=== PATIENT | male | born 1945 | race Caucasian/White ===

== ENCOUNTER → 2016-11-24 | Outpatient (CLI) | payer BC, OTHER ==
[~2016-11-24] MED LIST: ALT10 PO; ASPEC81 PO; CLC100 PO; CRD200 PO; DOCU1TAB6 PO; HYDR-5688 PO; HYG/25 PO; METO1TAB66 PO; MGNO400 PO; MULT-506 PO; MYL80 PO; OMEP20TA PO; OMEP40CA PO; ONDA8TAB6 PO; POTA1POW PO; POTA20TA16 PO; PROC1TAB5 PO; RXC5 PO; SIME80CH40 PO; TPRSR50 PO; TRAM-10 PO; ULT50X PO; simethicone
[2016-11-24 13:27] LABS: BASO % 0.3 %; BASO ABS # 0.02 K/uL (0-0.2); COMPLETE YES; EOS % 0.9 %; HEMATOCRIT 40.8 % (42-52); IG% 0.9 %; LYMPH % 7.2 %; LYMPH ABS # 0.47 K/uL (1.2-3.4); MEAN CELL VOLUME 89.9 fL (80-100); MEAN CORPUSCULAR HEMOGLOBIN 30.6 pg (25-34); MEAN CORPUSCULAR HGB CONC 34.1 g/dl (32-36); MEAN PLATELET VOLUME 10.9 fL (7.4-10.4); MONO % 4.1 %; NEUT % 86.6 %; PLATELET COUNT 223 K/uL (130-400); RED BLOOD COUNT 4.54 M/uL (4.7-6.1); WHITE BLOOD COUNT 6.52 K/uL (4.8-10.8)
[2016-11-24 13:35] LABS: ALT/SGPT 22 U/L (12-78); BLOOD UREA NITROGEN 19 mg/dl (7-18); BUN/CREATININE RATIO 16.9 (10-20); CALCIUM 8.6 mg/dl (8.5-10.1); CARBON DIOXIDE 30 mmol/L (21-32); CHLORIDE 96 mmol/L (98-107); GLUCOSE 191 mg/dl (70-99); POTASSIUM 3.4 mmol/L (3.5-5.1); SODIUM 135 mmol/L (136-145)
[2016-11-24 13:38] LABS: ALB/GLOB RATIO 0.8 (0.9-2); ALKALINE PHOSPHATASE 67 U/L (45-117); AST/SGOT 15 U/L (15-37)
[2016-11-25 11:49] LABS: MAGNESIUM 1.9 mg/dl (1.8-2.4)
== END | disposition home or self-care (01) ==
LOC: C.LABMFLN 09:24
PROVIDERS: ATTEND Internal Medicine Hematology & Oncology
DX: C16.0 Malignant neoplasm of cardia (principal)

== ENCOUNTER → 2016-12-01 | Outpatient (CLI) | payer BC, OTHER ==
[2016-12-01 18:14] LABS: BASO % 0.3 %; BASO ABS # 0.02 K/uL (0-0.2); COMPLETE YES; EOS % 1.3 %; IG% 0.6 %; LYMPH % 8.1 %; MEAN CELL VOLUME 90.1 fL (80-100); MEAN CORPUSCULAR HGB CONC 35.5 g/dl (32-36); MEAN PLATELET VOLUME 10.6 fL (7.4-10.4); MONO % 7.1 %; NEUT % 82.6 %; PLATELET COUNT 210 K/uL (130-400); RED BLOOD COUNT 4.44 M/uL (4.7-6.1); WHITE BLOOD COUNT 6.21 K/uL (4.8-10.8)
[2016-12-01 18:16] LABS: ALT/SGPT 24 U/L (12-78); AST/SGOT 12 U/L (15-37); BLOOD UREA NITROGEN 21 mg/dl (7-18); BUN/CREATININE RATIO 19.3 (10-20); CALCIUM 8.7 mg/dl (8.5-10.1); CARBON DIOXIDE 30 mmol/L (21-32); CHLORIDE 98 mmol/L (98-107); GLUCOSE 140 mg/dl (70-99); POTASSIUM 3.7 mmol/L (3.5-5.1); SODIUM 136 mmol/L (136-145)
[2016-12-01 18:18] LABS: ALKALINE PHOSPHATASE 69 U/L (45-117)
== END | disposition home or self-care (01) ==
LOC: C.LAB 15:13
PROVIDERS: ATTEND Internal Medicine Hematology & Oncology
DX: C16.0 Malignant neoplasm of cardia (principal)

== ENCOUNTER → 2017-01-12 | Outpatient (CLI) | payer BC, OTHER ==
[2017-01-12 13:16] LABS: BASO % 0.5 %; BASO ABS # 0.03 K/uL (0-0.2); COMPLETE YES; EOS % 4.5 %; HEMATOCRIT 34.6 % (42-52); IG% 0.4 %; LYMPH % 13.4 %; LYMPH ABS # 0.74 K/uL (1.2-3.4); MEAN CELL VOLUME 89.2 fL (80-100); MEAN CORPUSCULAR HEMOGLOBIN 31.4 pg (25-34); MEAN CORPUSCULAR HGB CONC 35.3 g/dl (32-36); MEAN PLATELET VOLUME 9.9 fL (7.4-10.4); MONO % 10.1 %; NEUT % 71.1 %; PLATELET COUNT 172 K/uL (130-400); RED BLOOD COUNT 3.88 M/uL (4.7-6.1); WHITE BLOOD COUNT 5.54 K/uL (4.8-10.8)
[2017-01-12 16:12] LABS: ALT/SGPT 25 U/L (12-78); AST/SGOT 21 U/L (15-37); BLOOD UREA NITROGEN 37 mg/dl (7-18); BUN/CREATININE RATIO 14.2 (10-20); CALCIUM 8.7 mg/dl (8.5-10.1); CARBON DIOXIDE 26 mmol/L (21-32); CHLORIDE 101 mmol/L (98-107); GLUCOSE 104 mg/dl (70-99); POTASSIUM 3.5 mmol/L (3.5-5.1); SODIUM 139 mmol/L (136-145)
[2017-01-12 16:18] LABS: ALB/GLOB RATIO 0.7 (0.9-2); ALKALINE PHOSPHATASE 67 U/L (45-117)
== END | disposition home or self-care (01) ==
LOC: C.LABMFLN 08:42
PROVIDERS: ATTEND Nurse Practitioner Family
DX: C16.0 Malignant neoplasm of cardia (principal)

== ENCOUNTER → 2017-01-14 | Outpatient (CLI) | payer BC, OTHER ==
[2017-01-14 17:51] LABS: BASO % 0.5 %; BASO ABS # 0.03 K/uL (0-0.2); COMPLETE YES; EOS % 3.3 %; HEMATOCRIT 33.7 % (42-52); IG% 0.2 %; LYMPH % 5.3 %; LYMPH ABS # 0.32 K/uL (1.2-3.4); MEAN CELL VOLUME 90.1 fL (80-100); MEAN CORPUSCULAR HEMOGLOBIN 31.3 pg (25-34); MEAN CORPUSCULAR HGB CONC 34.7 g/dl (32-36); MEAN PLATELET VOLUME 9.7 fL (7.4-10.4); MONO % 14.7 %; PLATELET COUNT 181 K/uL (130-400); RED BLOOD COUNT 3.74 M/uL (4.7-6.1); WHITE BLOOD COUNT 5.99 K/uL (4.8-10.8)
[2017-01-14 19:25] LABS: ALT/SGPT 25 U/L (12-78); AST/SGOT 18 U/L (15-37); BLOOD UREA NITROGEN 31 mg/dl (7-18); BUN/CREATININE RATIO 15.6 (10-20); CALCIUM 8.5 mg/dl (8.5-10.1); CARBON DIOXIDE 29 mmol/L (21-32); CHLORIDE 100 mmol/L (98-107); GLUCOSE 62 mg/dl (70-99); POTASSIUM 3.2 mmol/L (3.5-5.1); SODIUM 139 mmol/L (136-145)
[2017-01-14 19:28] LABS: ALB/GLOB RATIO 0.8 (0.9-2); ALKALINE PHOSPHATASE 64 U/L (45-117)
== END | disposition home or self-care (01) ==
LOC: C.LABMFLN 08:55
PROVIDERS: ATTEND Internal Medicine Hematology & Oncology
DX: C16.0 Malignant neoplasm of cardia (principal)

== ENCOUNTER → 2017-02-06 | Outpatient (CLI) | payer BC, OTHER ==
[~2017-02-06] MED LIST changes: +METO-452 PO; -METO1TAB66 PO; +MRLP17 PO; +MRN5 PO
[2017-02-06 09:18] VITALS: BP 111/74; PULSE 88; TEMP 36.5; O2SAT 96
--- NOTE | 2017-02-06 10:35 | Radiation Oncology Follow-Up ---
Radiation Oncology Follow-Up Date of Visit Feb 06, 2017. (Neris Lopez PA-C) Reason For Visit One-month follow-up in cancer survivorship care plan (Neris Lopez PA-C) Radiation Completion Date 12/26/16 (Neris Lopez PA-C) Diagnosis (1) Esophageal adenocarcinoma Status: Acute Onset Date: 10/06/2016 Location: distal Histology Subtype: adenocarcinoma Stage: ll Permanent Comment: Dysphagia Status post upper GI endoscopy with biopsies revealing adenocarcinoma 10/06/[address] with clinical staging at [place] N1 M0 Status post biopsy of paraesophageal lymph node revealing metastatic adenocarcinoma 10/29/2016 Status post combined radiation and chemotherapy, radiation completed 12/26/2016 received 5040 cGy Last Edited By: Neris Lopez on Jan 08, 2017 11:10 (Neris Lopez PA-C) History of Present Illness Mr. Uribe is a 71-year-old male who presented with difficulty swallowing starting in late July or early August. The patient had decided that he wanted to lose weight starting in November of this year. He was successful in this endeavor and had lost up to 50 pounds. With the difficulty swallowing he ultimately contacted his PCP Dr. Vinny Santa who immediately sent him to see Dr. Overton. An upper GI endoscopy was performed on 10/06/2016. This unfortunately revealed a large, ulcerating mass with bleeding identified at the gastroesophageal junction. The mass was partially obstructing and circumferential in nature. Stomach and examined duodenum were normal. Biopsies were recommended and performed. This biopsy confirmed a poorly differentiated adenocarcinoma. HER-2/josé miguel overexpression was negative. The tissue was sent for FISH analysis and tumor cells were negative for HER-2/josé miguel amplification by FISH also confirming the negative results obtained by IHC. Case: [id number]. Staging procedures were ordered and performed on October 08. These included a CT scan of the chest with contrast and CT scan of the abdomen and pelvis. CT scan of chest showed thickening at the extreme distal aspect of the esophagus and GE junction as well as the medial aspect of the fundal greater curvature of the stomach. The maximum dimension was 5.5 x 3.2 cm. The distal esophagus had a maximum diameter 3.1 cm. Several nodes were identified immediately adjacent to the gastric fundal region medially as well as posteriorly measuring up to 2.0 cm. There were several celiac axis nodes as well as several smaller nodes medially and posteriorly to the gastric cardia. The remainder of the chest was negative. CT scan of the abdomen and pelvis showed a masslike thickening of the distal esophagus measuring up to 4.5 cm in diameter. The abnormal thickening extended into the GE junction and proximal stomach. Multiple enlarged and partially necrotic gastrohepatic and proximal perigastric lymph nodes were identified. The dominant lymph node measured 2.2 cm and was consistent with metastatic disease. A stable 1 cm hypodense lesion was noted within the left hepatic lobe which was felt to be likely benign. A few additional scattered subcentimeter hypodense lesions were noted within the liver that are technically indeterminate due to their size. Some of these however new compared to a prior study with the largest new lesion measuring 6 mm within the right hepatic lobe. Multiple bilateral renal hypodense lesions are noted favoring cysts. The dominant lesion was seen within the left kidney measuring 2.2 cm. An infrarenal abdominal aorta measuring up to 3.5 cm in diameter. The patient was scheduled to be seen by Dr. Joseph on 10/15/2016. He arranged for the patient to be seen by Dr. Ayala. He suggested additional procedures to evaluate extent of the disease. Dr. Joseph also recommended consideration of a PET/CT scan which has not yet been scheduled but is in process. These are scheduled for tomorrow October 29. The biopsy on October 29 revealed metastatic adenocarcinoma in a paraesophageal lymph node. He returned to our office and underwent a CT simulation and received combined radiation and chemotherapy. Chemotherapy was comprised of weekly Taxol carboplatin. Radiation was completed 12/26/2016. He received 5040 cGy. (Neris Lopez PA-C) Interim History Please been doing well over this past month. He did go on his schedule cruise. He did have fatigue. He required IV hydration following his cruise. He has had minimal dysphagia. He has found that the bony food that causes some discomfort with swallowing is peanut butter and banana sandwiches. If he drinks plenty of fluid he does not have difficulty. His energy levels have steadily improved. He did not develop any skin irritation of the anterior posterior chest. His appetite is good. He did have additional weight loss since the completion of treatment approximately 6 pounds.. He is currently scheduled for a CT on July 12. He'll then be following up with in regards to his future surgery. (Neris Lopez PA-C) Allergies Coded Allergies: Adhesives (Unverified Allergy, Unknown, TAPE-RED ITCHY WITH SOME TAPE, 10/29/16) NO KNOWN DRUG ALLERGIES (Unverified Allergy, Unknown, NONE, 10/29/16) Home Medications Scheduled Chlorthalidone (Hygroton), 25 MG PO QAM Multivitamin (Multivitamin), 1 TAB PO QAM Omeprazole (Prilosec), 40 MG PO QAM Ramipril (Altace *), 10 MG PO QAM Scheduled PRN Ondansetron Hcl (Zofran), 8 MG PO Q8 PRN for Nausea Review of Systems Gastrointestinal: Symptoms: WNL GI Comments: Has antiemetic to use PRN, but not using; Oral: Symptoms: No Problems Other Oral Symptoms: Denies any trouble swallow, no pain in esophagus, can eat anything he wants Respiratory: Symptoms: WNL Urinary: Symptoms: WNL Skin: Symptoms: No Problems (Neris Lopez PA-C) Physical Exam Vital Signs Date Time Temp Pulse Resp B/P Pulse Ox O2 Delivery O2 Flow Rate FiO2 02/06/17 09:18 36.5 88 12 111/74 96 Fatigue: None General Appearance: no apparent distress Eyes: normal inspection, EOMI ENT: normal ENT inspection, hearing grossly normal Neck: no adenopathy, thyroid normal Respiratory/Chest: lungs clear, no respiratory distress, no accessory muscle use Cardiovascular: regular rate, rhythm, no gallop, no murmur Abdomen: non tender, soft Extremities: no pedal edema Neurologic/Psychiatric: no motor/sensory deficits, alert, normal mood/affect Skin: warm/dry Lymphatic: no adenopathy (Neris Lopez PA-C) Laboratory Studies Test 11/24/16 10:14 01/12/17 08:52 01/13/17 12:50 01/14/17 16:29 Magnesium Level 1.9 mg/dl (1.8-2.4) Lactate Dehydrogenase 161 U/L (87-241) 148 U/L (87-241) Urine Color YELLOW Urine Appearance CLEAR (CLEAR) Urine pH 5.5 (4.5-7.5) Urine Specific [place] 1.016 (1.000-1.030) Urine Protein TRACE (NEG) Urine Glucose (UA) NEG (NEG) Urine Ketones NEG (NEG) Urine Occult Blood NEG (NEG) Urine Nitrite NEG (NEG) Urine Bilirubin NEG (NEG) Urine Urobilinogen NEG (NEG) Urine Leukocyte Esterase SMALL (NEG) Urine WBC (Auto) 10-30 /hpf (0-5) Urine RBC (Auto) 0-4 /hpf (0-4) Urine Hyaline Casts (Auto) 5-10 /lpf (0-5) Urine Epithelial Cells (Auto) >30 /lpf (0-5) Urine Bacteria (Auto) NEG (NEG) Urine Renal Epithelial Cells /lpf (0-5) White Blood Count 5.99 K/uL (4.8-10.8) Red Blood Count 3.74 M/uL (4.7-6.1) Hemoglobin 11.7 g/dL (14.0-18.0) Hematocrit 33.7 % (42-52) Mean Corpuscular Volume 90.1 fL (80-100) Mean Corpuscular Hemoglobin 31.3 pg (25-34) Mean Corpuscular Hemoglobin Concent 34.7 g/dl (32-36) Platelet Count 181 K/uL (130-400) Mean Platelet Volume 9.7 fL (7.4-10.4) Neutrophils (%) (Auto) 76.0 % Lymphocytes (%) (Auto) 5.3 % Monocytes (%) (Auto) 14.7 % Eosinophils (%) (Auto) 3.3 % Basophils (%) (Auto) 0.5 % Neutrophils # (Auto) 4.55 K/uL (1.4-6.5) Lymphocytes # (Auto) 0.32 K/uL (1.2-3.4) Monocytes # (Auto) 0.88 K/uL (0.11-0.59) Eosinophils # (Auto) 0.20 K/uL (0-0.5) Basophils # (Auto) 0.03 K/uL (0-0.2) RDW Standard Deviation 51.5 fL (36.4-46.3) RDW Coefficient of Variation 15.7 % (11.5-14.5) Immature Granulocyte % (Auto) 0.2 % Immature Granulocyte # (Auto) 0.01 K/uL (0.00-0.02) Sodium Level 139 mmol/L (136-145) Potassium Level 3.2 mmol/L (3.5-5.1) Chloride Level 100 mmol/L (98-107) Carbon Dioxide Level 29 mmol/L (21-32) Anion Gap 10.0 mmol/L (3-11) Blood Urea Nitrogen 31 mg/dl (7-18) Creatinine 2.00 mg/dl (0.60-1.40) Estimated GFR () 37.3 Estimated GFR (Non- 32.2 BUN/Creatinine Ratio 15.6 (10-20) Random Glucose 62 mg/dl (70-99) Calcium Level 8.5 mg/dl (8.5-10.1) Total Bilirubin 0.3 mg/dl (0.2-1) Aspartate Amino Transferase (AST) 18 U/L (15-37) Alanine Aminotransferase (ALT) 25 U/L (12-78) Alkaline Phosphatase 64 U/L (45-117) Total Protein 6.3 gm/dl (6.4-8.2) Albumin 2.8 gm/dl (3.4-5.0) Globulin 3.5 gm/dl (2.5-4.0) Albumin/Globulin Ratio 0.8 (0.9-2) Test 01/20/17 10:11 White Blood Count 5.59 K/uL (4.8-10.8) Red Blood Count 3.76 M/uL (4.7-6.1) Hemoglobin 12.1 g/dL (14.0-18.0) Hematocrit 34.6 % (42-52) Mean Corpuscular Volume 92.0 fL (80-100) Mean Corpuscular Hemoglobin 32.2 pg (25-34) Mean Corpuscular Hemoglobin Concent 35.0 g/dl (32-36) Platelet Count 156 K/uL (130-400) Mean Platelet Volume 9.4 fL (7.4-10.4) Neutrophils (%) (Auto) 76.3 % Lymphocytes (%) (Auto) 15.9 % Monocytes (%) (Auto) 3.6 % Eosinophils (%) (Auto) 3.6 % Basophils (%) (Auto) 0.4 % Neutrophils # (Auto) 4.27 K/uL (1.4-6.5) Lymphocytes # (Auto) 0.89 K/uL (1.2-3.4) Monocytes # (Auto) 0.20 K/uL (0.11-0.59) Eosinophils # (Auto) 0.20 K/uL (0-0.5) Basophils # (Auto) 0.02 K/uL (0-0.2) RDW Standard Deviation 53.1 fL (36.4-46.3) RDW Coefficient of Variation 15.9 % (11.5-14.5) Immature Granulocyte % (Auto) 0.2 % Immature Granulocyte # (Auto) 0.01 K/uL (0.00-0.02) Sodium Level 142 mmol/L (136-145) Potassium Level 3.2 mmol/L (3.5-5.1) Chloride Level 102 mmol/L (98-107) Carbon Dioxide Level 32 mmol/L (21-32) Anion Gap 8.0 mmol/L (3-11) Blood Urea Nitrogen 23 mg/dl (7-18) Creatinine 1.60 mg/dl (0.60-1.40) Estimated GFR () 48.8 Estimated GFR (Non- 42.1 BUN/Creatinine Ratio 14.5 (10-20) Random Glucose 109 mg/dl (70-99) Calcium Level 8.7 mg/dl (8.5-10.1) Total Bilirubin 0.5 mg/dl (0.2-1) Aspartate Amino Transferase (AST) 16 U/L (15-37) Alanine Aminotransferase (ALT) 22 U/L (12-78) Alkaline Phosphatase 76 U/L (45-117) Total Protein 6.5 gm/dl (6.4-8.2) Albumin 2.8 gm/dl (3.4-5.0) Globulin 3.7 gm/dl (2.5-4.0) Albumin/Globulin Ratio 0.8 (0.9-2) (Neris Lopez PA-C) Assessment & Plan Plan: Patient was seen and examined by Dr. Olea. He'll be having the CT scan on Thursday and following up with the thoracic surgeon. Today we completed a cancer survivorship care plan. A copy of the document was given to the patient. He was also given a survivorship booklet. We will review the results of the CT scan. We asked him to return to our office in 6 months. He may call if he has any questions or concerns in the interim. He'll continue regular follow-up with his PCP and Dr. Joseph. (Neris Lopez PA-C) I agree with note created by Neris Lopez PA-C. I reviewed the patient's chart and information with her. I have examined and evaluated the patient. I reviewed relevant clinical information and answered the patient's and/or family' s questions. (Veeral. Olea MD) Total Time In Follow-Up I spent 20 minutes speaking to the patient performing examination. I spent 20 minutes reviewing information, preparing the survivorship document, and completing this note. (Neris Lopez PA-C) I spent 10 minutes examining and counseling the patient. (Veeral. Olea MD) Copy To Vinny Santa M.D.; Jeffery Joseph MD; Colin Stallworth MD
== END | disposition home or self-care (01) ==
LOC: C.ONC 09:09
PROVIDERS: ATTEND Physician Assistant Medical
DX: Z08 Encounter for follow-up examination after completed treatment for malignant neoplasm (principal); Z92.3 Personal history of irradiation; Z85.01 Personal history of malignant neoplasm of esophagus

== ENCOUNTER → 2017-02-09 | Outpatient (CLI) | payer BC, OTHER ==
[~2017-02-09] MED LIST changes: -METO-452 PO; +METO1TAB66 PO; -MRLP17 PO; -MRN5 PO; -POTA1POW PO
[2017-02-09 18:42] LABS: BASO % 0.2 %; BASO ABS # 0.01 K/uL (0-0.2); COMPLETE YES; HEMATOCRIT 32.5 % (42-52); IG% 0.2 %; LYMPH % 7.6 %; LYMPH ABS # 0.41 K/uL (1.2-3.4); MEAN CELL VOLUME 96.2 fL (80-100); MEAN CORPUSCULAR HEMOGLOBIN 32.2 pg (25-34); MEAN CORPUSCULAR HGB CONC 33.5 g/dl (32-36); MEAN PLATELET VOLUME 10.1 fL (7.4-10.4); MONO % 14.4 %; NEUT % 75.6 %; PLATELET COUNT 185 K/uL (130-400); RED BLOOD COUNT 3.38 M/uL (4.7-6.1); WHITE BLOOD COUNT 5.41 K/uL (4.8-10.8)
[2017-02-09 18:45] LABS: BLOOD UREA NITROGEN 19 mg/dl (7-18); BUN/CREATININE RATIO 12.5 (10-20); CALCIUM 8.8 mg/dl (8.5-10.1); CARBON DIOXIDE 32 mmol/L (21-32); CHLORIDE 103 mmol/L (98-107); GLUCOSE 80 mg/dl (70-99); POTASSIUM 3.9 mmol/L (3.5-5.1); SODIUM 141 mmol/L (136-145)
[2017-02-09 18:48] LABS: ALB/GLOB RATIO 0.8 (0.9-2); ALKALINE PHOSPHATASE 80 U/L (45-117); ALT/SGPT 19 U/L (12-78); AST/SGOT 17 U/L (15-37)
== END | disposition home or self-care (01) ==
LOC: C.LABMFLN 14:15
PROVIDERS: ATTEND Internal Medicine Hematology & Oncology
DX: C16.0 Malignant neoplasm of cardia (principal)

== ENCOUNTER → 2017-02-09 | Outpatient (CLI) | payer BC, OTHER ==
[~2017-02-09] MED LIST changes: +OPTIRAY 320 IV PRN
--- NOTE | 2017-02-09 09:37 | DIAGNOSTIC IMAGING REPORT ---
CT SCAN OF THE CHEST WITH IV CONTRAST CLINICAL HISTORY: Pulmonary nodule. Esophageal cancer. COMPARISON STUDY: Chest CT scans dated 10/08/2016 and 01/12/2009. PET CT dated 11/12/2016. TECHNIQUE: Following the IV administration of 120 cc of Optiray 320, CT scan of the thorax was performed from the thoracic inlet to the upper abdomen. Images are reviewed in the axial, sagittal, and coronal planes. IV contrast was administered without complication. CT DOSE: 420.59 mGycm FINDINGS: Thyroid: Imaged portions of the thyroid gland are normal in size and attenuation. Thoracic aorta: There is atherosclerotic calcification of the thoracic aorta, which is normal in caliber and demonstrates standard 3-vessel arch anatomy. No dissection is seen. Pulmonary vasculature: The pulmonary trunk is normal in caliber. There are no filling defects identified in the central pulmonary vessels to indicate pulmonary embolus. Note that this examination was not protocoled for evaluation of the pulmonary arteries. Heart: The heart is normal in size and configuration, and without pericardial effusion. The coronary arteries are densely calcified. Lungs and pleural spaces: Evaluation of the lung parenchyma is degraded by motion artifact. There is moderate emphysema end biapical scarring. No airspace consolidation is seen typical for pneumonia and there is no pleural effusion. The trachea and central airways are clear. There is mild elevation of the right hemidiaphragm with right basilar atelectasis. There is a 6 mm right lower lobe pulmonary nodule on image #128 and a 5 mm left lower lobe pulmonary nodule on image #241. These are unchanged dating back to 2008 and of doubtful significance. No new or concerning pulmonary lesion is seen. Mediastinum: There is no mediastinal lymphadenopathy. Nuris: Clear. Axillae: There is no axillary lymphadenopathy. Upper abdomen: There is a moderate hiatal hernia. Wall thickening suggested at the gastroesophageal junction. There are enlarging low attenuation. Perigastric and gastrohepatic lymph nodes as compared to 10/08/2016. Subcentimeter hepatic hypodensities marrow present cysts but are too small for definitive characterization. Skeletal structures: The skeletal structures are osteopenic. There is mild degenerative change noted throughout the thoracic spine. No lytic or blastic bony lesions are seen. IMPRESSION: 1. Emphysema. 2. There is no evidence of intrathoracic metastatic disease. 3. No airspace consolidation or pleural effusion is evident. 4. There are 2 pulmonary nodules measuring up to 6 mm. These are unchanged dating back to 2008 and of doubtful significance. No new/concerning pulmonary lesion is seen. 5. Hiatal hernia. Marked wall thickening is suggested in the distal esophagus/proximal stomach. This is likely related to the patient's known cancer history. This appears to have increased as compared to the 11/12/2016 PET examination, which could represent disease progression or possibly treatment related change. 6. Enlarging low-density perigastric and gastrohepatic lymph nodes as compared to 11/12/2016. Again, this could represent disease progression or possibly treatment related change. Electronically signed by: Terell Diza M.D. 02/09/2017 9:35 AM Dictated Date/Time: 02/09/2017 9:24 AM
== END | disposition home or self-care (01) ==
LOC: C.CTS 08:17
PROVIDERS: ATTEND Surgery
DX: R91.1 Solitary pulmonary nodule (principal); J43.9 Emphysema, unspecified; K44.9 Diaphragmatic hernia without obstruction or gangrene; C16.0 Malignant neoplasm of cardia

== ENCOUNTER 2017-03-09 05:20 | Inpatient (IN) | payer BC, OTHER ==
[2017-02-24 15:13] VITALS: BMI 27.0
[2017-03-04 10:08] VITALS: BMI 26.0
--- NOTE | 2017-03-04 10:32 | PAT Medication Instructions ---
Service Date Mar 04, 2017. Current Home Medication List Chlorthalidone (Hygroton), 25 MG PO QAM Multivitamin (Multivitamin), 1 TAB PO QAM Omeprazole (Prilosec), 40 MG PO HS Ondansetron Hcl (Zofran), 8 MG PO Q8H PRN for Nausea Ramipril (Altace *), 10 MG PO QAM Medication Instructions For Your Scheduled Surgery - Hold the following medications the morning of surgery: Ramipril (Altace *), 10 MG PO QAM Chlorthalidone (Hygroton), 25 MG PO QAM Multivitamin (Multivitamin), 1 TAB PO QAM - Take the following medications the morning of surgery with a sip of water OTHERWISE NOTHING TO EAT OR DRINK AFTER MIDNIGHT: Omeprazole (Prilosec), 40 MG PO HS Ondansetron Hcl (Zofran), 8 MG PO Q8H PRN (IF NEEDED) If you have any questions please call us at [phone] or [phone] or [phone]
[2017-03-09] VITALS (9 sets, daily range): BP systolic 107–190; BP diastolic 66–109; PULSE 67–111; TEMP 36.3–39.3; O2SAT 90–93; Ht 175.3 cm; Wt 81.4 kg
[~2017-03-09] VITALS: Ht 175.3 cm; Wt 81.4 kg
[~2017-03-09 05:20] MED LIST changes: -ASPEC81 PO; -CLC100 PO; -CRD200 PO; -DOCU1TAB6 PO; -HYDR-5688 PO; -METO1TAB66 PO; -MGNO400 PO; -MYL80 PO; -OMEP20TA PO; -OPTIRAY 320 IV PRN; -POTA20TA16 PO; -PROC1TAB5 PO; -RXC5 PO; -SIME80CH40 PO; -TPRSR50 PO; -TRAM-10 PO; -ULT50X PO; -simethicone
[2017-03-09] MEDS: LACTATED RINGER'S 1000ML 1,000 ML IV SCH ×2 (06:00→06:30)
[2017-03-09] MEDS ORDERED: DEXAMETHASONE SOD INJ 4 MG/ML VIAL ONE (06:46)
[2017-03-09] MEDS ORDERED: ONDANSETRON INJ 2 MG/ML 2 ML VIAL ONE (06:46)
[2017-03-09] MEDS ORDERED: MIDAZOLAM HCL 1 MG/ML 2ML VIAL ONE (06:46)
[2017-03-09] MEDS ORDERED: LIDOCAINE HCL 2% 2 ML VIAL (20MG/ML) ONE (06:46)
[2017-03-09] MEDS ORDERED: ROCURONIUM BROMIDE 10 MG/ML 5 ML VIAL ONE (06:46)
[2017-03-09] MEDS ORDERED: PROPOFOL IV EMULSION 10 MG/ML 20 ML VIAL IV ONE (06:46)
[2017-03-09] MEDS ORDERED: GLYCOPYRROLATE INJ 0.2 MG/ML VIAL ONE (06:46)
[2017-03-09] MEDS ORDERED: NEOSTIGMINE METHYLSULFATE 5 MG/5 ML SYR ONE (06:46)
[2017-03-09] MEDS ORDERED: FENTANYL CITRATE INJ 50 MCG/1 ML 2 ML VIAL ONE (06:46)
[2017-03-09] MEDS ORDERED: BUPIVACAINE LIPOSOME 1/3% 266 MG/20 ML VIAL INFIL ONE (07:09)
[2017-03-09] MEDS ORDERED: SODIUM CHLORIDE 0.9% INJ 10 ML VIAL ONE (07:10)
[2017-03-09] MEDS ORDERED: SODIUM CHLORIDE 0.9% PF 50 ML VIAL ONE (07:10)
--- NOTE | 2017-03-09 07:35 | DIAGNOSTIC IMAGING REPORT ---
CHEST ONE VIEW PORTABLE HISTORY: PRE-OP HAS FEVER COMPARISON: Chest 10/14/2014. FINDINGS: Elevation of the right hemidiaphragm. Mild emphysema. The heart is normal in size. No focal lung consolidations to suggest pneumonia. No evidence for pulmonary edema. No pleural effusions. No pneumothorax. IMPRESSION: Elevation of the right hemidiaphragm. Mild emphysema. Electronically signed by: Sean Cesar M.D. 03/09/2017 7:33 AM Dictated Date/Time: 03/09/2017 7:32 AM
[2017-03-09 07:54] LABS: MEAN CELL VOLUME 95.7 fL (80-100); MEAN CORPUSCULAR HEMOGLOBIN 33.5 pg (25-34); MEAN PLATELET VOLUME 9.7 fL (7.4-10.4); PLATELET COUNT 173 K/uL (130-400); RED BLOOD COUNT 3.76 M/uL (4.7-6.1); WHITE BLOOD COUNT 12.09 K/uL (4.8-10.8)
[2017-03-09] MEDS ORDERED: ONDANSETRON INJ 2 MG/ML 2 ML VIAL IV PRN (08:15)
[2017-03-09 08:18] LABS: BASO % 0.1 %; BASO ABS # 0.01 K/uL (0-0.2); COMPLETE YES; EOS % 0.3 %; IG% 0.2 %; LYMPH % 2.8 %; LYMPH ABS # 0.34 K/uL (1.2-3.4); MONO % 3.6 %
[2017-03-09 09:11] LABS: URINE APPEARANCE CLEAR (CLEAR); URINE BILIRUBIN NEG (NEG); URINE COLOR YELLOW; URINE NITRITE NEG (NEG); UROBILINOGEN NEG (NEG)
[2017-03-09 09:20] LABS: MANUAL MICROSCOPIC REQUIRED? NO; REVIEW REQ? YES
[2017-03-09] MEDS: SODIUM CHLORIDE 0.9% 1000ML 1,000 ML IV SCH ×2 (10:36→21:04)
--- NOTE | 2017-03-09 10:44 | HISTORY & PHYSICAL EXAMINATION ---
DATE OF ADMISSION: 03/09/2017 REASON FOR ADMISSION: Fever of unknown origin in a patient with esophageal cancer. HISTORY OF PRESENT ILLNESS: Vinny Uribe is a 71-year-old male who was found to have adenocarcinoma at the gastroesophageal junction underwent neoadjuvant chemoradiation under the direction of Dr. Jeffery Joseph and Dr. Jessica Olea. He has actually done quite well with this and I have him readied for a minimally invasive esophagogastrectomy today 03/09/2017. Getting the patient ready for surgery. He states that he had been fine; however, the patient was noted to have a fever. His temperature was 39.3. He denied productive cough. He has had no problems with urine. When he got up to walk he was a bit ataxic and then had difficulties controlling his urine, which he states has never happened. I am concerned about him. I discussed this case with Dr. Spear. I am going to admit him for observation to workup his fever. We are going to get infectious disease and medical oncology to evaluate him. His x-ray showed no evidence of an infiltrate. His white count was 12,090 with a hemoglobin of 12.6, his platelet count is 173,000. He has decreased breath sounds but really no rales or wheezing upon auscultation of his lungs. He has no abdominal tenderness. He has no joint effusions. I detect no edema of the lower extremities. He has a negative Homans sign bilaterally. He denies pharyngeal symptoms and has no evidence of any pharyngitis on exam with a clear oropharynx. For specifics of his history and physical exam, please see my pre-op H & P. At this point, I am going to cancel his surgery. Dr. Spear and Dr. Aquino will see him from medical oncology and infectious disease respectively. I have sent blood cultures off and we will see how he looks tomorrow. Hopefully, we can get him rescheduled soon. BJ
[2017-03-09] MEDS: ACETAMINOPHEN 325 MG TAB PO PRN ×2 (10:45→16:27)
[2017-03-09] MEDS: MULTIVITAMIN TAB PO SCH (11:55)
[2017-03-09] MEDS: ENALAPRIL MALEATE 10 MG TAB PO SCH (11:57)
--- NOTE | 2017-03-09 14:14 | ONCOLOGY CONSULTATION ---
DATE OF CONSULTATION: 03/09/2017 REASON FOR CONSULTATION: Low grade fever in this pleasant 71-year-old gentleman with early stage esophageal adenocarcinoma. HISTORY OF PRESENT ILLNESS: Mr. Uribe is a 71-year-old gentleman well known to [facility], recently diagnosed with early stage (IIB) adenocarcinoma of the distal esophagus. He is currently under Dr. Joseph's care and was sent to Dr. Colin Stallworth for esophagectomy. I received a call from Dr. Stallworth this morning poised to perform procedure when Mr. Uribe developed a low grade fever. On repeat temperature, 39.3 was measured. He denies any other symptoms otherwise including dysuria or hematuria, cough, shortness of breath, abdominal pain, diarrhea, constipation or rectal bleeding at this time. His WBC count was minimally raised with a hemoglobin 12.6 and platelet count 173,000. His auscultated exam was otherwise unremarkable. Blood and urine cultures were obtained. The patient is currently in holding pattern. PAST MEDICAL HISTORY: Again, significant for esophageal cancer and gastroesophageal reflux disease and hypertension. PAST SURGICAL HISTORY: Negative. SOCIAL HISTORY: The patient is retired and further retired from [employer]. He is a nonsmoker, nondrinker. FAMILY HISTORY: Noncontributory. MEDICATIONS: Potassium chloride ER, dose unknown; chlorthalidone, dose unknown; omeprazole, dose unknown; ramipril, dose unknown. ALLERGIES: No known drug allergies. REVIEW OF SYSTEMS: GENERAL: Positive for low grade fever, no chills or sweats. He has not been losing weight or complaining of anorexia. SKIN: No rashes or lesions. No history of dermatoses. HEENT: He denies headaches, lightheadedness or dizziness. No visual or hearing deficits. No sinus symptoms, sore throat or dysphagia. LYMPH: No history of lymphoproliferative disorder. CARDIAC: Negative for coronary artery disease, no angina or palpitations. PULMONARY: Negative for COPD. No shortness of breath, dyspnea or orthopnea. No cough or hemoptysis. GASTROINTESTINAL: Negative for abdominal pain, nausea, vomiting, diarrhea or constipation, hematochezia or melena stools. GENITOURINARY: No history of prostate disease. No hematuria, dysuria or urinary incontinence. MUSCULOSKELETAL: No arthralgias or myalgias. No muscle weakness. ENDOCRINE: Negative for thyroid disease or diabetes mellitus. NEUROLOGIC: Negative for seizure, stroke, or migraine headache. HEMATOLOGIC: Negative for anemia, thrombophilia or bleeding diathesis. PHYSICAL EXAMINATION: GENERAL: Very pleasant 71-year-old gentleman in no acute distress at this time. VITAL SIGNS: Temperature 39.2, pulse 104, respiration rate 16, blood pressure 132/80, pulse ox 92% on room air. SKIN: Warm, dry, noncyanotic without petechia, rash or ecchymosis. HEENT: Head is atraumatic, normocephalic. EYES: PERRLA, EOMI. Sclerae nonicteric. No conjunctival injection. Nares are patent without rhinorrhea or discharge. Throat is clear. Tongue is midline. Mucous membranes are moist. NECK: Supple without JVD or thyromegaly. LYMPH: No cervical, supraclavicular, axillary or inguinal palpable nodes. HEART: Regular rate and rhythm. No clicks, rubs, murmurs or gallops. LUNGS: Clear to auscultation bilaterally. ABDOMEN: Soft, nontender, nondistended, without palpable hepatosplenomegaly. EXTREMITIES: No calf tenderness or swelling. No clubbing, cyanosis or edema. NEUROLOGICAL: He is awake, alert and oriented x3. Cranial nerves II-XII are intact. No gross motor or sensory deficits noted. LABORATORY DATA: WBC count 12,090, hemoglobin 12.6, platelet count 173,000. ANC 11,230. UA - large wbc's, moderate leukocyte esterase, 1+ protein, trace occult blood. IMAGING DATA: Chest x-ray shows elevation of right hemidiaphragm and mild emphysematous changes. IMPRESSION: 1. Low grade fever, origin unknown. 2. Stage IIB adenocarcinoma of the distal esophagus. PLAN: Mr. Uribe is a very pleasant 71-year-old gentleman recently diagnosed with a relatively early stage esophageal cancer. He was admitted to undergo minimally invasive esophagectomy. I was contacted by Dr. Stallworth this morning, reporting the patient experiencing low grade fever. Appropriately, he was placed in the hospital and orellana cultured. Based on his UA an underlying urinary tract infection versus prostatitis is most likely. Will await Gram stain for confirmation. I trust medical team will start the appropriate antimicrobials as warranted. As for as surgery, I believe Dr. Stallworth wants to wait until he is medically stable. Other considerations include a tumor fever. His pulse ox is somewhat low; however, with the emphysematous changes, this may be his baseline. May want to consider CTA of the chest to rule out an occult PE. Thank you for allowing us to participate in his care. Will continue to follow him periodically during his hospital stay.
--- NOTE | 2017-03-09 15:03 | Medical Consult ---
Consultation Date of Consultation: Mar 09, 2017. Attending Physician: Colin Stallworth MD Reason for Consultation: Esophageal CA- fever History of Present Illness Patient is a 71 yo male who presented to the hospital for esophagogastrectomy by Dr. Stallworth. The patient was ready to undergo surgery when he was noted to have fever of 39.3 C. The patient states that he has been feeling well prior to admission. He has had no recent sick contacts. He denies fever at home, sweats, chills, SOB, chest pain, abdominal pain, N/V/D, urinary frequency, urgency, dysuria, or retention, lower extremity edema, calf tenderness, weakness or rashes. He did go on a cruise in December, but otherwise has not traveled recently. He has urine, sputum, and blood cultures pending. CXR showed elevation of the right hemidiaphragm and mild emphysema but otherwise no acute process. He has had some mild dry cough. Rapid flu A & B were negative. Urinalysis showed moderate leukocyte esterase, >30 WBC's, and trace occult blood but negative for bacteria. His WBC count was 12 on admission as well. Past Medical/Surgical History Adenocarcinoma at [place] s/p chemoradiation Family History Noncontributory Social History Smoking Status: Former Smoker Allergies Coded Allergies: Adhesives (Verified Allergy, Unknown, TAPE-RED ITCHY WITH SOME TAPE, ) NO KNOWN DRUG ALLERGIES (Verified Allergy, Unknown, NONE, 03/09/17) Home Medications Reported Home Medications Medications Dose Route/Sig Max Daily Dose Days Date Category Hygroton (Chlorthalidone) 25 Mg Tab 25 Mg PO QAM 02/24/17 Reported Zofran (Ondansetron HCl) 8 Mg Tab 8 Mg PO Q8H PRN 02/06/17 Reported Multivitamin (Multivitamins) Tab 1 Tab PO QAM 09/29/16 Reported Prilosec (Omeprazole) 40 Mg Capcr 40 Mg PO HS 09/29/16 Reported Altace * (Ramipril) 10 Mg Cap 10 Mg PO QAM 08/07/08 Reported Current Inpatient Medications Current Inpatient Medications Medications (Trade) Dose Ordered Sig/Bulmaro Route Start Time Stop Time Status Last Admin Dose Admin Lactated Ringer's (Lr 1000ml) 1,000 ml @ 15 mls/hr Q24H IV 03/09/17 06:00 03/10/17 05:59 03/09/17 06:30 15 MLS/HR Enoxaparin Sodium (Lovenox Inj) 40 mg DAILY SQ 03/10/17 09:00 04/09/17 08:59 Acetaminophen (Tylenol Tab) 650 mg Q4H PRN PO 03/09/17 08:15 04/08/17 08:14 03/09/17 10:45 650 MG Ondansetron HCl (Zofran Inj) 4 mg Q6H PRN IV 03/09/17 08:15 04/08/17 08:14 Multivitamins (Multivitamin Tab) 1 tab QAM PO 03/09/17 10:30 04/08/17 10:29 03/09/17 11:55 1 TAB Pantoprazole Sodium (Protonix Tab) 40 mg HS PO 03/09/17 21:00 04/08/17 20:59 Enalapril Maleate 40 mg 40 mg QAM PO 03/09/17 10:30 04/08/17 10:29 03/09/17 11:57 40 MG Sodium Chloride (Nss 1000ml) 1,000 ml @ 75 mls/hr [id number] IV 03/09/17 10:15 04/08/17 10:14 03/09/17 10:36 75 MLS/HR Review of Systems Constitutional: + fever, No chills, No sweats, No weakness Eyes: No worsening of vision ENT: No hearing loss, No sore throat Respiratory: + cough (dry), No dyspnea on exertion, No shortness of breath Cardiovascular: No chest pain Abdomen: No diarrhea, No nausea, No pain, No vomiting Musculoskeletal: No joint pain, No muscle pain, No swelling Genitourinary - Male: No dysuria, No hematuria, No urinary frequency, No urinary hesitancy, No urinary retention, No urinary urgency Integumentary: No itch, No rash Physical Exam Date Time Temp Pulse Resp B/P Pulse Ox O2 Delivery O2 Flow Rate FiO2 03/09/17 11:59 37.7 03/09/17 10:55 39.2 104 16 132/80 92 Room Air 03/09/17 10:55 Room Air 03/09/17 09:41 39.3 111 19 190/97 90 Room Air 03/09/17 09:40 Room Air 03/09/17 09:00 37.7 112 20 158/98 93 Room Air 03/09/17 06:05 37.6 109 18 157/109 93 Room Air General Appearance: WD/WN, no apparent distress Head: normocephalic, atraumatic Eyes: normal inspection, sclerae normal ENT: normal ENT inspection Neck: supple, trachea midline Respiratory/Chest: lungs clear, no respiratory distress, no accessory muscle use, + decreased breath sounds (throughout) Cardiovascular: regular rate, rhythm, no murmur Abdomen/GI: normal bowel sounds, non tender, soft Extremities/Musculoskelatal: normal inspection, no calf tenderness, no pedal edema Neurologic/Psych: alert, normal mood/affect, oriented x 3 Skin: normal color, warm/dry, no rash Laboratory Results CHEST ONE VIEW PORTABLE HISTORY: PRE-OP HAS FEVER COMPARISON: Chest 10/14/2014. FINDINGS: Elevation of the right hemidiaphragm. Mild emphysema. The heart is normal in size. No focal lung consolidations to suggest pneumonia. No evidence for pulmonary edema. No pleural effusions. No pneumothorax. IMPRESSION: Elevation of the right hemidiaphragm. Mild emphysema. Item Value Date Time Urine Culture Received 03/09/17 0845 Urine , Clean Catch Pending Gram Stain Jose Miguel Batch 03/09/17 0804 Sputum Expectorated Sputum Pending Blood Culture Received 03/09/17 0737 Blood Pending Blood Culture Received 03/09/17 0726 Blood Pending Last 24 Hours Test 03/09/17 06:01 03/09/17 07:26 03/09/17 08:45 03/09/17 13:10 Bedside Glucose 139 mg/dl White Blood Count 12.09 K/uL Red Blood Count 3.76 M/uL Hemoglobin 12.6 g/dL Hematocrit 36.0 % Mean Corpuscular Volume 95.7 fL Mean Corpuscular Hemoglobin 33.5 pg Mean Corpuscular Hemoglobin Concent 35.0 g/dl Platelet Count 173 K/uL Mean Platelet Volume 9.7 fL Neutrophils (%) (Auto) 93.0 % Lymphocytes (%) (Auto) 2.8 % Monocytes (%) (Auto) 3.6 % Eosinophils (%) (Auto) 0.3 % Basophils (%) (Auto) 0.1 % Neutrophils # (Auto) 11.23 K/uL Lymphocytes # (Auto) 0.34 K/uL Monocytes # (Auto) 0.44 K/uL Eosinophils # (Auto) 0.04 K/uL Basophils # (Auto) 0.01 K/uL RDW Standard Deviation 48.1 fL RDW Coefficient of Variation 13.7 % Immature Granulocyte % (Auto) 0.2 % Immature Granulocyte # (Auto) 0.03 K/uL Urine Color YELLOW Urine Appearance CLEAR Urine pH 6.0 Urine Specific [place] 1.010 Urine Protein 1+ Urine Glucose (UA) NEG Urine Ketones NEG Urine Occult Blood TRACE Urine Nitrite NEG Urine Bilirubin NEG Urine Urobilinogen NEG Urine Leukocyte Esterase MODERATE Urine WBC (Auto) >30 /hpf Urine RBC (Auto) 0-4 /hpf Urine Hyaline Casts (Auto) 1-5 /lpf Urine Epithelial Cells (Auto) 5-10 /lpf Urine Bacteria (Auto) NEG Urine Renal Epithelial Cells /lpf Influenza Type A Antigen Neg for Influ A Influenza Type B Antigen Neg for Influ B Assessment & Plan Patient with adenocarcinoma and fever. It seems likely that this patient could have tumor related fever, but his urinalysis showed pyuria and moderate leukocyte esterase, so UTI is also possibility. Will start IV Ceftriaxone pending urine and blood culture results. We will follow. Case reviewed and agree with above assessment.
[2017-03-09] MEDS: CEFTRIAXONE SOD INJ 2,000 MG in DEXTROSE 5% 50ML 50 ML IV SCH (16:26)
[2017-03-09] MEDS: PANTOprazole SOD 40 MG TAB PO SCH (21:03)
[2017-03-10 06:47] LABS: BASO % 0.1 %; BASO ABS # 0.01 K/uL (0-0.2); COMPLETE YES; EOS % 4.5 %; IG% 0.1 %; LYMPH % 8.1 %; LYMPH ABS # 0.55 K/uL (1.2-3.4); MEAN CELL VOLUME 97.5 fL (80-100); MEAN CORPUSCULAR HEMOGLOBIN 32.7 pg (25-34); MEAN CORPUSCULAR HGB CONC 33.5 g/dl (32-36); MEAN PLATELET VOLUME 9.6 fL (7.4-10.4); MONO % 4.2 %; PLATELET COUNT 150 K/uL (130-400); RED BLOOD COUNT 3.18 M/uL (4.7-6.1); WHITE BLOOD COUNT 6.83 K/uL (4.8-10.8)
[2017-03-10 07:15] LABS: BUN/CREATININE RATIO 14.9 (10-20); CALCIUM 8.2 mg/dl (8.5-10.1); CREATININE 1.8 mg/dl (0.60-1.40); MAGNESIUM 2.1 mg/dl (1.8-2.4); POTASSIUM 3.4 mmol/L (3.5-5.1)
[2017-03-10 07:19] VITALS: BP 127/82; PULSE 63; TEMP 37; O2SAT 93
[2017-03-10] MEDS ORDERED: ENOXAPARIN 40 MG/0.4 ML SYR SQ SCH (09:00)
[2017-03-10] MEDS: MULTIVITAMIN TAB PO SCH (09:07)
[2017-03-10] MEDS: ENALAPRIL MALEATE 10 MG TAB PO SCH (09:07)
--- NOTE | 2017-03-10 10:10 | HEME/ONC PROGRESS NOTE ---
DATE: 03/10/2017 DIAGNOSES: 1. Early stage distal esophageal adenocarcinoma. 2. Fever of unknown origin. 3. Suspected urinary tract infection. HOSPITAL COURSE: Mr. 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 Jeffery Joseph. The patient was admitted yesterday because of persistent low-grade fever. At that time he was pending minimally invasive esophagectomy to be performed by Dr. Colin Stallworth. Temperature on the morning of admission was 39.3. He has since been started on empiric antibiotics. Urinalysis suggests significant leukorrhea. Cultures are pending at the time of this dictation. The patient otherwise feels well, tolerating diet, ambulating ad letha. PHYSICAL EXAMINATION: GENERAL: He is in no acute distress. VITAL SIGNS: Temperature 37.0, pulse 63, respirations 17, blood pressure 127/82. SKIN: Without rash or lesion. HEENT: Oral mucosa without erythema or ulceration. NECK: Supple. HEART: Regular rate and rhythm. No clicks, rubs or murmurs. LUNGS: Clear to auscultation bilaterally. ABDOMEN: Soft, nontender, nondistended. EXTREMITIES: No clubbing, cyanosis or edema. NEUROLOGIC: Grossly intact. LABORATORY DATA: WBC count this 6830, hemoglobin 10.4, platelet count 150,000. Sodium 142, potassium 3.4, chloride 109, carbon dioxide 25, BUN 27, creatinine 1.8. IMPRESSION: 1. Low grade fever of unknown origin. 2. Renal insufficiency. 3. Hypokalemia. 4. Distal esophageal adenocarcinoma. 5. Probable urinary tract infection. PLAN: Mr. Uribe is a pleasant 71-year-old gentleman of Dr. Joseph admitted with low-grade fever, origin unknown. He was started on empiric antimicrobials and has been afebrile since. Cultures are pending at the time of this dictation and would continue another 24-hour period of observation. I have nothing further to add at this time as I agree with the patient's current medical management. Again, thank you for assisting us in the care of this very pleasant gentleman and if you have further questions or concerns, feel free to call me.
--- NOTE | 2017-03-10 10:10 | SURGERY PROGRESS NOTE ---
DATE: 03/10/2017 Mr. Uribe was seen today on 03/10/2017. His white count is now normal. His temperature dropped. It turns out he has a urinary tract infection. I had a long talk with him this morning. We are going to proceed with the esophagogastrostomy tomorrow. I am going to keep him here overnight for parenteral antibiotics. We again discussed the specifics of the case.
[2017-03-10] MEDS: SODIUM CHLORIDE 0.9% 1000ML 1,000 ML IV SCH (10:55)
--- NOTE | 2017-03-10 12:06 | Clinical Documentation Query ---
CLINICAL DOCUMENTATION QUERY Dr. 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 Clinical Indicators:71 yo male presenting for scheduled surgery but found to have a fever of 39.3. Creatinine 1.80. Review of historical Cr range showed 0.98-1.30 over the past year. GFR range of 54.1-74.3 Treatment: IV fluids, monitor Cr levels Risk Factors: age, HTN, dehydration The stages of CKD according to the National Kid[employer] are as follows: Stage I: GFR >90 Stage II: GFR 60-89 Stage III: GFR 30-59 Stage IV: GFR 15-29 Stage V: GFR <15 Please clarify and document your clinical opinion in the progress notes and discharge summary. Terms such as "probable", "suspected", "likely", "questionable", "possible", or "still to be ruled out" are acceptable. IF IN AGREEMENT, YOU MUST DOCUMENT ABOVE DIAGNOSTIC STATEMENT IN DAILY PROGRESS NOTES AND DISCHARGE SUMMARY. This document is not part of the patient's record. Thank You, Quyen Henriquez RN [phone]
--- NOTE | 2017-03-10 12:09 | Clinical Documentation Query ---
Quyen, This patient's creatinine was 2.20 in December of this year. I would classify this as "Improved". Dr Stallworth CLINICAL DOCUMENTATION QUERY Dr. 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 Clinical Indicators:71 yo male presenting for scheduled surgery but found to have a fever of 39.3. Creatinine 1.80. Review of historical Cr range showed 0.98-1.30 over the past year. GFR range of 54.1-74.3 Treatment: IV fluids, monitor Cr levels Risk Factors: age, HTN, dehydration The stages of CKD according to the National Kid[employer] Foundation are as follows: Stage I: GFR >90 Stage II: GFR 60-89 Stage III: GFR 30-59 Stage IV: GFR 15-29 Stage V: GFR <15 Please clarify and document your clinical opinion in the progress notes and discharge summary. Terms such as "probable", "suspected", "likely", "questionable", "possible", or "still to be ruled out" are acceptable. IF IN AGREEMENT, YOU MUST DOCUMENT ABOVE DIAGNOSTIC STATEMENT IN DAILY PROGRESS NOTES AND DISCHARGE SUMMARY. This document is not part of the patient's record. Thank You, Quyen Henriquez RN [phone]
--- NOTE | 2017-03-10 14:50 | Anesthesiology Progress Note ---
Anesthesia Progress Note Date of Service Mar 10, 2017. Progress Notes Pt seen for surgery scheduled 03/11/[address] Stallworth. Patient originally scheduled for Right VATS, possible thoracotomy, esophagogeastrectomy on but canceled am of surgery due to fever. Pt was admitted and treated with Rocephin. Fever and leucocytosis now resolved. VSS. Patient completed chemo and radiation 12/2016. Anesthetic discussed with patient on 03/09 and again today with signed consent in chart.
[2017-03-10 15:04] VITALS: BP 144/82; PULSE 65; TEMP 37; O2SAT 97
[2017-03-10 15:30] VITALS: O2SAT 97
[2017-03-10] MEDS: CEFTRIAXONE SOD INJ 2,000 MG in DEXTROSE 5% 50ML 50 ML IV SCH (16:28)
[2017-03-10] MEDS: PANTOprazole SOD 40 MG TAB PO SCH (21:17)
[2017-03-10 23:40] VITALS: BP 134/86; PULSE 65; TEMP 36.7; O2SAT 97
[2017-03-11] VITALS (8 sets, daily range): BP systolic 104–137; BP diastolic 60–82; PULSE 65–85; TEMP 36.3–37.2; O2SAT 89–97
[2017-03-11] MEDS: SODIUM CHLORIDE 0.9% 1000ML 1,000 ML IV SCH ×3 (00:57→17:58)
[2017-03-11] MEDS ORDERED: EpHEDrine SULFATE INJ 50 MG/ML AMP ONE (06:35)
[2017-03-11] MEDS ORDERED: DEXAMETHASONE SOD INJ 4 MG/ML VIAL ONE ×2 (06:35→11:58)
[2017-03-11] MEDS ORDERED: FENTANYL CITRATE INJ 50 MCG/1 ML 2 ML VIAL ONE ×2 (06:35→07:35)
[2017-03-11] MEDS ORDERED: ROCURONIUM BROMIDE 10 MG/ML 5 ML VIAL ONE ×2 (06:35→11:58)
[2017-03-11] MEDS ORDERED: GLYCOPYRROLATE INJ 0.2 MG/ML VIAL ONE (06:35)
[2017-03-11] MEDS ORDERED: PHENYLEPHRINE HCL INJ 10 MG/ML VIAL ONE (06:35)
[2017-03-11] MEDS ORDERED: LIDOCAINE HCL 2% 2 ML VIAL (20MG/ML) ONE (06:35)
[2017-03-11] MEDS ORDERED: MIDAZOLAM HCL 1 MG/ML 2ML VIAL ONE (06:35)
[2017-03-11] MEDS ORDERED: ONDANSETRON INJ 2 MG/ML 2 ML VIAL ONE (06:35)
[2017-03-11] MEDS ORDERED: PROPOFOL IV EMULSION 10 MG/ML 20 ML VIAL IV ONE (06:35)
[2017-03-11] MEDS ORDERED: SUCCINYLCHOLINE CHLORIDE 20 MG/ML 10 ML VIAL IV ONE (06:35)
[2017-03-11] MEDS ORDERED: NEOSTIGMINE METHYLSULFATE 5 MG/5 ML SYR ONE (06:35)
[2017-03-11] MEDS ORDERED: MINERAL OIL LIGHT 10 ML BTL ONE (07:00)
[2017-03-11] MEDS: ENALAPRIL MALEATE 10 MG TAB PO SCH (07:29)
[2017-03-11] MEDS: MULTIVITAMIN TAB PO SCH (07:29)
[2017-03-11] MEDS ORDERED: NURSING VERBAL MED ORDER ONE (07:45)
[2017-03-11] MEDS ORDERED: HYDROmorphone INJ 2 MG/ML SYR/VIAL ONE (08:15)
[2017-03-11] MEDS: BUPIVACAINE LIPOSOME 1/3% 266 MG/20 ML VIAL INFIL ONE ×2 (08:29→12:33)
[2017-03-11] MEDS: SODIUM CHLORIDE 0.9% PF 50 ML VIAL ONE ×2 (08:29→12:33)
[2017-03-11] MEDS: BOTULINUM TOXIN TYPE A 100 UNIT VIAL IM SCH ×2 (08:29→12:33)
[2017-03-11] MEDS ORDERED: ATROPINE SULFATE 0.1 MG/ML 5ML SYR IV PRN (08:45)
[2017-03-11] MEDS ORDERED: FENTANYL CITRATE INJ 50 MCG/1 ML 2 ML VIAL IV PRN (08:45)
[2017-03-11] MEDS ORDERED: EpHEDrine SULFATE INJ 50 MG/ML AMP IV PRN (08:45)
[2017-03-11] MEDS ORDERED: LABETALOL HCL IV 5 MG/ML 20ML IV PRN (08:45)
[2017-03-11] MEDS ORDERED: MEPERIDINE HCL 25 MG/ML CARP IV PRN (08:45)
[2017-03-11] MEDS ORDERED: HYDROmorphone INJ 1 MG/ML SYR IV PRN (08:45)
[2017-03-11] MEDS ORDERED: ONDANSETRON INJ 2 MG/ML 2 ML VIAL IV PRN (08:45)
[2017-03-11] MEDS ORDERED: ARTIFICIAL TEARS OP OINT 3.5 GM TUBE ONE (11:58)
--- NOTE | 2017-03-11 13:24 | Anesthesiology Progress Note ---
Anesthesia Post Op Note Date & Time Mar 11, 2017 at 13:24 Vital Signs Pain Intensity: 0 Vital Signs Past 12 Hours Date Time Temp Pulse Resp B/P Pulse Ox O2 Delivery O2 Flow Rate FiO2 03/11/17 13:15 70 14 113/63 97 Nasal Cannula 4 03/11/17 13:05 36.6 72 14 117/58 93 Nasal Cannula 4 03/11/17 12:55 68 14 98/54 95 Mask 5 03/11/17 12:45 72 14 109/62 95 Mask 5 03/11/17 12:35 36.6 75 16 119/68 98 Mask 10 03/11/17 12:28 36.6 86 16 107/70 98 Mask 10 03/11/17 06:11 37.2 65 16 137/82 97 Room Air Notes Mental Status: alert / awake / arousable, participated in evaluation Pt Amnestic to Procedure: Yes Nausea / Vomiting: adequately controlled Pain: adequately controlled Airway Patency, RR, SpO2: stable & adequate BP & HR: stable & adequate Hydration State: stable & adequate Anesthetic Complications: no major complications apparent
[2017-03-11] MEDS: METOCLOPRAMIDE HCL INJ 5 MG/ML 2 ML VIAL IV. SCH ×2 (13:41→21:34)
--- NOTE | 2017-03-11 16:30 | OPERATIVE REPORT ---
DATE OF OPERATION: 03/11/2017 REASON FOR PROCEDURE: Adenocarcinoma of the gastroesophageal junction. PROCEDURES: 1. Laparoscopy with extensive takedown of adhesions. 2. Mobilization of GE junction and biopsy of multiple perigastric and celiac axis lymph nodes. SURGEON: Colin Stallworth MD INTERNAL GRINDER SET UP OPERATOR: SAMANTA Brunner ANESTHESIA: General anesthesia endotracheal intubation with a double lumen tube. SPECIFICS OF PROCEDURE: Mr. Uribe is a 71-year-old male who was found to have a gastroesophageal junction adenocarcinoma and underwent neoadjuvant chemoradiation. I performed a laparoscopy on him to do gutter washings a few months ago and biopsied these perigastric nodes. He did have evidence of disease but on CT, they were small and we elected to proceed with neoadjuvant chemoradiation. He tolerated this quite well and I was happy with the PET scans. I recently got a CT scan and I really was not impressed with the lymph nodes on this. I had a long talk and he was prepared and I brought him to the operating room today on 03/11/2017 for an esophagogastrectomy. Upon placing the ports, he really had marked adhesions and I took these down. I did end up repairing one serosal tear in the small bowel with a silk suture. Otherwise, we did not lose any blood. This was a large mass; however, I was a bit dismayed after taking down the lesser curvature and coming upon the celiac axis as he had huge lymph nodes and he had multiple lymph nodes. I removed several of these and they do have metastatic adenocarcinoma. I feel this is a progression of disease in the face of neoadjuvant chemoradiation and elected to abort this case as I do not think we are going to have a curative resection. It is important to note that the patient does not have symptoms of dysphagia. I did not leave the feeding tube. DESCRIPTION OF PROCEDURE: The patient was brought to the operating room and laid in supine position. General anesthesia induced and endotracheal intubation was performed. The patient had undergone colon resection in the past and I marked adhesions and I performed a thoracoscopy. I put a 5 mm port in the left upper quadrant and insufflated CO2. Upon placing the 5 mm scope, we were seeing that we had quite a bit of adhesions. I then placed another 5 mm port and a 10 mm port in the right upper quadrant and in the right mid abdomen. Between these 3, we were able to take these adhesions down. There were quite dense and quite adherent. I did cut 2-0 Prolene sutures and finally I was able to take this down with the use of the Harmonic scalpel. After taking all these down, I did encounter a serosal tear with small bowel, which was adherent to the abdominal wall. I used a 2-0 silk suture in a fashion to repair this serosal tear. Otherwise, we did not have any other evidence of any problems. I took a while to take these adhesions down as they were quite dense. After meticulously doing this, I then turned attention to the GE junction. A liver retractor was placed through another port, placed in the lower right abdominal wall. I then placed another 12 mm port as well as a 5 mm port on the right side. I then went through the lesser sac and identified the crura on the right side. The mass was noted to be quite large and there appeared to be lymph node actually part of this mass. These were taken from the anterior stomach at this point near the GE junction. This was delivered off the field and dispersed. The lymph nodes came back frozen section just being fibrous tissue; however, upon going into the lesser sac, dividing the coronary vein and the left gastric artery, we came upon the huge matted nodes. I then cleaned these off the celiac axis and along the lesser curvature there were multiple very large nodes. I sent several of these down and they were consistent with metastatic adenocarcinoma. After some deliberation discussion with Dr. Lakhwinder Joseph from the medical oncology standpoint, I elected to stop at this point. This 71-year-old patient has renal insufficiency and I do not think we are going to confer him of survival and mange by resecting the gastroesophageal junction. I had a long talk about this. We had deliberated that this had elected to close. Endo Closes were then used to close the three 12 mm ports. 4-0 Monocryl was used in running subcuticular fashion to approximate the skin of all incisions. He tolerated it well and was extubated in the room and had no blood loss. I attest to the content of the Intraoperative Record and any orders documented therein. Any exceptio ns are noted below.
[2017-03-11] MEDS: CEFTRIAXONE SOD INJ 2,000 MG in DEXTROSE 5% 50ML 50 ML IV SCH (18:01)
[2017-03-11] MEDS: MoRPHine SULFATE 2 MG/ML CARP IV PRN (21:39)
[2017-03-11] MEDS: PANTOprazole SOD 40 MG TAB PO SCH (21:45)
[2017-03-11] MEDS: DOCUSATE SODIUM 100 MG CAP PO SCH (21:46)
[2017-03-12] VITALS (9 sets, daily range): BP systolic 124–188; BP diastolic 70–92; PULSE 65–83; TEMP 36.7–37; O2SAT 90–94
[2017-03-12] MEDS: SODIUM CHLORIDE 0.9% 1000ML 1,000 ML IV SCH (03:15)
[2017-03-12] MEDS: METOCLOPRAMIDE HCL INJ 5 MG/ML 2 ML VIAL IV. SCH (05:45)
[2017-03-12] MEDS: ACETAMINOPHEN 325 MG TAB PO PRN (05:46)
[2017-03-12 06:47] LABS: HEMATOCRIT 34.5 % (42-52); MEAN CORPUSCULAR HEMOGLOBIN 32.2 pg (25-34); MEAN CORPUSCULAR HGB CONC 32.2 g/dl (32-36); PLATELET COUNT 206 K/uL (130-400); RED BLOOD COUNT 3.45 M/uL (4.7-6.1)
[2017-03-12] MEDS ORDERED: NURSING VERBAL MED ORDER ONE ×2 (08:00→14:45)
[2017-03-12] MEDS ORDERED: D5W AND 1/2NSS 1,000 ML IV SCH (08:15)
[2017-03-12] MEDS ORDERED: TRAMADOL HCL 50 MG TAB PO PRN (08:15)
--- NOTE | 2017-03-12 08:16 | SURGERY PROGRESS NOTE ---
DATE: 03/12/2017 DATE: 03/12/2017. Mr. Uribe was seen today. He is having considerable amount of pain in his abdomen. We did do extensive takedown of adhesions yesterday prior to doing the biopsies of the celiac axis nodes. He is afebrile. His vital signs are stable. He is on room air. He is not nauseated. He has been tolerating fluids. His lungs are clear. His abdomen is soft. He does have some bowel sounds though he has mild amount of abdominal distention. His incisions are all clean. He made about 250 mL of urine during the overnight shift and 1400 yesterday but I have to say I am a bit concerned about his kidney function as he has baseline renal insufficiency. His creatinine is 2.0, having been 1.8 two days ago. I am going to continue his IV fluids as his urine output is not quite as high as I would like. In addition, his urine appeared to be a bit hemoconcentrated. We will give him 100 mL an hour over the course of the day and see how he looks. I had a long talk with Mr. Uribe and his family. He had progression of disease while on neoadjuvant chemoradiation. Hopefully, we can get him moving and home in the am. BJ
[2017-03-12] MEDS: DOCUSATE SODIUM 100 MG CAP PO SCH ×2 (08:34→21:38)
[2017-03-12] MEDS: MULTIVITAMIN TAB PO SCH (08:34)
[2017-03-12] MEDS: ENALAPRIL MALEATE 10 MG TAB PO SCH (08:34)
[2017-03-12] MEDS: TRAMADOL HCL 50 MG TAB PO PRN ×3 (08:34→17:49)
--- NOTE | 2017-03-12 10:07 | Anesthesiology Progress Note ---
Anesthesia Post Op Note Date & Time Mar 12, 2017 at 10:06 Vital Signs Pain Intensity: 6.0 Vital Signs Past 12 Hours Date Time Temp Pulse Resp B/P Pulse Ox O2 Delivery O2 Flow Rate FiO2 03/12/17 08:05 Room Air 03/12/17 07:40 36.8 74 18 126/76 90 Room Air 03/12/17 03:30 36.9 65 16 124/77 91 Room Air 03/11/17 23:30 36.3 67 16 130/72 91 Room Air 03/11/17 23:15 Room Air Notes Mental Status: alert / awake / arousable, participated in evaluation Pt Amnestic to Procedure: Yes Nausea / Vomiting: adequately controlled Pain: adequately controlled Airway Patency, RR, SpO2: stable & adequate BP & HR: stable & adequate Hydration State: stable & adequate Anesthetic Complications: no major complications apparent
[2017-03-12] MEDS: CEFTRIAXONE SOD INJ 2,000 MG in DEXTROSE 5% 50ML 50 ML IV SCH (16:23)
[2017-03-12] MEDS ORDERED: HydrALAZINE HCL 20 MG/ML VIAL IV. PRN (16:45)
[2017-03-12] MEDS: MoRPHine SULFATE 2 MG/ML CARP IV PRN (19:11)
[2017-03-12] MEDS: PANTOprazole SOD 40 MG TAB PO SCH (21:39)
[2017-03-13] MEDS: TRAMADOL HCL 50 MG TAB PO PRN ×4 (01:41→16:39)
[2017-03-13 07:21] VITALS: BP_SYST 151; BP_SYST 161; BP_DIAS 92; BP_DIAS 94; PULSE 91; TEMP 36.9; O2SAT 90
--- NOTE | 2017-03-13 08:11 | Surgery Progress Note ---
Subjective Date of Service: Mar 13, 2017. No N/V. No flatus or BM. Pt. notes pain in abdomen that seems to be wore with activity. He is urinating without difficulty. No SOB. He is tolerating liquids. Objective Vitals Date Time Temp Pulse Resp B/P Pulse Ox O2 Delivery O2 Flow Rate FiO2 03/13/17 07:21 36.9 91 18 161/94 90 Room Air 151/92 03/12/17 23:31 37.0 71 18 136/70 90 Room Air 03/12/17 19:50 Room Air 03/12/17 18:44 83 150/92 03/12/17 17:48 76 171/89 03/12/17 15:50 178/92 03/12/17 15:45 Room Air 03/12/17 15:35 188/81 03/12/17 15:35 36.7 75 18 173/80 94 Room Air 03/12/17 11:17 36.8 77 18 150/81 92 Room Air Physical Exam General: + well developed, + well nourished CV: + RRR Pulmonary: + lungs clear Abdomen: + abnormal BS (hypoactive ) Neurologic: + alert & oriented x 3 Assessment & Plan 71 year old male s/p laparoscopy with gastric/celiac lymph node biopsies and JAXON -continue liquids until improved bowel function -continue analgesics -encourage mobilization CKD -awaiting am labs -avoid nephrotoxins HTN -continue prn hydralazine -if renal function stable will resume altace at home dose OTHER -lovenox for DVT prevention -home once pain control improved and bowel function improved
[2017-03-13] MEDS: MULTIVITAMIN TAB PO SCH (09:18)
[2017-03-13] MEDS: DOCUSATE SODIUM 100 MG CAP PO SCH ×2 (09:18→20:37)
[2017-03-13] MEDS: ENALAPRIL MALEATE 10 MG TAB PO SCH (09:18)
[2017-03-13 09:33] LABS: BUN/CREATININE RATIO 11.6 (10-20); CREATININE 1.4 mg/dl (0.60-1.40); POTASSIUM 3.2 mmol/L (3.5-5.1)
[2017-03-13 09:34] LABS: CALCIUM 8.6 mg/dl (8.5-10.1)
[2017-03-13 16:00] VITALS: BP 158/99; PULSE 93; TEMP 36.5; O2SAT 92
[2017-03-13] MEDS ORDERED: POTASSIUM CHLORIDE PWD 20 MEQ PACK PO ONE ×2 (17:00→20:30)
[2017-03-13] MEDS: PANTOprazole SOD 40 MG TAB PO SCH (20:38)
[2017-03-13 23:30] VITALS: BP 126/83; PULSE 70; TEMP 37; O2SAT 91
[2017-03-14 07:36] LABS: BASO % 0.1 %; BASO ABS # 0.01 K/uL (0-0.2); COMPLETE YES; HEMATOCRIT 31.7 % (42-52); IG% 0.1 %; LYMPH % 9.8 %; LYMPH ABS # 0.69 K/uL (1.2-3.4); MEAN CELL VOLUME 97.2 fL (80-100); MEAN CORPUSCULAR HEMOGLOBIN 33.4 pg (25-34); MEAN CORPUSCULAR HGB CONC 34.4 g/dl (32-36); MEAN PLATELET VOLUME 9.5 fL (7.4-10.4); MONO % 4.7 %; NEUT % 82.3 %; PLATELET COUNT 184 K/uL (130-400); RED BLOOD COUNT 3.26 M/uL (4.7-6.1); WHITE BLOOD COUNT 7.04 K/uL (4.8-10.8)
[2017-03-14 07:44] VITALS: BP 132/72; PULSE 108; TEMP 36.8; O2SAT 92
[2017-03-14 07:50] LABS: BUN/CREATININE RATIO 14.7 (10-20); CALCIUM 8.6 mg/dl (8.5-10.1); CREATININE 1.2 mg/dl (0.60-1.40); POTASSIUM 3.4 mmol/L (3.5-5.1)
[2017-03-14 07:54] VITALS: O2SAT 92
[2017-03-14] MEDS: MULTIVITAMIN TAB PO SCH (09:13)
[2017-03-14] MEDS: DOCUSATE SODIUM 100 MG CAP PO SCH ×2 (09:13→20:58)
[2017-03-14] MEDS: ENALAPRIL MALEATE 10 MG TAB PO SCH (09:14)
[2017-03-14] MEDS: TRAMADOL HCL 50 MG TAB PO PRN ×3 (09:40→22:41)
[2017-03-14 09:47] VITALS: O2SAT 93
[2017-03-14 11:54] VITALS: BP 116/72; PULSE 100; TEMP 36.8; O2SAT 92
--- NOTE | 2017-03-14 12:10 | Surgery Progress Note ---
Subjective Date of Service: Mar 14, 2017. Pt. notes no SOB or CP. He is tolerating liquids, but hesitant to advance diet as he has no BM or flatus since surgery. He notes he is belching and denies any N/V with intake of liquids. He continues to ambulate in hallway frequently. Objective Vitals Date Time Temp Pulse Resp B/P Pulse Ox O2 Delivery O2 Flow Rate FiO2 03/14/17 11:54 36.8 100 16 116/72 92 Room Air 03/14/17 09:47 93 Room Air 03/14/17 08:43 Room Air 03/14/17 07:54 92 Room Air 03/14/17 07:44 36.8 108 16 132/72 92 Room Air 03/14/17 00:00 Room Air 03/13/17 23:30 37.0 70 16 126/83 91 Room Air 03/13/17 16:15 Room Air 03/13/17 16:00 36.5 93 18 158/99 92 Room Air Physical Exam General: + well developed, + well nourished CV: + RRR Pulmonary: + lungs clear, No accessory muscle use, No respiratory distress Abdomen: + abnormal BS (hypoactive), + pertinent finding (see below) Neurologic: + alert & oriented x 3 Incisions: All incisions clean, dr, intact Abdomen examined this am--BS are noted to be hypoactive; significant distension is nt noted; no rebound tenderness or guarding noted; pain noted over port incisions Laboratory Item Value Date Time Sodium Level 142 mmol/L 03/14/17718 Potassium Level 3.4 mmol/L L 03/14/17718 Blood Urea Nitrogen 18 mg/dl 03/14/17718 Creatinine 1.20 mg/dl 03/14/17718 Item Value Date Time White Blood Count 7.04 K/uL 03/14/17718 Hemoglobin 10.9 g/dL L 03/14/17718 Hematocrit 31.7 % L 03/14/17718 Platelet Count 184 K/uL 03/14/17718 Assessment & Plan 71 year old male s/p laparoscopy with gastric/celiac lymph node biopsies and JAXON -will continue liquids today as not BM or flatus since surgery -pt. may have post-op ileus: -as no N/V, worsening distension, or signs of acute abdomen, NGT not required at the present time -supplement potassium as noted below -meds reviewed: -prn IV morphine ordered but pt. has not utilized this since 03/12/17 -no other obvious agents noted that would contribute to decreased bowel function -will order prn dulcolax suppository -mobilization has again been encouraged -continue ultram for pain CKD -improved; renal function back to baseline -avoid nephrotoxins HTN -continue prn hydralazine -continue altace at home dose HYPOKALEMIA -supplementation provided yesterday -continue supplementation as ordered as potassium remains low OTHER -lovenox for DVT prevention -home once pain control improved and bowel function improved
[2017-03-14] MEDS ORDERED: POTASSIUM CHLORIDE PWD 20 MEQ PACK PO ONE ×2 (12:15→16:15)
[2017-03-14] MEDS: BISACODYL 10 MG SUPP PR PRN (13:43)
[2017-03-14 15:13] VITALS: BP 143/82; PULSE 98; TEMP 37; O2SAT 92
[2017-03-14] MEDS: PANTOprazole SOD 40 MG TAB PO SCH (20:58)
[2017-03-14 23:23] VITALS: BP 146/89; PULSE 88; TEMP 37; O2SAT 90
[2017-03-15] VITALS (11 sets, daily range): BP systolic 77–115; BP diastolic 48–75; PULSE 75–120; TEMP 36.4–37.2; O2SAT 90–96
[2017-03-15] MEDS: TRAMADOL HCL 50 MG TAB PO PRN ×3 (02:41→19:17)
[2017-03-15 07:05] LABS: BUN/CREATININE RATIO 19.3 (10-20); CALCIUM 8.3 mg/dl (8.5-10.1); CREATININE 1.1 mg/dl (0.60-1.40); POTASSIUM 3.3 mmol/L (3.5-5.1)
[2017-03-15] MEDS ORDERED: POTASSIUM CHLORIDE PWD 20 MEQ PACK PO ONE ×3 (08:00→12:15)
--- NOTE | 2017-03-15 08:02 | Surgery Progress Note ---
Subjective Date of Service: Mar 15, 2017. Pt. notes no SOB or CP. He continues to tolerate liquids,but only had very small BM following dulcolax yesterday. He notes he continues to belching; he does deny any N/V with intake of liquids. He denies worsening abdominal pain. He continues to ambulate in hallway frequently. Objective Vitals Date Time Temp Pulse Resp B/P Pulse Ox O2 Delivery O2 Flow Rate FiO2 03/15/17 07:21 36.5 97 16 108/66 90 Room Air 03/15/17 00:15 Room Air 03/14/17 23:23 37.0 88 18 146/89 90 Room Air 03/14/17 15:20 Room Air 03/14/17 15:13 37.0 98 18 143/82 92 Room Air 03/14/17 11:54 36.8 100 16 116/72 92 Room Air 03/14/17 09:47 93 Room Air 03/14/17 08:43 Room Air Physical Exam General: + well developed, + well nourished, No distress CV: + RRR Pulmonary: + lungs clear, No accessory muscle use, No respiratory distress Abdomen: + pertinent finding (see below) Neurologic: + alert & oriented x 3 Additional Notes: All incisions clean, dr, intact Abdomen examined this am--BS are again noted to be hypoactive; significant distension is not noted; no rebound tenderness or guarding noted; pain noted over port incisions Assessment & Plan 71 year old male s/p laparoscopy with gastric/celiac lymph node biopsies and JAXON -will continue liquids today as significant BM or flatus since surgery has not been noted -pt. may have post-op ileus: -as no N/V, worsening distension, or signs of acute abdomen, NGT not required at the present time -supplement potassium as noted below -meds reviewed: -prn IV morphine ordered but pt. has not utilized this since 03/12/17 -no other obvious agents noted that would contribute to decreased bowel function -will order prn dulcolax suppository and add prn fleets -mobilization to continue -continue ultram for pain CKD -improved; renal function back to baseline -avoid nephrotoxins HTN -continue prn hydralazine -continue altace at home dose HYPOKALEMIA -supplementation provided -further supplementation ordered as potassium remains low OTHER -SCDs have been ordered post-op for DVT prevention (lovenox not in place post op as noted on 03/13/17 and 03/14/17) -called by RN at approximately 9:00 that pt. had code purple; pt. re-evaluated at bedside -at time of my arrival pt. was in pt and able to converse--he notes he felt as though he had a "red haze in his vision"; he denies chest pain or SOB; no palpitations -EKG performed at bedside which showed a-fib with RVR (new finding when compared to previous EKG): -cause of a-fib may be multifactorial (PE, low potassium, low magnesium, stress of surgery/hospitalization) -pulse ox dropped into 70s and returned to low 90s with supplemental oxygen -SBP noted to be in 70s--francia to 90s with administration of IVF -labs reviewed: -Mg and potassium both noted to be low; supplementation ordered -troponin not elevated -amylase and lipase not elevated -leukocytosis not noted -radiology reveiewed -due to rapid afib cardiology consulted (case discussed with Dr. Gleason): -IV metoprolol ordered for rat control -cardioversion to be considered if pharmacologic measures unsuccessful for rate control -radiology reviewed: -CXR--no widening mediastinum or pneumonia; basilar atelectasis noted -KUB--no signs of SBO noted -hospitalist at bedside assisting with management (Dr. David): -in addition to above he recommends IVF--ordered -echo recommended--ordered -Dr. Stallworth notified by phone: -he notes to start heparin drip due to a-fib -recommends against CT scan with IV contrast due to elevated Cr. pre-op and if PE present heparin will treat this condition regardless -pt.'s has been updated via phone; questions answered
[2017-03-15] MEDS: MULTIVITAMIN TAB PO SCH (09:00)
[2017-03-15] MEDS: ENALAPRIL MALEATE 10 MG TAB PO SCH (09:00)
[2017-03-15] MEDS: DOCUSATE SODIUM 100 MG CAP PO SCH ×2 (09:00→20:58)
[2017-03-15 09:15] LABS: BASO % 0.1 %; BASO ABS # 0.01 K/uL (0-0.2); EOS % 2.8 %; HEMATOCRIT 30.8 % (42-52); IG% 0.2 %; LYMPH ABS # 0.88 K/uL (1.2-3.4); MEAN CELL VOLUME 97.8 fL (80-100); MONO % 4.4 %; NEUT % 83.5 %; PLATELET COUNT 220 K/uL (130-400); RED BLOOD COUNT 3.15 M/uL (4.7-6.1); WHITE BLOOD COUNT 9.75 K/uL (4.8-10.8)
[2017-03-15 09:20] LABS: COMPLETE YES; MEAN CORPUSCULAR HGB CONC 33.8 g/dl (32-36)
--- NOTE | 2017-03-15 09:44 | Progress Note ---
Progress Note Date of Service Mar 15, 2017. Progress Note 929 Code Purple Note - I attended the code purple of this 71yo male with esophageal cancer. Apparently he was sitting in the chair next to the bedside when he developed acutely a "red sheen" visual sensation and he felt dizzy. Nurse was called to the bedside; vitals checked - systolic BP was in the 80s; HR > 100; O2 sats were in the 70s. He was moved to the bed and the code was called. Upon my arrival he was awake/alert/talking and able to answer all questions. His only complaint was that of his abdomen; no chest pain or dyspnea. Vitals upon my arrival - systolic BP in the 90s, HR>100 (and variable); o2 sats high 90s on 6 L NC. brief exam - gen - nad neck - no JVD heart - tachy, irregular, no obvious murmur lungs - CTA b/l abd - mild distension, decreased BS, multiple incisions on abd wall ext - no edema EKG obtained - my reading - a. fib with LBBB, RVR, lateral ST depressions prior EKG 09/2016 - NSR, QRS was normal, no ST depressions A/P: 1. presyncope due to hypotension in the setting of apparent rapid a. fib 2. LBBB 3. hypokalemia 4. esophageal cancer 5. ileus during the code gave 500cc NS bolus 40meq KCL x 1 given for low K checking mag, cbc, cardiac enzymes, TSH, lipase/amylase transferring to telemetry consider CTA chest r/o PE primary surgical team to order systemic heparin critical care time 40 minutes full consult note to follow Yinka David MD
[2017-03-15 09:47] LABS: AMYLASE 14 U/L (25-115); CKMB/CK RATIO 2.7 (0-3.0); MAGNESIUM 1.7 mg/dl (1.8-2.4)
--- NOTE | 2017-03-15 09:54 | DIAGNOSTIC IMAGING REPORT ---
CHEST ONE VIEW PORTABLE HISTORY: Difficulty breathing. COMPARISON: Chest 03/09/2017. FINDINGS: Persistent mild elevation the right hemidiaphragm. Bibasilar densities favor subsegmental atelectasis. The heart is normal in size. The upper lungs are clear. IMPRESSION: Bibasilar densities favor subsegmental atelectasis. Electronically signed by: Sean Cesar M.D. 03/15/2017 9:52 AM Dictated Date/Time: 03/15/2017 9:51 AM
--- NOTE | 2017-03-15 09:55 | DIAGNOSTIC IMAGING REPORT ---
KUB HISTORY: Difficulty breathing. COMPARISON: Abdomen and pelvis CT 10/08/2016. FINDINGS: Mildly distended gas-filled stomach. Moderate stool within the colon. No dilated loops of small bowel to suggest an obstruction. No renal calculi. No ureteral calculi. No pneumoperitoneum or pneumatosis. IMPRESSION: No evidence for bowel obstruction. Mildly distended gas-filled stomach. Electronically signed by: Sean Cesar M.D. 03/15/2017 9:53 AM Dictated Date/Time: 03/15/2017 9:52 AM
--- NOTE | 2017-03-15 09:59 | Medical Consult ---
Consultation Date of Consultation: Mar 15, 2017. Attending Physician: Colin Stallworth MD Reason for Consultation: s/p code purple, near-syncope, new-onset a. fib with RVR History of Present Illness 71yo male with recently diagnosed esophageal cancer, BPH, and HTN who was admitted on 03/09/[address] Stallworth's service for ultimate esophagogastrectomy due to the cancer. On 03/11/17 he underwent a laparoscopy with extensive lysis of adhesions and biopsy of several lymph nodes. Esophagogastrectomy was NOT performed due to advancement of his disease in the setting of recent neoadjuvant chemotherapy. Post-op he developed a mild ileus and otherwise had been stable from a cardiovascular standpoint. On the AM of 03/15/17 a "code purple" was called after the patient became presyncopal and his HR was found to be rapid and irregular. O2 saturation and BP were also low. I attended the code purple and fortunately he never lost consciousness nor a pulse. No CPR was administered. STAT EKG showed rapid a. fib with aberrancy. He was given a NS bolus for his hypotension, and oral potassium was also administered. He was transferred to the telemetry unit in stable condition following this event. During his previous hospital days and even this AM he denied ANY chest pain, palpitations, sob, olivares, or syncope/presyncope. He denied any motor weakness. He denied a past h/o IL, CAD, stroke, a. fib, DVT, PE, or other cardiovascular disease. Past Medical/Surgical History 1. esophageal cancer 2. BPH 3. HTN 4. pre-T2DM 5. h/o pulmonary nodule 6. h/o diverticulitis PSH: left knee arthroscopy h/o colon surgery (perforated diverticulitis s/p colostomy with ultimate take- down) h/o hernia repair Family History father - metastatic cancer, age 47 mother - age 80; had heart disease (had pacemaker, etc) Social History Smoking Status: Former Smoker (smoked 1ppd for 30 years) Smokeless Tobacco Use: No Alcohol Use: none Drug Use: none Marital Status: (5 children) Housing Status: lives with family ( in [place]) Occupation Status: retired Allergies Coded Allergies: Adhesives (Verified Allergy, Unknown, TAPE-RED ITCHY WITH SOME TAPE, ) NO KNOWN DRUG ALLERGIES (Verified Allergy, Unknown, NONE, 03/09/17) Home Medications Reported Home Medications Medications Dose Route/Sig Max Daily Dose Days Date Category Hygroton (Chlorthalidone) 25 Mg Tab 25 Mg PO QAM 02/24/17 Reported Zofran (Ondansetron HCl) 8 Mg Tab 8 Mg PO Q8H PRN 02/06/17 Reported Multivitamin (Multivitamins) Tab 1 Tab PO QAM 09/29/16 Reported Prilosec (Omeprazole) 40 Mg Capcr 40 Mg PO HS 09/29/16 Reported Altace * (Ramipril) 10 Mg Cap 10 Mg PO QAM 08/07/08 Reported Current Inpatient Medications Current Inpatient Medications Medications (Trade) Dose Ordered Sig/Bulmaro Route Start Time Stop Time Status Last Admin Dose Admin Acetaminophen (Tylenol Tab) 650 mg Q4H PRN PO 03/09/17 08:15 04/08/17 08:14 03/12/17 05:46 650 MG Multivitamins (Multivitamin Tab) 1 tab QAM PO 03/09/17 10:30 04/08/17 10:29 03/14/17 09:13 1 TAB Pantoprazole Sodium (Protonix Tab) 40 mg HS PO 03/09/17 21:00 04/08/17 20:59 03/14/17 20:58 40 MG Enalapril Maleate (Vasotec Tab) 40 mg QAM PO 03/09/17 10:30 04/08/17 10:29 Future Hold 03/14/17 09:14 40 MG Ondansetron HCl (Zofran Inj) 4 mg Q4H PRN IV 03/11/17 12:15 04/10/17 12:14 Docusate Sodium (coLACE CAP) 100 mg BID PO 03/11/17 21:00 04/10/17 20:59 03/14/17 20:58 100 MG Morphine Sulfate (MoRPHine SULFATE INJ) 2 mg Q1H PRN IV 03/11/17 12:15 03/25/17 12:14 03/12/17 19:11 2 MG Tramadol HCl (Ultram Tab) 50 mg Q4H PRN PO 03/12/17 08:15 04/11/17 08:14 03/15/17 02:41 50 MG Hydralazine HCl (HydrALAZINE INJ) 5 mg Q6H PRN IV. 03/12/17 16:45 04/11/17 16:44 Bisacodyl (Dulcolax Supp) 10 mg DAILY PRN HI 03/14/17 12:30 04/13/17 12:29 03/14/17 13:43 10 MG Sodium Biphosphate/ Sodium Phosphate (Fleet Enema) 132 ml DAILY PRN HI 03/15/17 08:00 04/14/17 07:59 Potassium Chloride (Klor-Con Pwd) 20 meq TODAY@1200 ONCE PO 03/15/17 12:00 03/15/17 12:01 Heparin Sodium/ Dextrose 1 ea Q30M N/A 03/15/17 09:22 04/14/17 09:21 Review of Systems Constitutional: + fatigue, + weakness, No chills, No fever, No sweats Eyes: + worsening of vision (see HPI) ENT: No nasal symptoms, No sore throat, No trouble swallowing Respiratory: No cough, No dyspnea on exertion, No shortness of breath, No wheezing Cardiovascular: No PND, No chest pain, No claudication, No orthopnea, No palpitations Abdomen: + constipation, + nausea, + pain, No vomiting Musculoskeletal: No joint pain, No muscle pain Genitourinary - Male: No dysuria Neurologic: No numbness/tingling, No paralysis Endocrine: + fatigue Hematologic / Lymphatic: No abnormal bleeding/bruising Integumentary: No rash Physical Exam Date Time Temp Pulse Resp B/P Pulse Ox O2 Delivery O2 Flow Rate FiO2 03/15/17 08:57 86 22 94/62 96 Mask 6.0 03/15/17 08:52 120 77/48 03/15/17 07:21 36.5 97 16 108/66 90 Room Air 03/15/17 00:15 Room Air 03/14/17 23:23 37.0 88 18 146/89 90 Room Air 03/14/17 15:20 Room Air 03/14/17 15:13 37.0 98 18 143/82 92 Room Air 03/14/17 11:54 36.8 100 16 116/72 92 Room Air 03/14/17 09:47 93 Room Air General Appearance: no apparent distress Head: normocephalic, atraumatic Eyes: PERRL ENT: pharynx normal Neck: supple, no adenopathy, thyroid normal, no JVD Respiratory/Chest: lungs clear, no respiratory distress, no accessory muscle use Cardiovascular: no murmur, normal peripheral pulses, + tachycardia, + irregularly irregular Abdomen/GI: no organomegaly, + abnormal bowel sounds (decreased), + distended ( mild) Genitourinary - Male: normal phallus Back: normal inspection Extremities/Musculoskelatal: no calf tenderness, no pedal edema Neurologic/Psych: no motor/sensory deficits, alert, normal reflexes, oriented x 3 Skin: + pertinent finding (abdominal wall incisions clean) Laboratory Results Last 24 Hours Test 03/15/17 06:10 03/15/17 08:59 03/15/17 09:02 03/15/17 09:08 Sodium Level 139 mmol/L Potassium Level 3.3 mmol/L Chloride Level 105 mmol/L Carbon Dioxide Level 28 mmol/L Anion Gap 6.0 mmol/L Blood Urea Nitrogen 21 mg/dl Creatinine 1.10 mg/dl Est Creatinine Clear Calc Drug Dose 59.8 ml/min Estimated GFR () 76.8 Estimated GFR (Non- 66.2 BUN/Creatinine Ratio 19.3 Random Glucose 132 mg/dl Calcium Level 8.3 mg/dl Bedside Glucose 136 mg/dl Creatine Kinase MB Ratio White Blood Count 9.75 K/uL Red Blood Count 3.15 M/uL Hemoglobin 10.4 g/dL Hematocrit 30.8 % Mean Corpuscular Volume 97.8 fL Mean Corpuscular Hemoglobin 33.0 pg Mean Corpuscular Hemoglobin Concent 33.8 g/dl Platelet Count 220 K/uL Mean Platelet Volume 10.0 fL Neutrophils (%) (Auto) 83.5 % Lymphocytes (%) (Auto) 9.0 % Monocytes (%) (Auto) 4.4 % Eosinophils (%) (Auto) 2.8 % Basophils (%) (Auto) 0.1 % Neutrophils # (Auto) 8.14 K/uL Lymphocytes # (Auto) 0.88 K/uL Monocytes # (Auto) 0.43 K/uL Eosinophils # (Auto) 0.27 K/uL Basophils # (Auto) 0.01 K/uL RDW Standard Deviation 46.8 fL RDW Coefficient of Variation 13.3 % Immature Granulocyte % (Auto) 0.2 % Immature Granulocyte # (Auto) 0.02 K/uL Assessment & Plan 71yo male with recently diagnosed esophageal cancer, s/p neoadjuvant chemotherapy and s/p laparoscopy procedure with attempts to perform an esophagogastrectomy but aborted due to advanced disease. This AM he developed rapid a. fib resulting in hypotension and near-syncope and subsequently a code purple. 1. a. fib with RVR - TSH is normal. Initial troponin is negative but will check another troponin later today. Suspect hypokalemia and hypomagnesemia in the setting of stress from his surgery /hospitalization were culprits in this rhythm. Cannot rule out PE event contributing. After transfer to telemetry he converted to NSR following beta magaly administration. I agree with ongoing use of beta magaly. After much discussion heparin drip was initiated for the a. fib. Will replace the K and mag. Continue telemetry. Await echo. 2. hypokalemia - replace, repeat level later today. 3. hypomagnesemia - replace 2 grams mag sulfate, then repeat level later today. 4. lateral ST changes on EKG - may have been strain from rapid heart rate. Again check another troponin later today and repeat his EKG in AM. 5. ileus - per surgery. Correcting K and Mag will help with this. 6. BPH - voiding fine per staff. 7. hypotension - 2nd to rapid a. fib. Improved s/p fluids and conversion to NSR. 8. hypoxia - ?atelectasis. ?PE. Consider CTA chest to r/o PE in light of cancer, recent surgery, etc. In meantime heparin infusion. Thank you for this consult. Will follow with you. Critical care time provided about 45 minutes. Additional Copies To Vinny Santa M.D.; Colin Stallworth MD
[2017-03-15] MEDS ORDERED: METOPROLOL TARTRATE 1 MG/ML VIAL ONE (10:06)
[2017-03-15 10:15] LABS: INR 1.2 (0.9-1.1); PARTIAL THROMBOPLASTIN RATIO 1.2
[2017-03-15] MEDS: NSS + 20MEQ KCL 1000ML 1,000 ML IV SCH ×2 (10:17→20:58)
[2017-03-15] MEDS: HEPARIN 25,000 UNIT/500ML D5W 500 ML IV PRN (10:26)
[2017-03-15] MEDS: MAGNESIUM SULFATE 1GM / D5W 1 GM in PREMIXED IN D5W 100 ML IV SCH ×2 (10:47→11:48)
[2017-03-15] MEDS ORDERED: METOPROLOL TARTRATE 1 MG/ML VIAL IV PRN (11:45)
[2017-03-15] MEDS ORDERED: METOPROLOL TARTRATE 25 MG TAB PO STA (12:03)
--- NOTE | 2017-03-15 12:56 | ECHOCARDIOGRAM REPORT ---
*NOTICE TO RECEIVING LIBERTARIAN AGENCY This information is strictly Confidential and protected under [place] law. [place] law prohibits you from making any further disclosure of this information unless further disclosure is expressly permitted by the written consent of the person to whom it pertains or is authorized by law. A general authorization for the release of medical or other information is not sufficient for this purpose. Hospital accepts no responsibility if the information is made available to any other person, INCLUDING THE PATIENT. Interpretation Summary * Name: SUSIE GROSSMAN JR Study Date: 03/15/2017 10:30 AM BP: 94/62 mmHg * Patient Location: C.2T\S\S229\S\2 HR: 91 * : 1945 (M/d/yyyy) Gender: Male Height: 69 in * Age: 71 yrs Ethnicity: CA Weight: 182 lb * Ordering Physician: Yinka David * Referring Physician: Colin Stallworth * Performed By: Colin Looney RDCS * * Reason For Study: A-FIB W/RVR * BSA: 2.0 m2 * -- Conclusions -- * The left ventricle is normal in size. * There is normal left ventricular wall thickness. * The basal septum is thickened and angulated consistent with sigmoid septum. * Left ventricular systolic function is normal. * The left ventricular wall motion is normal at rest. * Grade I diastolic dysfunction, (abnormal relaxation pattern). * The right ventricle is normal in size and function. * Aortic valve sclerosis moderate, without significant aortic valvular stenosis. * There is mild tricuspid regurgitation. * Right ventricular systolic pressure is normal. Procedure Details * A complete two-dimensional transthoracic echocardiogram was performed (2D, M-mode, Doppler and color flow Doppler). * The study was technically adequate. Left Ventricle * The left ventricle is normal in size. * The basal septum is thickened and angulated consistent with sigmoid septum. * There is normal left ventricular wall thickness. * Left ventricular systolic function is normal. * The left ventricular wall motion is normal at rest. Right Ventricle * The right ventricle is normal in size and function. Atria * The left atrial size is normal. * Right atrial size is normal. * The interatrial septum is intact with no evidence for an atrial septal defect. Mitral Valve * There is mild to moderate mitral annular calcification. * Significant mitral regurgitation is absent. Tricuspid Valve * The tricuspid valve is normal in structure and function. * There is mild tricuspid regurgitation. * Right ventricular systolic pressure is normal. Aortic Valve * Aortic valve sclerosis moderate, without significant aortic valvular stenosis. * There is no significant aortic regurgitation. Pulmonic Valve * The pulmonary valve is not well seen, but the Doppler examination is normal without significant regurgitation or stenosis. * Trace pulmonic valvular regurgitation. Great Vessels * Ascending aorta of normal dimension * Aortic arch of normal dimension. * No obvious dissection could be visualized. Pericardium/Pleural * There is no pericardial effusion. Left Ventricular Diastolic Function * Grade I diastolic dysfunction, (abnormal relaxation pattern). MMode 2D Measurements and Calculations IVSd 0.90 cm LVIDd 4.9 cm LVPWd 0.94 cm IVS/LVPW 0.96 EDV(Teich) 110.8 ml EDV(cubed) 115.0 ml LV mass(C)d 155.3 grams LV mass(C)dI 78.3 grams/m\S\2 EPSS 0.44 cm ACS 1.6 cm asc Aorta Diam 3.7 cm LVOT diam 2.1 cm LVOT area 3.3 cm\S\2 LVAd ap4 26.3 cm\S\2 LVLd ap4 8.0 cm EDV(MOD-sp4) 72.0 ml LVAs ap4 16.8 cm\S\2 LVLs ap4 7.0 cm ESV(MOD-sp4) 34.0 ml EF(MOD-sp4) 52.8 % LVAd ap2 25.0 cm\S\2 LVLd ap2 7.9 cm EDV(MOD-sp2) 67.0 ml LVAs ap2 16.1 cm\S\2 LVLs ap2 6.8 cm ESV(MOD-sp2) 33.0 ml EF(MOD-sp2) 50.7 % SV(MOD-sp4) 38.0 ml SI(MOD-sp4) 19.1 ml/m\S\2 SV(MOD-sp2) 34.0 ml SI(MOD-sp2) 17.1 ml/m\S\2 Doppler Measurements and Calculations MV E max mikey 52.8 cm/sec MV A max mikey 87.9 cm/sec MV E/A 0.60 MV dec time 0.40 sec Ao V2 max 153.2 cm/sec Ao max PG 9.4 mmHg Ao max PG (full) 6.2 mmHg MAXIMILIANO(V,A) 1.9 cm\S\2 MAXIMILIANO(V,D) 1.9 cm\S\2 LV V1 max PG 3.2 mmHg LV V1 max 88.8 cm/sec PA V2 max 84.3 cm/sec PA max PG 2.8 mmHg PI end-d mikey 125.1 cm/sec TR max mikey 226.7 cm/sec
--- NOTE | 2017-03-15 14:32 | Cardiology Consultation ---
Cardiology Consultation Date of Service Mar 15, 2017. Cardiology Consultation CARDIOLOGY CONSULTATION DATE OF CONSULTATION: March 15, 2017 REFERRING PHYSICIAN: Yinka David MD REASON FOR CONSULT: Atrial fibrillation with rapid ventricular response. HISTORY OF PRESENT ILLNESS: 71-year-old man with esophageal carcinoma status post laparoscopy with gastric/ celiac lymph node biopsies earlier this week who had a code purple this morning (see Dr. David's note) and was noted to have atrial fibrillation with rapid ventricular response. He was transferred to telemetry unit where he received 3 mg IV metoprolol with return of sinus rhythm. At the time my evaluation, he was lying comfortably and denied any chest pain, subjective palpitations, lightheadedness, or other cardiopulmonary complaints. He has no known cardiac history or prior dysrhythmias. Of note, he is mildly hypokalemic and hypomagnesemic (receiving replacement currently). MEDICATIONS: Chlorthalidone 25 mg daily Zofran Multi vitamin Prilosec Altace 10 mg daily ALLERGIES: No known drug allergies. Has a topical reaction to tape. PAST MEDICAL HISTORY: Esophageal cancer BPH Hypertension Prediabetic History of pulmonary nodule History of diverticulitis PAST SURGICAL HISTORY: Colostomy with subsequent takedown Herniorrhaphy Knee arthroscopy SOCIAL HISTORY: Former smoker. with 5 children. Retired. No current tobacco or alcohol use. FAMILY HISTORY: Father of metastatic cancer at age 47, mother of 80 of heart disease REVIEW OF SYSTEMS: PHYSICAL EXAMINATION: At the time of my evaluation, the patient was no longer distressed. Vitals: Afebrile. Systolic blood pressure initially in the 90s, after reversion to sinus rhythm 99/65. Heart rate initially 168, now 80 and regular, respirations 19 and unlabored. Skin: No unusual lesions or ecchymosis. HEENT: Unremarkable. Neck: Jugular venous pulse at the clavicle at 90, no carotid bruits. Lungs: Clear and equal breath sounds bilaterally. No wheezing or crackles. Cardiac: Regular rhythm with normal S1 and S 2. No murmur or gallop. Abdomen: Nondistended. Extremities: Nontender without edema. Intact peripheral pulses. Neurologic: Normal affect, nonfocal. DATA: Hemoglobin 10.4 and stable, normal platelet count, normal white count and platelet count. Potassium 3.3, magnesium 1.7, otherwise normal electrolytes. BUN 21, creatinine 1.1. Initial cardiac enzymes negative. Echocardiogram today showed normal left ventricular size and systolic function with no regional wall motion abnormalities, grade 1 diastolic dysfunction noted. Mild tricuspid regurgitation with normal right ventricular systolic pressure. IMPRESSION: 1. Atrial fibrillation with rapid ventricular response, reverted to sinus after dose of metoprolol. 2. Esophageal carcinoma, nonresectable. 3. Hypokalemia. 4. Hypomagnesemia. 5. Hypertension, controlled. DISCUSSION: Patient with nonresectable esophageal carcinoma had abrupt onset of atrial fibrillation with rapid ventricular response while seated at bedside this morning. There was some concern about the possibly of pulmonary embolism, and he was initiated on heparin. Although this cannot be excluded, his echocardiogram appeared fairly benign with normal right heart size and systolic function and normal pulmonary artery pressures. Likely, his electrolyte abnormalities contributed to the dysrhythmia and he should be much less prone to recurrence once his potassium and magnesium have been repleted. Did initiate low-dose beta-magaly to decrease hyperadrenergic state and further reduce the chances of recurrent atrial dysrhythmia. Will follow along, thank you for this interesting consultation.
[2017-03-15] MEDS: ONDANSETRON INJ 2 MG/ML 2 ML VIAL IV PRN (16:36)
[2017-03-15 16:49] LABS: PARTIAL THROMBOPLASTIN RATIO 2.2
[2017-03-15] MEDS: METOPROLOL TARTRATE 25 MG TAB PO SCH (20:58)
[2017-03-15] MEDS: PANTOprazole SOD 40 MG TAB PO SCH (20:58)
[2017-03-15 21:00] LABS: POTASSIUM 3.9 mmol/L (3.5-5.1)
[2017-03-15 21:06] LABS: MAGNESIUM 1.9 mg/dl (1.8-2.4)
[2017-03-15] MEDS: ACETAMINOPHEN 325 MG TAB PO PRN (23:18)
[2017-03-16] VITALS (8 sets, daily range): BP systolic 114–130; BP diastolic 68–83; PULSE 74–81; TEMP 36.4–37; O2SAT 90–94
[2017-03-16] MEDS: TRAMADOL HCL 50 MG TAB PO PRN ×3 (00:33→23:49)
[2017-03-16] MEDS: HEPARIN 25,000 UNIT/500ML D5W 500 ML IV PRN ×2 (05:30→23:50)
[2017-03-16 06:03] LABS: BASO % 0.1 %; BASO ABS # 0.01 K/uL (0-0.2); EOS % 6.5 %; HEMATOCRIT 24.4 % (42-52); IG% 0.1 %; LYMPH % 9.3 %; LYMPH ABS # 0.71 K/uL (1.2-3.4); MEAN CELL VOLUME 99.2 fL (80-100); MEAN CORPUSCULAR HEMOGLOBIN 32.5 pg (25-34); MEAN CORPUSCULAR HGB CONC 32.8 g/dl (32-36); MEAN PLATELET VOLUME 9.6 fL (7.4-10.4); MONO % 5.8 %; NEUT % 78.2 %; PLATELET COUNT 180 K/uL (130-400); RED BLOOD COUNT 2.46 M/uL (4.7-6.1); WHITE BLOOD COUNT 7.65 K/uL (4.8-10.8)
[2017-03-16] MEDS: ACETAMINOPHEN 325 MG TAB PO PRN (06:22)
[2017-03-16] MEDS: NSS + 20MEQ KCL 1000ML 1,000 ML IV SCH ×2 (06:23→19:38)
[2017-03-16 06:25] LABS: PARTIAL THROMBOPLASTIN RATIO 2.2
[2017-03-16 06:26] LABS: COMPLETE YES
[2017-03-16 06:39] LABS: BUN/CREATININE RATIO 23.3 (10-20); CALCIUM 7.7 mg/dl (8.5-10.1)
[2017-03-16] MEDS ORDERED: SOD PHOSPHATE/SOD BIPHOSPHATE ENEMA 132 ML BTL PR PRN (08:15)
[2017-03-16] MEDS: DOCUSATE SODIUM 100 MG CAP PO SCH ×2 (08:28→19:38)
[2017-03-16] MEDS: METOPROLOL TARTRATE 25 MG TAB PO SCH ×2 (08:29→19:39)
[2017-03-16] MEDS: MULTIVITAMIN TAB PO SCH (08:29)
[2017-03-16] MEDS ORDERED: BISACODYL 10 MG SUPP PR ONE (08:30)
[2017-03-16] MEDS ORDERED: POLYETHYLENE (MIRALAX) 17 GM PACK PO ONE (08:30)
--- NOTE | 2017-03-16 11:21 | Cardiology Follow-Up ---
Cardiology Follow-Up Date of Service Mar 16, 2017. Cardiology Follow-Up SUBJECTIVE: 71-year-old man with esophageal carcinoma status post laparoscopy with gastric/ celiac lymph node biopsies last week who had a code purple on 03/15 (see Dr. David's note) and was noted to have atrial fibrillation with rapid ventricular response. He was transferred to telemetry unit where he received 3 mg IV metoprolol with return of sinus rhythm. Of note, he was hypokalemic and hypomagnesemic at the time of his episode. There was some concern about a possible pulmonary embolism, he was placed on heparin. Today, the patient is resting comfortably and denies any dyspnea, chest pain, subjective palpitations, or other cardiopulmonary complaints. PHYSICAL EXAMINATION: No distress. Vitals: Afebrile. BP 117/71, pulse 78 and regular, respirations 28 but unlabored. Skin: No unusual lesions or ecchymosis. HEENT: Unremarkable. Neck: Jugular venous pulse at the clavicle at 90, no carotid bruits. Lungs: Mildly decreased breath sounds. Clear and equal breath sounds bilaterally. No wheezing or crackles. Cardiac: Regular rhythm with normal S1 and S 2. No murmur or gallop. Abdomen: Nondistended. Extremities: Nontender without edema. Intact peripheral pulses. Neurologic: Normal affect, nonfocal. DATA: Monitor overnight showed no atrial fibrillation. There was a short run of accelerated idioventricular rhythm. ECG today showed sinus rhythm with unremarkable ST segments and normal T-waves. Hemoglobin 8.0 with normal white count platelet count. PTT 57.6. Normal electrolytes, BUN 23, creatinine 1.0. Troponin peaked at 1.89 and declined to 1.02 today. Echocardiogram yesterday showed normal left ventricular size and systolic function with no regional wall motion abnormalities, grade 1 diastolic dysfunction noted. Mild tricuspid regurgitation with normal right ventricular systolic pressure. IMPRESSION: 1. Atrial fibrillation with rapid ventricular response, remained in sinus rhythm overnight. 2. Esophageal carcinoma, nonresectable. 3. Hypokalemia, resolved. 4. Hypomagnesemia, resolved. 5. Hypertension, controlled. 6. Concern for pulmonary embolism, evaluation continues. 7. Elevated troponin without ECG changes or chest pain, likely supply/demand mismatch from tachycardia. DISCUSSION: Patient with nonresectable esophageal carcinoma had abrupt onset of atrial fibrillation with rapid ventricular response yesterday which responded to metoprolol and repletion of electrolytes. Rhythm remains sinus, would continue low-dose beta-magaly (metoprolol tartrate 25 mg b.i.d.). Since this seems an isolated dysrhythmia related to electrolyte abnormalities, would not need long-term anticoagulation from a cardiac standpoint (defer to primary team regarding other indications for anticoagulation). Isolated enzyme elevation in the absence of ECG or echocardiographic abnormalities with no chest discomfort suggest this is a supply/demand mismatch related to his transient tachycardia rather than acute thrombotic event. For this reason, as well as given the presence of unresectable carcinoma, conservative management of any potential underlying coronary disease is recommended. Will continue to follow along.
[2017-03-16] MEDS: METOCLOPRAMIDE HCL INJ 5 MG/ML 2 ML VIAL IV. SCH ×3 (12:00→23:51)
--- NOTE | 2017-03-16 12:10 | Hospitalist Progress Note ---
Hospitalist Progress Note Date of Service Mar 16, 2017. Subjective Pt evaluation today including: conversation w/ patient, conversation w/ bridal sales consultant (Cardiology) Pt feeling well today, remains in NSR on tele since having MARCOS yesterday and hypoxia. Is on heparin gtt still, CTA chest not done due to concern for kidney function being low upon admission. Cardiology does not feel any further intervention or eval is warranted at this time. Constitutional: No fever Respiratory: No shortness of breath Cardiovascular: No chest pain Abdomen: + constipation, + pain (mild) All Other Systems: Reviewed and Negative Objective Vital Signs Date Time Temp Pulse Resp B/P Pulse Ox O2 Delivery O2 Flow Rate FiO2 03/16/17 08:00 Nasal Cannula 2.0 03/16/17 07:29 36.4 78 28 117/71 93 Nasal Cannula 3.0 03/16/17 04:00 90 Nasal Cannula 03/16/17 03:14 36.6 79 20 116/68 90 Room Air 03/16/17 00:00 94 Nasal Cannula 03/15/17 23:09 36.7 76 18 115/75 94 Nasal Cannula 2.0 03/15/17 20:55 86 106/65 03/15/17 20:00 93 Nasal Cannula 03/15/17 18:55 36.7 75 17 111/66 93 Nasal Cannula 2.0 03/15/17 16:00 Nasal Cannula 2.0 03/15/17 15:16 37.2 87 20 115/75 92 Nasal Cannula 2.0 03/15/17 11:33 36.9 81 19 99/65 92 2.0 Physical Exam General Appearance: WD/WN, no apparent distress Eyes: normal inspection, sclerae normal ENT: hearing grossly normal Neck: trachea midline Respiratory/Chest: lungs clear, normal breath sounds, no respiratory distress, no accessory muscle use Cardiovascular: regular rate, rhythm, + pertinent finding (RUE with 3+ nonpitting edema, 2 PIVs in hand and forearm) Abdomen: non tender (except around incision sites), soft, + abnormal bowel sounds (mildly hypoactive but present) Extremities: normal inspection, no calf tenderness Neurologic/Psychiatric: alert, normal mood/affect, oriented x 3 Skin: normal color, warm/dry, no rash, + pertinent finding (incisions with dermabond, no surrounding erythema or drainage on abdomen x 5) Laboratory Results Last 24 Hours Test 03/15/17 16:27 03/15/17 20:25 03/16/17 05:16 Activated Partial Thromboplast Time 58.4 SECONDS 57.6 SECONDS Partial Thromboplastin Ratio 2.2 2.2 Potassium Level 3.9 mmol/L 4.0 mmol/L Magnesium Level 1.9 mg/dl Troponin I 1.890 ng/ml 1.020 ng/ml White Blood Count 7.65 K/uL Red Blood Count 2.46 M/uL Hemoglobin 8.0 g/dL Hematocrit 24.4 % Mean Corpuscular Volume 99.2 fL Mean Corpuscular Hemoglobin 32.5 pg Mean Corpuscular Hemoglobin Concent 32.8 g/dl Platelet Count 180 K/uL Mean Platelet Volume 9.6 fL Neutrophils (%) (Auto) 78.2 % Lymphocytes (%) (Auto) 9.3 % Monocytes (%) (Auto) 5.8 % Eosinophils (%) (Auto) 6.5 % Basophils (%) (Auto) 0.1 % Neutrophils # (Auto) 5.98 K/uL Lymphocytes # (Auto) 0.71 K/uL Monocytes # (Auto) 0.44 K/uL Eosinophils # (Auto) 0.50 K/uL Basophils # (Auto) 0.01 K/uL RDW Standard Deviation 48.8 fL RDW Coefficient of Variation 13.5 % Immature Granulocyte % (Auto) 0.1 % Immature Granulocyte # (Auto) 0.01 K/uL Red Blood Cell Morphology Unremarkable Sodium Level 140 mmol/L Chloride Level 106 mmol/L Carbon Dioxide Level 29 mmol/L Anion Gap 5.0 mmol/L Blood Urea Nitrogen 23 mg/dl Creatinine 1.00 mg/dl Est Creatinine Clear Calc Drug Dose 65.8 ml/min Estimated GFR () 86.2 Estimated GFR (Non- 74.3 BUN/Creatinine Ratio 23.3 Random Glucose 113 mg/dl Calcium Level 7.7 mg/dl Assessment and Plan 71yo male with recently diagnosed esophageal cancer, s/p neoadjuvant chemotherapy and s/p laparoscopy procedure with attempts to perform an esophagogastrectomy but aborted due to advanced disease. He developed rapid a. fib resulting in hypotension, hypoxia to the 70s, and near-syncope and subsequently a code purple. Now in NSR and improved. 1. A. fib with RVR -now resolved with metoprolol. TSH is normal. Troponin elevated and peaked at 1.89, now trending downward--> probable demand ischemia, not NSTEMI, discussed with Cardiology. No need for AC as is lone A-fib and in setting of metastatic disease, may be little benefit. Suspect hypokalemia and hypomagnesemia in the setting of stress from his surgery /hospitalization were culprits in this rhythm. Cannot rule out PE event contributing--> CTA chest not done due to previous [place] which is now resolved--> on heparin gtt in the meantime for A-fib and possible PE, but can probably stop today if RUE DOppler neg and/or if CTA chest done and is negative--> will d/w Primary team ECHO: -- Conclusions -- * The left ventricle is normal in size. * There is normal left ventricular wall thickness. * The basal septum is thickened and angulated consistent with sigmoid septum. * Left ventricular systolic function is normal. * The left ventricular wall motion is normal at rest. * Grade I diastolic dysfunction, (abnormal relaxation pattern). * The right ventricle is normal in size and function. * Aortic valve sclerosis moderate, without significant aortic valvular stenosis. * There is mild tricuspid regurgitation. * Right ventricular systolic pressure is normal. -continue metoprolol 25mg po bid -continue heparin gtt for now -replace K and mag prn and encourage diet as tolerated -Continue telemetry 2. hypokalemia - replaced,folllow PRP 3. hypomagnesemia - replaced 2 grams mag sulfate, follow Mg++ 4. lateral ST changes on EKG - may have been strain from rapid heart rate--> now resolved and in NSR 5. ileus - per surgery. Correcting K and Mag will help with this. Improving today -continue full liquids -bowel regimen -mobilization 6. BPH - voiding fine per staff. 7. hypotension - 2nd to rapid a. fib. Improved s/p fluids and conversion to NSR. 8. hypoxia - ?atelectasis. ?PE. Consider CTA chest to r/o PE in light of cancer, recent surgery, etc. In meantime heparin infusion. 9. Metastatic Esophageal CA-esophagectomy not performed due to metastatic disease. -f/u with Heme/Onc after discharge for any further treatment plans DVT Proph-heparin gtt Dispo-FULL CODE
--- NOTE | 2017-03-16 14:06 | DIAGNOSTIC IMAGING REPORT ---
RIGHT UPPER EXTREMITY VENOUS DOPPLER ULTRASOUND CLINICAL HISTORY: Right upper extremity swelling. COMPARISON STUDY: No previous studies for comparison. FINDINGS: No deep venous thrombus is identified within the right upper extremity. The right internal jugular, subclavian, axillary, brachial, basilic, radial, ulnar and cephalic veins are patent. There is subcutaneous edema of the right forearm. IMPRESSION: No deep venous thrombus within the right upper extremity. Electronically signed by: Sylvester Devine M.D. 03/16/2017 2:04 PM Dictated Date/Time: 03/16/2017 2:03 PM
[2017-03-16] MEDS: MoRPHine SULFATE 2 MG/ML CARP IV PRN (15:20)
--- NOTE | 2017-03-16 17:27 | SURGERY PROGRESS NOTE ---
DATE: 03/16/2017 SUBJECTIVE: Mr. Uribe was seen today on 03/16/2017. Dr. Gleason's note was noted. As this was episodic, we may well not require full anticoagulation. In the meantime, he is on a heparin drip, which I agree with. His BUN and creatinine yesterday were only 23 and 1.0. His troponin bumped to 1.890, but is down to 0.658. His hemoglobin has dropped from 10.04 to 8.0. He has not moved his bowels as of yet. His lungs are clear. His abdomen is a bit distended and tympanitic, but he does have some bowel sounds. He certainly has no peritoneal signs. He is tender over his port sites. He is hungry this morning. ASSESSMENT AND PLAN: Postoperative day 7 status post lapracoscopic takedown of adhesions and biopsies. We will give the patient MiraLax. There was a small area of a serosal tear of the small bowel which was repaired. He had no leak at that time, I do not think we are leaking now, as he simply does not act like he has an abdominal abscess; however, I am still concerned about his atrial fibrillation and the fact that he may have had a pulmonary embolism. That will be important now as Dr. Gleason does not feel that long-term anticoagulation is necessary. Will check another BUN and creatinine in the morning and schedule him for a computed tomographic angiogram of his chest. BJ
[2017-03-16] MEDS: PANTOprazole SOD 40 MG TAB PO SCH (19:39)
[2017-03-17] VITALS (7 sets, daily range): BP systolic 100–120; BP diastolic 56–75; PULSE 73–85; TEMP 36.6–37.2; O2SAT 91–96
[2017-03-17] MEDS: NSS + 20MEQ KCL 1000ML 1,000 ML IV SCH ×2 (01:30→05:43)
[2017-03-17 05:28] LABS: BASO % 0.1 %; BASO ABS # 0.01 K/uL (0-0.2); EOS % 2.6 %; HEMATOCRIT 23.3 % (42-52); IG% 0.3 %; LYMPH % 8.9 %; LYMPH ABS # 0.61 K/uL (1.2-3.4); MEAN CELL VOLUME 99.1 fL (80-100); MEAN CORPUSCULAR HEMOGLOBIN 33.6 pg (25-34); MEAN CORPUSCULAR HGB CONC 33.9 g/dl (32-36); MEAN PLATELET VOLUME 9.7 fL (7.4-10.4); MONO % 6.7 %; NEUT % 81.4 %; PLATELET COUNT 186 K/uL (130-400); RED BLOOD COUNT 2.35 M/uL (4.7-6.1); WHITE BLOOD COUNT 6.85 K/uL (4.8-10.8)
[2017-03-17] MEDS: METOCLOPRAMIDE HCL INJ 5 MG/ML 2 ML VIAL IV. SCH ×3 (05:43→17:14)
[2017-03-17 05:47] LABS: PARTIAL THROMBOPLASTIN RATIO 2.6
[2017-03-17 05:54] LABS: BUN/CREATININE RATIO 23.3 (10-20); CALCIUM 7.9 mg/dl (8.5-10.1); CREATININE 0.96 mg/dl (0.60-1.40); MAGNESIUM 1.8 mg/dl (1.8-2.4)
[2017-03-17 06:21] LABS: COMPLETE YES
[2017-03-17] MEDS ORDERED: MAGNESIUM SULFATE 1GM / D5W 1 GM in PREMIXED IN D5W 100 ML IV SCH (08:30)
[2017-03-17] MEDS ORDERED: OPTIRAY 320 IV PRN (08:45)
--- NOTE | 2017-03-17 09:02 | DIAGNOSTIC IMAGING REPORT ---
CT ANGIOGRAM OF THE CHEST CLINICAL HISTORY: Shortness of breath. Esophageal carcinoma. COMPARISON STUDY: 02/09/2017 TECHNIQUE: Following the IV administration of 93 mL of Optiray-320, CT angiogram of the thorax was performed from the thoracic inlet to the lung bases utilizing the pulmonary embolus protocol. Images are reviewed in the axial, sagittal, and coronal planes. IV contrast was administered without complication. MIP imaging was performed. CT DOSE: 1021.02 mGy.cm FINDINGS: No pathologically enlarged axillary mediastinal or hilar lymph nodes were visualized. There was no evidence of thoracic aortic dilatation. There were no pulmonary artery filling defects to indicate acute pulmonary embolism. There are small bilateral pleural effusions which have developed since the preceding study. There is respiratory motion artifact. There is pulmonary emphysema. There is a 7 mm nodule within the superior segment of the right lower lobe. Since the prior study, the patient has developed a right lower lobe consolidation with air bronchograms. There is persistent esophageal wall thickening. There is fluid within the proximal to mid esophagus. IMPRESSION: 1. Distal esophageal wall thickening with a more proximal fluid-filled esophagus 2. No CT evidence of acute pulmonary embolism 3. Interval development of small bilateral pleural effusions 4. Interval development of right lower lobe pulmonary consolidation Electronically signed by: Morgan Juarez M.D. 03/17/2017 9:00 AM Dictated Date/Time: 03/17/2017 8:55 AM
[2017-03-17] MEDS: DOCUSATE SODIUM 100 MG CAP PO SCH ×2 (09:08→21:05)
[2017-03-17] MEDS: METOPROLOL TARTRATE 25 MG TAB PO SCH ×2 (09:08→21:05)
[2017-03-17] MEDS: MULTIVITAMIN TAB PO SCH (09:08)
--- NOTE | 2017-03-17 09:19 | DIAGNOSTIC IMAGING REPORT ---
ABDOMEN AND PELVIS CT WITH IV CONTRAST CT DOSE: HISTORY: Abdominal distention. Ileus. TECHNIQUE: Multiaxial CT images of the abdomen and pelvis were performed following the use of intravenous contrast. COMPARISON STUDY: Abdomen and pelvis CT 10/08/2016. Chest CT 02/09/2017. FINDINGS: Small bilateral pleural effusions. Patchy bibasilar densities favor atelectasis. Masslike thickening of the distal esophagus consistent with the patient's history of esophageal malignancy. This measures up to 4.3 cm. This is similar to the prior study. Gastrohepatic lymphadenopathy is slightly improved. Gas within the bladder may be due to recent catheterization. Mild thickening of the bladder. A few colonic diverticula. The majority of the bowel loops are distended and filled with gas and fluid. This includes the stomach. There are few decompressed loops of small bowel within the right mid abdomen. However, there is no transition point at this time to suggest an obstruction. There has been interval ileocolonic anastomosis. Small amount of fluid/edema seen within the right mid abdomen near the anastomosis. Moderate body wall edema. Small focus of extraluminal gas within the right mid mesentery on image 249. This measures 2 cm. Nondependent gas bubbles within the proximal colon are likely intraluminal rather than intramural. Subcentimeter hypodense lesions within the kidneys with the largest measuring 9 mm on the right. These are too small to characterize. There is also a 14 mm hypodense lesion within the left kidney consistent with a cyst. No hydronephrosis. Midabdominal aorta measures up to 3.6 cm in diameter. Prior midline incision. A few small foci of gas within the anterior abdominal wall could be due to medication injection or prior surgery. The spleen, adrenal glands, pancreas, and gallbladder are unremarkable. Small amount of perihepatic ascites. Small hypodense lesion within the left hepatic lobe remain stable. This favors a cyst. IMPRESSION: 1. Persistent thickening of the distal esophagus consistent with the patient's history of malignancy. 2. Gastrohepatic lymphadenopathy has slightly improved. 3. Distended gas and fluid-filled loops of large and small bowel seen throughout the abdomen including the stomach. This likely represents an ileus. 4. Interval ileocolonic anastomosis. Small focus of extraluminal gas within the right mid mesentery. This is nonspecific but could be due to residual postoperative change. Please correlate clinically to assess if the patient has had surgery in the past one month. No evidence for bowel perforation at this time. However, consider follow-up CT to ensure resolution of this extraluminal gas. 5. Gas within the bladder lumen likely due to recent catheterization. Lateral wall thickening may be due to underdistention. 6. Moderate body wall edema, small amount of ascites, and small bilateral pleural effusions. Electronically signed by: Sean Cesar M.D. 03/17/2017 9:17 AM Dictated Date/Time: 03/17/2017 9:00 AM
[2017-03-17] MEDS: TRAMADOL HCL 50 MG TAB PO PRN ×2 (10:21→14:25)
[2017-03-17] MEDS ORDERED: FUROSEMIDE INJ 20 MG in SYRINGE 0 ML IV ONE (10:45)
[2017-03-17] MEDS ORDERED: SODIUM CHLORIDE 0.9% 500 ML BAG IV ONE (14:03)
--- NOTE | 2017-03-17 14:05 | Cardiology Follow-Up ---
Cardiology Follow-Up Date of Service Mar 17, 2017. Cardiology Follow-Up UBJECTIVE: 71-year-old man with esophageal carcinoma status post laparoscopy with gastric/ celiac lymph node biopsies last week who had a code purple on 03/15 (see Dr. David's note) and was noted to have atrial fibrillation with rapid ventricular response. He was transferred to telemetry unit where he received 3 mg IV metoprolol with return of sinus rhythm. Of note, he was hypokalemic and hypomagnesemic at the time of his episode. There was some concern about a possible pulmonary embolism, he was placed on heparin until a scan could be obtained today (this showed no evidence of pulmonary embolism).. The patient is resting comfortably and denies any dyspnea, chest pain, subjective palpitations, or other cardiopulmonary complaints. He does note some mild abdominal discomfort which is not new. PHYSICAL EXAMINATION: No distress. Vitals: Afebrile. BP 115/69, pulse 73 and regular, respirations 18 and unlabored. Oxygen saturation 96 % on room air. Skin: No unusual lesions or ecchymosis. HEENT: Unremarkable. Neck: Jugular venous pulse at the clavicle at 90, no carotid bruits. Lungs: Mildly decreased breath sounds. Clear and equal breath sounds bilaterally. No wheezing or crackles. Cardiac: Regular rhythm with normal S1 and S2. No murmur or gallop. Abdomen: Nondistended. Extremities: Nontender without trace ankle edema. Intact peripheral pulses. Neurologic: Normal affect, nonfocal. DATA: Monitor overnight showed no atrial fibrillation or other dysrhythmias. Hemoglobin 7.9 with normal white count and Normal electrolytes, BUN 22, creatinine 0.96 (23/1.0 yesterday). Troponin peaked at 1.89 two days ago before declining. Echocardiogram showed normal left ventricular size and systolic function with no regional wall motion abnormalities, grade 1 diastolic dysfunction noted. Mild tricuspid regurgitation with normal right ventricular systolic pressure. IMPRESSION: 1. Atrial fibrillation with rapid ventricular response, sinus rhythm past 48 hours. 2. Esophageal carcinoma, nonresectable. 3. Hypokalemia, resolved. 4. Hypomagnesemia, resolved. 5. Hypertension, controlled. 6. Pulmonary embolism excluded on CT exam today. 7. Elevated troponin without ECG changes or chest pain, likely supply/demand mismatch from tachycardia. DISCUSSION: Patient with nonresectable esophageal carcinoma had abrupt onset of atrial fibrillation with rapid ventricular response 03/15 which responded to metoprolol and repletion of electrolytes. Rhythm remains sinus, would continue low-dose beta-magaly upon discharge ( metoprolol tartrate 25 mg b.i.d. currently, could change to metoprolol succinate 50 mg daily). Since this seems an isolated dysrhythmia related to electrolyte abnormalities, will not need long-term anticoagulation. Isolated enzyme elevation in the absence of ECG or echocardiographic abnormalities with no chest discomfort suggest this is a supply/demand mismatch related to his transient tachycardia rather than acute thrombotic event. For this reason, as well as given the presence of unresectable carcinoma, conservative management of any potential underlying coronary disease is recommended. Cardiac status quiescent, will sign off. Please re-contact if further issues arise.
[2017-03-17] MEDS: SOD PHOSPHATE/SOD BIPHOSPHATE ENEMA 132 ML BTL PR PRN (15:13)
[2017-03-17] MEDS: BISACODYL 10 MG SUPP PR PRN (15:58)
--- NOTE | 2017-03-17 16:26 | SURGERY PROGRESS NOTE ---
DATE: 03/17/2017 SUBJECTIVE: Mr. Uribe was seen today. The CT scan of his chest and abdomen showed a small pleural effusion with some atelectasis of the right lower lobe. His stomach and small bowel and colon are all distended. I believe he has an adynamic ileus. He does have bowel sounds. He also has some tympany. He is really not very tender except around his incisions. I see no areas that looked like they are obstructed on the CT scan. He has no fevers. He has no leukocytosis. We are going to stop his IV fluid. I also got a CTA of his chest. He has no evidence of a pulmonary embolism. I have discussed this with Dr. Wagner Gleason and we are not going to be giving him anticoagulation for his atrial fibrillation. We will stop the heparin. I have instructed him to walk. He is hungry this morning. I am hopeful that he will get over this episode and start moving his bowels, so that we can discharge him. MTDD
[2017-03-17] MEDS: PANTOprazole SOD 40 MG TAB PO SCH (21:05)
--- NOTE | 2017-03-17 21:59 | Hospitalist Progress Note ---
Hospitalist Progress Note Date of Service Mar 17, 2017. Subjective Pt evaluation today including: conversation w/ patient Patient feeling okay today. Still not passing any gas. CT angiogram of the chest abdomen and pelvis was done and was negative for PE, does have an ileus. Constitutional: No fever Respiratory: No shortness of breath Cardiovascular: No chest pain All Other Systems: Reviewed and Negative Objective Vital Signs Date Time Temp Pulse Resp B/P Pulse Ox O2 Delivery O2 Flow Rate FiO2 03/17/17 21:02 83 110/68 03/17/17 20:10 Room Air 3.0 03/17/17 20:00 Room Air 03/17/17 18:45 37.2 80 18 105/69 91 Nasal Cannula 3.0 03/17/17 16:00 Room Air 03/17/17 15:08 36.8 85 20 100/60 93 Room Air 03/17/17 12:00 Room Air 03/17/17 11:27 36.8 73 18 115/69 96 2.0 03/17/17 08:00 Room Air 03/17/17 07:41 36.8 77 18 112/71 91 2.0 03/17/17 04:00 Nasal Cannula 03/17/17 03:26 36.8 79 20 120/75 93 Nasal Cannula 4.0 03/17/17 00:00 Nasal Cannula 03/16/17 23:00 36.7 75 20 114/70 94 Nasal Cannula 2.0 Physical Exam General Appearance: WD/WN, no apparent distress Eyes: normal inspection, sclerae normal ENT: hearing grossly normal Neck: trachea midline Respiratory/Chest: lungs clear, normal breath sounds, no respiratory distress, no accessory muscle use Cardiovascular: regular rate, rhythm, + pertinent finding (right upper extremity edema still present but much improved from yesterday) Abdomen: soft (but mildly distended), + abnormal bowel sounds (hypoactive bowel sounds), + tenderness (minimal around incision sites) Extremities: no calf tenderness Skin: normal color Laboratory Results Last 24 Hours Test 03/17/17 05:14 White Blood Count 6.85 K/uL Red Blood Count 2.35 M/uL Hemoglobin 7.9 g/dL Hematocrit 23.3 % Mean Corpuscular Volume 99.1 fL Mean Corpuscular Hemoglobin 33.6 pg Mean Corpuscular Hemoglobin Concent 33.9 g/dl Platelet Count 186 K/uL Mean Platelet Volume 9.7 fL Neutrophils (%) (Auto) 81.4 % Lymphocytes (%) (Auto) 8.9 % Monocytes (%) (Auto) 6.7 % Eosinophils (%) (Auto) 2.6 % Basophils (%) (Auto) 0.1 % Neutrophils # (Auto) 5.57 K/uL Lymphocytes # (Auto) 0.61 K/uL Monocytes # (Auto) 0.46 K/uL Eosinophils # (Auto) 0.18 K/uL Basophils # (Auto) 0.01 K/uL RDW Standard Deviation 48.1 fL RDW Coefficient of Variation 13.5 % Immature Granulocyte % (Auto) 0.3 % Immature Granulocyte # (Auto) 0.02 K/uL Red Blood Cell Morphology Unremarkable Activated Partial Thromboplast Time 66.4 SECONDS Partial Thromboplastin Ratio 2.6 Sodium Level 138 mmol/L Potassium Level 4.0 mmol/L Chloride Level 106 mmol/L Carbon Dioxide Level 26 mmol/L Anion Gap 6.0 mmol/L Blood Urea Nitrogen 22 mg/dl Creatinine 0.96 mg/dl Est Creatinine Clear Calc Drug Dose 68.5 ml/min Estimated GFR () 90.5 Estimated GFR (Non- 78.1 BUN/Creatinine Ratio 23.3 Random Glucose 127 mg/dl Calcium Level 7.9 mg/dl Magnesium Level 1.8 mg/dl Assessment and Plan 71yo male with recently diagnosed esophageal cancer, s/p neoadjuvant chemotherapy and s/p laparoscopy procedure with attempts to perform an esophagogastrectomy but aborted due to advanced disease. He developed rapid a. fib resulting in hypotension, hypoxia to the 70s, and near-syncope and subsequently a code purple. Now in NSR and improved. 1. A. fib with RVR -now resolved with metoprolol. TSH is normal. Troponin elevated and peaked at 1.89, now trending downward--> probable demand ischemia, not NSTEMI, discussed with Cardiology. No need for AC as is lone A-fib and in setting of metastatic disease, may be little benefit. Suspect hypokalemia and hypomagnesemia in the setting of stress from his surgery /hospitalization were culprits in this rhythm. Initially could not rule out PE event contributing--> CTA chest not done immediately due to previous [place] which is now resolved--> was placed on heparin gtt in the meantime for A-fib and possible PE. Now CTA chest negative for PE, shows atelectasis. CT abdomen/pelvis shows ileus and postoperative changes. ECHO: -- Conclusions -- * The left ventricle is normal in size. * There is normal left ventricular wall thickness. * The basal septum is thickened and angulated consistent with sigmoid septum. * Left ventricular systolic function is normal. * The left ventricular wall motion is normal at rest. * Grade I diastolic dysfunction, (abnormal relaxation pattern). * The right ventricle is normal in size and function. * Aortic valve sclerosis moderate, without significant aortic valvular stenosis. * There is mild tricuspid regurgitation. * Right ventricular systolic pressure is normal. -We will convert to Toprol-XL 50 mg once daily -Discontinue heparin gtt and no need for anticoagulation chronically -replace K and mag prn and encourage diet as tolerated -Continue telemetry lateral ST changes on EKG - may have been strain from rapid heart rate--> now resolved and in NSR ileus - per surgery. Correcting K and Mag will help with this. Persists today. -continue to advance diet as tolerated -bowel regimen -mobilization BPH - voiding fine per staff. hypotension - 2nd to rapid a. fib. Improved s/p fluids and conversion to NSR. Metastatic Esophageal CA-esophagectomy not performed due to metastatic disease. -f/u with Heme/Onc after discharge for any further treatment plans DVT Proph-was on heparin drip, now on Lovenox Dispo-FULL CODE
[2017-03-18] VITALS (9 sets, daily range): BP systolic 95–126; BP diastolic 56–78; PULSE 79–86; TEMP 36.4–36.9; O2SAT 90–95
[2017-03-18] MEDS: METOCLOPRAMIDE HCL INJ 5 MG/ML 2 ML VIAL IV. SCH ×4 (00:36→18:46)
[2017-03-18] MEDS: TRAMADOL HCL 50 MG TAB PO PRN ×3 (00:46→19:53)
[2017-03-18 06:27] LABS: HEMATOCRIT 22.3 % (42-52); MEAN CELL VOLUME 99.1 fL (80-100); MEAN CORPUSCULAR HEMOGLOBIN 33.3 pg (25-34); MEAN CORPUSCULAR HGB CONC 33.6 g/dl (32-36); PLATELET COUNT 230 K/uL (130-400); RED BLOOD COUNT 2.25 M/uL (4.7-6.1); WHITE BLOOD COUNT 7.71 K/uL (4.8-10.8)
[2017-03-18 06:46] LABS: PARTIAL THROMBOPLASTIN RATIO 1.3
[2017-03-18 07:05] LABS: BUN/CREATININE RATIO 25.8 (10-20); CALCIUM 8.4 mg/dl (8.5-10.1); CREATININE 1.1 mg/dl (0.60-1.40); MAGNESIUM 1.9 mg/dl (1.8-2.4); POTASSIUM 4.1 mmol/L (3.5-5.1)
[2017-03-18] MEDS: DOCUSATE SODIUM 100 MG CAP PO SCH ×2 (09:00→19:52)
[2017-03-18] MEDS ORDERED: ENOXAPARIN 40 MG/0.4 ML SYR SQ SCH (09:00)
[2017-03-18] MEDS ORDERED: MAGNESIUM SULFATE 1GM / D5W 1 GM in PREMIXED IN D5W 100 ML IV SCH (09:00)
[2017-03-18] MEDS: MULTIVITAMIN TAB PO SCH (09:01)
[2017-03-18] MEDS: METOPROLOL SUCC 50MG EXT REL TAB PO SCH (09:01)
--- NOTE | 2017-03-18 09:04 | SURGERY PROGRESS NOTE ---
DATE: 03/18/2017 Mr. Uribe was seen today on postoperative day 9. After reviewing everything, I believe that we are dealing with an ileus. He did move his bowels with the amanda. He had some gas. He walked 3 times yesterday. Still on some oxygen but he does have a small right pleural effusion and has atelectasis. I discussed this in great detail with him. He does have some mildly decreased breath sounds in the right base. He has no wheezing, no rales. He has made good urine. He is hungry this morning, we will resume his diet. His labs were reviewed, and while his hemoglobin is down to 7.5, I do not think he is actively bleeding. In addition, we have now stopped the heparin and will resume Lovenox. His white count is not elevated. His creatinine remains within normal limits. Due to a in my family, I am going to be leaving town for a few days. I have discussed this case with Dr. Tim who will be following him for me. BJ
--- NOTE | 2017-03-18 09:43 | Hospitalist Progress Note ---
Hospitalist Progress Note Date of Service Mar 18, 2017. Subjective Pt evaluation today including: conversation w/ patient Not passing flatus yet but did have an enema and a suppository yesterday with 2 small pieces of stool passed. Normal sinus on telemetry. No CP,SOB, no N/V. Carey diet Constitutional: No fever Respiratory: No shortness of breath Cardiovascular: No chest pain All Other Systems: Reviewed and Negative Objective Vital Signs Date Time Temp Pulse Resp B/P Pulse Ox O2 Delivery O2 Flow Rate FiO2 03/18/17 07:54 36.6 81 18 110/70 90 Room Air 03/18/17 04:00 93 Nasal Cannula 3.0 03/18/17 03:18 36.7 80 18 126/78 93 Nasal Cannula 2.0 03/18/17 00:01 91 Nasal Cannula 3.0 03/17/17 23:36 36.6 82 18 101/56 91 Room Air 03/17/17 21:02 83 110/68 03/17/17 20:10 Room Air 3.0 03/17/17 20:00 Room Air 03/17/17 18:45 37.2 80 18 105/69 91 Nasal Cannula 3.0 03/17/17 16:00 Room Air 03/17/17 15:08 36.8 85 20 100/60 93 Room Air 03/17/17 12:00 Room Air 03/17/17 11:27 36.8 73 18 115/69 96 2.0 Physical Exam General Appearance: WD/WN, no apparent distress Eyes: normal inspection, sclerae normal Neck: trachea midline Respiratory/Chest: lungs clear, normal breath sounds, no respiratory distress, no accessory muscle use Cardiovascular: regular rate, rhythm, no edema, no gallop, no murmur Abdomen: soft (but mildly distended), + abnormal bowel sounds (hypoactive), + tenderness Extremities: non-tender, normal inspection, no pedal edema, no calf tenderness Neurologic/Psychiatric: alert Skin: warm/dry, no rash, + pallor Laboratory Results Last 24 Hours Test 03/18/17 05:43 White Blood Count 7.71 K/uL Red Blood Count 2.25 M/uL Hemoglobin 7.5 g/dL Hematocrit 22.3 % Mean Corpuscular Volume 99.1 fL Mean Corpuscular Hemoglobin 33.3 pg Mean Corpuscular Hemoglobin Concent 33.6 g/dl RDW Standard Deviation 49.2 fL RDW Coefficient of Variation 14.0 % Platelet Count 230 K/uL Mean Platelet Volume 10.0 fL Activated Partial Thromboplast Time 32.7 SECONDS Partial Thromboplastin Ratio 1.3 Sodium Level 137 mmol/L Potassium Level 4.1 mmol/L Chloride Level 104 mmol/L Carbon Dioxide Level 26 mmol/L Anion Gap 7.0 mmol/L Blood Urea Nitrogen 28 mg/dl Creatinine 1.10 mg/dl Est Creatinine Clear Calc Drug Dose 59.8 ml/min Estimated GFR () 76.8 Estimated GFR (Non- 66.2 BUN/Creatinine Ratio 25.8 Random Glucose 122 mg/dl Calcium Level 8.4 mg/dl Magnesium Level 1.9 mg/dl Assessment and Plan 71yo male with recently diagnosed esophageal cancer, s/p neoadjuvant chemotherapy and s/p laparoscopy procedure with attempts to perform an esophagogastrectomy but aborted due to advanced disease. He developed rapid a. fib resulting in hypotension, hypoxia to the 70s, and near-syncope and subsequently a code purple. Remains in NSR and improved. 1. A. fib with RVR, Chronic diastolic CHF -now resolved with metoprolol. TSH is normal. Troponin elevated and peaked at 1.89, now trending downward--> probable demand ischemia, not NSTEMI, discussed with Cardiology. No need for AC as is lone A-fib and in setting of metastatic disease, may be little benefit. Suspect hypokalemia and hypomagnesemia in the setting of stress from his surgery /hospitalization were culprits in this rhythm. These are improved but still mild hypomagnesemia secondary to low po intake. Initially could not rule out PE event contributing--> CTA chest not done immediately due to previous [place] which is now resolved--> was placed on heparin gtt in the meantime for A-fib and possible PE. Now CTA chest negative for PE, shows atelectasis. CT abdomen/pelvis shows ileus and postoperative changes. ECHO: -- Conclusions -- * The left ventricle is normal in size. * There is normal left ventricular wall thickness. * The basal septum is thickened and angulated consistent with sigmoid septum. * Left ventricular systolic function is normal. * The left ventricular wall motion is normal at rest. * Grade I diastolic dysfunction, (abnormal relaxation pattern). * The right ventricle is normal in size and function. * Aortic valve sclerosis moderate, without significant aortic valvular stenosis. * There is mild tricuspid regurgitation. * Right ventricular systolic pressure is normal. -converted to Toprol-XL 50 mg once daily -Discontinue heparin gtt and no need for anticoagulation chronically -continue to replace K and mag prn and encourage diet as tolerated -Continue telemetry lateral ST changes on EKG - may have been strain from rapid heart rate--> now resolved and in NSR ileus - per surgery. Correcting K and Mag will help with this. Persists today but slightly improved -continue to advance diet as tolerated -bowel regimen -mobilization encouraged again today -Surgery/primary service managing Anemia from acute blood loss/Surgery- baseline 12.5 on admission, then went to 10 post-op, then to 7-8 after on heparin gtt. No evidence of bleeding grossly and CT abd/pel without evidence of bleeding. No active bleeding. Hgb slight drop to 7.5 from 7.9 yesterday -continue to follow and transfuse PRBCs if drops<7.5 BPH - voiding fine per staff. hypotension - 2nd to rapid a. fib. Improved s/p fluids and conversion to NSR. Metastatic Esophageal CA-esophagectomy not performed due to metastatic disease. -f/u with Heme/Onc after discharge for any further treatment plans DVT Proph-was on heparin drip, now on Lovenox Dispo-FULL CODE
[2017-03-18] MEDS ORDERED: NURSING VERBAL MED ORDER ONE (18:00)
[2017-03-18] MEDS ORDERED: ZOLPIDEM TARTRATE 5 MG TAB PO PRN (18:15)
[2017-03-18] MEDS: PANTOprazole SOD 40 MG TAB PO SCH (19:52)
[2017-03-18] MEDS: ACETAMINOPHEN 325 MG TAB PO PRN (22:43)
[2017-03-19] VITALS (18 sets, daily range): BP systolic 101–145; BP diastolic 60–77; PULSE 69–93; TEMP 36.3–37; O2SAT 90–95
[2017-03-19] MEDS: METOCLOPRAMIDE HCL INJ 5 MG/ML 2 ML VIAL IV. SCH ×5 (00:28→23:18)
[2017-03-19 06:35] LABS: PARTIAL THROMBOPLASTIN RATIO 1.2
[2017-03-19 06:49] LABS: MAGNESIUM 1.9 mg/dl (1.8-2.4); PHOSPHORUS 3.8 mg/dl (2.5-4.9)
[2017-03-19 07:35] LABS: HEMATOCRIT 20.6 % (42-52); MEAN CELL VOLUME 98.6 fL (80-100); MEAN CORPUSCULAR HGB CONC 33.5 g/dl (32-36); MEAN PLATELET VOLUME 9.9 fL (7.4-10.4); PLATELET COUNT 234 K/uL (130-400); RED BLOOD COUNT 2.09 M/uL (4.7-6.1); WHITE BLOOD COUNT 6.78 K/uL (4.8-10.8)
[2017-03-19 07:38] LABS: BASO % 0.1 %; BASO ABS # 0.01 K/uL (0-0.2); COMPLETE YES; EOS % 3.1 %; IG% 0.3 %; LYMPH % 10.2 %; LYMPH ABS # 0.69 K/uL (1.2-3.4); MONO % 7.7 %; NEUT % 78.6 %
[2017-03-19] MEDS: DOCUSATE SODIUM 100 MG CAP PO SCH ×2 (07:56→19:27)
[2017-03-19] MEDS: METOPROLOL SUCC 50MG EXT REL TAB PO SCH (07:56)
[2017-03-19] MEDS: MULTIVITAMIN TAB PO SCH (07:56)
[2017-03-19] MEDS ORDERED: PANTOprazole INJ 80 MG in DEXTROSE 5% 100ML IV SCH (08:45)
[2017-03-19] MEDS ORDERED: ENOXAPARIN 30 MG/0.3 ML SYR SQ SCH (09:00)
[2017-03-19] MEDS: PANTOprazole INJ 40 MG in DEXTROSE 5% 100ML IV SCH ×4 (09:05→23:17)
[2017-03-19] MEDS ORDERED: POTASSIUM CHLORIDE 10 MEQ TABCR PO STA (09:13)
[2017-03-19] MEDS ORDERED: MAGNESIUM SULFATE 1GM / D5W 1 GM in PREMIXED IN D5W 100 ML IV STA (09:13)
--- NOTE | 2017-03-19 09:45 | Hematology/Oncology Prog Note ---
Hematology/Onc Progress Note Date of Service Mar 19, 2017. Diagnoses Esophageal cancer Paroxysmal AFib Declining hemoglobin Medications Medications Administered Medications (Trade) Dose Ordered Sig/Bulmaro Route Start Time Stop Time Status Last Admin Dose Admin Lactated Ringer's (Lr 1000ml) 1,000 ml @ 15 mls/hr Q24H IV 03/09/17 06:00 03/10/17 05:59 DC 03/09/17 06:30 15 MLS/HR Acetaminophen (Tylenol Tab) 650 mg Q4H PRN PO 03/09/17 08:15 04/08/17 08:14 03/18/17 22:43 650 MG Multivitamins (Multivitamin Tab) 1 tab QAM PO 03/09/17 10:30 04/08/17 10:29 03/19/17 07:56 1 TAB Pantoprazole Sodium (Protonix Tab) 40 mg HS PO 03/09/17 21:00 03/19/17 08:12 DC 03/18/17 19:52 40 MG Enalapril Maleate 40 mg 40 mg QAM PO 03/09/17 10:30 03/19/17 08:25 DC 03/14/17 09:14 40 MG Sodium Chloride 1,000 ml @ 75 mls/hr [id number] IV 03/09/17 10:15 03/12/17 08:06 DC 03/12/17 03:15 75 MLS/HR Ceftriaxone Sodium/Dextrose (Rocephin Inj/D5 50ml) 70 ml @ 100 mls/hr DAILY@1600 IV 03/09/17 16:00 03/13/17 15:59 DC 03/12/17 16:23 100 MLS/HR Ondansetron HCl (Zofran Inj) 4 mg Q4H PRN IV 03/11/17 12:15 04/10/17 12:14 03/15/17 16:36 4 MG Docusate Sodium (coLACE CAP) 100 mg BID PO 03/11/17 21:00 04/10/17 20:59 03/19/17 07:56 100 MG Metoclopramide HCl (Reglan Inj) 10 mg Q8 IV. 03/11/17 14:00 03/12/17 13:59 DC 03/12/17 05:45 10 MG Morphine Sulfate (MoRPHine SULFATE INJ) 2 mg Q1H PRN IV 03/11/17 12:15 03/25/17 12:14 03/16/17 15:20 2 MG Tramadol HCl 50 mg 50 mg Q4H PRN PO 03/12/17 08:15 04/11/17 08:14 03/18/17 19:53 50 MG Dextrose/Sodium Chloride (D5W And 1/2nss) 1,000 ml @ 100 mls/hr Q10H IV 03/12/17 08:15 03/12/17 15:18 DC 03/12/17 08:33 100 MLS/HR Potassium Chloride (Klor-Con Pwd) 40 meq TODAY@1700 ONCE PO 03/13/17 17:00 03/13/17 17:01 DC 03/13/17 17:18 40 MEQ Potassium Chloride (Klor-Con Pwd) 20 meq TODAY@2030 ONCE PO 03/13/17 20:30 03/13/17 20:56 DC 03/13/17 20:37 20 MEQ Potassium Chloride (Klor-Con Pwd) 20 meq TODAY@1615 ONCE PO 03/14/17 16:15 03/14/17 16:16 DC 03/14/17 16:16 20 MEQ Potassium Chloride (Klor-Con Pwd) 40 meq TODAY@1215 ONCE PO 03/14/17 12:15 03/14/17 12:26 DC 03/14/17 12:15 40 MEQ Bisacodyl (Dulcolax Supp) 10 mg DAILY PRN DC 03/14/17 12:30 04/13/17 12:29 03/17/17 15:58 10 MG Sodium Biphosphate/ Sodium Phosphate (Fleet Enema) 132 ml DAILY PRN DC 03/15/17 08:00 04/14/17 07:59 03/17/17 15:13 132 ML Potassium Chloride (Klor-Con Pwd) 40 meq TODAY@0800 ONCE PO 03/15/17 08:00 03/15/17 08:08 DC 03/15/17 09:09 40 MEQ Potassium Chloride 20 meq 20 meq TODAY@1200 ONCE PO 03/15/17 12:00 03/15/17 12:01 DC 03/15/17 11:48 20 MEQ Potassium Chloride/Sodium Chloride 1,000 ml @ 100 mls/hr Q10H IV 03/15/17 09:45 03/17/17 09:59 DC 03/17/17 05:43 100 MLS/HR Heparin Sodium/ Dextrose 500 ml @ 27 mls/hr [id number] PRN IV 03/15/17 10:00 03/17/17 09:59 DC 03/16/17 23:50 27 MLS/HR Magnesium Sulfate/ Prmx (Magnesium Sulfate/Premixed D5W) 100 ml @ 100 mls/hr Q1H IV 03/15/17 10:15 03/15/17 12:14 DC 03/15/17 11:48 100 MLS/HR Metoprolol Tartrate (Lopressor Iv) 5 mg STK-MED ONCE .ROUTE 03/15/17 10:06 03/15/17 10:07 DC 03/15/17 10:03 3 MG Metoprolol Tartrate (Lopressor Tab) 25 mg NOW STAT PO 03/15/17 12:03 03/15/17 12:04 DC 03/15/17 12:57 25 MG Metoprolol Tartrate (Lopressor Tab) 25 mg BID PO 03/15/17 21:00 03/17/17 22:01 DC 03/17/17 21:05 25 MG Bisacodyl (Dulcolax Supp) 10 mg TODAY@0830 ONCE DC 03/16/17 08:30 03/16/17 08:31 DC 03/16/17 09:40 10 MG Polyethylene (Miralax Powder Packet) 17 gm TODAY@0830 ONCE PO 03/16/17 08:30 03/16/17 08:31 DC 03/16/17 09:40 17 GM Metoclopramide HCl 10 mg 10 mg Q6H IV. 03/16/17 12:00 04/15/17 11:59 03/19/17 05:43 10 MG Magnesium Sulfate 1 gm/Prmx 100 ml @ 100 mls/hr 0830 IV 03/17/17 08:30 03/17/17 09:29 DC 03/17/17 09:10 100 MLS/HR Furosemide/Syringe (Lasix Inj/ Syringe) 2 ml @ 4 mls/min TODAY@1045 ONCE IV 03/17/17 10:45 03/17/17 10:46 DC 03/17/17 10:43 4 MLS/MIN Enoxaparin Sodium (Lovenox Inj) 40 mg QAM SQ 03/18/17 09:00 03/19/17 08:53 DC 03/18/17 09:02 40 MG Metoprolol Succinate 50 mg 50 mg QAM PO 03/18/17 09:00 04/17/17 08:59 03/19/17 07:56 50 MG Magnesium Sulfate/ Prmx (Magnesium Sulfate/Premixed D5W) 100 ml @ 100 mls/hr ONE@0900 IV 03/18/17 09:00 03/18/17 12:00 DC 03/18/17 09:00 100 MLS/HR Zolpidem Tartrate 5 mg 5 mg HSZ PRN PO 03/18/17 18:15 04/17/17 18:14 03/18/17 22:41 5 MG Pantoprazole Sodium 80 mg/ Dextrose 120 ml @ 480 mls/hr TODAY@0845 IV 03/19/17 08:45 03/19/17 08:59 DC 03/19/17 09:05 480 MLS/HR Pantoprazole Sodium/Dextrose (Protonix Inj/D5 100ml) 100 ml @ 20 mls/hr Q5H IV 03/19/17 09:00 04/18/17 08:59 03/19/17 09:05 20 MLS/HR Subjective Mr. Uribe is comfortable in bed. He denies any pain, nausea, melena, or hematochezia, though he also has not had a bowel movement in 2 days. He is tired , but in relatively good spirits, considering the events of his stay. Review of Systems: Constitutional: No chills, No fever ENT: No trouble swallowing, No unusual epistaxis Respiratory: No cough, No hemoptysis, No shortness of breath Cardiovascular: No chest pain Abdomen: + constipation, No GI bleeding, No nausea, No pain Musculoskeletal: No joint pain, No muscle pain Male : No dysuria, No hematuria Heme: No abnormal bleeding/bruising Skin: No bleeding Vital Signs Vital Signs Past 12 Hours Date Time Temp Pulse Resp B/P Pulse Ox O2 Delivery O2 Flow Rate FiO2 03/19/17 08:00 92 Nasal Cannula 2.0 03/19/17 07:43 36.9 77 20 112/67 92 2.0 03/19/17 05:08 120/71 03/19/17 04:00 36.8 85 20 114/68 94 Nasal Cannula 2.0 03/19/17 04:00 94 Nasal Cannula 03/19/17 00:01 94 Nasal Cannula 03/18/17 23:42 36.6 79 18 113/64 91 Nasal Cannula 2.0 Physical Exam Constitutional: General Apperance: heathly-appearing Level of Distress: NAD Psychiatric: Mental Status: active & alert Orientation: oriented except where noted Lungs: Respiratory Effort: no dyspnea Auscuitation: breath sounds normal Cardiovascular: Heart Auscultation: RRR Abdomen: Inspection & Palpation: soft, no tenderness, guarding & rebound Extremities: no edema Laboratory Last 24 Hours Test 03/19/17 05:12 White Blood Count 6.78 K/uL Red Blood Count 2.09 M/uL Hemoglobin 6.9 g/dL Hematocrit 20.6 % Mean Corpuscular Volume 98.6 fL Mean Corpuscular Hemoglobin 33.0 pg Mean Corpuscular Hemoglobin Concent 33.5 g/dl Platelet Count 234 K/uL Mean Platelet Volume 9.9 fL Neutrophils (%) (Auto) 78.6 % Lymphocytes (%) (Auto) 10.2 % Monocytes (%) (Auto) 7.7 % Eosinophils (%) (Auto) 3.1 % Basophils (%) (Auto) 0.1 % Neutrophils # (Auto) 5.33 K/uL Lymphocytes # (Auto) 0.69 K/uL Monocytes # (Auto) 0.52 K/uL Eosinophils # (Auto) 0.21 K/uL Basophils # (Auto) 0.01 K/uL RDW Standard Deviation 49.1 fL RDW Coefficient of Variation 14.1 % Immature Granulocyte % (Auto) 0.3 % Immature Granulocyte # (Auto) 0.02 K/uL Red Blood Cell Morphology Unremarkable Activated Partial Thromboplast Time 30.6 SECONDS Partial Thromboplastin Ratio 1.2 Potassium Level 3.8 mmol/L Phosphorus Level 3.8 mg/dl Magnesium Level 1.9 mg/dl Assessment & Plan Mr. Uribe underwent what was supposed to be an esophagectomy for his esophageal cancer. However, intraoperative, Dr. Stallworth found evidence of progressive disease, with increased lymphadenopathy compared to his diagnostic laparoscopy. As a result, the procedure was aborted. Since that time, his course has been complicated by AFib with RVR and now by a falling hemoglobin. This is concerning for GI losses, though the relatively slow decline argues against a massive bleeding event. There may also be components of surgical blood loss and hospital phlebotomy. Still, I would consider GI evaluation, particularly since he has reason to have GI bleeding, given his cancer and recent RT. The treatment of his cancer will be on hold until after discharge.
--- NOTE | 2017-03-19 10:30 | Surgery Progress Note ---
Subjective Date of Service: Mar 19, 2017. Pt. denies N/V or worsening abdominal pain with intake of liquids. No CP. He notes some SOB with ambulation. No lightheadedness or dizziness. He notes he passes some flatus this am. He had a small BM yesterday with enema- -no melena. Objective Vitals Date Time Temp Pulse Resp B/P Pulse Ox O2 Delivery O2 Flow Rate FiO2 03/19/17 08:00 92 Nasal Cannula 2.0 03/19/17 07:43 36.9 77 20 112/67 92 2.0 03/19/17 05:08 120/71 03/19/17 04:00 36.8 85 20 114/68 94 Nasal Cannula 2.0 03/19/17 04:00 94 Nasal Cannula 03/19/17 00:01 94 Nasal Cannula 03/18/17 23:42 36.6 79 18 113/64 91 Nasal Cannula 2.0 03/18/17 20:00 94 Room Air 03/18/17 18:49 36.9 79 19 102/62 94 Nasal Cannula 2.0 03/18/17 16:55 Room Air 03/18/17 15:15 36.4 81 19 95/56 91 Nasal Cannula 2.0 03/18/17 12:00 Room Air 03/18/17 11:41 36.6 86 18 107/68 95 Physical Exam General: No distress Skin: + pale CV: + RRR Pulmonary: + lungs clear, No accessory muscle use, No respiratory distress Abdomen: + pertinent finding (see eblow) Extremities: No calf tenderness Neurologic: + alert & oriented x 3 Additional Notes: Abdomen--BS are hypoactive; worsening distention not noted this am, no rebound tenderness or guarding Assessment & Plan 71 year old male s/p laparoscopy with gastric/celiac lymph node biopsies and JAXON -post-op ileus: -pt. has not had N/V, worsening distension, or signs of acute abdomen, therefore NGT has not bee required -hypokalemia has been corrected -meds reviewed: -prn IV morphine ordered but pt. has not utilized this since 03/16/17 -no other obvious agents noted that would contribute to decreased bowel function -continue dulcolax suppositories, reglan, and fleets -mobilization to continue -CT scan of abdomen (03/17/17)--showed distended small bowel, stomach, and colon; no noted signs of intra-abdominal hematoma -continue ultram for pain -discussed with Dr. Tim---(general/thoracic surgery): -he agrees with management as outlined in this noted -he does recommend adding PPN for nutrition due to prolong ileus--pharmacy will order -he notes he would advise against doing EGD at this time GASTROESOPHAGEAL CA -discussed with oncology, Jeffery Joseph: -he will see pt. today and follow with further recommendations PAF -questionable run of V-tach vs. PAF noted last night lasting about 15-16 seconds -resolved -heparin drip was used from (02/2317-03/17/17)--stopped as a-fib resolved -electrolytes noted to be in normal range -echo performed and showed normal BiV function -discussed with cardiology: -maintain on beta-blockers and increase if hemodynamics allow (little room to increase at the present time) -of note: -CT scan of chest (03/17/17) was (-) for PE ANEMIA -cause uncertain but likely due to malignancy -discussed with pt.--will transfuse 2 units PRBCs today -place on PPI drip -heme test stool -discussed with hospitalist--lovenox to stop and GI to be consulted: -discussed with GI service and made them aware of Dr. Tim's recommendations CKD -improved; renal function back to baseline -avoid nephrotoxins HTN -current med is toprol 50 mg daily with holds in place OTHER -SCDs only now for DVT prevention (no chemical means due to noted worsening anemia) -discussed with hospitalist, Dr. Subramanian--due to numerous medical comorbidities, will transfer primary service to medicine -will continue to follow daily -
--- NOTE | 2017-03-19 10:43 | Gastrointestinal Consultation ---
Gastrointestinal Consultation Date of Consultation: Mar 19, 2017 Attending Physician: Dr. Subramanian Consulting Physician: Dr. Overton/UVALDO Brown Reason for Consultation: anemia, esophageal cancer History of Present Illness Patient is a 71 year old male with a history of odynophagia who underwent an upper endoscopy by Dr. Overton on 10/06/16 with findings of an ulcerated GE junction mass which returned a poorly differentiated adenocarcinoma. Afterwards , he began neoadjuvant chemoradiation with plans for esophagogastrectomy by Dr. Stallworth. He was admitted to the hospital on 03/09/17 in this regard. Surgery was temporarily deferred due to fever on arrival. He did proceed with surgery on 03/11/17 and was transitioned to a celiac/gastric biopsy with lysis of adhesions. Postoperatively, his recovery has been complicated by bowel ileus and atrial fibrillation with RVR which has resolved. He was placed on a heparin drip and has been noted to have a continued decline in H&H. Yesterday, his hemoglobin was 7.5 and was down to 6.9 today. The heparin drip has been discontinued and a Protonix drip has been started. He did have a full liquid breakfast at 0730 but has been NPO since that time. He denies any overt GIB such as melena, hematochezia or hematemesis. He further denies any abdominal pain. He does have some abdominal distention but no nausea or vomiting. He denies any significant dysphagia but has been adhering to a full liquid diet per his report for some time. Past Medical/Surgical History Past Medical History: 1. Esophageal cancer 2. Diastasis recti 3. Hypertension 4. Ventral hernia 5. TA of the colon 6. Diverticulitis 7. Lower GIB Past Surgical History: 1. EGD 2. Left knee arthroscopy 3. Colon resection 4. Hernia repair 5. Complete colonoscopy 6. Prostate biopsy Family History Negative for GI malignancy or IBD Social History Smoking Status: Former Smoker (smoked 1ppd for 30 years) Drug Use: none Marital Status: (5 children) Housing Status: lives with family ( in [place]) Occupation Status: retired Allergies Coded Allergies: Adhesives (Verified Allergy, Unknown, TAPE-RED ITCHY WITH SOME TAPE, ) NO KNOWN DRUG ALLERGIES (Verified Allergy, Unknown, NONE, 03/09/17) Current Medications Home Meds and Scripts Medications Dose Route/Sig Max Daily Dose Days Date Category Hygroton (Chlorthalidone) 25 Mg Tab 25 Mg PO QAM 02/24/17 Reported Zofran (Ondansetron HCl) 8 Mg Tab 8 Mg PO Q8H PRN 02/06/17 Reported Multivitamin (Multivitamins) Tab 1 Tab PO QAM 09/29/16 Reported Prilosec (Omeprazole) 40 Mg Capcr 40 Mg PO HS 09/29/16 Reported Altace * (Ramipril) 10 Mg Cap 10 Mg PO QAM 08/07/08 Reported Review of Systems Constitutional: + see HPI Eyes: No problem reported ENT: + see HPI Respiratory: No cough, No shortness of breath Cardiac: No chest pain, No palpitations Abdomen: + see HPI Musculoskeletal: No problem reported Male : No problem reported Neuro: No problem reported Psych: No problem reported Skin: No problem reported Physical Exam Date Time Temp Pulse Resp B/P Pulse Ox O2 Delivery O2 Flow Rate FiO2 03/19/17 08:00 92 Nasal Cannula 2.0 03/19/17 07:43 36.9 77 20 112/67 92 2.0 03/19/17 05:08 120/71 03/19/17 04:00 36.8 85 20 114/68 94 Nasal Cannula 2.0 03/19/17 04:00 94 Nasal Cannula 03/19/17 00:01 94 Nasal Cannula 03/18/17 23:42 36.6 79 18 113/64 91 Nasal Cannula 2.0 03/18/17 20:00 94 Room Air 03/18/17 18:49 36.9 79 19 102/62 94 Nasal Cannula 2.0 03/18/17 16:55 Room Air 03/18/17 15:15 36.4 81 19 95/56 91 Nasal Cannula 2.0 03/18/17 12:00 Room Air 03/18/17 11:41 36.6 86 18 107/68 95 General Appearance: no apparent distress Eyes: EOMI ENT: hearing grossly normal Neck: supple Respiratory/Chest: lungs clear, normal breath sounds, + decreased breath sounds (right lower lobe) Cardiovascular: regular rate, rhythm, no gallop, no murmur Abdomen: non tender, + abnormal bowel sounds (decreased, tinkling), + distended Extremities: no pedal edema Neurologic/Psych: alert, normal mood/affect, oriented x 3 Skin: warm/dry Laboratory Results Last 24 Hours Test 03/19/17 05:12 White Blood Count 6.78 K/uL Red Blood Count 2.09 M/uL Hemoglobin 6.9 g/dL Hematocrit 20.6 % Mean Corpuscular Volume 98.6 fL Mean Corpuscular Hemoglobin 33.0 pg Mean Corpuscular Hemoglobin Concent 33.5 g/dl Platelet Count 234 K/uL Mean Platelet Volume 9.9 fL Neutrophils (%) (Auto) 78.6 % Lymphocytes (%) (Auto) 10.2 % Monocytes (%) (Auto) 7.7 % Eosinophils (%) (Auto) 3.1 % Basophils (%) (Auto) 0.1 % Neutrophils # (Auto) 5.33 K/uL Lymphocytes # (Auto) 0.69 K/uL Monocytes # (Auto) 0.52 K/uL Eosinophils # (Auto) 0.21 K/uL Basophils # (Auto) 0.01 K/uL RDW Standard Deviation 49.1 fL RDW Coefficient of Variation 14.1 % Immature Granulocyte % (Auto) 0.3 % Immature Granulocyte # (Auto) 0.02 K/uL Red Blood Cell Morphology Unremarkable Activated Partial Thromboplast Time 30.6 SECONDS Partial Thromboplastin Ratio 1.2 Potassium Level 3.8 mmol/L Phosphorus Level 3.8 mg/dl Magnesium Level 1.9 mg/dl Impression Patient is a 71 year old male with a history of esophageal cancer status post chemoradiation as well as celiac/gastric lymph node biopsy and lysis of adhesions by Dr. Stallworth with progressive anemia without overt GIB in the setting of recent Heparin use for history of AFib with RVR postoperatively and persistent ileus. Plan 1. Continue NPO status for now. 2. Agree with enema and bowel regimen as ordered by surgery. 3. Continue Protonix ggt at 8 mg/hr. 4. Agree with blood transfusion as ordered to maintain hgb >8. 5. Discussed with Jayme Castle PA-C of thoracic surgery. No plans for EGD at this time after discussion with Dr. Tim. 6. Supportive care per primary team. Thank you for allowing us to participate in the care of this pleasant patient. If you have any questions or concerns, please do not hesitate to contact us. Agree with UVALDO Brown as above Abd: Soft, NT, ND, +BS Lungs: Decreased BS at B/L bases Continue supportive care Continue current therapy including PPI and Bowel regimen.
[2017-03-19] MEDS: ONDANSETRON INJ 2 MG/ML 2 ML VIAL IV PRN ×2 (10:46→15:13)
[2017-03-19] MEDS: MoRPHine SULFATE 2 MG/ML CARP IV PRN ×3 (10:50→19:26)
--- NOTE | 2017-03-19 10:55 | SURGERY PROGRESS NOTE ---
DATE: 03/19/2017 Vinny is resting comfortable, he is in no acute distress, is at his bedside. I am covering for Dr. Stallworth who will be out of town for a few days. Both he and his say that they feel about the same, although the patient states he is starting to have some flatus during the night and also earlier this morning. As far as his oral intake, it has been very marginal. Of note, though his last vitals showed him to have a temperature of 36.9, pulse 77, respirations 20, blood pressure 112/67, O2 sats 92 on 2 liters. I\T\O has been fairly balanced, his weight is 87 kg. Laboratory fernández, this morning his hemoglobin is down to 6.9, WBC is 6.78. The abdomen is distended, it is nontender. Few areas of ecchymoses along the incision, it appeared that the patient had been on some Lovenox injection. He is not nauseated. He tells me he is scheduled for an EGD today to see ongoing bleeding. A CAT scan from 2 days ago I reviewed. At this point, I there is nothing surgical going on, but I would recommend that the patient be considered at least some adjuvant nutrition either for peripheral IV or a PICC line. It may be few more days until he resolves his abdominal process which at this time is compatible with an ileus.
[2017-03-19] MEDS ORDERED: PANTOprazole INJ 40 MG in SYRINGE 0 ML IV SCH (11:00)
[2017-03-19] MEDS ORDERED: FUROSEMIDE INJ 20 MG in SYRINGE 0 ML IV ONE ×2 (11:00→14:00)
[2017-03-19] MEDS ORDERED: TPN/PPN CONSULT PHARMACY PRN (11:15)
--- NOTE | 2017-03-19 12:38 | Pharmacy Progress Note ---
Parenteral Nutrition Consult Date of Service Mar 19, 2017. Scope Pharmacy has been consulted to manage parenteral nutrition orders and order appropriate labs. As part of the Nutrition Support Team guidelines, pharmacy will work in conjunction with dietary when determining the patients caloric needs. Subjective The patient is a 71 year old male admitted on Mar 09, 2017 at 08:10 for Esophageal Cancer. Patient is to receive parenteral nutrition for prolonged ileus. Pertinent PMH: Mr Uribe was admitted on 03/09/17 and underwent a celiac/gastric biopsy with lysis of adhesions. His postoperative course has been complicated by an ileus, Afib w/ RVR which has resolved, and now an apparent gastrointestinal bleed. He was eating previously and is now NPO. Objective Height (Feet): 5 Height (Inches): 9.00 Weight (Kilograms): 87.500 Diet: NPO Vascular Access: Peripheral - 2 sites which IV team told me one was dedicated to a Protonix gtt and the other could tolerate 80 cc/hr PPN. Intake & Output (Last 72 Hr): 03/17/17 03/18/17 03/19/17 08:00 08:00 08:00 Intake Total 2184 ml 1225 ml 1400 ml Output Total 725 ml 1140 ml 475 ml Balance 1459 ml 85 ml 925 ml Laboratory Data (Last 24 Hr): Test 03/19/17 05:12 03/19/17 11:30 Magnesium Level 1.9 mg/dl (1.8-2.4) Phosphorus Level 3.8 mg/dl (2.5-4.9) Potassium Level 3.8 mmol/L (3.5-5.1) Nutrition Assessment Please refer to the Notes section of the EMR for the most recent project scientist note. Assessment Mr Uribe is a 71 y/o M POD 8 after a celiac/gastric biopsy and lysis of adhesions with currently with an ileus. He was previously tolerating a full liquid diet so I am not concerned with refeeding syndrome especially with the low calories provided in a PPN. Standard replacement of lytes is chosen with addition magnesium as patient appears to require this daily. Plan For day 1 of PN administration, the following will be ordered: Macronutrients Amino acids 50 grams/day Dextrose 95 grams/day Lipids 25 grams/day Micronutrients Combined electrolytes 20 mL - contains 35 mEq Na, 20 meq K, 4.5 mEq Ca, 5 mEq Mg , 35 mEq Cl, 29.5 mEq acetate per 20 mL Potassium phosphate 21 mMol Magnesium sulfate 4.06 mEq Multivitamins 10 mL Trace Elements 10 mL Additional additives: Total volume 2000 mL to be infused over 24 hrs will provide 770 kcal/day Final osmolarity 596 mOsm/L (maximum for PPN is 600 mOsm/L) Labs to be ordered per PN order protocol Pharmacy will follow and adjust parenteral nutrition orders on a daily basis. Thank you.
[2017-03-19] MEDS ORDERED: DEXTROSE 10% 1,000 ML IV PRN (12:55)
[2017-03-19] MEDS: TRAMADOL HCL 50 MG TAB PO PRN ×2 (13:20→23:17)
[2017-03-19 15:00] LABS: CALCIUM 7.9 mg/dl (8.5-10.1); CREATININE 1.2 mg/dl (0.60-1.40); MAGNESIUM 2.1 mg/dl (1.8-2.4); PHOSPHORUS 3.9 mg/dl (2.5-4.9); POTASSIUM 3.8 mmol/L (3.5-5.1)
[2017-03-19] MEDS ORDERED: CUSTOM PERIPHERAL PN 1 BAG IV SCH (16:00)
[2017-03-19] MEDS: SOD PHOSPHATE/SOD BIPHOSPHATE ENEMA 132 ML BTL PR PRN (17:26)
--- NOTE | 2017-03-19 18:31 | Hospitalist Progress Note ---
Hospitalist Progress Note Date of Service Mar 19, 2017. Subjective Pt evaluation today including: conversation w/ patient, conversation w/ family , physical exam Patient feels tired today. His hemoglobin is down and he will be receiving 2 units of PRBCs. Had some flatus yesterday and today, no bowel movements in the last 24 hours. No significant abdominal pain, no nausea or vomiting. All Other Systems: Reviewed and Negative Objective Vital Signs Date Time Temp Pulse Resp B/P Pulse Ox O2 Delivery O2 Flow Rate FiO2 03/19/17 17:04 36.7 86 20 127/60 94 2.0 03/19/17 16:40 36.9 83 20 119/66 93 2.0 03/19/17 16:00 36.6 85 22 145/70 94 2.0 03/19/17 16:00 Nasal Cannula 2.0 03/19/17 15:30 87 115/70 92 2.0 03/19/17 15:13 36.9 85 17 115/67 93 03/19/17 13:26 36.9 80 18 113/66 93 3.0 03/19/17 12:34 37.0 76 18 114/65 92 3.0 03/19/17 12:00 92 Nasal Cannula 3.0 03/19/17 11:51 36.8 76 18 108/66 92 3.0 03/19/17 11:21 36.8 80 18 115/68 92 3.0 03/19/17 11:20 36.5 78 20 112/68 91 Room Air 03/19/17 08:00 92 Nasal Cannula 2.0 03/19/17 07:43 36.9 77 20 112/67 92 2.0 03/19/17 05:08 120/71 03/19/17 04:00 36.8 85 20 114/68 94 Nasal Cannula 2.0 03/19/17 04:00 94 Nasal Cannula 03/19/17 00:01 94 Nasal Cannula 03/18/17 23:42 36.6 79 18 113/64 91 Nasal Cannula 2.0 03/18/17 20:00 94 Room Air 03/18/17 18:49 36.9 79 19 102/62 94 Nasal Cannula 2.0 Physical Exam General Appearance: no apparent distress Eyes: normal inspection, sclerae normal Neck: trachea midline Respiratory/Chest: lungs clear, normal breath sounds, no respiratory distress, no accessory muscle use Cardiovascular: regular rate, rhythm, no edema, no murmur Abdomen: soft, + abnormal bowel sounds (hypoactive), + tenderness (minimal at incision sites without guarding or rebound tenderness) Extremities: no calf tenderness Neurologic/Psychiatric: alert, normal mood/affect, oriented x 3 Skin: no rash, + pallor Laboratory Results Last 24 Hours Test 03/19/17 00:00 03/19/17 05:12 03/19/17 14:32 White Blood Count 6.78 K/uL Red Blood Count 2.09 M/uL Hemoglobin 6.9 g/dL Hematocrit 20.6 % Mean Corpuscular Volume 98.6 fL Mean Corpuscular Hemoglobin 33.0 pg Mean Corpuscular Hemoglobin Concent 33.5 g/dl Platelet Count 234 K/uL Mean Platelet Volume 9.9 fL Neutrophils (%) (Auto) 78.6 % Lymphocytes (%) (Auto) 10.2 % Monocytes (%) (Auto) 7.7 % Eosinophils (%) (Auto) 3.1 % Basophils (%) (Auto) 0.1 % Neutrophils # (Auto) 5.33 K/uL Lymphocytes # (Auto) 0.69 K/uL Monocytes # (Auto) 0.52 K/uL Eosinophils # (Auto) 0.21 K/uL Basophils # (Auto) 0.01 K/uL RDW Standard Deviation 49.1 fL RDW Coefficient of Variation 14.1 % Immature Granulocyte % (Auto) 0.3 % Immature Granulocyte # (Auto) 0.02 K/uL Red Blood Cell Morphology Unremarkable Activated Partial Thromboplast Time 30.6 SECONDS Partial Thromboplastin Ratio 1.2 Potassium Level 3.8 mmol/L 3.8 mmol/L Phosphorus Level 3.8 mg/dl 3.9 mg/dl Magnesium Level 1.9 mg/dl 2.1 mg/dl Sodium Level 135 mmol/L Chloride Level 104 mmol/L Carbon Dioxide Level 25 mmol/L Anion Gap 6.0 mmol/L Blood Urea Nitrogen 26 mg/dl Creatinine 1.20 mg/dl Est Creatinine Clear Calc Drug Dose 60.0 ml/min Estimated GFR () 69.1 Estimated GFR (Non- 59.6 BUN/Creatinine Ratio 22.0 Random Glucose 123 mg/dl Calcium Level 7.9 mg/dl Assessment and Plan 71yo male with recently diagnosed esophageal cancer, s/p neoadjuvant chemotherapy and s/p laparoscopy procedure with attempts to perform an esophagogastrectomy but aborted due to advanced disease. He developed rapid a. fib resulting in hypotension, hypoxia to the 70s, and near-syncope and subsequently a code purple. Remains in NSR and improved. Prolonged hospital course due to postoperative ileus. Also with postoperative anemia worsened by being on heparin drip. 1. A. fib with RVR, Chronic diastolic CHF, nonsustained ventricular tachycardia -now resolved with metoprolol. TSH is normal. Troponin elevated and peaked at 1.89, now trending downward--> probable demand ischemia, not NSTEMI, discussed with Cardiology. No need for AC as is lone A-fib and in setting of metastatic disease, may be little benefit. Suspect hypokalemia and hypomagnesemia in the setting of stress from his surgery /hospitalization were culprits in this rhythm. Initially could not rule out PE event contributing--> CTA chest not done immediately due to previous [place] which is now resolved--> was placed on heparin gtt in the meantime for A-fib and possible PE. Now CTA chest negative for PE, shows atelectasis. CT abdomen/pelvis shows ileus and postoperative changes. Heparin drip was stopped. No further atrial fib, but did have 20 seconds of nonsustained ventricular tachycardia today and he was asymptomatic. ECHO: -- Conclusions -- * The left ventricle is normal in size. * There is normal left ventricular wall thickness. * The basal septum is thickened and angulated consistent with sigmoid septum. * Left ventricular systolic function is normal. * The left ventricular wall motion is normal at rest. * Grade I diastolic dysfunction, (abnormal relaxation pattern). * The right ventricle is normal in size and function. * Aortic valve sclerosis moderate, without significant aortic valvular stenosis. * There is mild tricuspid regurgitation. * Right ventricular systolic pressure is normal. -converted to Toprol-XL 50 mg once daily but consider increasing due to V. tach if BP can tolerate -continue to replace K and mag prn and encourage diet as tolerated -Continue telemetry lateral ST changes on EKG - may have been strain from rapid heart rate--> now resolved and in NSR ileus - per surgery. Correcting K and Mag will help with this. Persists today but slightly improved -continue to advance diet as tolerated, still on full liquids -Starting partial parenteral nutrition through PICC line today -bowel regimen -mobilization encouraged again today Anemia from acute blood loss/Surgery- baseline 12.5 on admission, then went to 10 post-op, then to 7-8 after on heparin gtt. No evidence of bleeding grossly and CT abd/pel without evidence of bleeding. No active bleeding. Hgb continues to drop to 6.9 from 7.5. Likely slow bleeding from esophageal mass while on blood thinners. -Transfused 2 units PRBCs on 03/19/2017 -Follow CBC -Appreciate GI consultation-no EGD will be performed at this time BPH - voiding fine per staff. hypotension - 2nd to rapid a. fib. Improved s/p fluids and conversion to NSR. Metastatic Esophageal CA-esophagectomy not performed due to metastatic disease. -f/u with Heme/Onc after discharge for any further treatment plans DVT Proph-was on heparin drip, then on Lovenox-now held completely for severe anemia and suspected GI bleeding Dispo-FULL CODE
[2017-03-19] MEDS ORDERED: POTASSIUM CHLORIDE 10 MEQ TABCR PO ONE (18:45)
[2017-03-20] VITALS (7 sets, daily range): BP systolic 104–129; BP diastolic 61–75; PULSE 75–83; TEMP 36.5–37.1; O2SAT 92–95
[2017-03-20] MEDS: PANTOprazole INJ 40 MG in DEXTROSE 5% 100ML IV SCH ×4 (04:41→19:32)
[2017-03-20] MEDS: METOCLOPRAMIDE HCL INJ 5 MG/ML 2 ML VIAL IV. SCH ×3 (04:41→18:19)
[2017-03-20 06:45] LABS: MEAN CELL VOLUME 96.4 fL (80-100); MEAN CORPUSCULAR HEMOGLOBIN 32.5 pg (25-34); MEAN CORPUSCULAR HGB CONC 33.8 g/dl (32-36); MEAN PLATELET VOLUME 9.8 fL (7.4-10.4); PLATELET COUNT 190 K/uL (130-400); RED BLOOD COUNT 2.49 M/uL (4.7-6.1); WHITE BLOOD COUNT 6.14 K/uL (4.8-10.8)
[2017-03-20 06:52] LABS: PARTIAL THROMBOPLASTIN RATIO 1.2
[2017-03-20 07:14] LABS: BUN/CREATININE RATIO 24.5 (10-20); CALCIUM 7.5 mg/dl (8.5-10.1); CREATININE 1.2 mg/dl (0.60-1.40); POTASSIUM 4.1 mmol/L (3.5-5.1)
[2017-03-20 07:16] LABS: C-REACTIVE PROTEIN 8.19 mg/dl (0-0.29); PHOSPHORUS 3.7 mg/dl (2.5-4.9)
[2017-03-20 07:25] LABS: COMPLETE YES; ECHINOCYTES 3+; EOSINOPHIL % 0.9 %; LYMPH ABS # 0.17 K/uL (1.2-3.4); LYMPHOCYTE % 2.7 %; NEUTROPHILS % 89.3 %
[2017-03-20] MEDS: MULTIVITAMIN TAB PO SCH (08:02)
[2017-03-20] MEDS: METOPROLOL SUCC 50MG EXT REL TAB PO SCH (08:02)
[2017-03-20] MEDS: DOCUSATE SODIUM 100 MG CAP PO SCH ×2 (08:02→19:32)
--- NOTE | 2017-03-20 09:45 | Surgery Progress Note ---
Subjective Date of Service: Mar 20, 2017. Pt. denies CP. he notes some fatigue/SOB with ambulation. No lightheadedness He has not had any N/V with liquid intake. He had small BM yesterday. Objective Vitals Date Time Temp Pulse Resp B/P Pulse Ox O2 Delivery O2 Flow Rate FiO2 03/20/17 08:00 Nasal Cannula 2.0 03/20/17 07:38 36.6 81 20 114/65 93 2.0 03/20/17 04:00 Nasal Cannula 2.0 03/20/17 03:47 36.5 83 21 112/72 92 Nasal Cannula 2.0 03/20/17 00:00 Nasal Cannula 2.0 03/19/17 23:39 36.8 69 18 101/62 95 Nasal Cannula 2.0 03/19/17 20:00 Nasal Cannula 2.0 03/19/17 19:08 36.3 93 24 119/77 90 Room Air 03/19/17 17:04 36.7 86 20 127/60 94 2.0 03/19/17 16:40 36.9 83 20 119/66 93 2.0 03/19/17 16:00 36.6 85 22 145/70 94 2.0 03/19/17 16:00 Nasal Cannula 2.0 03/19/17 15:30 87 115/70 92 2.0 03/19/17 15:13 36.9 85 17 115/67 93 03/19/17 13:26 36.9 80 18 113/66 93 3.0 03/19/17 12:34 37.0 76 18 114/65 92 3.0 03/19/17 12:00 92 Nasal Cannula 3.0 03/19/17 11:51 36.8 76 18 108/66 92 3.0 03/19/17 11:21 36.8 80 18 115/68 92 3.0 03/19/17 11:20 36.5 78 20 112/68 91 Room Air Physical Exam General: No distress CV: + RRR Pulmonary: + pertinent finding (decreasedat bases), No accessory muscle use, No respiratory distress Abdomen: + pertinent finding (see below) Extremities: No calf tenderness Neurologic: + alert & oriented x 3 Additional Notes: Abdomen--BS are hypoactive, abdomen distended; no rebound tenderness Assessment & Plan 71 year old male s/p laparoscopy with gastric/celiac lymph node biopsies and JAXON -post-op ileus: -pt. has not had N/V or signs of acute abdomen, therefore NGT has not bee required -hypokalemia has been corrected -meds reviewed: -prn IV morphine ordered but pt. has not utilized this since 03/16/17 -no other obvious agents noted that would contribute to decreased bowel function -continue dulcolax suppositories, reglan, and fleets -mobilization attemps to continue -CT scan of abdomen (03/17/17)--showed distended small bowel, stomach, and colon; no noted signs of intra-abdominal hematoma -continue ultram for pain -discussed with Dr. Tim on (---(general/thoracic surgery): -he agrees with management as outlined in this noted -he recommended adding PPN for nutrition due to prolong ileus (this was started 03/19/17) -he notes he would advise against doing EGD at this time GASTROESOPHAGEAL CA -discussed with oncology, Jeffery Joseph: -he will follow-up with pt. as outpt. and discuss treatment options at that time PAF -questionable run of V-tach vs. PAF noted last night lasting about 15-16 seconds -resolved -heparin drip was used from (02/2317-03/17/17)--stopped as a-fib resolved -electrolytes noted to be in normal range -echo performed and showed normal BiV function -discussed with cardiology: -maintain on beta-blockers and increase if hemodynamics allow (little room to increase at the present time) -of note: -CT scan of chest (03/17/17) was (-) for PE ANEMIA -cause uncertain but likely due to malignancy -PPI drip started on (03/19/17) -stool noted to be heme (+) on (03/19/17) -discussed with hospitalist--lovenox to stop and GI to be consulted: -discussed with GI service and made them aware of Dr. Tim's recommendations -anemia has improved with transfusion of 2 units PRBCs on (03/19/17) CKD -renal function back to baseline and has remained stable -avoid nephrotoxins HTN -current med is toprol 50 mg daily with holds in place OTHER -SCDs only now for DVT prevention (no chemical means due to noted worsening anemia & heme (+) stool -discussed with hospitalist, Dr. Subramanian--due to numerous medical comorbidities, she has accepted the pt. on her service -will continue to follow daily
--- NOTE | 2017-03-20 10:04 | SURGERY PROGRESS NOTE ---
DATE: 03/20/2017 DATE: 03/20/2017. Covering for Dr. Stallworth. Vinny looks much better this morning. He still has some abdominal pain, but he is sitting in a chair at the side of the bed. His is present and stated he had a small bowel movement yesterday. His last vitals showed a temperature of 36.6, pulse 81, respirations 20, blood pressure 114/65, O2 sats 93 on 2 liters. I\T\O -- his urine output was 250 overnight. Laboratory fernández, his hemoglobin is 8.1 this morning, he did receive 2 units of blood yesterday. The BUN is 29, creatinine is 1.20. Albumin is 2.2, but hyperalimentation was started yesterday. At this point, we will continue observing. Hopefully he will start to have more of a GI function and can tolerate more of an oral intake. We will keep following his hemoglobin. At this time, there is no sign of any active bleeding.
[2017-03-20 15:21] LABS: HEMATOCRIT 26.4 % (42-52); MEAN CELL VOLUME 96.7 fL (80-100); MEAN CORPUSCULAR HEMOGLOBIN 32.6 pg (25-34); MEAN CORPUSCULAR HGB CONC 33.7 g/dl (32-36); MEAN PLATELET VOLUME 9.6 fL (7.4-10.4); PLATELET COUNT 224 K/uL (130-400); RED BLOOD COUNT 2.73 M/uL (4.7-6.1); WHITE BLOOD COUNT 8.05 K/uL (4.8-10.8)
[2017-03-20 16:00] LABS: COMPLETE YES; EOS % 1.7 %; IG% 0.2 %; LYMPH % 9.2 %; LYMPH ABS # 0.74 K/uL (1.2-3.4); MONO % 8.9 %; POLYCHROMASIA 1+
[2017-03-20] MEDS ORDERED: CUSTOM CENTRAL PN 1 BAG IV SCH (16:00)
--- NOTE | 2017-03-20 19:40 | Hospitalist Progress Note ---
Hospitalist Progress Note Date of Service Mar 20, 2017. Subjective Pt evaluation today including: conversation w/ patient Patient feeling tired today. His hemoglobin francia appropriately after receiving transfusion yesterday. Of note, later in the day he did sustain a fall when he was trying to get to the bathroom quickly and tripped over his oxygen tubing. The RN was in the room with him and caught him part way down. He denies any pain and he did not hit his head or lose consciousness. He has no injuries. I checked back in on him again later in the day and he was still feeling fine. He did have some melanotic stools today as expected. All Other Systems: Reviewed and Negative Objective Vital Signs Date Time Temp Pulse Resp B/P Pulse Ox O2 Delivery O2 Flow Rate FiO2 03/20/17 16:07 36.9 75 19 117/71 95 Nasal Cannula 2.0 03/20/17 16:00 Nasal Cannula 2.0 03/20/17 12:00 Nasal Cannula 2.0 03/20/17 11:39 36.6 78 18 118/67 92 2.0 03/20/17 08:00 Nasal Cannula 2.0 03/20/17 07:38 36.6 81 20 114/65 93 2.0 03/20/17 04:00 Nasal Cannula 2.0 03/20/17 03:47 36.5 83 21 112/72 92 Nasal Cannula 2.0 03/20/17 00:00 Nasal Cannula 2.0 03/19/17 23:39 36.8 69 18 101/62 95 Nasal Cannula 2.0 03/19/17 20:00 Nasal Cannula 2.0 Physical Exam General Appearance: WD/WN (but appears fatigued ), no apparent distress Eyes: normal inspection, sclerae normal ENT: hearing grossly normal Neck: trachea midline Respiratory/Chest: lungs clear, normal breath sounds, no respiratory distress, no accessory muscle use Cardiovascular: regular rate, rhythm, no edema, no murmur Abdomen: normal bowel sounds, + tenderness (mild at incision sites, no guarding or rebound, abdomen distended but soft) Extremities: normal inspection, no calf tenderness Neurologic/Psychiatric: alert, oriented x 3, + depressed affect Skin: warm/dry, no rash Laboratory Results Last 24 Hours Test 03/20/17 01:20 03/20/17 05:57 03/20/17 06:15 03/20/17 12:37 Bedside Glucose 152 mg/dl 148 mg/dl 137 mg/dl White Blood Count 6.14 K/uL Red Blood Count 2.49 M/uL Hemoglobin 8.1 g/dL Hematocrit 24.0 % Mean Corpuscular Volume 96.4 fL Mean Corpuscular Hemoglobin 32.5 pg Mean Corpuscular Hemoglobin Concent 33.8 g/dl Platelet Count 190 K/uL Mean Platelet Volume 9.8 fL RDW Standard Deviation 56.9 fL RDW Coefficient of Variation 16.4 % Nucleated RBC Absolute Count (auto) 0.02 K/uL Neutrophils % (Manual) 89.3 % Lymphocytes % (Manual) 2.7 % Monocytes % (Manual) 7.1 % Eosinophils % (Manual) 0.9 % Nucleated Red Blood Cells % 0.4 % Neutrophils # (Manual) 5.48 K/uL Total Absolute Neutrophils 5.48 K/uL Lymphocytes # (Manual) 0.17 K/uL Total Absolute Lymphocytes 0.17 K/uL Monocytes # (Manual) 0.44 K/uL Eosinophils # (Manual) 0.06 K/uL Echinocytes 3+ Activated Partial Thromboplast Time 31.3 SECONDS Partial Thromboplastin Ratio 1.2 Sodium Level 134 mmol/L Potassium Level 4.1 mmol/L Chloride Level 103 mmol/L Carbon Dioxide Level 24 mmol/L Anion Gap 7.0 mmol/L Blood Urea Nitrogen 29 mg/dl Creatinine 1.20 mg/dl Est Creatinine Clear Calc Drug Dose 58.9 ml/min Estimated GFR () 68.6 Estimated GFR (Non- 59.2 BUN/Creatinine Ratio 24.5 Random Glucose 131 mg/dl Calcium Level 7.5 mg/dl Phosphorus Level 3.7 mg/dl Magnesium Level 2.0 mg/dl C-Reactive Protein 8.19 mg/dl Albumin 2.2 gm/dl Triglycerides Level 112 mg/dl Test 03/20/17 15:03 03/20/17 16:17 White Blood Count 8.05 K/uL Red Blood Count 2.73 M/uL Hemoglobin 8.9 g/dL Hematocrit 26.4 % Mean Corpuscular Volume 96.7 fL Mean Corpuscular Hemoglobin 32.6 pg Mean Corpuscular Hemoglobin Concent 33.7 g/dl Platelet Count 224 K/uL Mean Platelet Volume 9.6 fL Neutrophils (%) (Auto) 80.0 % Lymphocytes (%) (Auto) 9.2 % Monocytes (%) (Auto) 8.9 % Eosinophils (%) (Auto) 1.7 % Basophils (%) (Auto) 0.0 % Neutrophils # (Auto) 6.43 K/uL Lymphocytes # (Auto) 0.74 K/uL Monocytes # (Auto) 0.72 K/uL Eosinophils # (Auto) 0.14 K/uL Basophils # (Auto) 0.00 K/uL RDW Standard Deviation 56.5 fL RDW Coefficient of Variation 16.3 % Immature Granulocyte % (Auto) 0.2 % Immature Granulocyte # (Auto) 0.02 K/uL Polychromasia 1+ Bedside Glucose 144 mg/dl Assessment and Plan 71yo male with recently diagnosed esophageal cancer, s/p neoadjuvant chemotherapy and s/p laparoscopy procedure with attempts to perform an esophagogastrectomy but aborted due to advanced disease. He developed rapid a. fib resulting in hypotension, hypoxia to the 70s, and near-syncope and subsequently a code purple. Remains in NSR and improved. Prolonged hospital course due to postoperative ileus. Also with postoperative anemia and GI bleeding worsened by being on heparin drip. 1. A. fib with RVR, Chronic diastolic CHF, nonsustained ventricular tachycardia -now resolved with metoprolol. TSH is normal. Troponin elevated and peaked at 1.89, then trended downward--> probable demand ischemia, not NSTEMI, discussed with Cardiology. No need for AC as is lone A-fib and in setting of metastatic disease, may be little benefit. Suspect hypokalemia and hypomagnesemia in the setting of stress from his surgery /hospitalization were culprits in this rhythm. CTA chest not done immediately due to previous [place] which is now resolved--> was placed on heparin gtt in the meantime for A-fib and possible PE. CTA chest turned out to be negative for PE, shows atelectasis. CT abdomen/pelvis shows ileus and postoperative changes. Heparin drip was stopped. No further atrial fib, but did have 20 seconds of nonsustained ventricular tachycardia 1 and he was asymptomatic. -No further arrhythmias ECHO: -- Conclusions -- * The left ventricle is normal in size. * There is normal left ventricular wall thickness. * The basal septum is thickened and angulated consistent with sigmoid septum. * Left ventricular systolic function is normal. * The left ventricular wall motion is normal at rest. * Grade I diastolic dysfunction, (abnormal relaxation pattern). * The right ventricle is normal in size and function. * Aortic valve sclerosis moderate, without significant aortic valvular stenosis. * There is mild tricuspid regurgitation. * Right ventricular systolic pressure is normal. -converted to Toprol-XL 50 mg once daily -continue to replace K and mag prn and encourage diet as tolerated -Continue telemetry lateral ST changes on EKG - may have been strain from rapid heart rate--> now resolved and in NSR ileus - per surgery. Correcting K and Mag will help with this. Improving and having bowel movements the last 2 days. -continue to advance diet as tolerated, still on full liquids -Started parenteral nutrition through PICC line -bowel regimen -mobilization encouraged again today Anemia from acute GI blood loss in the setting of anticoagulation/Surgery- baseline 12.5 on admission, then went to 10 post-op, then to 7-8 after on heparin gtt. No evidence of bleeding grossly and CT abd/pel without evidence of bleeding. No active bleeding. Hgb continued to drop to 6.9 and was transfused. Likely slow bleeding from esophageal mass while on blood thinners. -Transfused 2 units PRBCs on 03/19/2017 -Follow CBC -Appreciate GI consultation-no EGD will be performed at this time as too risky- at risk for perforation of the esophagus BPH - voiding fine per staff. hypotension - 2nd to rapid a. fib. Improved s/p fluids and conversion to NSR. Metastatic Esophageal CA-esophagectomy not performed due to metastatic disease. -f/u with Heme/Onc after discharge for any further treatment plans but overall prognosis seems poor DVT Proph-was on heparin drip, then on Lovenox-now held completely for severe anemia and suspected GI bleeding Dispo-FULL CODE
[2017-03-20] MEDS: TRAMADOL HCL 50 MG TAB PO PRN (20:33)
[2017-03-20] MEDS: ONDANSETRON INJ 2 MG/ML 2 ML VIAL IV PRN (20:33)
[2017-03-21] VITALS (9 sets, daily range): BP systolic 112–138; BP diastolic 69–79; PULSE 72–97; TEMP 36.4–36.9; O2SAT 95–96
[2017-03-21] MEDS: TRAMADOL HCL 50 MG TAB PO PRN (00:30)
[2017-03-21] MEDS: METOCLOPRAMIDE HCL INJ 5 MG/ML 2 ML VIAL IV. SCH ×5 (00:30→23:34)
[2017-03-21] MEDS: ACETAMINOPHEN 325 MG TAB PO PRN (00:31)
[2017-03-21] MEDS: PANTOprazole INJ 40 MG in DEXTROSE 5% 100ML IV SCH ×5 (01:04→20:41)
[2017-03-21 07:28] LABS: PARTIAL THROMBOPLASTIN RATIO 1.3
--- NOTE | 2017-03-21 07:37 | Surgery Progress Note ---
Subjective Date of Service: Mar 21, 2017. Pt. notes he had some emesis yesterday after gagging on food and has had no further episodes. He fell yesterday after getting tangled in IV tubing--he did not injur himself. Currently no N/V. He notes he is passing flatus and had BMs yesterday. Objective Vitals Date Time Temp Pulse Resp B/P Pulse Ox O2 Delivery O2 Flow Rate FiO2 03/21/17 04:00 96 Nasal Cannula 2.0 03/21/17 03:43 36.8 73 17 123/72 96 Nasal Cannula 2.0 03/21/17 00:01 95 Nasal Cannula 2.0 03/20/17 23:51 37.1 79 19 129/75 93 Nasal Cannula 2.0 03/20/17 20:15 95 Nasal Cannula 2.0 03/20/17 19:35 36.8 75 16 104/61 95 Nasal Cannula 2.0 03/20/17 16:07 36.9 75 19 117/71 95 Nasal Cannula 2.0 03/20/17 16:00 Nasal Cannula 2.0 03/20/17 12:00 Nasal Cannula 2.0 03/20/17 11:39 36.6 78 18 118/67 92 2.0 03/20/17 08:00 Nasal Cannula 2.0 03/20/17 07:38 36.6 81 20 114/65 93 2.0 Physical Exam General: No distress CV: + RRR Pulmonary: + pertinent finding (decreased at bases) Abdomen: + pertinent finding Extremities: No calf tenderness Neurologic: + alert & oriented x 3 Additional Notes: Abdomen distended; BS are hypoactive but increased from yesterday; pain with palpation has decreased from prior exams Assessment & Plan 71 year old male s/p laparoscopy with gastric/celiac lymph node biopsies and JAXON -post-op ileus: -continue supportive measures -if any further emesis noted will consider making npo -previously noted hypokalemia has been corrected -continue dulcolax suppositories, reglan, and fleets -mobilization attempts to continue--will order PT & OT due to deconditioning -CT scan of abdomen (03/17/17)--showed distended small bowel, stomach, and colon; no noted signs of intra-abdominal hematoma -continue ultram for pain -discussed with Dr. Tim on (03/19/17)---(general/thoracic surgery): -he agrees with management as outlined in this noted -he recommended adding PPN for nutrition due to prolong ileus (this was started 03/19/17) -he notes he would advise against doing EGD at this time GASTROESOPHAGEAL CA -discussed with oncology, Jeffery Joseph: -he will follow-up with pt. as outpt. and discuss treatment options at that time PAF -questionable run of V-tach vs. PAF noted last night lasting about 15-16 seconds -resolved -heparin drip was used from (02/2317-03/17/17)--stopped as a-fib resolved -electrolytes acceptable -echo performed and showed normal BiV function -discussed with cardiology: -maintain on beta-blockers and increase if hemodynamics allow (little room to increase at the present time) -of note: -CT scan of chest (03/17/17) was (-) for PE ANEMIA -cause uncertain but likely due to malignancy -PPI drip started on (03/19/17) -stool noted to be heme (+) on (03/19/17) -discussed with hospitalist--lovenox to stop and GI to be consulted: -discussed with GI service and made them aware of Dr. Tim's recommendations -anemia improved with transfusion of 2 units PRBCs on (03/19/17) and noted to be stable this am -GI input noted--no plans for EGD at this time CKD -renal function back to baseline and has remained stable -avoid nephrotoxins HTN -current med is toprol 50 mg daily with holds in place OTHER -SCDs only now for DVT prevention (no chemical means due to noted worsening anemia & heme (+) stool -discussed with hospitalist again this am, Dr. Subramanian--due to numerous medical comorbidities, she has accepted the pt. on her service -will continue to follow daily
[2017-03-21 07:53] LABS: BUN/CREATININE RATIO 26.5 (10-20); CALCIUM 7.6 mg/dl (8.5-10.1); CREATININE 1.1 mg/dl (0.60-1.40); MAGNESIUM 2.2 mg/dl (1.8-2.4); POTASSIUM 3.8 mmol/L (3.5-5.1)
[2017-03-21 07:54] LABS: PHOSPHORUS 3.7 mg/dl (2.5-4.9)
--- NOTE | 2017-03-21 08:55 | SURGERY PROGRESS NOTE ---
DATE: 03/21/2017 DATE: 03/21/2017. Covering for Dr. Stallworth. Vinny continues to do well. He has had about 3 bowel movements yesterday, 1 more today. His belly is softening up, it is not as tender as it was. His last vitals showed a temperature of 36.4, pulse 74, respirations 16, blood pressure 112/69, O2 sats 95 on 2 liters. His abdomen is softer, but still distended. He appears to be a little bit more short of breath today. His I\T\O has been slightly positive, he may benefit from diuresing. We will leave that up to the medical service. Laboratory fernández, his BUN is 29, creatinine 1.10 and his hemoglobin yesterday was 8.9. He is on hyperalimentation peripherally and I agree with advancing the diet. If tolerates that well, certainly the peripheral hyperalimentation can be discontinued.
[2017-03-21] MEDS: METOPROLOL SUCC 50MG EXT REL TAB PO SCH (09:09)
[2017-03-21] MEDS: MULTIVITAMIN TAB PO SCH (09:09)
[2017-03-21] MEDS: DOCUSATE SODIUM 100 MG CAP PO SCH ×2 (09:09→20:41)
[2017-03-21] MEDS: ONDANSETRON INJ 2 MG/ML 2 ML VIAL IV PRN (09:13)
[2017-03-21] MEDS ORDERED: SIMETHICONE 80 MG CHEW PO PRN (13:00)
[2017-03-21 13:24] LABS: HEMATOCRIT 25.3 % (42-52); MEAN CELL VOLUME 96.9 fL (80-100); MEAN PLATELET VOLUME 9.6 fL (7.4-10.4); PLATELET COUNT 205 K/uL (130-400); RED BLOOD COUNT 2.61 M/uL (4.7-6.1); WHITE BLOOD COUNT 6.65 K/uL (4.8-10.8)
[2017-03-21 13:55] LABS: ANISOCYTOSIS PRESENT; BASO % 0.2 %; BASO ABS # 0.01 K/uL (0-0.2); COMPLETE YES; EOS % 2.4 %; HYPOCHROMIA PRESENT; IG% 0.3 %; LYMPH % 11.1 %; LYMPH ABS # 0.74 K/uL (1.2-3.4); MONO % 6.5 %; NEUT % 79.5 %
--- NOTE | 2017-03-21 13:59 | DIAGNOSTIC IMAGING REPORT ---
KUB HISTORY: post-op ileus follow up COMPARISON: Abdomen and pelvis CT 03/17/2017. FINDINGS: No change in the distended gas-filled loops of large and small bowel seen throughout the abdomen. There is a large amount of stool within the proximal colon. No renal calculi. No ureteral calculi. No pneumoperitoneum or pneumatosis. IMPRESSION: No significant change in the distended gas-filled loops of large and small bowel seen throughout the abdomen. This favors a postoperative ileus. Electronically signed by: Sean Cesar M.D. 03/21/2017 1:57 PM Dictated Date/Time: 03/21/2017 1:56 PM
[2017-03-21] MEDS: SOD PHOSPHATE/SOD BIPHOSPHATE ENEMA 132 ML BTL PR PRN (15:29)
[2017-03-21] MEDS ORDERED: CUSTOM CENTRAL PN 1 BAG IV SCH (16:00)
--- NOTE | 2017-03-21 20:47 | Hospitalist Progress Note ---
Hospitalist Progress Note Date of Service Mar 21, 2017. Subjective Pt evaluation today including: conversation w/ patient Patient very tired today, tried eating soft food for breakfast and had a lot of nausea. Had a large liquid bowel movement yesterday. Constitutional: No fever Respiratory: No shortness of breath Cardiovascular: No chest pain Abdomen: + nausea, No pain Skin: No rash All Other Systems: Reviewed and Negative Objective Vital Signs Date Time Temp Pulse Resp B/P Pulse Ox O2 Delivery O2 Flow Rate FiO2 03/21/17 19:13 36.9 97 20 138/79 95 Nasal Cannula 2.0 03/21/17 16:00 Nasal Cannula 2.0 03/21/17 15:00 36.9 76 19 134/79 95 Nasal Cannula 2.0 03/21/17 12:00 Nasal Cannula 2.0 03/21/17 11:21 36.7 72 16 128/77 96 2.0 03/21/17 08:00 Nasal Cannula 2.0 03/21/17 07:31 36.4 74 16 112/69 95 2.0 03/21/17 04:00 96 Nasal Cannula 2.0 03/21/17 03:43 36.8 73 17 123/72 96 Nasal Cannula 2.0 03/21/17 00:01 95 Nasal Cannula 2.0 03/20/17 23:51 37.1 79 19 129/75 93 Nasal Cannula 2.0 Physical Exam General Appearance: + mild distress (appears ill chronically) Eyes: normal inspection, sclerae normal ENT: hearing grossly normal Neck: trachea midline Respiratory/Chest: lungs clear, normal breath sounds, no respiratory distress, no accessory muscle use Cardiovascular: regular rate, rhythm, no edema, no gallop, no murmur Abdomen: soft, + abnormal bowel sounds (hypoactive), + tenderness (mild at incision sites without guarding or rebound) Extremities: no calf tenderness Neurologic/Psychiatric: alert, oriented x 3, + depressed affect Skin: no rash, + pallor Laboratory Results Last 24 Hours Test 03/21/17 06:06 03/21/17 06:49 03/21/17 11:12 03/21/17 13:15 Bedside Glucose 142 mg/dl 150 mg/dl Activated Partial Thromboplast Time 32.7 SECONDS Partial Thromboplastin Ratio 1.3 Sodium Level 136 mmol/L Potassium Level 3.8 mmol/L Chloride Level 103 mmol/L Carbon Dioxide Level 24 mmol/L Anion Gap 9.0 mmol/L Blood Urea Nitrogen 29 mg/dl Creatinine 1.10 mg/dl Est Creatinine Clear Calc Drug Dose 64.5 ml/min Estimated GFR () 76.2 Estimated GFR (Non- 65.8 BUN/Creatinine Ratio 26.5 Random Glucose 121 mg/dl Calcium Level 7.6 mg/dl Phosphorus Level 3.7 mg/dl Magnesium Level 2.2 mg/dl Triglycerides Level 114 mg/dl White Blood Count 6.65 K/uL Red Blood Count 2.61 M/uL Hemoglobin 8.6 g/dL Hematocrit 25.3 % Mean Corpuscular Volume 96.9 fL Mean Corpuscular Hemoglobin 33.0 pg Mean Corpuscular Hemoglobin Concent 34.0 g/dl Platelet Count 205 K/uL Mean Platelet Volume 9.6 fL Neutrophils (%) (Auto) 79.5 % Lymphocytes (%) (Auto) 11.1 % Monocytes (%) (Auto) 6.5 % Eosinophils (%) (Auto) 2.4 % Basophils (%) (Auto) 0.2 % Neutrophils # (Auto) 5.29 K/uL Lymphocytes # (Auto) 0.74 K/uL Monocytes # (Auto) 0.43 K/uL Eosinophils # (Auto) 0.16 K/uL Basophils # (Auto) 0.01 K/uL RDW Standard Deviation 57.1 fL RDW Coefficient of Variation 16.4 % Immature Granulocyte % (Auto) 0.3 % Immature Granulocyte # (Auto) 0.02 K/uL Hypochromasia PRESENT Anisocytosis PRESENT Test 03/21/17 20:15 Bedside Glucose 132 mg/dl Assessment and Plan 71yo male with recently diagnosed esophageal cancer, s/p neoadjuvant chemotherapy and s/p laparoscopy procedure with attempts to perform an esophagogastrectomy but aborted due to advanced disease. He developed rapid a. fib resulting in hypotension, hypoxia to the 70s, and near-syncope and subsequently a code purple. Remains in NSR and improved. Prolonged hospital course due to postoperative ileus. Also with postoperative anemia and GI bleeding worsened by being on heparin drip. 1. A. fib with RVR, Chronic diastolic CHF, nonsustained ventricular tachycardia -now resolved with metoprolol. TSH is normal. Troponin elevated and peaked at 1.89, then trended downward--> probable demand ischemia, not NSTEMI, discussed with Cardiology. No need for AC as is lone A-fib and in setting of metastatic disease, may be little benefit. Suspect hypokalemia and hypomagnesemia in the setting of stress from his surgery /hospitalization were culprits in this rhythm. CTA chest not done immediately due to previous [place] which is now resolved--> was placed on heparin gtt in the meantime for A-fib and possible PE. CTA chest turned out to be negative for PE, shows atelectasis. CT abdomen/pelvis shows ileus and postoperative changes. Heparin drip was stopped. No further atrial fib, but did have 20 seconds of nonsustained ventricular tachycardia 1 and he was asymptomatic. -Continues to have no further arrhythmias ECHO: -- Conclusions -- * The left ventricle is normal in size. * There is normal left ventricular wall thickness. * The basal septum is thickened and angulated consistent with sigmoid septum. * Left ventricular systolic function is normal. * The left ventricular wall motion is normal at rest. * Grade I diastolic dysfunction, (abnormal relaxation pattern). * The right ventricle is normal in size and function. * Aortic valve sclerosis moderate, without significant aortic valvular stenosis. * There is mild tricuspid regurgitation. * Right ventricular systolic pressure is normal. -Continue Toprol-XL 50 mg once daily -continue to replace K and mag prn and encourage diet as tolerated and advance as -Continue telemetry lateral ST changes on EKG - may have been strain from rapid heart rate--> now resolved and in NSR Ileus -slow improvement, having some bowel movements but remains distended, nauseated at times but could be from his esophageal cancer -continue to advance diet as tolerated, still on full liquids -Continue parenteral nutrition through PICC line -bowel regimen -mobilization encouraged again today Anemia from acute GI blood loss in the setting of anticoagulation/Surgery- baseline 12.5 on admission, then went to 10 post-op, then to 7-8 after on heparin gtt. No evidence of bleeding grossly and CT abd/pel without evidence of bleeding. No active bleeding. Hgb continued to drop to 6.9 and was transfused. Likely slow bleeding from esophageal mass while on blood thinners. Seems to have stabilized after stopping blood thinners. -Transfused 2 units PRBCs on 03/19/2017 -Follow CBC -Appreciate GI consultation-no EGD will be performed at this time as too risky- at risk for perforation of the esophagus BPH - voiding fine per staff. hypotension - 2nd to rapid a. fib. Improved s/p fluids and conversion to NSR. Metastatic Esophageal CA-esophagectomy not performed due to metastatic disease. -f/u with Heme/Onc after discharge for any further treatment plans but overall prognosis seems poor DVT Proph-was on heparin drip, then on Lovenox-now held completely for severe anemia and suspected GI bleeding Dispo-FULL CODE
[2017-03-22] VITALS (10 sets, daily range): BP systolic 106–154; BP diastolic 63–73; PULSE 67–148; TEMP 36.6–36.9; O2SAT 94–98
[2017-03-22] MEDS: PANTOprazole INJ 40 MG in DEXTROSE 5% 100ML IV SCH ×3 (01:24→12:22)
[2017-03-22] MEDS: METOCLOPRAMIDE HCL INJ 5 MG/ML 2 ML VIAL IV. SCH ×4 (05:48→23:39)
[2017-03-22 05:54] LABS: HEMATOCRIT 25.8 % (42-52); MEAN CORPUSCULAR HEMOGLOBIN 32.7 pg (25-34); MEAN CORPUSCULAR HGB CONC 33.7 g/dl (32-36); MEAN PLATELET VOLUME 9.6 fL (7.4-10.4); PLATELET COUNT 199 K/uL (130-400); RED BLOOD COUNT 2.66 M/uL (4.7-6.1); WHITE BLOOD COUNT 5.92 K/uL (4.8-10.8)
[2017-03-22 06:08] LABS: PARTIAL THROMBOPLASTIN RATIO 1.2
[2017-03-22 06:29] LABS: BUN/CREATININE RATIO 30.5 (10-20); CALCIUM 7.6 mg/dl (8.5-10.1); CREATININE 0.9 mg/dl (0.60-1.40); MAGNESIUM 1.9 mg/dl (1.8-2.4); PHOSPHORUS 3.3 mg/dl (2.5-4.9); POTASSIUM 3.7 mmol/L (3.5-5.1)
--- NOTE | 2017-03-22 07:20 | Surgery Progress Note ---
Subjective Date of Service: Mar 22, 2017. Pt. notes some SOB at time. He denies worsening abdominal pain. He had some dry heaves yesterday. He had several BMs yesterday. Objective Vitals Date Time Temp Pulse Resp B/P Pulse Ox O2 Delivery O2 Flow Rate FiO2 03/22/17 04:07 36.8 92 19 154/69 94 Nasal Cannula 2.0 03/22/17 04:00 Nasal Cannula 2.0 03/22/17 00:00 Nasal Cannula 2.0 03/21/17 23:35 36.5 87 19 133/71 95 Nasal Cannula 2.0 03/21/17 20:00 95 Nasal Cannula 2.0 03/21/17 19:13 36.9 97 20 138/79 95 Nasal Cannula 2.0 03/21/17 16:00 Nasal Cannula 2.0 03/21/17 15:00 36.9 76 19 134/79 95 Nasal Cannula 2.0 03/21/17 12:00 Nasal Cannula 2.0 03/21/17 11:21 36.7 72 16 128/77 96 2.0 03/21/17 08:00 Nasal Cannula 2.0 03/21/17 07:31 36.4 74 16 112/69 95 2.0 Physical Exam General: No distress Pulmonary: + wheezing (decreased at bases), No accessory muscle use, No respiratory distress Abdomen: + pertinent finding (see below ) Extremities: No calf tenderness Neurologic: + alert & oriented x 3 Additional Notes: Abdomen is less distended today than yesterday; BS are present and less hypoactive than what was noted yesterday Laboratory Item Value Date Time Sodium Level 139 mmol/L 03/22/17 0537 Potassium Level 3.7 mmol/L 03/22/17 0537 Blood Urea Nitrogen 27 mg/dl H 03/22/17 0537 Creatinine 0.90 mg/dl 03/22/17 0537 Phosphorus Level 3.3 mg/dl 03/22/17 0537 Magnesium Level 1.9 mg/dl 03/22/17 0537 Item Value Date Time White Blood Count 5.92 K/uL 03/22/17 0537 Hemoglobin 8.7 g/dL L 03/22/17 0537 Hematocrit 25.8 % L 03/22/17 0537 Platelet Count 199 K/uL 03/22/17 0537 Assessment & Plan 71 year old male s/p laparoscopy with gastric/celiac lymph node biopsies and JAXON -post-op ileus: -appears to be slowly resolving -pt. on liquids due to dry heaves noted yesterday -previously noted hypokalemia has been corrected -continue bowel regimen -continue mobilization attempts to continue -CT scan of abdomen (03/17/17)--showed distended small bowel, stomach, and colon; no noted signs of intra-abdominal hematoma -continue ultram for pain -Dr. Tim's input noted(general/thoracic surgery): -discontinue PPN for nutrition once pt. able to tolerate furhter diet advancement -he notes he would advise against doing EGD at this time GASTROESOPHAGEAL CA -discussed with oncology, Jeffery Joseph: -he will follow-up with pt. as outpt. and discuss treatment options at that time PAF -questionable run of V-tach vs. PAF noted last night lasting about 15-16 seconds -resolved -heparin drip was used from (02/2317-03/17/17)--stopped as a-fib resolved -electrolytes acceptable -echo performed and showed normal BiV function -discussed with cardiology: -maintain on beta-blockers and increase if hemodynamics allow (little room to increase at the present time) -of note: -CT scan of chest (03/17/17) was (-) for PE ANEMIA -cause uncertain but likely due to malignancy -PPI drip started on (03/19/17) -stool noted to be heme (+) on (03/19/17) -discussed with hospitalist--lovenox to stop and GI to be consulted: -discussed with GI service and made them aware of Dr. Tim's recommendations -anemia improved with transfusion of 2 units PRBCs on (03/19/17) and remains stable this am -GI input noted--no plans for EGD at this time CKD -renal function back to baseline and has remained stable -avoid nephrotoxins HTN -current med is toprol 50 mg daily with holds in place OTHER -SCDs only now for DVT prevention (no chemical means due to noted worsening anemia & heme (+) stool -PT & OT ordered due to deconditioning
[2017-03-22] MEDS ORDERED: FUROSEMIDE INJ 40 MG in SYRINGE 0 ML IV ONE (07:45)
[2017-03-22] MEDS: DOCUSATE SODIUM 100 MG CAP PO SCH ×2 (08:49→19:08)
[2017-03-22] MEDS: METOPROLOL SUCC 50MG EXT REL TAB PO SCH (08:53)
[2017-03-22] MEDS: MULTIVITAMIN TAB PO SCH (08:53)
[2017-03-22] MEDS ORDERED: NURSING VERBAL MED ORDER ONE ×2 (11:00→13:45)
[2017-03-22] MEDS ORDERED: AMIODARONE IV BOLUS / DRIP IV STA (11:14)
[2017-03-22] MEDS ORDERED: MAGNESIUM SULFATE 1GM / D5W 1 GM in PREMIXED IN D5W 100 ML IV ONE (11:15)
[2017-03-22] MEDS ORDERED: DILTIAZEM HCL 30 MG TAB PO ONE (11:15)
[2017-03-22] MEDS ORDERED: AMIODARONE 360MG / 200ML D5W ONE (11:16)
[2017-03-22] MEDS ORDERED: AMIODARONE 150MG / 100ML D5W ONE (11:16)
[2017-03-22] MEDS ORDERED: AMIODARONE / D5W 100 ML IV SCH (12:15)
[2017-03-22] MEDS ORDERED: AMIODARONE / D5W 200 ML IV SCH (12:30)
[2017-03-22] MEDS: POTASSIUM CHLR 10MEQ / WTR IV SCH ×4 (13:38→16:38)
--- NOTE | 2017-03-22 17:56 | Hospitalist Progress Note ---
Hospitalist Progress Note Date of Service Mar 22, 2017. Subjective Pt evaluation today including: conversation w/ patient, physical exam, conversation w/ independent marketing consultant (Cardiology) Went back into rapid A-fib with aberrancy today, rates in the 140s-150s. Started on amiodarone gtt and then converted to NSR a few hours later. Has had multiple BMs and abd less distended, joseph full liquid diet and feeling better. No CP or SOB. All Other Systems: Reviewed and Negative Objective Vital Signs Date Time Temp Pulse Resp B/P Pulse Ox O2 Delivery O2 Flow Rate FiO2 03/22/17 15:32 36.9 77 20 113/70 98 Nasal Cannula 2.0 03/22/17 13:00 148 106/66 98 Nasal Cannula 2.0 03/22/17 12:00 Nasal Cannula 2.0 03/22/17 12:00 36.6 132 20 108/66 97 Nasal Cannula 2.0 03/22/17 10:53 122 20 108/67 96 Nasal Cannula 2.0 03/22/17 08:00 Nasal Cannula 2.0 03/22/17 07:40 36.7 85 18 126/69 95 Nasal Cannula 2.0 03/22/17 04:07 36.8 92 19 154/69 94 Nasal Cannula 2.0 03/22/17 04:00 Nasal Cannula 2.0 03/22/17 00:00 Nasal Cannula 2.0 03/21/17 23:35 36.5 87 19 133/71 95 Nasal Cannula 2.0 03/21/17 20:00 95 Nasal Cannula 2.0 03/21/17 19:13 36.9 97 20 138/79 95 Nasal Cannula 2.0 Physical Exam General Appearance: WD/WN, no apparent distress Eyes: normal inspection, sclerae normal ENT: hearing grossly normal Neck: trachea midline Respiratory/Chest: lungs clear, normal breath sounds, no respiratory distress, no accessory muscle use Cardiovascular: no gallop, no murmur, + tachycardia (and irregular), + pertinent finding (trace pitting edema legs bilat) Abdomen: soft (ad less distended), + tenderness (mild at incision sites) Extremities: no calf tenderness Neurologic/Psychiatric: alert, normal mood/affect, oriented x 3 Skin: normal color, warm/dry, no rash Laboratory Results Last 24 Hours Test 03/21/17 20:15 03/22/17 00:05 03/22/17 05:37 03/22/17 06:02 Bedside Glucose 132 mg/dl 135 mg/dl 123 mg/dl White Blood Count 5.92 K/uL Red Blood Count 2.66 M/uL Hemoglobin 8.7 g/dL Hematocrit 25.8 % Mean Corpuscular Volume 97.0 fL Mean Corpuscular Hemoglobin 32.7 pg Mean Corpuscular Hemoglobin Concent 33.7 g/dl RDW Standard Deviation 55.6 fL RDW Coefficient of Variation 16.0 % Platelet Count 199 K/uL Mean Platelet Volume 9.6 fL Activated Partial Thromboplast Time 31.3 SECONDS Partial Thromboplastin Ratio 1.2 Sodium Level 139 mmol/L Potassium Level 3.7 mmol/L Chloride Level 106 mmol/L Carbon Dioxide Level 26 mmol/L Anion Gap 7.0 mmol/L Blood Urea Nitrogen 27 mg/dl Creatinine 0.90 mg/dl Est Creatinine Clear Calc Drug Dose 78.9 ml/min Estimated GFR () 97.2 Estimated GFR (Non- 83.8 BUN/Creatinine Ratio 30.5 Random Glucose 117 mg/dl Calcium Level 7.6 mg/dl Phosphorus Level 3.3 mg/dl Magnesium Level 1.9 mg/dl Test 03/22/17 11:42 Bedside Glucose 172 mg/dl Assessment and Plan 71yo male with recently diagnosed esophageal cancer, s/p neoadjuvant chemotherapy and s/p laparoscopy procedure with attempts to perform an esophagogastrectomy but aborted due to advanced disease. He developed rapid a. fib resulting in hypotension, hypoxia to the 70s, and near-syncope and subsequently a code purple. Remained in NSR but now with MARCOS recurrence converted with IV amiodarone. Prolonged hospital course due to postoperative ileus which is now resolved. Also with postoperative anemia and GI bleeding worsened by being on heparin drip. 1. Paroxysmal A. fib with RVR, Chronic diastolic CHF, nonsustained ventricular tachycardia -started on metoprolol for rate control. TSH is normal. Troponin elevated and peaked at 1.89, then trended downward--> probable demand ischemia, not NSTEMI. No AC at this time due to acute blood loss anemia after starting heparin gtt with 1st episode of MARCOS. Suspect hypokalemia and hypomagnesemia in the setting of stress from his surgery /hospitalization were culprits in this rhythm. Hypoxia was likely secondary to MARCOS-- CTA chest negative for PE, shows atelectasis. CT abdomen/pelvis shows ileus and postoperative changes. Heparin drip was stopped. Started on amiodarone gtt. ECHO: -- Conclusions -- * The left ventricle is normal in size. * There is normal left ventricular wall thickness. * The basal septum is thickened and angulated consistent with sigmoid septum. * Left ventricular systolic function is normal. * The left ventricular wall motion is normal at rest. * Grade I diastolic dysfunction, (abnormal relaxation pattern). * The right ventricle is normal in size and function. * Aortic valve sclerosis moderate, without significant aortic valvular stenosis. * There is mild tricuspid regurgitation. * Right ventricular systolic pressure is normal. -Continue Toprol-XL 50 mg once daily -continue Amiodarone gtt and convert to po when able to -continue to replace K and mag prn and encourage diet as tolerated -Continue telemetry lateral ST changes on EKG - may have been strain from rapid heart rate--> now resolved and in NSR Ileus -Resolved -continue to advance diet as tolerated, still on full liquids-has had some nausea and vomiting with soft foods when trialed this admission -Continue parenteral nutrition through PICC line for 1 more day, then stop -bowel regimen -mobilization encouraged Anemia from acute GI blood loss in the setting of anticoagulation/Surgery- baseline 12.5 on admission, then went to 10 post-op, then to 7-8 after on heparin gtt. No evidence of bleeding grossly and CT abd/pel without evidence of bleeding. No active bleeding. Hgb continued to drop to 6.9 and was transfused. Likely slow bleeding from esophageal mass while on blood thinners. Seems to have stabilized at 8-9 after stopping blood thinners. -Transfused 2 units PRBCs on 03/19/2017 -Follow CBC -Appreciate GI consultation-no EGD will be performed at this time as too risky- at risk for perforation of the esophagus BPH - voiding fine per staff. Metastatic Esophageal CA/Post-op from Laparoscopy with extensive JAXON/ Mobilization of GE junction and biopsy of multiple perigastric and celiac axis lymph nodes.-esophagectomy not performed due to metastatic disease. -CT Surgery following -f/u with Heme/Onc after discharge for any further treatment plans-Dr. Joseph DVT Proph-was on heparin drip, then on Lovenox-now held completely for severe anemia and suspected GI bleeding-SCDs only Dispo-FULL CODE
[2017-03-22] MEDS: AMIODARONE / D5W 200 ML IV SCH (18:16)
[2017-03-22] MEDS: PANTOprazole INJ 40 MG in SYRINGE 0 ML IV SCH (19:53)
[2017-03-23 04:00] VITALS: BP 113/69; PULSE 66; TEMP 36.6; O2SAT 96
[2017-03-23] MEDS: AMIODARONE / D5W 200 ML IV SCH (04:33)
[2017-03-23 07:23] VITALS: BP 117/69; PULSE 68; TEMP 36.7; O2SAT 94
[2017-03-23 07:36] LABS: BASO % 0.3 %; BASO ABS # 0.02 K/uL (0-0.2); EOS % 3.6 %; HEMATOCRIT 26.5 % (42-52); IG% 0.3 %; LYMPH % 14.3 %; LYMPH ABS # 0.88 K/uL (1.2-3.4); MEAN CELL VOLUME 97.4 fL (80-100); MEAN CORPUSCULAR HEMOGLOBIN 32.7 pg (25-34); MEAN CORPUSCULAR HGB CONC 33.6 g/dl (32-36); MEAN PLATELET VOLUME 9.7 fL (7.4-10.4); MONO % 7.3 %; NEUT % 74.2 %; PLATELET COUNT 211 K/uL (130-400); RED BLOOD COUNT 2.72 M/uL (4.7-6.1); WHITE BLOOD COUNT 6.15 K/uL (4.8-10.8)
[2017-03-23 08:04] LABS: BUN/CREATININE RATIO 25.8 (10-20); CALCIUM 7.8 mg/dl (8.5-10.1); COMPLETE YES; CREATININE 0.91 mg/dl (0.60-1.40); ECHINOCYTES 1+; POTASSIUM 3.6 mmol/L (3.5-5.1)
[2017-03-23] MEDS: PANTOprazole INJ 40 MG in SYRINGE 0 ML IV SCH ×2 (08:09→20:11)
[2017-03-23] MEDS: MULTIVITAMIN TAB PO SCH (08:10)
[2017-03-23] MEDS: METOPROLOL SUCC 50MG EXT REL TAB PO SCH (08:10)
[2017-03-23] MEDS: DOCUSATE SODIUM 100 MG CAP PO SCH ×2 (08:10→20:09)
--- NOTE | 2017-03-23 08:17 | Surgery Progress Note ---
Subjective Date of Service: March 23, 2017. Pt. notes he has had numerous BMs last 24 hours. No further N/V. No CP or SOB. He is tolerating full liquids and notes he feels hungry. Discussed with RN--pt. remains on tele as he had PAF last night and has been started on amiodarone drip. Objective Vitals Date Time Temp Pulse Resp B/P Pulse Ox O2 Delivery O2 Flow Rate FiO2 03/23/17 07:23 36.7 68 20 117/69 94 Nasal Cannula 2.0 03/23/17 04:01 Nasal Cannula 2.0 03/23/17 04:00 36.6 66 17 113/69 96 Room Air 03/22/17 23:59 97 Nasal Cannula 2.0 03/22/17 23:31 36.8 67 18 110/63 97 Nasal Cannula 2.0 03/22/17 20:00 97 Nasal Cannula 2.0 03/22/17 19:33 36.9 75 20 115/73 97 Nasal Cannula 2.0 03/22/17 16:00 Nasal Cannula 2.0 03/22/17 15:32 36.9 77 20 113/70 98 Nasal Cannula 2.0 03/22/17 13:00 148 106/66 98 Nasal Cannula 2.0 03/22/17 12:00 Nasal Cannula 2.0 03/22/17 12:00 36.6 132 20 108/66 97 Nasal Cannula 2.0 03/22/17 10:53 122 20 108/67 96 Nasal Cannula 2.0 Physical Exam General: + well developed, + well nourished CV: + RRR Pulmonary: + pertinent finding (decreased at bases), No accessory muscle use, No respiratory distress Abdomen: + pertinent finding (see below) Neurologic: + alert & oriented x 3 Additional Notes: Abdomen--BS are present and more active; abdomen less distended and less painful to palpation when compared to prior exams Laboratory Item Value Date Time Sodium Level 139 mmol/L 03/23/17 0646 Potassium Level 3.6 mmol/L 03/23/17 0646 Magnesium Level 2.0 mg/dl 03/23/17 0646 Blood Urea Nitrogen 23 mg/dl H 03/23/17 0646 Creatinine 0.91 mg/dl 03/23/17 0646 Item Value Date Time White Blood Count 6.15 K/uL 03/23/17 0646 Hemoglobin 8.9 g/dL L 03/23/17 0646 Hematocrit 26.5 % L 03/23/17 0646 Platelet Count 211 K/uL 03/23/17 0646 Assessment & Plan 71 year old male s/p laparoscopy with gastric/celiac lymph node biopsies and JAXON -post-op ileus: -continues to resolve--will advance diet this am -previously noted hypokalemia has been corrected and remains stable -continue bowel regimen utilized, will stop due to numerous BMs -continue mobilization -CT scan of abdomen (03/17/17)--showed distended small bowel, stomach, and colon; no noted signs of intra-abdominal hematoma -continue ultram for pain -Dr. Tim's input noted(general/thoracic surgery): -discontinue PPN for nutrition once pt. able to tolerate reliable oral intake --stop today -he notes he would advise against doing EGD at this time GASTROESOPHAGEAL CA -discussed with oncology, Jeffery Joseph: -he will follow-up with pt. as outpt. and discuss treatment options at that time PAF -heparin drip was used from (02/2317-03/17/17) -electrolytes remain acceptable -echo performed and showed normal BiV function -pt. placed on amiodarone drip due to recurrence of arrhythmia: -convert to oral as directed by cardiology -CT scan of chest (03/17/17) was (-) for PE ANEMIA -cause likely due to bleeding from malignant tumor & heparin drip -PPI drip started on (03/19/17) -stool noted to be heme (+) on (03/19/17): -RN notes stools are no longer melanotic lovenox to stopped dueto to concern for GI bleed -anemia improved with transfusion of 2 units PRBCs on (03/19/17) and has remained stable since transfusion -GI input noted--no plans for EGD at this time CKD -renal function back to baseline and has remained stable -avoid nephrotoxins HTN -current med is toprol 50 mg daily with holds in place OTHER -SCDs only now for DVT prevention (no chemical means due to concern for GI bleed ) -PT & OT ordered due to deconditioning
--- NOTE | 2017-03-23 10:48 | Hematology/Oncology Prog Note ---
Hematology/Onc Progress Note Date of Service March 23, 2017. Diagnoses Metastatic esophageal adenocarcinoma Medications Medications Administered Medications (Trade) Dose Ordered Sig/Bulmaro Route Start Time Stop Time Status Last Admin Dose Admin Lactated Ringer's (Lr 1000ml) 1,000 ml @ 15 mls/hr Q24H IV 03/09/17 06:00 03/10/17 05:59 DC 03/09/17 06:30 15 MLS/HR Acetaminophen (Tylenol Tab) 650 mg Q4H PRN PO 03/09/17 08:15 04/08/17 08:14 03/21/17 00:31 650 MG Multivitamins (Multivitamin Tab) 1 tab QAM PO 03/09/17 10:30 04/08/17 10:29 03/23/17 08:10 1 TAB Pantoprazole Sodium (Protonix Tab) 40 mg HS PO 03/09/17 21:00 03/19/17 08:12 DC 03/18/17 19:52 40 MG Enalapril Maleate 40 mg 40 mg QAM PO 03/09/17 10:30 03/19/17 08:25 DC 03/14/17 09:14 40 MG Sodium Chloride 1,000 ml @ 75 mls/hr [id number] IV 03/09/17 10:15 03/12/17 08:06 DC 03/12/17 03:15 75 MLS/HR Ceftriaxone Sodium/Dextrose (Rocephin Inj/D5 50ml) 70 ml @ 100 mls/hr DAILY@1600 IV 03/09/17 16:00 03/13/17 15:59 DC 03/12/17 16:23 100 MLS/HR Ondansetron HCl (Zofran Inj) 4 mg Q4H PRN IV 03/11/17 12:15 04/10/17 12:14 03/21/17 09:13 4 MG Docusate Sodium (coLACE CAP) 100 mg BID PO 03/11/17 21:00 04/10/17 20:59 03/23/17 08:10 100 MG Metoclopramide HCl (Reglan Inj) 10 mg Q8 IV. 03/11/17 14:00 03/12/17 13:59 DC 03/12/17 05:45 10 MG Morphine Sulfate (MoRPHine SULFATE INJ) 2 mg Q1H PRN IV 03/11/17 12:15 03/25/17 12:14 03/19/17 19:26 2 MG Tramadol HCl 50 mg 50 mg Q4H PRN PO 03/12/17 08:15 04/11/17 08:14 03/21/17 00:30 50 MG Dextrose/Sodium Chloride (D5W And 1/2nss) 1,000 ml @ 100 mls/hr Q10H IV 03/12/17 08:15 03/12/17 15:18 DC 03/12/17 08:33 100 MLS/HR Potassium Chloride (Klor-Con Pwd) 40 meq TODAY@1700 ONCE PO 03/13/17 17:00 03/13/17 17:01 DC 03/13/17 17:18 40 MEQ Potassium Chloride (Klor-Con Pwd) 20 meq TODAY@2030 ONCE PO 03/13/17 20:30 03/13/17 20:56 DC 03/13/17 20:37 20 MEQ Potassium Chloride (Klor-Con Pwd) 20 meq TODAY@1615 ONCE PO 03/14/17 16:15 03/14/17 16:16 DC 03/14/17 16:16 20 MEQ Potassium Chloride (Klor-Con Pwd) 40 meq TODAY@1215 ONCE PO 03/14/17 12:15 03/14/17 12:26 DC 03/14/17 12:15 40 MEQ Bisacodyl (Dulcolax Supp) 10 mg DAILY PRN CA 03/14/17 12:30 04/13/17 12:29 03/17/17 15:58 10 MG Sodium Biphosphate/ Sodium Phosphate (Fleet Enema) 132 ml DAILY PRN CA 03/15/17 08:00 04/14/17 07:59 03/21/17 15:29 132 ML Potassium Chloride (Klor-Con Pwd) 40 meq TODAY@0800 ONCE PO 03/15/17 08:00 03/15/17 08:08 DC 03/15/17 09:09 40 MEQ Potassium Chloride 20 meq 20 meq TODAY@1200 ONCE PO 03/15/17 12:00 03/15/17 12:01 DC 03/15/17 11:48 20 MEQ Potassium Chloride/Sodium Chloride 1,000 ml @ 100 mls/hr Q10H IV 03/15/17 09:45 4/25/17 09:59 DC 03/17/17 05:43 100 MLS/HR Heparin Sodium/ Dextrose 500 ml @ 27 mls/hr [id number] PRN IV 03/15/17 10:00 03/17/17 09:59 DC 03/16/17 23:50 27 MLS/HR Magnesium Sulfate/ Prmx (Magnesium Sulfate/Premixed D5W) 100 ml @ 100 mls/hr Q1H IV 03/15/17 10:15 03/15/17 12:14 DC 03/15/17 11:48 100 MLS/HR Metoprolol Tartrate (Lopressor Iv) 5 mg STK-MED ONCE .ROUTE 03/15/17 10:06 03/15/17 10:07 DC 03/15/17 10:03 3 MG Metoprolol Tartrate (Lopressor Tab) 25 mg NOW STAT PO 03/15/17 12:03 03/15/17 12:04 DC 03/15/17 12:57 25 MG Metoprolol Tartrate (Lopressor Tab) 25 mg BID PO 03/15/17 21:00 03/17/17 22:01 DC 03/17/17 21:05 25 MG Bisacodyl (Dulcolax Supp) 10 mg TODAY@0830 ONCE CA 03/16/17 08:30 03/16/17 08:31 DC 03/16/17 09:40 10 MG Polyethylene (Miralax Powder Packet) 17 gm TODAY@0830 ONCE PO 03/16/17 08:30 03/16/17 08:31 DC 03/16/17 09:40 17 GM Metoclopramide HCl 10 mg 10 mg Q6H IV. 03/16/17 12:00 04/15/17 11:59 03/22/17 23:39 10 MG Magnesium Sulfate 1 gm/Prmx 100 ml @ 100 mls/hr 0830 IV 03/17/17 08:30 03/17/17 09:29 DC 03/17/17 09:10 100 MLS/HR Furosemide/Syringe (Lasix Inj/ Syringe) 2 ml @ 4 mls/min TODAY@1045 ONCE IV 03/17/17 10:45 03/17/17 10:46 DC 03/17/17 10:43 4 MLS/MIN Enoxaparin Sodium (Lovenox Inj) 40 mg QAM SQ 03/18/17 09:00 03/19/17 08:53 DC 03/18/17 09:02 40 MG Metoprolol Succinate 50 mg 50 mg QAM PO 03/18/17 09:00 04/17/17 08:59 03/23/17 08:10 50 MG Magnesium Sulfate/ Prmx (Magnesium Sulfate/Premixed D5W) 100 ml @ 100 mls/hr ONE@0900 IV 03/18/17 09:00 03/18/17 12:00 DC 03/18/17 09:00 100 MLS/HR Zolpidem Tartrate 5 mg 5 mg HSZ PRN PO 03/18/17 18:15 04/17/17 18:14 03/18/17 22:41 5 MG Furosemide 20 mg/ Syringe 2 ml @ 4 mls/min TODAY@1100 ONCE IV 03/19/17 11:00 03/19/17 11:01 DC 03/19/17 13:26 4 MLS/MIN Furosemide 20 mg/ Syringe 2 ml @ 4 mls/min TODAY@1400 ONCE IV 03/19/17 14:00 03/19/17 14:01 DC 03/19/17 17:25 4 MLS/MIN Pantoprazole Sodium 80 mg/ Dextrose 120 ml @ 480 mls/hr TODAY@0845 IV 03/19/17 08:45 03/19/17 08:59 DC 03/19/17 09:05 480 MLS/HR Pantoprazole Sodium/Dextrose (Protonix Inj/D5 100ml) 100 ml @ 20 mls/hr Q5H IV 03/19/17 09:00 03/22/17 14:11 DC 03/22/17 12:22 20 MLS/HR Potassium Chloride 20 meq 20 meq NOW STAT PO 03/19/17 09:13 03/19/17 09:28 DC 03/19/17 09:50 20 MEQ Magnesium Sulfate 1 gm/Prmx 100 ml @ 100 mls/hr NOW STAT IV 03/19/17 09:13 03/19/17 10:12 DC 03/19/17 09:50 100 MLS/HR Nutrition (Parenteral) (Custom Peripheral Pn) 0 ml @ 0 mls/hr TODAY@1600 IV 03/19/17 16:00 03/20/17 15:59 DC 03/19/17 16:29 0 MLS/HR Potassium Chloride 10 meq 10 meq 1845 ONCE PO 03/19/17 18:45 03/19/17 18:46 DC 03/19/17 19:26 10 MEQ Nutrition (Parenteral) 0 ml @ 0 mls/hr TODAY@1600 IV 03/20/17 16:00 03/21/17 15:59 DC 03/20/17 16:00 0 MLS/HR Nutrition (Parenteral) (Custom Central Pn) 0 ml @ 0 mls/hr TODAY@1600 IV 03/21/17 16:00 03/22/17 15:59 DC 03/21/17 16:09 0 MLS/HR Simethicone 80 mg 80 mg Q6H PRN PO 03/21/17 13:00 04/20/17 12:59 03/21/17 16:06 80 MG Furosemide/Syringe (Lasix Inj/ Syringe) 4 ml @ 4 mls/min 0745 ONCE IV 03/22/17 07:45 03/22/17 07:46 DC 03/22/17 09:31 4 MLS/MIN Diltiazem HCl 30 mg 30 mg 1115 ONCE PO 03/22/17 11:15 03/22/17 11:16 DC 03/22/17 11:55 30 MG Magnesium Sulfate 1 gm/Prmx 100 ml @ 100 mls/hr 1115 ONCE IV 03/22/17 11:15 03/22/17 12:14 DC 03/22/17 11:15 100 MLS/HR Potassium Chloride/Prmx (Kcl 10 Meq / Wtr/Premixed Water) 100 ml @ 100 mls/hr Q1H IV 03/22/17 12:15 03/22/17 16:14 DC 03/22/17 16:38 100 MLS/HR Amiodarone HCL/ Dextrose (Nexterone / D5w) 360 mg STK-MED ONCE .ROUTE 03/22/17 11:16 03/22/17 11:17 DC 03/22/17 11:24 360 MG Amiodarone HCL/ Dextrose 150 mg 150 mg STK-MED ONCE .ROUTE 03/22/17 11:16 03/22/17 11:17 DC 03/22/17 11:24 150 MG Amiodarone HCL/ Dextrose 200 ml @ 16.7 mls/hr [id number] IV 03/22/17 18:31 04/21/17 18:30 03/23/17 04:33 16.7 MLS/HR Pantoprazole Sodium/Syringe (Protonix Inj/ Syringe) 10 ml @ 5 mls/min BID@09,21 IV 03/22/17 21:00 04/21/17 20:59 03/23/17 08:09 5 MLS/MIN Subjective Seems to be doing well. Anxious for discharge. Developed PAF last night and on amiodarone this morning Review of Systems: Constitutional: Negative for night sweats, or fever Eyes: Negative for event change of vision ENT: Negative for epistaxis, nasal discharge, sore throat, or deafness Cardiovascular: Negative for chest pain, palpitations, dizziness, diaphoresis Respiratory: Negative for new shortness of breath,hemoptysis, or purulent cough Gastrointestinal: Negative for diarrhea, hematemesis, melena, nausea, vomiting , or dyspepsia Integumentary (skin): Negative for rash or jaundice discoloration Genitourinary: Negative for urinary frequency, hematuria, or dysuria Neurological: Negative for weakness, seizure activity, headache, or dizziness Lymphatic/Hematologic: Negative for petechiae, bleeding or new adenopathy Musculoskeletal: Negative for new joint or back pain Allergic/Immunologic: Negative for unusual rash or pruritis. Vital Signs Vital Signs Past 12 Hours Date Time Temp Pulse Resp B/P Pulse Ox O2 Delivery O2 Flow Rate FiO2 03/23/17 08:00 Nasal Cannula 2.0 03/23/17 07:23 36.7 68 20 117/69 94 Nasal Cannula 2.0 03/23/17 04:01 Nasal Cannula 2.0 03/23/17 04:00 36.6 66 17 113/69 96 Room Air 03/22/17 23:59 97 Nasal Cannula 2.0 03/22/17 23:31 36.8 67 18 110/63 97 Nasal Cannula 2.0 Physical Exam Constitutional: vitals are stable. Eyes: Eyes are SUKHWINDER EOMI without conjuctival erythema or icterus. ENT: External examination was negative for masses. Neck: Negative for masses or palpable thyromegaly Respiratory: Lung sounds were generally clear bilaterally Cardiovascular: Heart was currently RRR without significant murmur, gallops aoe rubs Gastrointestinal: No palpable hepatic or splenomegaly. The abdomen was soft with normal bowel sounds. Lymphatic system: there was no palpable peripheral lymphadenopathy Musculoskeletal System: The musculoskeletal system seemed concordant with age. Skin: The skin was negative for jaundice. Neurologic exam: The exam was negative for any focal findings. Deep tendon reflexes were equal and symmetrical. Psychiatric exam: Was essentially negative with normal mood and effect. Extremities: Negative for significant edema Constitutional: General Apperance: heathly-appearing Level of Distress: NAD Psychiatric: Mental Status: active & alert Orientation: oriented except where noted Lungs: Respiratory Effort: no dyspnea Auscuitation: breath sounds normal Cardiovascular: Heart Auscultation: RRR Abdomen: Inspection & Palpation: soft, no tenderness, guarding & rebound Extremities: no edema Laboratory Last 24 Hours Test 03/22/17 11:42 03/22/17 17:51 03/22/17 20:05 03/23/17 06:38 Bedside Glucose 172 mg/dl 112 mg/dl 113 mg/dl 93 mg/dl Test 03/23/17 06:46 White Blood Count 6.15 K/uL Red Blood Count 2.72 M/uL Hemoglobin 8.9 g/dL Hematocrit 26.5 % Mean Corpuscular Volume 97.4 fL Mean Corpuscular Hemoglobin 32.7 pg Mean Corpuscular Hemoglobin Concent 33.6 g/dl Platelet Count 211 K/uL Mean Platelet Volume 9.7 fL Neutrophils (%) (Auto) 74.2 % Lymphocytes (%) (Auto) 14.3 % Monocytes (%) (Auto) 7.3 % Eosinophils (%) (Auto) 3.6 % Basophils (%) (Auto) 0.3 % Neutrophils # (Auto) 4.56 K/uL Lymphocytes # (Auto) 0.88 K/uL Monocytes # (Auto) 0.45 K/uL Eosinophils # (Auto) 0.22 K/uL Basophils # (Auto) 0.02 K/uL RDW Standard Deviation 56.8 fL RDW Coefficient of Variation 16.0 % Immature Granulocyte % (Auto) 0.3 % Immature Granulocyte # (Auto) 0.02 K/uL Echinocytes 1+ Sodium Level 139 mmol/L Potassium Level 3.6 mmol/L Chloride Level 105 mmol/L Carbon Dioxide Level 28 mmol/L Anion Gap 6.0 mmol/L Blood Urea Nitrogen 23 mg/dl Creatinine 0.91 mg/dl Est Creatinine Clear Calc Drug Dose 71.2 ml/min Estimated GFR () 95.9 Estimated GFR (Non- 82.7 BUN/Creatinine Ratio 25.8 Random Glucose 102 mg/dl Calcium Level 7.8 mg/dl Magnesium Level 2.0 mg/dl Assessment & Plan Metastatic esophageal adenocarcinoma. Seems to be recovering postop. He will be followed in our clinic in follow-up will be arranged for next week. For now we will sign off. Please reconsult as needed.
[2017-03-23 11:05] VITALS: BP 113/70; PULSE 68; TEMP 36.6; O2SAT 94
[2017-03-23] MEDS ORDERED: AMIODARONE 200 MG TAB PO ONE (11:45)
[2017-03-23] MEDS: METOCLOPRAMIDE HCL INJ 5 MG/ML 2 ML VIAL IV. SCH ×2 (12:00→18:00)
--- NOTE | 2017-03-23 13:24 | Hospitalist Progress Note ---
Hospitalist Progress Note Date of Service March 23, 2017. Subjective Pt evaluation today including: conversation w/ patient, physical exam, chart review, lab review, review of studies, review of inpatient medication list Patient seen and evaluated. Reports feeling well today. He was removed off of O2 and ambulating with adequate saturations. Tolerating current diet. Reports some dry heaves related to being tired of cream of chicken soup. Had multiple bowel movements yesterday. Reports return of appetite. Additional Comments: REVIEW OF SYSTEMS: General/Constitutional: Denies fever/chills, fatigue, weakness ENT: Denies visual changes, nasal drainage, hearing loss, sore throat, trouble swallowing Cardiovascular: Denies chest pain, palpitations, edema Respiratory: Denies cough, sputum, SOB, wheezing, orthopnea GI: Denies nausea, vomiting, abdominal pain, constipation, diarrhea, melena/ hematochezia : Denies dysuria, frequency, hematuria Musculoskeletal: Denies joint/muscle aches, weakness, swelling Neurologic: Denies dizziness/lightheadedness, numbness/tingling, weakness Psychiatric: Deferred Endocrine: Deferred Hematologic/Lymphatic: Denies bleeding/clotting abnormalities Skin: Denies rash, itch, new skin changes, easy bruising Allergy/Immunologic: Deferred Medications Current Inpatient Medications Medications (Trade) Dose Ordered Sig/Bulmaro Route Start Time Stop Time Status Last Admin Dose Admin Acetaminophen (Tylenol Tab) 650 mg Q4H PRN PO 03/09/17 08:15 04/08/17 08:14 03/21/17 00:31 650 MG Multivitamins (Multivitamin Tab) 1 tab QAM PO 03/09/17 10:30 04/08/17 10:29 03/23/17 08:10 1 TAB Ondansetron HCl (Zofran Inj) 4 mg Q4H PRN IV 03/11/17 12:15 04/10/17 12:14 03/21/17 09:13 4 MG Docusate Sodium (coLACE CAP) 100 mg BID PO 03/11/17 21:00 04/10/17 20:59 03/23/17 08:10 100 MG Morphine Sulfate (MoRPHine SULFATE INJ) 2 mg Q1H PRN IV 03/11/17 12:15 03/25/17 12:14 03/19/17 19:26 2 MG Tramadol HCl (Ultram Tab) 50 mg Q4H PRN PO 03/12/17 08:15 04/11/17 08:14 03/21/17 00:30 50 MG Hydralazine HCl (HydrALAZINE INJ) 5 mg Q6H PRN IV. 03/12/17 16:45 04/11/17 16:44 Bisacodyl (Dulcolax Supp) 10 mg DAILY PRN IA 03/14/17 12:30 04/13/17 12:29 03/17/17 15:58 10 MG Sodium Biphosphate/ Sodium Phosphate (Fleet Enema) 132 ml DAILY PRN IA 03/15/17 08:00 04/14/17 07:59 03/21/17 15:29 132 ML Metoprolol Tartrate (Lopressor Iv) 3 mg Q1H PRN IV 03/15/17 11:45 04/14/17 11:44 Metoclopramide HCl (Reglan Inj) 10 mg Q6H IV. 03/16/17 12:00 04/15/17 11:59 03/22/17 23:39 10 MG Metoprolol Succinate (Toprol Xl Tab) 50 mg QAM PO 03/18/17 09:00 04/17/17 08:59 03/23/17 08:10 50 MG Zolpidem Tartrate 5 mg 5 mg HSZ PRN PO 03/18/17 18:15 04/17/17 18:14 03/18/17 22:41 5 MG Dextrose (D10w) 1,000 ml @ 0 mls/hr Q0M PRN IV 03/19/17 12:55 04/18/17 12:54 Heparin Sodium (Porcine) (Heparin 10 Unit/ ml 5 ml Flush) 5 ml PRN PRN FLUSH 03/19/17 16:45 04/18/17 16:44 Simethicone 80 mg 80 mg Q6H PRN PO 03/21/17 13:00 04/20/17 12:59 03/21/17 16:06 80 MG Pantoprazole Sodium/Syringe (Protonix Inj/ Syringe) 10 ml @ 5 mls/min BID@09,21 IV 03/22/17 21:00 04/21/17 20:59 03/23/17 08:09 5 MLS/MIN Amiodarone HCl (Cordarone Tab) 200 mg BID PO 5/1/17 21:00 04/22/17 20:59 Objective Vital Signs Date Time Temp Pulse Resp B/P Pulse Ox O2 Delivery O2 Flow Rate FiO2 03/23/17 12:00 Room Air 03/23/17 11:05 36.6 68 20 113/70 94 Room Air 03/23/17 08:00 Nasal Cannula 2.0 03/23/17 07:23 36.7 68 20 117/69 94 Nasal Cannula 2.0 03/23/17 04:01 Nasal Cannula 2.0 03/23/17 04:00 36.6 66 17 113/69 96 Room Air 03/22/17 23:59 97 Nasal Cannula 2.0 03/22/17 23:31 36.8 67 18 110/63 97 Nasal Cannula 2.0 03/22/17 20:00 97 Nasal Cannula 2.0 03/22/17 19:33 36.9 75 20 115/73 97 Nasal Cannula 2.0 03/22/17 16:00 Nasal Cannula 2.0 03/22/17 15:32 36.9 77 20 113/70 98 Nasal Cannula 2.0 Physical Exam Notes: PHYSICAL EXAM:: General Appearance: WDWN in NAD who is A&O x 3 HEENT: Head is normocephalic/atraumatic; EOMI; PERRLA; Hearing grossly intact; Mucous membranes moist; Pharynx negative for exudate/lesions Neck: Supple; Trachea midline; Neg JVD; Neg lymphadenopathy Heart: RRR with no M/G/R Lungs: CTA in all lung farmer bilaterally; Respirations unlabored; Neg accessory muscle use Abdomen: Soft, non-tender, non-distended; Positive BS x 4 quadrants; Neg organomegaly Extremities: Capillary refill < 2 seconds; Neg cyanosis or edema Neurological: Speech clear; Gross motor/sensory function intact; Neg focal neurologic deficits Psychiatric: Appropriate mood/affect Skin: Normal Color; Warm/Dry; Neg rashes, ecchymosis, lacerations/ulcerations Laboratory Results Last 24 Hours Test 03/22/17 17:51 03/22/17 20:05 03/23/17 06:38 03/23/17 06:46 Bedside Glucose 112 mg/dl 113 mg/dl 93 mg/dl White Blood Count 6.15 K/uL Red Blood Count 2.72 M/uL Hemoglobin 8.9 g/dL Hematocrit 26.5 % Mean Corpuscular Volume 97.4 fL Mean Corpuscular Hemoglobin 32.7 pg Mean Corpuscular Hemoglobin Concent 33.6 g/dl Platelet Count 211 K/uL Mean Platelet Volume 9.7 fL Neutrophils (%) (Auto) 74.2 % Lymphocytes (%) (Auto) 14.3 % Monocytes (%) (Auto) 7.3 % Eosinophils (%) (Auto) 3.6 % Basophils (%) (Auto) 0.3 % Neutrophils # (Auto) 4.56 K/uL Lymphocytes # (Auto) 0.88 K/uL Monocytes # (Auto) 0.45 K/uL Eosinophils # (Auto) 0.22 K/uL Basophils # (Auto) 0.02 K/uL RDW Standard Deviation 56.8 fL RDW Coefficient of Variation 16.0 % Immature Granulocyte % (Auto) 0.3 % Immature Granulocyte # (Auto) 0.02 K/uL Echinocytes 1+ Sodium Level 139 mmol/L Potassium Level 3.6 mmol/L Chloride Level 105 mmol/L Carbon Dioxide Level 28 mmol/L Anion Gap 6.0 mmol/L Blood Urea Nitrogen 23 mg/dl Creatinine 0.91 mg/dl Est Creatinine Clear Calc Drug Dose 71.2 ml/min Estimated GFR () 95.9 Estimated GFR (Non- 82.7 BUN/Creatinine Ratio 25.8 Random Glucose 102 mg/dl Calcium Level 7.8 mg/dl Magnesium Level 2.0 mg/dl Assessment and Plan Mr. Uribe is a 71 y/o male with Esophageal CA S/P Neoadjuvant Chemo and S/P Laparoscopy for Esophagogastrectomy that was aborted due to advanced disease. Developed A Fib RVR with hypotension, hypoxia in 70s, and near-syncope with resultant Code Purple. Paroxysmal Atrial Fibrillation with RVR (RESOLVED): Currently NSR - Etiology - electrolyte abnormalities likely - Probable demand ischemia with troponin trending down and resolved lateral ST changes resolved - Amiodarone 200 mg BID and Metoprolol 50 mg daily Ileus: RESOLVED - Advance diet as tolerated with parenteral nutrition via PICC D/Cd Anemia from Acute GI Blood Loss / Surgery/Anticoagulation/CA: Transfused 2 units 03/19 - Per patient report black stools resolved and brown - Protonix 40 mg IV BID - GI followed - no EGD due to risk of esophageal perforation Metastatic Esophageal CA S/P Laparoscopy - Aborted due to advanced disease - CT Surgery primary service - Heme/Onc F/U as outpatient with Dr. Joseph DVT Prophylaxis: SCDs/Ambulation
[2017-03-23 15:34] VITALS: BP 113/69; PULSE 72; TEMP 36.9; O2SAT 92
[2017-03-23 19:16] VITALS: BP 148/72; PULSE 97; TEMP 36.9; O2SAT 92
[2017-03-23] MEDS: AMIODARONE 200 MG TAB PO SCH (20:10)
[2017-03-23 23:26] VITALS: BP 116/69; PULSE 79; TEMP 36.5; O2SAT 90
[2017-03-24 03:19] VITALS: BP 122/69; PULSE 67; TEMP 36.3; O2SAT 95
[2017-03-24 05:20] LABS: HEMATOCRIT 26.9 % (42-52); MEAN CELL VOLUME 96.8 fL (80-100); MEAN CORPUSCULAR HGB CONC 33.1 g/dl (32-36); MEAN PLATELET VOLUME 9.4 fL (7.4-10.4); PLATELET COUNT 219 K/uL (130-400); RED BLOOD COUNT 2.78 M/uL (4.7-6.1); WHITE BLOOD COUNT 6.21 K/uL (4.8-10.8)
[2017-03-24] MEDS: METOCLOPRAMIDE HCL INJ 5 MG/ML 2 ML VIAL IV. SCH ×2 (05:32)
[2017-03-24 05:45] LABS: BUN/CREATININE RATIO 19.3 (10-20); CALCIUM 7.6 mg/dl (8.5-10.1); CREATININE 0.83 mg/dl (0.60-1.40); MAGNESIUM 1.8 mg/dl (1.8-2.4); POTASSIUM 3.4 mmol/L (3.5-5.1)
[2017-03-24 07:57] VITALS: BP 137/75; PULSE 72; TEMP 36.8; O2SAT 92
[2017-03-24] MEDS: DOCUSATE SODIUM 100 MG CAP PO SCH (08:22)
[2017-03-24] MEDS: METOPROLOL SUCC 50MG EXT REL TAB PO SCH (08:24)
[2017-03-24] MEDS: MULTIVITAMIN TAB PO SCH (08:24)
[2017-03-24] MEDS: AMIODARONE 200 MG TAB PO SCH (08:25)
[2017-03-24] MEDS ORDERED: PANTOprazole SOD 40 MG TAB PO SCH (09:00)
[2017-03-24] MEDS ORDERED: POTASSIUM CHLORIDE 20 MEQ TABCR PO SCH (09:00)
[2017-03-24 09:35] VITALS: O2SAT 95
[2017-03-24] MEDS ORDERED: ULT50X PO (10:09)
[2017-03-24] MEDS ORDERED: CLC100 PO (10:09)
[2017-03-24] MEDS ORDERED: TPRSR50 PO (10:09)
[2017-03-24] MEDS ORDERED: MYL80 PO (10:09)
[2017-03-24] MEDS ORDERED: CRD200 PO (10:09)
--- NOTE | 2017-03-24 10:14 | Discharge Instructions ---
Discharge Instructions Date of Service March 24, 2017. Admission Reason for Admission: Esophageal Cancer Discharge Discharge Diagnosis / Problem: Esophageal adenocarcinoma, paroxysmal atrial fibrillation (resolved) Discharge Goals Goal(s): Improve function, Increase independence, Specific goals (follow up with Dr. Stallworth and oncology) Activity Recommendations Activity Limitations: per Instructions/Follow-up section Lifting Limitations: none Exercise/Sports Limitations: until after follow-up appointment (with Dr. Stallworth) Shower/Bathe: no limitations . Instructions / Follow-Up Instructions / Follow-Up Medications: - TOPROL: take 50mg daily, this is to control heart rate - AMIODARONE: take 200mg twice a day to keep you in normal sinus rhythm, you will be on this for one week then stop - ULTRAM: use as needed for pain - COLACE: use as needed for constipation - SIMETHICONE: as needed for gas relief Chlorthalidone and Ramipril stopped because Toprol was started FOLLOW UP - Oncology next week - Dr. Stallworth next week - call to schedule appointment with Dr. Santa in 2 weeks Current Hospital Diet Patient's current hospital diet: Regular Diet Discharge Diet Recommended Diet: Regular Diet Procedures Procedures Performed: Laparoscopy with lysis of adhesions Pending Studies Studies pending at discharge: no Laboratory Results Lipid Panel Test 03/21/17 06:49 Range/Units Triglycerides Level 114 0-150 mg/dl Medical Emergencies . Who to Call and When: Medical Emergencies: If at any time you feel your situation is an emergency, please call 911 immediately. . Non-Emergent Contact Non-Emergency issues call your: Primary Care Provider, Surgeon Call Non-Emergent contact if: your pain is not controlled, wound has increased pain, you have any medication questions . . "Provider Documentation" section prepared by Mo Herndon. . VTE Core Measure Inpt VTE Proph given/why not?: Unfractionated heparin SQ [place] Drug Monitoring Program Search Results: no issues identified
[2017-03-24 10:46] VITALS: BP 137/75; PULSE 72; TEMP 36.8; O2SAT 95
--- NOTE | 2017-03-25 09:55 | Discharge Summary ---
Discharge Summary Date of Service March 24, 2017. Discharge Summary Admission Date: Mar 09, 2017 at 08:10 Discharge Date: March 24, 2017 Discharge Disposition: Home with services Principal Diagnosis: Esophageal adenocarcinoma, local metastatic disease Problems/Secondary Diagnoses: Paroxysmal atrial fibrillation, resolved Ileus, resolved acute blood loss anemia, bleeding from malignancy on heparin drip Immunizations: Have You Had Influenza Vaccine: N/A History of Tetanus Vaccine?: Yes Tetanus Immunization Date: Feb 05, 2008 History of Pneumococcal: No Pneumococcal Date: Aug 07, 2008 History of Hepatitis B Vaccine: No Procedures: 03/11/17 Dr. Stallworth 1. Laparoscopy with extensive takedown of adhesions. 2. Mobilization of GE junction and biopsy of multiple perigastric and celiac axis lymph nodes. Consultations: thoracic surgery cardiology general surgery Medication Reconciliation New Medications: Amiodarone HCl (Amiodarone HCl) 200 Mg Tab 200 MG PO BID, #60 TAB 0 Refills Docusate Sodium (Docusate Sodium) 100 Mg Cap 100 MG PO BID PRN for Constipation MDD 200mg, #60 CAP 1 Refill Metoprolol Succinate (Metoprolol Succinate ER) 50 Mg Tabcr 50 MG PO QAM, #30 TABS 3 Refills Simethicone (Mi-Acid Gas Relief) 80 Mg Chew 80 MG PO Q6H PRN for gas, #30 TABS 3 Refills Tramadol HCl (Tramadol HCl) 50 Mg Tab 50 MG PO Q4H PRN for Pain, #30 TAB 0 Refills Continued Medications: Multivitamin (Multivitamin) Tab 1 TAB PO QAM Omeprazole (Prilosec) 40 Mg Capcr 40 MG PO HS Ondansetron Hcl (Zofran) 8 Mg Tab 8 MG PO Q8H PRN for Nausea Discontinued Medications: Chlorthalidone (Hygroton) 25 Mg Tab 25 MG PO QAM, TAB Ramipril (Altace *) 10 Mg Cap 10 MG PO QAM Discharge Exam Patient felt well on day of discharge, eating well, breathing well, minimal pain. Cleared for discharge by thoracic surgery with plans to follow up in the office next week. Remained in normal sinus rhythm on Amiodarone 200mg BID and planned to continue outpatient. Patient asked about oxygen at home, discussed that he was never truly hypoxic at night although the oxygen made him feel better. Discussed in detail plans for medications on discharge, discussed Toprol dose of 50mg and plans to stop Ramipril and Chlorthalidone since he would be on Toprol. All questions answered to he and his 's satisfaction. Review of Systems: Constitutional: + fatigue, + weakness, No chills, No fever, No problem reported, No sweats, No weight loss Eyes: No diplopia, No discharge, No eye pain, No problem reported, No redness, No worsening of vision ENT: No dental problems, No hearing loss, No nasal symptoms, No problem reported, No sore throat, No tinnitus, No trouble swallowing, No unusual epistaxis Respiratory: + dyspnea on exertion, No cough, No dyspnea at rest, No hemoptysis, No problem reported, No shortness of breath, No sputum, No wheezing Cardiovascular: No PND, No chest pain, No claudication, No edema, No orthopnea, No palpitations, No problem reported Abdomen: No GI bleeding, No constipation, No diarrhea, No nausea, No pain, No problem reported, No vomiting Musculoskeletal: No calf pain, No joint pain, No muscle pain, No problem reported, No swelling Genitourinary - Male: No dysuria, No hematuria, No urinary frequency, No urinary urgency Neurologic: No balance problems, No memory loss, No numbness/tingling, No paralysis, No problem reported, No vertigo, No weakness Psychiatric: No anhedonism, No anxiety, No depression symptoms, No insomnia , No problem reported, No substance abuse Endocrine: No excessive thirst, No excessive urination, No fatigue, No problem reported Hematologic / Lymphatic: No abnormal bleeding/bruising, No clotting problems , No night sweats, No problem reported, No swollen lymph nodes Integumentary: No bleeding, No color change, No itch, No new/changing skin lesions, No problem reported, No rash Physical Exam: General Appearance: WD/WN, no apparent distress Eyes: normal inspection, EOMI, sclerae normal ENT: normal ENT inspection, hearing grossly normal, pharynx normal Neck: supple, no adenopathy, no JVD, trachea midline Respiratory/Chest: chest non-tender, lungs clear, normal breath sounds, no respiratory distress, no accessory muscle use Cardiovascular: regular rate, rhythm, no edema, no gallop, no JVD, no murmur , normal peripheral pulses Abdomen / GI: normal bowel sounds, non tender, soft, no organomegaly Extremities: normal inspection, no calf tenderness, normal capillary refill , no pedal edema, normal range of motion, pelvis stable Neurologic/Psychiatric: community service officer II-XII nml as tested, no motor/sensory deficits , alert, normal mood/affect, normal reflexes, oriented x 3 Skin: normal color, warm/dry, no rash Hospital Course Mr. Uribe is a 71 y/o male with Esophageal CA S/P Neoadjuvant Chemo and S/P Laparoscopy for Esophagogastrectomy that was aborted due to advanced disease. Developed A Fib RVR with hypotension, hypoxia in 70s, and near-syncope with resultant Code Purple. The atrial fibrillation was short lived and he was converted to NSR. He did have another brief episode that was converted to NSR on Amiodarone gtt and therefor was placed on Amiodarone PO. When he first had atrial fibrillation he was given heparin gtt but he had blood loss anemia and so heparin gtt was stopped and anticoagulation was deemed unnecessary by cardiology since atrial fibrillation was so brief. He had a mild post op ileus but that resolved, moving bowels and tolerating regular diet. 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 He will follow up with oncology for further recommendations. Paroxysmal Atrial Fibrillation with RVR (RESOLVED): Currently NSR - Etiology - electrolyte abnormalities likely contributed in addition to being post op - Probable demand ischemia with troponin trending down and resolved lateral ST changes resolved - Amiodarone 200 mg BID and Metoprolol 50 mg daily will continue Amiodarone for 1 month and then discontinue due to detrimental side effects of Amiodarone going forward continue the Toprol 50mg indefinitely for rate and rhythm control again, no anticoagulation due to brief episode of afib as well as immediate bleeding from esophagus on heparin gtt, too risky Ileus: RESOLVED - Advance diet as tolerated with parenteral nutrition via PICC D/Cd - eating regular diet for 36 hours prior to d/c, moving bowels, no abdominal distention or pain Anemia from Acute GI Blood Loss 2/ Surgery/Anticoagulation/CA: Transfused 2 units 03/19 - Per patient report black stools resolved and brown - Protonix 40 mg IV BID initially, will d/c on PO Protonix - GI followed - no EGD due to risk of esophageal perforation Metastatic Esophageal CA S/P Laparoscopy - Aborted due to advanced disease - CT Surgery primary service - Heme/Onc F/U as outpatient with Dr. Joseph in one week - follow up with Dr. Stallworth in one week HTN: note that Ramipril and Chlorthalidone stopped since Toprol was started for rate and rhythm control in setting of paroxysmal afib will follow up with PCP DVT Prophylaxis: SCDs/Ambulation Total Time Spent: Greater than 30 minutes This includes examination of the patient, discharge planning, medication reconciliation, and communication with other providers. Discharge Instructions Please refer to the electronic Patient Visit Report (Discharge Instructions) for additional information. Follow-Up Dr. Vinny Santa in one week Dr. Stallworth in one week Dr. Joseph in 2 weeks Additional Copies To Vinny Santa M.D.; Jeffery Josehp MD; Colin Stallworth MD
[2017-04-09] MEDS ORDERED: simethicone (14:17)
[2017-04-13] MEDS ORDERED: HYDR-5688 PO (10:15)
[2017-06-11] MEDS ORDERED: METO-452 PO (12:53)
[2017-06-14] MEDS ORDERED: RXC5 PO (12:42)
[2017-06-14] MEDS ORDERED: MGNO400 PO (12:42)
[2017-06-14] MEDS ORDERED: ASPEC81 PO (12:42)
[2017-09-09] MEDS ORDERED: MRLP17 PO (08:38)
[2017-09-09] MEDS ORDERED: ONDA8TAB6 PO (08:38)
== END 2017-03-24 11:52 | disposition home or self-care (01) | DRG 336 ==
LOC: ENRESERVDT → ENRESERVTM → C.ACU 05:20 → C.MSN 08:10 → C.2T 03-15 09:20 → EDBEDREQ 03-15 09:27 → C.2T 03-21 18:06
PROVIDERS: ADMIT Surgery; ATTEND Internal Medicine
PROC: 0DNW4ZZ Release Peritoneum, Percutaneous Endoscopic Approach (ICD-10-PCS; principal; 2017-03-11 07:00)
PROC: 07BD4ZX Excision of Aortic Lymphatic, Percutaneous Endoscopic Approach, Diagnostic (ICD-10-PCS; principal; 2017-03-11 07:00)
PROC: 02HV33Z Insertion of Infusion Device into Superior Vena Cava, Percutaneous Approach (ICD-10-PCS; 2017-03-19)
DX: C16.0 Malignant neoplasm of cardia (principal); C77.2 Secondary and unspecified malignant neoplasm of intra-abdominal lymph nodes; D62 Acute posthemorrhagic anemia; I47.2 Ventricular tachycardia; I13.0 Hypertensive heart and chronic kidney disease with heart failure and stage 1 through stage 4 chronic kidney disease, or unspecified chronic kidney disease; I50.32 Chronic diastolic (congestive) heart failure; K56.7 Ileus, unspecified; J90 Pleural effusion, not elsewhere classified; D63.0 Anemia in neoplastic disease; E11.22 Type 2 diabetes mellitus with diabetic chronic kidney disease; N18.9 Chronic kidney disease, unspecified; F32.9 Major depressive disorder, single episode, unspecified; E87.6 Hypokalemia; I48.0 Paroxysmal atrial fibrillation; I95.9 Hypotension, unspecified; I44.7 Left bundle-branch block, unspecified; N40.0 Benign prostatic hyperplasia without lower urinary tract symptoms; E83.42 Hypomagnesemia; R23.1 Pallor; K59.00 Constipation, unspecified; R55 Syncope and collapse; R09.02 Hypoxemia; Z80.8 Family history of malignant neoplasm of other organs or systems; Z82.49 Family history of ischemic heart disease and other diseases of the circulatory system; Z79.899 Other long term (current) drug therapy; Z87.19 Personal history of other diseases of the digestive system; Z87.891 Personal history of nicotine dependence

== ENCOUNTER → 2017-04-03 | Outpatient (CLI) | payer BC, OTHER ==
[~2017-04-03] MED LIST changes: -ALT10 PO; +ASPEC81 PO; +CLC100 PO; +CRD200 PO; +DOCU1TAB6 PO; +HYDR-5688 PO; -HYG/25 PO; +METO-452 PO; +MGNO400 PO; +MRLP17 PO; +MRN5 PO; +MYL80 PO; +OMEP20TA PO; +POTA20TA16 PO; +PROC1TAB5 PO; +RXC5 PO; +SIME80CH40 PO; +TPRSR50 PO; +TRAM-10 PO; +ULT50X PO; +simethicone
[2017-04-03 13:10] LABS: BASO % 0.5 %; BASO ABS # 0.03 K/uL (0-0.2); COMPLETE YES; EOS % 3.1 %; HEMATOCRIT 30.2 % (42-52); IG% 0.2 %; LYMPH % 5.3 %; LYMPH ABS # 0.34 K/uL (1.2-3.4); MEAN CELL VOLUME 97.4 fL (80-100); MEAN CORPUSCULAR HEMOGLOBIN 31.9 pg (25-34); MEAN CORPUSCULAR HGB CONC 32.8 g/dl (32-36); MEAN PLATELET VOLUME 9.8 fL (7.4-10.4); MONO % 9.6 %; NEUT % 81.3 %; PLATELET COUNT 297 K/uL (130-400); WHITE BLOOD COUNT 6.36 K/uL (4.8-10.8)
[2017-04-03 15:40] LABS: ALT/SGPT 18 U/L (12-78); AST/SGOT 7 U/L (15-37); BLOOD UREA NITROGEN 17 mg/dl (7-18); BUN/CREATININE RATIO 12.9 (10-20); CALCIUM 8.5 mg/dl (8.5-10.1); CARBON DIOXIDE 32 mmol/L (21-32); CHLORIDE 103 mmol/L (98-107); GLUCOSE 110 mg/dl (70-99); POTASSIUM 3.3 mmol/L (3.5-5.1); SODIUM 140 mmol/L (136-145)
[2017-04-03 15:43] LABS: ALB/GLOB RATIO 0.7 (0.9-2); ALKALINE PHOSPHATASE 79 U/L (45-117)
== END | disposition home or self-care (01) ==
LOC: C.LABMFLN 10:40
PROVIDERS: ATTEND Internal Medicine Hematology & Oncology
DX: C16.0 Malignant neoplasm of cardia (principal)

== ENCOUNTER → 2017-04-08 | Outpatient (CLI) | payer BC, OTHER ==
--- NOTE | 2017-04-08 12:11 | DIAGNOSTIC IMAGING REPORT ---
CHEST 2 VIEWS ROUTINE CLINICAL HISTORY: C15.9 Adenocarcinoma of esophagus esophageal cancer COMPARISON STUDY: 03/15/2017 FINDINGS: Emphysematous change. Improving left basilar atelectatic change and or infiltrative change. Similar improvement right. And upper lungs are considered clear. IMPRESSION: Chronic basilar interstitial change. This is somewhat improved from the prior exam. No new or interval finding. Electronically signed by: Shahbaz Marshall M.D. 04/08/2017 12:10 PM Dictated Date/Time: 04/08/2017 11:59 AM
== END | disposition home or self-care (01) ==
LOC: C.RAD 11:44
PROVIDERS: ATTEND Surgery
DX: C15.9 Malignant neoplasm of esophagus, unspecified (principal)

== ENCOUNTER → 2017-04-13 | Day surgery (SDC) | payer BC, OTHER ==
[2017-04-09 08:04] VITALS: Ht 176.5 cm; Wt 75.9 kg
[~2017-04-13] VITALS: Ht 176.5 cm; Wt 75.9 kg
[~2017-04-13] MED LIST changes: +ATROPINE SULFATE 0.1 MG/ML 5ML SYR IV PRN; +CEFAZOLIN 2000 MG/60 ML D5W IV SCH; +CEFAZOLIN SOD 1 GM VIAL ONE; +EpHEDrine SULFATE INJ 50 MG/ML AMP IV PRN; +FENTANYL CITRATE INJ 50 MCG/1 ML 2 ML VIAL IV PRN; +FENTANYL CITRATE INJ 50 MCG/1 ML 2 ML VIAL ONE; +HEPARIN SOD (PORCINE) 1000 UNIT/ML 10 ML VIAL ONE; +HYDROCODONE/ACETAMOPHEN 5/325MG TAB PO PRN; +LACTATED RINGER'S 1000ML 1,000 ML IV SCH; +LIDOCAINE HCL 1% 20 ML VIAL ONE; +MIDAZOLAM HCL 1 MG/ML 2ML VIAL ONE; +PROPOFOL IV EMULSION 10 MG/ML 20 ML VIAL IV ONE; +THROMBIN FOR SOLN 20000 UNIT KIT ONE; -ULT50X PO; -simethicone
[2017-04-13 08:35] VITALS: BP 156/74; PULSE 62; TEMP 36.5; O2SAT 96
--- NOTE | 2017-04-13 09:27 | History & Physical Bridge Note ---
H&P Re-Evaluation Bridge Note: I have examined the patient, reviewed the History & Physical and in the interval since the performance of the History & Physical I have noted the following changes of clinical significance: No changes noted
--- NOTE | 2017-04-13 10:16 | Discharge Instructions ---
Discharge Instructions Date of Service April 13, 2017. Visit Reason for Visit: Esophageal Cancer Discharge Discharge Diagnosis / Problem: A-port Discharge Goals Goal(s): Improve disease control Activity Recommendations Activity Limitations: as noted below Shower/Bathe: keep incision dry (for 2 days) Anesthesia . Post Anesthesia Instructions: If you have had General Anesthesia or IV Sedation: * Do not drive today. * Resume driving when surgeon permits. * Do not make important decisions or sign legal documents today. * Call surgeon for: 1. Temperature elevations greater than 101 degrees F. 2. Uncontrollable pain. 3. Excessive bleeding. 4. Persistent nausea and vomiting. 5. Medication intolerance (nausea, vomiting or rash). * For nausea and vomiting use only clear liquids such as: tea, soda, bouillon until nausea subsides, then gradually increase diet as tolerated. * If you have any concerns or questions, call your surgeon's office. If physician is unavailable and it is an emergency, call 911 or go to the nearest emergency room. . Instructions / Follow-Up Instructions / Follow-Up Dr. Kessler's office in 2 weeks to have sutures removed, [phone] Diet Recommendations Recommended Home Diet: no limitations Pending Studies Studies pending at discharge: no Medical Emergencies . Who to Call and When: Medical Emergencies: If at any time you feel your situation is an emergency, please call 911 immediately. . Non-Emergent Contact Non-Emergency issues call your: Surgeon Call Non-Emergent contact if: you have a fever, temperature is above 101.5, your pain is not controlled, wound has increased redness . . "Provider Documentation" section prepared by Karl Butts. .
--- NOTE | 2017-04-13 10:55 | [facility] Post Operative Brief Note ---
Immediate Operative Summary Operative Date April 13, 2017. Pre-Operative Diagnosis Esophageal Cancer Post-Operative Diagnosis Esophageal Cancer Procedure(s) Performed Insertion of A-Port Surgeon Dr David Kessler Cyber Security Instructor Surgeon(s) NONE Estimated Blood Loss 5ML Findings placed via Lt subclavian vein Specimens none Anesthesia local/ sedation Complication(s) None Disposition Recovery Room / PACU
--- NOTE | 2017-04-13 11:27 | DIAGNOSTIC IMAGING REPORT ---
CHEST ONE VIEW PORTABLE CLINICAL HISTORY: Port insertion. Esophageal cancer. COMPARISON STUDY: Chest CT March 17, 2017 and chest radiograph April 08, 2017 FINDINGS: No pneumothorax is identified status post placement of a left subclavian [id number]. Catheter tip projects over the cavoatrial junction. Catheter is intact. Right basilar opacity favors atelectasis. There is no evidence of pulmonary edema. Lower mediastinal widening could be due to esophageal thickening shown on prior CT. IMPRESSION: No pneumothorax following placement of a left subclavian [id number]. Electronically signed by: Sylvester Devine M.D. 04/13/2017 11:25 AM Dictated Date/Time: 04/13/2017 11:24 AM
[2017-04-13 11:32] VITALS: BP 106/77; PULSE 58; TEMP 36.4; O2SAT 95
[2017-04-13 12:00] VITALS: BP 123/69; PULSE 57; TEMP 36.4; O2SAT 94
--- NOTE | 2017-04-13 13:28 | Anesthesiology Progress Note ---
Anesthesia Post Op Note Date & Time April 13, 2017 at 13:28 Vital Signs Pain Intensity: 0 Vital Signs Past 12 Hours Date Time Temp Pulse Resp B/P Pulse Ox O2 Delivery O2 Flow Rate FiO2 04/13/17 12:00 36.4 57 18 123/69 94 Room Air 04/13/17 11:32 36.4 58 16 106/77 95 Room Air 04/13/17 11:25 60 16 107/74 94 Room Air 04/13/17 11:15 36.3 61 16 110/77 95 Room Air 04/13/17 11:05 63 17 107/70 100 Mask 10 04/13/17 10:56 36.1 64 16 109/73 100 Mask 10 04/13/17 08:35 36.5 62 20 156/74 96 Room Air Notes Mental Status: alert / awake / arousable, participated in evaluation Pt Amnestic to Procedure: Yes Nausea / Vomiting: adequately controlled Pain: adequately controlled Airway Patency, RR, SpO2: stable & adequate BP & HR: stable & adequate Hydration State: stable & adequate Anesthetic Complications: no major complications apparent
--- NOTE | 2017-04-13 13:28 | Anesthesiology Progress Note ---
Anesthesia Post Op Note Date & Time April 13, 2017 at 13:29 Vital Signs Pain Intensity: 0 Vital Signs Past 12 Hours Date Time Temp Pulse Resp B/P Pulse Ox O2 Delivery O2 Flow Rate FiO2 04/13/17 12:00 36.4 57 18 123/69 94 Room Air 04/13/17 11:32 36.4 58 16 106/77 95 Room Air 04/13/17 11:25 60 16 107/74 94 Room Air 04/13/17 11:15 36.3 61 16 110/77 95 Room Air 04/13/17 11:05 63 17 107/70 100 Mask 10 04/13/17 10:56 36.1 64 16 109/73 100 Mask 10 04/13/17 08:35 36.5 62 20 156/74 96 Room Air Notes Mental Status: alert / awake / arousable, participated in evaluation Pt Amnestic to Procedure: Yes Nausea / Vomiting: adequately controlled Pain: adequately controlled Airway Patency, RR, SpO2: stable & adequate BP & HR: stable & adequate Hydration State: stable & adequate Anesthetic Complications: no major complications apparent
--- NOTE | 2017-04-13 15:20 | OPERATIVE REPORT ---
DATE OF OPERATION: 04/13/2017 NAME OF OPERATION: Port placement. PREOPERATIVE DIAGNOSIS: History of esophageal cancer. POSTOPERATIVE DIAGNOSIS: Same. STAFF SURGEON: Dr. Kessler. ANESTHESIA: 1% plain lidocaine with sedation. DESCRIPTION OF PROCEDURE: The patient was brought in the operating room and placed on the operating table in supine position. His chest was prepped and draped in usual fashion. Skin and subcutaneous tissue over the left deltopectoral groove were anesthetized. Incision made carrying dissection down identifying the cephalic vein ligated distally using 2-0 silk suture and then opened. It was relatively small. I did pass the catheter, but was unable to pass the catheter or the wire into the left subclavian vein. The cephalic vein was ligated and then the patient was placed in Trendelenburg position. Using a puncture technique, the left subclavian vein was localized, a wire passed under fluoroscopy, the needle removed. The dilator and introducer passed over the wire under fluoroscopy. The dilator and wire removed and then the catheter passed through the introducer into the superior vena cava and secured using 2-0 chromic catgut suture. It was aspirated and flushed with heparinized solution. A pocket was fashioned in the chest wall. The port was attached to the catheter. The port was placed into the pocket and secured to the chest wall using 3-0 Prolene suture. It was aspirated and flushed with heparinized solution. The wound was then irrigated with antibiotic solution and the subcutaneous tissue reapproximated using 2-0 chromic catgut suture and then the skin reapproximated using 4-0 nylon suture. The patient was transferred to recovery room in stable condition. I attest to the content of the Intraoperative Record and any orders documented therein. Any exceptio ns are noted below.
== END | disposition home or self-care (01) ==
LOC: C.ACU 08:07
PROVIDERS: ATTEND Surgery
DX: C15.9 Malignant neoplasm of esophagus, unspecified (principal); N40.1 Benign prostatic hyperplasia with lower urinary tract symptoms; N13.8 Other obstructive and reflux uropathy; I10 Essential (primary) hypertension; I48.0 Paroxysmal atrial fibrillation; Z87.891 Personal history of nicotine dependence; Z79.899 Other long term (current) drug therapy

== ENCOUNTER → 2017-04-17 | Outpatient (CLI) | payer BC, OTHER ==
[~2017-04-17] MED LIST changes: -ATROPINE SULFATE 0.1 MG/ML 5ML SYR IV PRN; -CEFAZOLIN 2000 MG/60 ML D5W IV SCH; -CEFAZOLIN SOD 1 GM VIAL ONE; -EpHEDrine SULFATE INJ 50 MG/ML AMP IV PRN; -FENTANYL CITRATE INJ 50 MCG/1 ML 2 ML VIAL IV PRN; -FENTANYL CITRATE INJ 50 MCG/1 ML 2 ML VIAL ONE; -HEPARIN SOD (PORCINE) 1000 UNIT/ML 10 ML VIAL ONE; -HYDROCODONE/ACETAMOPHEN 5/325MG TAB PO PRN; -LACTATED RINGER'S 1000ML 1,000 ML IV SCH; -LIDOCAINE HCL 1% 20 ML VIAL ONE; -MIDAZOLAM HCL 1 MG/ML 2ML VIAL ONE; +OPTIRAY 320 IV PRN; -PROPOFOL IV EMULSION 10 MG/ML 20 ML VIAL IV ONE; -THROMBIN FOR SOLN 20000 UNIT KIT ONE
--- NOTE | 2017-04-17 15:42 | DIAGNOSTIC IMAGING REPORT ---
ABDOMEN AND PELVIS CT WITH IV AND ORAL CONTRAST CT DOSE: HISTORY: ESOPHAGEAL CANCER TECHNIQUE: Multiaxial CT images of the abdomen and pelvis were performed following the use of intravenous and oral contrast. COMPARISON STUDY: Abdomen and pelvis CT 03/17/2017. FINDINGS: Masslike thickening of the distal esophagus consistent with the patient's history of esophageal malignancy. This measures up to 4.3 cm. This is similar to the prior study. Gastrohepatic lymphadenopathy remains unchanged. Persistent bladder wall thickening.. A few colonic diverticula. Moderately distended and contrast-filled stomach has slightly improved. No transition point to suggest an obstruction. The distended loops of small bowel on the prior study have resolved. The small amount of ascites has almost completely resolved. This is trace amount of fluid remaining within the deep pelvis on image 372. Subcentimeter hypodense lesions within the kidneys with the largest measuring 9 mm on the right. These are too small to characterize. There is also a 14 mm hypodense lesion within the left kidney consistent with a cyst. No hydronephrosis. Midabdominal aorta measures up to 3.6 cm in diameter. Prior midline incision. The spleen, adrenal glands, pancreas, and gallbladder are unremarkable. Small hypodense lesion within the left hepatic lobe remain stable. This favors a cyst. Small focal hypodensity within the medial aspect of the spleen. This is slightly increased in size and measures 1.8 x 1.0 cm. This could represent a small subcapsular fluid collection or a small splenic infarct. Small amount of extraluminal gas at the right side the abdomen has resolved. IMPRESSION: 1. Persistent thickening of the distal esophagus consistent with the patient's history of malignancy. 2. Gastrohepatic lymphadenopathy is again noted. 3. Moderately distended and fluid-filled stomach is slightly improved. There is no transition point to suggest an obstruction. In addition, the dilated loops of small bowel seen on the prior study have resolved.. 4. No pneumoperitoneum or pneumatosis.. 5. Bladder wall thickening. Electronically signed by: Sean Cesar M.D. 04/17/2017 3:40 PM Dictated Date/Time: 04/17/2017 3:29 PM
--- NOTE | 2017-04-17 15:49 | DIAGNOSTIC IMAGING REPORT ---
CT SCAN OF THE CHEST WITH IV CONTRAST CLINICAL HISTORY: Esophageal cancer. COMPARISON STUDY: Chest CT scans dated 03/17/2017, 02/09/2017, and 01/12/2009. PET CT dated 11/12/2016. TECHNIQUE: Following the IV administration of 91 cc of Optiray 320, CT scan of the thorax was performed from the thoracic inlet to the upper abdomen. Images are reviewed in the axial, sagittal, and coronal planes. IV contrast was administered without complication. CT DOSE: 711.83 mGycm FINDINGS: Thyroid: Imaged portions of the thyroid gland are normal in size and attenuation. Thoracic aorta: There is atherosclerotic calcification of the thoracic aorta, which is normal in caliber and demonstrates standard 3-vessel arch anatomy. No dissection is seen. A left subclavian central venous infusion port is in place. Pulmonary vasculature: The pulmonary trunk is normal in caliber. There are no filling defects identified in the central pulmonary vessels to indicate pulmonary embolus. Note that this examination was not protocoled for evaluation of the pulmonary arteries. Heart: The heart is mildly enlarged and without pericardial effusion. The coronary arteries are densely calcified. Lungs and pleural spaces: There is moderate emphysematous change and biapical scarring. There are patchy groundglass opacities with foci of tree-in-bud nodularity identified in the left lower lobe and lingula. These are new from 03/17/2017. There is only a trace residual left pleural effusion. This has significantly decreased in size from previous. The trachea and central airways are clear. There is persistent elevation of the right hemidiaphragm with right basilar atelectasis. There is a 6 mm right lower lobe pulmonary nodule on image #134 and a 5 mm left lower lobe pulmonary nodule on image #226. These are unchanged dating back to 2008 and of doubtful significance. No new or concerning pulmonary lesion is seen. Mediastinum: There is no mediastinal lymphadenopathy. Nuris: Clear. Axillae: There is no axillary lymphadenopathy. Upper abdomen: There is a moderate hiatal hernia. Circumferential wall thickening is again seen at the gastroesophageal junction. Low-attenuation gastrohepatic lymph nodes are similar appearance to the 02/09/2017 examination. Subcentimeter hepatic hypodensities marrow present cysts but are too small for definitive characterization. Skeletal structures: The skeletal structures are osteopenic. There is mild degenerative change noted throughout the thoracic spine. No lytic or blastic bony lesions are seen. IMPRESSION: 1. Cardiomegaly and emphysema. 2. There is no convincing evidence of intrathoracic metastatic disease. 3. There are patchy groundglass changes with tree-in-bud nodularity seen in the lingula and left lower lobe. This is new from 03/17/2017 and likely represents an infectious/inflammatory pneumonitis. Clinical correlation will be required. 4. There is a trace left pleural effusion. Pleural effusions seen on 03/17/2017 have almost completely resolved. 5. There are 2 pulmonary nodules measuring up to 6 which are unchanged dating back to 2008 and of doubtful significance. No new/concerning pulmonary lesion is seen. 6. Hiatal hernia. Wall thickening is again seen in the distal esophagus/proximal stomach and this is likely related to patient's known cancer history. Additionally, there are low-density gastric hepatic lymph nodes. These have not appreciably changed from 02/09/2017. 7. Additional findings as above. Electronically signed by: Terell Diaz M.D. 04/17/2017 3:48 PM Dictated Date/Time: 04/17/2017 3:37 PM
== END | disposition home or self-care (01) ==
LOC: C.CTS 14:57
PROVIDERS: ATTEND Internal Medicine Hematology & Oncology
DX: C16.0 Malignant neoplasm of cardia (principal)

== ENCOUNTER → 2017-04-28 | Outpatient (CLI) | payer BC, OTHER ==
[~2017-04-28] MED LIST changes: -OPTIRAY 320 IV PRN
[2017-04-28 18:08] LABS: MEAN CELL VOLUME 93.5 fL (80-100); MEAN CORPUSCULAR HEMOGLOBIN 30.8 pg (25-34); RED BLOOD COUNT 3.21 M/uL (4.7-6.1); WHITE BLOOD COUNT 1.83 K/uL (4.8-10.8)
[2017-04-28 18:18] LABS: ALT/SGPT 13 U/L (12-78); AST/SGOT 11 U/L (15-37); BLOOD UREA NITROGEN 14 mg/dl (7-18); BUN/CREATININE RATIO 11.1 (10-20); CALCIUM 8.2 mg/dl (8.5-10.1); CARBON DIOXIDE 31 mmol/L (21-32); CHLORIDE 102 mmol/L (98-107); GLUCOSE 135 mg/dl (70-99); SODIUM 140 mmol/L (136-145)
[2017-04-28 18:21] LABS: ALB/GLOB RATIO 0.8 (0.9-2); ALKALINE PHOSPHATASE 89 U/L (45-117)
[2017-04-28 18:39] LABS: MEAN PLATELET VOLUME 9.6 fL (7.4-10.4); PLATELET COUNT 96 K/uL (130-400)
[2017-04-28 18:43] LABS: BASO % 0.5 %; BASO ABS # 0.01 K/uL (0-0.2); COMPLETE YES; EOS % 3.3 %; LYMPH % 13.1 %; LYMPH ABS # 0.24 K/uL (1.2-3.4); MONO % 23.5 %; NEUT % 59.6 %; PLT ESTIMATE DECREASED
[2017-04-29 10:48] LABS: MAGNESIUM 2.1 mg/dl (1.8-2.4)
== END | disposition home or self-care (01) ==
LOC: C.LABMFLN 08:00
PROVIDERS: ATTEND Internal Medicine Hematology & Oncology
DX: C16.0 Malignant neoplasm of cardia (principal)

== ENCOUNTER → 2017-06-02 | Outpatient (CLI) | payer BC, OTHER ==
[~2017-06-02] MED LIST changes: -METO-452 PO; +METO1TAB66 PO; -MRLP17 PO; -MRN5 PO
[2017-06-02 13:20] LABS: BASO % 0.3 %; BASO ABS # 0.01 K/uL (0-0.2); COMPLETE YES; EOS % 3.8 %; HEMATOCRIT 34.6 % (42-52); IG% 0.3 %; LYMPH % 6.2 %; LYMPH ABS # 0.21 K/uL (1.2-3.4); MEAN CELL VOLUME 87.6 fL (80-100); MEAN CORPUSCULAR HEMOGLOBIN 29.1 pg (25-34); MEAN CORPUSCULAR HGB CONC 33.2 g/dl (32-36); MEAN PLATELET VOLUME 10.8 fL (7.4-10.4); MONO % 32.7 %; NEUT % 56.7 %; PLATELET COUNT 101 K/uL (130-400); RED BLOOD COUNT 3.95 M/uL (4.7-6.1); WHITE BLOOD COUNT 3.39 K/uL (4.8-10.8)
[2017-06-02 14:46] LABS: ALB/GLOB RATIO 0.6 (0.9-2); ALKALINE PHOSPHATASE 82 U/L (45-117); ALT/SGPT 18 U/L (12-78); AST/SGOT 30 U/L (15-37); BLOOD UREA NITROGEN 54 mg/dl (7-18); BUN/CREATININE RATIO 24.5 (10-20); CALCIUM 8.5 mg/dl (8.5-10.1); CARBON DIOXIDE 26 mmol/L (21-32); CHLORIDE 102 mmol/L (98-107); GLUCOSE 107 mg/dl (70-99); MAGNESIUM 2.3 mg/dl (1.8-2.4); POTASSIUM 2.5 mmol/L (3.5-5.1); SODIUM 137 mmol/L (136-145)
== END | disposition home or self-care (01) ==
LOC: C.LABMFLN 08:19
PROVIDERS: ATTEND Internal Medicine Hematology & Oncology
DX: C16.0 Malignant neoplasm of cardia (principal)

== ENCOUNTER 2017-06-11 12:35 | Inpatient (IN) | payer BC, OTHER ==
[~2017-06-11] VITALS: Ht 175.3 cm; Wt 69.0 kg
[2017-06-11] VITALS (16 sets, daily range): BP systolic 95–120; BP diastolic 57–72; PULSE 53–68; TEMP 36.5; O2SAT 72–98; Ht 175.3 cm; Wt 69.0 kg
[~2017-06-11 12:35] MED LIST changes: -ASPEC81 PO; -DOCU1TAB6 PO; -METO1TAB66 PO; -MGNO400 PO; -OMEP20TA PO; -POTA20TA16 PO; -PROC1TAB5 PO; -RXC5 PO; -SIME80CH40 PO; -TRAM-10 PO
[2017-06-11] MEDS ORDERED: SODIUM CHLORIDE 0.9% 1000ML 1,000 ML IV STA ×2 (12:50)
[2017-06-11] MEDS ORDERED: METO1TAB66 PO (12:53)
[2017-06-11] MEDS ORDERED: TRAM-10 PO (12:53)
[2017-06-11] MEDS ORDERED: SIME80CH40 PO (12:53)
[2017-06-11] MEDS ORDERED: DOCU1TAB6 PO (12:53)
[2017-06-11] MEDS ORDERED: OMEP20TA PO (12:53)
[2017-06-11 13:03] LABS: BASO % 0.3 %; BASO ABS # 0.02 K/uL (0-0.2); COMPLETE YES; EOS % 2.3 %; HEMATOCRIT 32.5 % (42-52); IG% 0.1 %; LYMPH % 5.6 %; LYMPH ABS # 0.42 K/uL (1.2-3.4); MEAN CELL VOLUME 90.5 fL (80-100); MEAN CORPUSCULAR HEMOGLOBIN 29.8 pg (25-34); MEAN CORPUSCULAR HGB CONC 32.9 g/dl (32-36); MEAN PLATELET VOLUME 10.2 fL (7.4-10.4); MONO % 2.7 %; PLATELET COUNT 120 K/uL (130-400); RED BLOOD COUNT 3.59 M/uL (4.7-6.1); WHITE BLOOD COUNT 7.52 K/uL (4.8-10.8)
[2017-06-11 13:05] LABS: ISTAT HEMOGLOBIN 10.9 g/dl (14.0-18.0); ISTAT IONIZED CALCIUM 1.15 mmol/l (1.12-1.32)
[2017-06-11] MEDS ORDERED: ATROPINE SULFATE 0.1 MG/ML 5ML SYR ONE (13:08)
[2017-06-11] MEDS ORDERED: PROC1TAB5 PO (13:10)
[2017-06-11] MEDS ORDERED: POTA20TA16 PO (13:10)
[2017-06-11 13:11] LABS: INR 1.2 (0.9-1.1); PARTIAL THROMBOPLASTIN RATIO 1.2; PROTHROMBIN TIME (PATIENT) 12.5 SECONDS (9.0-12.0)
[2017-06-11 13:29] LABS: BUN/CREATININE RATIO 18.3 (10-20); CALCIUM 8.2 mg/dl (8.5-10.1); CREATININE 2.1 mg/dl (0.60-1.40); MAGNESIUM 1.8 mg/dl (1.8-2.4); POTASSIUM 4.2 mmol/L (3.5-5.1)
[2017-06-11 13:37] LABS: CKMB/CK RATIO 3.6 (0-3.0); THYROID STIMULATING HORMONE 0.966 uIu/ml (0.300-4.500)
--- NOTE | 2017-06-11 13:40 | DIAGNOSTIC IMAGING REPORT ---
CHEST ONE VIEW PORTABLE CLINICAL HISTORY: Near syncope. Pain, rating to the abdomen. COMPARISON STUDY: 04/11/2017 FINDINGS: The heart is borderline enlarged. There is now elevation right hemidiaphragm. There is a left-sided A-Port catheter present. There is no failure. There is no focal pulmonary consolidation. There are no pleural effusions. Overlying cardiac electrodes and pads are evident.[ There are minimal right basilar atelectatic changes. IMPRESSION: No active disease in the chest. Electronically signed by: Morgan Juarez M.D. 06/11/2017 1:39 PM Dictated Date/Time: 06/11/2017 1:39 PM
[2017-06-11] MEDS ORDERED: FENTANYL CITRATE INJ 50 MCG/1 ML 2 ML VIAL ONE (13:49)
[2017-06-11] MEDS ORDERED: MIDAZOLAM HCL 1 MG/ML 2ML VIAL ONE (13:49)
--- NOTE | 2017-06-11 13:58 | EMERGENCY ROOM VISIT NOTE ---
History Report prepared by Jake: Nicolasa Frankel Under the Supervision of: Dr. Colten Marquez D.O. First contact with patient: 12:38 Stated Complaint: NEAR SYNCOPE History of Present Illness The patient is a 72 year old male who presents to the Emergency Room with complaints of a syncopal episode occurring a few minutes prior to arrival. The patient has a history of esophageal cancer. He had completed about 80% of the chemotherapy when he started having severe dizziness and lost consciousness. He has had multiple episodes of near syncope since the onset of his symptoms. He has worsening lightheadedness with walking. He currently denies any pain. He received potassium today for chemotherapy. He had low potassium last week. He was at baseline prior to the onset of his symptoms. He denies chest pain, shortness of breath, urinary symptoms, or any other complaints. He had diarrhea about a week ago which has now resolved. The patient denies any history of heart disease. As per , he has a history of hypertension and pre-diabetes. Source of History: patient Onset: a few minutes prior to arrival Position: other (global) Symptom Intensity: No pain Quality: other (syncopal episode) Modifying Factors (Worsening): other (worsening lightheadedness with walking ) Associated Symptoms: + diarrhea (resolved), No chest pain, No SOB, No urinary symptoms Review of Systems See HPI for pertinent positives & negatives. A total of 10 systems reviewed and were otherwise negative. Past Medical & Surgical Medical Problems: (1) Acute kidney injury (2) Esophageal adenocarcinoma (3) Hypertension (4) Paroxysmal a-fib (5) Pre-diabetes Family History Patient reports no known family medical history. Social History Smoking Status: Former Smoker Drug Use: none Marital Status: Housing Status: lives with family Occupation Status: retired Current/Historical Medications Scheduled Docusate Sodium (Docusate Sodium), 100 MG PO BID Metoprolol Succinate (Toprol Xl), 50 MG PO DAILY Multivitamin (Multivitamin), 1 TAB PO QAM Omeprazole (Omeprazole), 40 MG PO DAILY Potassium Ext Rel (Klor-Con), 20 MEQ PO DIRECTED Simethicone (Cvs Gas Relief), 80 MG PO Q6H Scheduled PRN Ondansetron Hcl (Zofran), 8 MG PO Q8H PRN for Nausea Prochlorperazine Maleate (Compazine), 10 MG PO Q6H PRN for Nausea Tramadol (Ultram), 50 MG PO Q4H PRN for Pain Allergies Coded Allergies: Adhesives (Verified Allergy, Unknown, TAPE-RED ITCHY WITH SOME TAPE, ) NO KNOWN DRUG ALLERGIES (Verified Allergy, Unknown, NONE, 04/13/17) Physical Exam Vital Signs Date Time Temp Pulse Resp B/P (MAP) Pulse Ox O2 Delivery O2 Flow Rate FiO2 06/11/17 13:41 75 17 100/71 06/11/17 13:40 101/64 06/11/17 13:36 75 17 06/11/17 13:31 21 06/11/17 13:29 72 Nasal Cannula 06/11/17 13:26 77 21 06/11/17 13:21 98/66 06/11/17 13:20 124 20 72 06/11/17 13:15 83 19 06/11/17 13:10 52 19 110/67 06/11/17 13:05 55 20 06/11/17 13:01 87/61 06/11/17 12:55 42 19 86/45 06/11/17 12:54 Room Air 06/11/17 12:48 36.5 35 15 114/65 Room Air 06/11/17 12:48 37 06/11/17 12:45 44 18 96 06/11/17 12:43 114/65 06/11/17 12:42 55 Physical Exam GENERAL: Patient is awake, alert, very anxious appearing and appears to be in moderate distress. EYES: The conjunctivae are clear. The pupils are round and reactive. EARS, NOSE, MOUTH AND THROAT: The nose is without any evidence of any deformity. Mucous membranes are dry tongue is midline NECK: The neck is nontender and supple. RESPIRATORY: Lung sounds are diminished to both bases. No tachypnea or conversational dyspnea noted. CARDIOVASCULAR: Bradycardic rate and irregular rhythm. No definite murmur noted. GASTROINTESTINAL: The abdomen is soft. Bowel sounds are present in all quadrants. Abdomen is nontender MUSCULOSKELETAL/EXTREMITIES: There is no evidence of gross deformity full range of motion is noted in the hips and shoulders SKIN: There is no obvious evidence of any rash. There are no petechiae, pallor or cyanosis noted. Trace pedal edema bilaterally. Skin is cool, pale, and dry. NEUROLOGIC: Patient is awake alert and oriented x3 Medical Decision & Procedures ER Provider Diagnostic Interpretation: X-ray results as stated below per interpretation by me and the radiologist. CHEST ONE VIEW PORTABLE CLINICAL HISTORY: Near syncope. Pain, rating to the abdomen. COMPARISON STUDY: 04/11/2017 FINDINGS: The heart is borderline enlarged. There is now elevation right hemidiaphragm. There is a left-sided A-Port catheter present. There is no failure. There is no focal pulmonary consolidation. There are no pleural effusions. Overlying cardiac electrodes and pads are evident.[ There are minimal right basilar atelectatic changes. IMPRESSION: No active disease in the chest. Electronically signed by: Morgan Juarez M.D. 06/11/2017 1:39 PM Dictated Date/Time: 06/11/2017 1:39 PM Laboratory Results Test 06/11/17 00:00 06/11/17 12:50 06/11/17 12:52 Urine Color DK YELLOW Urine Appearance CLOUDY (CLEAR) Urine pH 5.0 (4.5-7.5) Urine Specific [place] 1.022 (1.000-1.030) Urine Protein 1+ (NEG) Urine Glucose (UA) NEG (NEG) Urine Ketones NEG (NEG) Urine Occult Blood NEG (NEG) Urine Nitrite NEG (NEG) Urine Bilirubin NEG (NEG) Urine Urobilinogen NEG (NEG) Urine Leukocyte Esterase NEG (NEG) Urine WBC (Auto) 5-10 /hpf (0-5) Urine RBC (Auto) 5-10 /hpf (0-4) Urine Hyaline Casts (Auto) >30 /lpf (0-5) Urine Epithelial Cells (Auto) >30 /lpf (0-5) Urine Bacteria (Auto) NEG (NEG) Urine Renal Epithelial Cells /lpf (0-5) Urine Pathogenic Casts 5-10 GRANULAR CASTS /lpf (0) Urine Mucus PRESENT (NONE PRSENT) Prothrombin Time 12.5 SECONDS (9.0-12.0) Prothromb Time International Ratio 1.2 (0.9-1.1) Activated Partial Thromboplast Time 31.6 SECONDS (21.0-31.0) Partial Thromboplastin Ratio 1.2 Total Bilirubin 0.3 mg/dl (0.2-1) Direct Bilirubin 0.1 mg/dl (0-0.2) Aspartate Amino Transf (AST/SGOT) 30 U/L (15-37) Alanine Aminotransferase (ALT/SGPT) 26 U/L (12-78) Alkaline Phosphatase 85 U/L (45-117) Total Protein 5.3 gm/dl (6.4-8.2) Albumin 2.2 gm/dl (3.4-5.0) Lipase 78 U/L (73-393) Thyroid Stimulating Hormone (TSH) 0.966 uIu/ml (0.300-4.500) Free Thyroxine 1.45 ng/dl (0.80-1.60) Lyme Disease IgG Antibody NEG (NEG) Lyme Disease IgM Antibody NEG (NEG) Bedside Hemoglobin 10.9 g/dl (14.0-18.0) Bedside Hematocrit 32 % (42-52) Bedside Sodium 135 mEq/L (135-144) Bedside Potassium 4.0 mEq/L (3.3-5.0) Bedside Chloride 98 mEq/L (101-112) Bedside Total CO2 26 mEq/l (24-31) Bedside Blood Urea Nitrogen 37 mg/dl (7-18) Bedside Creatinine 2.0 mg/dl (0.6-1.3) Bedside Glucose (other) 173 mg/dl (70-99) Bedside Ionized Calcium (Varinder) 1.15 mmol/l (1.12-1.32) Laboratory results per my review. Medications Administered Medications (Trade) Dose Ordered Sig/Bulmaro Route Start Time Stop Time Status Last Admin Dose Admin Sodium Chloride 1,000 ml @ 999 mls/hr Q1H1M STAT IV 06/11/17 12:50 06/11/17 13:50 DC 06/11/17 12:50 999 MLS/HR Sodium Chloride 1,000 ml @ 250 mls/hr Q4H STAT IV 06/11/17 12:50 06/11/17 15:14 DC 06/11/17 12:50 250 MLS/HR Atropine Sulfate (Atropine Sulfate 0.1MG/Ml Inj) 1 mg STK-MED ONCE .ROUTE 06/11/17 13:08 06/11/17 13:09 DC 06/11/17 13:12 1 MG Sodium Chloride 1,000 ml @ 75 mls/hr [id number] IV 06/11/17 14:16 07/11/17 14:15 06/11/17 23:49 75 MLS/HR ECG Indication: syncope Rate (beats per minute): 52 Rhythm: sinus bradycardia Findings: 1st degree AV block, RBBB Comparison ECG Date: March 16, 2017 Change: Changes are new when compared to March 16, 2017. EKG from [facility] showed complete heart block, 40 beats per minute, PVC noted, RBBB noted. Prehospital rhythm strip showed sinus block, few QRS complexes. ED Course 1238: The patient was evaluated in room B02. A complete history and physical examination were performed. 1245: I discussed the patient's case with Dr. Goldman, lath hand with [facility]. Upon reevaluation, the patient is resting comfortably. I discussed results and treatment plan with him. He verbalizes agreement and understanding. The patient will be evaluated for further management and care. 1250: Sodium Chloride 1000 ml @ 250 mls/hr IV, Sodium Chloride 1000 ml @ 999 mls /hr IV 1258: I discussed the patient's case with Dr. Subramanian, from [facility]. 1308: Atropine Sulfate 1 mg IV 1322: I reevaluated the patient who had improvement in his symptoms after receiving Atropine. Medical Decision Prior records/ancillary studies reviewed. Triage Nursing notes reviewed. Additional history obtained from . Differential diagnosis: Etiologies such as premature contractions, electrolyte abnormality, cardiac dysrhythmia, thyroid dysfunction, pulmonary embolism, infection, gastrointestinal, as well as others were entertained. The patient is a 72-year-old male who presented to the emergency department for evaluation of syncope. The patient was at the [facility] when he had an episode of palpitations and syncope/near-syncope. We were called by the oncologist because they're concerned about the patient's heart rhythm. He arrived at the emergency department by ambulance. At that time he had what appeared to be a third-degree heart block. On our initial EKG he appeared to have a first-degree block but would go back and forth between a third-degree block and then a first-degree block. The patient's blood pressure was borderline and he was treated with IV fluids and atropine. He responded well to the atropine. I discussed his case with the on-call [facility] lath hand as well as the on-call [facility] hospitalist. Because the patient was in such extreme as he was taken directly to the Follow Up Rep for pacemaker consideration. I discussed the patient's laboratory and radiographic studies with him and his significant other. They're aware of the severity the patient's condition at this time. Medication Reconcilliation Current Medication List: was personally reviewed by me Consults Time Called: 1241 Consulting Physician: Dr. Goldman, lath hand with [facility] Returned Call: 1245 I discussed the patient's case with Dr. Goldman lath hand with [facility]. Additional Consults: Time Called: 1256 Consulted Physician: Dr. Subramanian, from [facility] Returned Call: 1250 Additional Comments: I discussed the patient's case with Dr. Subramanian, from [facility]. Impression Primary Impression: Syncope Additional Impressions: Third degree heart block Symptomatic bradycardia Critical Care I have personally spent greater than 45 minutes of critical care time in the direct management of this patient. This includes bedside care, interpretation of diagnostic studies, and testing, discussion with consultants, patient, and family members, and other required patient management activities. This 45 minutes is in excess of all separately billable procedures. Scribe Attestation The scribe's documentation has been prepared under my direction and personally reviewed by me in its entirety. I confirm that the note above accurately reflects all work, treatment, procedures, and medical decision making performed by me. Departure Information Dispostion Being Evaluated By Hospitalist Referrals Vinny Santa M.D. (PCP) Problem Qualifiers Primary Impression: Syncope Syncope type: unspecified Qualified Codes: R55 - Syncope and collapse
--- NOTE | 2017-06-11 13:58 | Cardiology Consultation ---
Cardiology Consultation Date of Consultation: Jun 11, 2017. Requesting Physician: Dr. Subramanian Reason for Consultation: CHB Pt evaluation today including: conversation w/ patient, conversation w/ family , physical exam, lab review, review of studies, review of inpatient medication list, conversation w/ attending History of Present Illness This is a very pleasant 72-year-old gentleman who has a history of adenocarcinoma of the gastroesophageal junction for which he had esophagogastrostomy in February 2017. Postoperatively he had an episode of atrial fibrillation with a rapid ventricular response, he received intravenous metoprolol with return to sinus rhythm. He was started on amiodarone 200 mg twice a day, I believe he continued this for one month and discontinued it (we did check with the pharmacy and he has not had prescriptions filled in the last several months for it so this appears to be correct). He was maintained on metoprolol succinate 50 mg daily. He has been receiving chemotherapy, today he had intermittent lightheaded spells (he was not on a monitor) and then near the end of his infusion he had an episode of presyncope, probably culminating in a brief episode of syncope. He was evaluated including electrocardiograms after 911 was summoned and he was having intermittent complete heart block. He was transferred to the emergency room. In the emergency room he continued to have symptoms of intermittent presyncope which correlated with periods of complete heart block on monitoring. He was given 1 mg of intravenous atropine after which he did not have any further pauses. He specifically denies symptoms of chest discomfort, shortness of breath or any type of chest fullness in the emergency room. He has not been having any difficulty with exertion (other than generally being weak and) and does not notice any difference in how he feels prior to this event during chemotherapy. He has not changed his medical regimen. Past Medical/Surgical History (1) Esophageal adenocarcinoma (2) Hypertension (3) Pre-diabetes Family History Patient reports no known family medical history. Social History Smoking Status: Former Smoker History of Alcohol Use: No Review of Systems Constitutional: No fever, No weight loss, No weakness Respiratory: No cough, No wheezing, No shortness of breath, No dyspnea on exertion Cardiac: + see HPI, + problem reported (Syncope, pre-syncope), No chest pain, No orthopnea, No PND, No edema, No palpitations Abdomen: No pain, No nausea, No vomiting, No diarrhea, No GI bleeding Male : No urinary frequency, No nocturia more than once/night, No slowing stream, No sexual dysfunction Neurologic: No paralysis, No weakness, No numbness/tingling, No balance problems Heme: No abnormal bleeding/bruising, No clotting problems Endo: No fatigue Skin: No problem reported All Other Systems: Reviewed and Negative Allergies Coded Allergies: Adhesives (Verified Allergy, Unknown, TAPE-RED ITCHY WITH SOME TAPE, ) NO KNOWN DRUG ALLERGIES (Verified Allergy, Unknown, NONE, 04/13/17) Medications Current Inpatient Medications Medications (Trade) Dose Ordered Sig/Bulmaro Route Start Time Stop Time Status Last Admin Dose Admin Sodium Chloride 1,000 ml @ 999 mls/hr Q1H1M STAT IV 06/11/17 12:50 06/11/17 13:50 06/11/17 12:50 999 MLS/HR Sodium Chloride 1,000 ml @ 250 mls/hr Q4H STAT IV 06/11/17 12:50 06/11/17 16:49 Physical Exam Vital Signs Past 12 Hours Date Time Temp Pulse Resp B/P (MAP) Pulse Ox O2 Delivery O2 Flow Rate FiO2 06/11/17 13:29 72 Nasal Cannula 06/11/17 13:21 98/66 06/11/17 13:20 124 20 72 06/11/17 13:15 83 19 06/11/17 13:10 52 19 110/67 06/11/17 13:05 55 20 06/11/17 13:01 87/61 06/11/17 12:55 42 19 86/45 06/11/17 12:54 Room Air 06/11/17 12:48 36.5 35 15 114/65 Room Air 06/11/17 12:48 37 06/11/17 12:45 44 18 96 06/11/17 12:43 114/65 06/11/17 12:42 55 Constitutional: General Apperance: too thin Level of Distress: mild distress Psychiatric: Mental Status: active & alert Head: normocephalic Eyes: EOM: EOMI ENMT: normal ENT inspection, hearing grossly normal Neck: supple, no masses Lungs: Respiratory effort: no dyspnea, good air movement Auscultation: breath sounds normal, no wheezing Cardiovascular: Heart Auscultation: RRR, no murmurs, no rubs, no gallops Peripheral Pulses: Bruits: none appreciated Abdomen: Bowel Sounds: normal Inspection & Palpation: soft, no tenderness, guarding & rebound, no masses Musculoskeletal: normal strength (5/5 throughout) Extremities: no edema Neurologic: Cranial Nerves: grossly intact Sensation: grossly intact Data Laboratory Results: Last 24 Hours Test 06/11/17 12:50 06/11/17 12:52 White Blood Count 7.52 K/uL Red Blood Count 3.59 M/uL Hemoglobin 10.7 g/dL Hematocrit 32.5 % Mean Corpuscular Volume 90.5 fL Mean Corpuscular Hemoglobin 29.8 pg Mean Corpuscular Hemoglobin Concent 32.9 g/dl Platelet Count 120 K/uL Mean Platelet Volume 10.2 fL Neutrophils (%) (Auto) 89.0 % Lymphocytes (%) (Auto) 5.6 % Monocytes (%) (Auto) 2.7 % Eosinophils (%) (Auto) 2.3 % Basophils (%) (Auto) 0.3 % Neutrophils # (Auto) 6.70 K/uL Lymphocytes # (Auto) 0.42 K/uL Monocytes # (Auto) 0.20 K/uL Eosinophils # (Auto) 0.17 K/uL Basophils # (Auto) 0.02 K/uL RDW Standard Deviation 56.6 fL RDW Coefficient of Variation 17.3 % Immature Granulocyte % (Auto) 0.1 % Immature Granulocyte # (Auto) 0.01 K/uL Prothrombin Time 12.5 SECONDS Prothromb Time International Ratio 1.2 Activated Partial Thromboplast Time 31.6 SECONDS Partial Thromboplastin Ratio 1.2 Sodium Level 138 mmol/L Potassium Level 4.2 mmol/L Chloride Level 105 mmol/L Carbon Dioxide Level 28 mmol/L Anion Gap 5.0 mmol/L 16.0 mmol/L Blood Urea Nitrogen 38 mg/dl Creatinine 2.10 mg/dl Est Creatinine Clear Calc Drug Dose 30.6 ml/min Estimated GFR () 34.9 Estimated GFR (Non- 30.1 BUN/Creatinine Ratio 18.3 Random Glucose 159 mg/dl Calcium Level 8.2 mg/dl Magnesium Level 1.8 mg/dl Total Bilirubin 0.3 mg/dl Direct Bilirubin 0.1 mg/dl Aspartate Amino Transf (AST/SGOT) 30 U/L Alanine Aminotransferase (ALT/SGPT) 26 U/L Alkaline Phosphatase 85 U/L Total Creatine Kinase 168 U/L Creatine Kinase MB 6.1 ng/ml Creatine Kinase MB Ratio 3.6 Troponin I 0.877 ng/ml Total Protein 5.3 gm/dl Albumin 2.2 gm/dl Lipase 78 U/L Thyroid Stimulating Hormone (TSH) 0.966 uIu/ml Free Thyroxine 1.45 ng/dl Bedside Hemoglobin 10.9 g/dl Bedside Hematocrit 32 % Bedside Sodium 135 mEq/L Bedside Potassium 4.0 mEq/L Bedside Chloride 98 mEq/L Bedside Total CO2 26 mEq/l Bedside Blood Urea Nitrogen 37 mg/dl Bedside Creatinine 2.0 mg/dl Bedside Glucose (other) 173 mg/dl Bedside Ionized Calcium (Varinder) 1.15 mmol/l Imaging: Chest x-ray is unremarkable with a normal size cardiac silhouette and no congestive heart failure EKG: Sinus bradycardia rate 52 bpm, right bundle branch block, anterior ST-T abnormalities, MN interval is normal. Telemetry reviewed: Sinus rhythm and sinus bradycardia with periods of complete heart block lasting neck supple 5 seconds, while in sinus rhythm there appears to be no MN prolongation Assessment & Plan #1. Presyncope and syncope: Documented to be intermittent complete heart block #2. Complete heart block: Intermittent with no other associated symptoms (such as chest discomfort, nausea, etc.) cause remains uncertain. 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 He does have a positive troponin although it is only 0.87 , so this may be an ischemic event. A Lyme titer is pending. He is on 50 mg daily of metoprolol, but has been and that seems an unlikely cause. His creatinine is around 2. He will need at least a temporary pacemaker. I discussed the indications, procedure, risks and alternatives with him and he understands and agrees to proceed. Consent obtained. Thank you for allowing me to participate in his care.
[2017-06-11] MEDS ORDERED: ACETAMINOPHEN 325 MG TAB PO PRN (14:30)
[2017-06-11] MEDS ORDERED: TRAMADOL HCL 50 MG TAB PO PRN (14:30)
--- NOTE | 2017-06-11 14:38 | [facility] Operative Report ---
Operative Report Operative Date Jun 11, 2017. Pre-Operative Diagnosis Symptomatic bradycardia, complete heart block Post-Operative Diagnosis Same Procedure(s) Performed Ultrasound guided vascular access Temporary transvenous pacemaker insertion Surgeon Martinez Superintendent [employer] Surgeon(s) Bubba Estimated Blood Loss 5 Findings Dilated IVC Complete Heart block Specimens None Drains None Anesthesia Local 1% lidocaine Complication(s) None Disposition Surgical ICU Description of Procedure Right IJ accessed under ultrasound guidance with placement of 6Fr sheath Temporary pacing catheter guided to RV under fluoroscopic guidance. Appropriate pacing confirmed down to <1 mA. Final pacer settings: VVI @ 60, output 10mA. Sheath and catheter sutured in place. Summary: Successful temporary transvenous pacemaker placement I attest to the content of the Intraoperative Record and any orders documented therein. Any exceptions are noted below.
--- NOTE | 2017-06-11 14:44 | History and Physical ---
History & Physical Date & Time of Service: Jun 11, 2017 at 13:50 Chief Complaint: Near Syncope Primary Care Physician: Vinny Santa M.D. History of Present Illness Source: patient, family, hospital records Mr. Uribe is a 71 y/o male with Esophageal CA S/P Neoadjuvant Chemo and S/P Laparoscopy for Esophagogastrectomy that was aborted due to advanced disease, now receiving chemotherapy. Also with a h/o new onset Atrial fibrillation during a hospitalization in 03/2017 and was started on amiodarone and metoprolol at that time. He was receiving chemo today at the [facility] when he became dizzy and passed out. RN from [facility] tells me he was leaning over saying he was lightheaded, passed out for a few seconds, came back when she sat him back in the bed. They bolused him with IVFs, BP was 117/65, HR in the 50s, then dropped to the 20s but he remained conscious. BP dropped a bit to 90/62 when HR dropped. ECG showed 3rd degree heart block there. EMS was called and initial strip showed possible sinus arrest,block and he came to the ER with HR in the 30s and continued 3rd degree heart block. He did not have any chest pain. He was urgently assessed by Cardiology in the ER and will go to the qc lab technician for temporary pacing wire insertion. When I saw him just before he went to the qc lab technician, he was awake, alert, conversing appropriately. He had received a total of atropine 1mg and his HR responded. Pt states that one of the medications he was put on for his heart was "only for 30 days" and so he had stopped it--> it appears amiodarone has dropped off his home med rec so he may no longer be taking that. Currently, he just started his 4th cycle of chemo with Oxaliplatin, 5-FU, Leukovorin. Today he also received KCl 40 meq IV prior to the syncope. Past Medical/Surgical History PMH: Hypertension Pre-diabetes Esophageal CA-s/p Neoadjuvant chemo, XRT, now on chemotherapy cycle 4 with Oxaliplatin, 5-FU, receiving Leucovorin as well Paroxysmal Atrial Fibrillation PSH: Laparoscopy with extensive takedown of adhesions and Mobilization of GE junction and biopsy of multiple perigastric and celiac axis lymph nodes. Port placement Ventral hernia repair EGD with esophageal mass biopsy Family History Patient reports no known family medical history. Noncontributory Social History Smoking Status: Former Smoker Drug Use: none Marital Status: Occupational Status: retired Immunizations History of Influenza Vaccine: N/A History of Tetanus Vaccine?: Yes Tetanus Immunization Date: Feb 05, 2008 History of Pneumococcal: No Pneumococcal Date: Aug 07, 2008 History of Hepatitis B Vaccine: No Multi-Drug Resistant Organisms History of MDRO: No Allergies Coded Allergies: Adhesives (Verified Allergy, Unknown, TAPE-RED ITCHY WITH SOME TAPE, ) NO KNOWN DRUG ALLERGIES (Verified Allergy, Unknown, NONE, 04/13/17) Home Medications Scheduled Docusate Sodium (Docusate Sodium), 100 MG PO BID Metoprolol Succinate (Toprol Xl), 50 MG PO DAILY Multivitamin (Multivitamin), 1 TAB PO QAM Omeprazole (Omeprazole), 40 MG PO DAILY Potassium Ext Rel (Klor-Con), 20 MEQ PO DIRECTED Simethicone (Cvs Gas Relief), 80 MG PO Q6H Scheduled PRN Ondansetron Hcl (Zofran), 8 MG PO Q8H PRN for Nausea Prochlorperazine Maleate (Compazine), 10 MG PO Q6H PRN for Nausea Tramadol (Ultram), 50 MG PO Q4H PRN for Pain Review of Systems Constitutional: No fever Eyes: No problem reported ENT: No problem reported Respiratory: No shortness of breath Cardiovascular: + problem reported (syncope), No chest pain Abdomen: No pain, No nausea, No vomiting Musculoskeletal: No problem reported Genitourinary - Male: No problem reported Neurologic: No problem reported Psychiatric: No problem reported Endocrine: No problem reported Hematologic / Lymphatic: No problem reported Integumentary: No problem reported Allergic / Immunologic: No problem reported Physical Exam Vital Signs Date Time Temp Pulse Resp B/P (MAP) Pulse Ox O2 Delivery O2 Flow Rate FiO2 06/11/17 13:29 72 Nasal Cannula 06/11/17 13:21 98/66 06/11/17 13:20 124 20 72 06/11/17 13:15 83 19 06/11/17 13:10 52 19 110/67 06/11/17 13:05 55 20 06/11/17 13:01 87/61 06/11/17 12:55 42 19 86/45 06/11/17 12:54 Room Air 06/11/17 12:48 36.5 35 15 114/65 Room Air 06/11/17 12:48 37 06/11/17 12:45 44 18 96 06/11/17 12:43 114/65 06/11/17 12:42 55 General Appearance: + thin (and appears ashen will but is awake, alert, conversing with me, remembers me from hospitalization 2 months ago) Head: normocephalic, atraumatic Eyes: normal inspection, sclerae normal ENT: hearing grossly normal Neck: trachea midline Respiratory/Chest: lungs clear, normal breath sounds, no respiratory distress, no accessory muscle use Cardiovascular: no edema, no gallop, no murmur, + bradycardia (with irreg rhythm) Abdomen/GI: normal bowel sounds, non tender, soft Extremities/Musculoskelatal: normal inspection, no pedal edema Neurologic/Psych: alert, normal mood/affect, oriented x 3 Skin: warm/dry, no rash, + cyanosis Diagnostics Laboratory Results Results Past 24 Hours Test 06/11/17 12:50 06/11/17 12:52 Range/Units White Blood Count 7.52 4.8-10.8 K/uL Red Blood Count 3.59 4.7-6.1 M/uL Hemoglobin 10.7 14.0-18.0 g/dL Hematocrit 32.5 42-52 % Mean Corpuscular Volume 90.5 80-100 fL Mean Corpuscular Hemoglobin 29.8 25-34 pg Mean Corpuscular Hemoglobin Concent 32.9 32-36 g/dl Platelet Count 120 130-400 K/uL Mean Platelet Volume 10.2 7.4-10.4 fL Neutrophils (%) (Auto) 89.0 % Lymphocytes (%) (Auto) 5.6 % Monocytes (%) (Auto) 2.7 % Eosinophils (%) (Auto) 2.3 % Basophils (%) (Auto) 0.3 % Neutrophils # (Auto) 6.70 1.4-6.5 K/uL Lymphocytes # (Auto) 0.42 1.2-3.4 K/uL Monocytes # (Auto) 0.20 0.11-0.59 K/uL Eosinophils # (Auto) 0.17 0-0.5 K/uL Basophils # (Auto) 0.02 0-0.2 K/uL RDW Standard Deviation 56.6 36.4-46.3 fL RDW Coefficient of Variation 17.3 11.5-14.5 % Immature Granulocyte % (Auto) 0.1 % Immature Granulocyte # (Auto) 0.01 0.00-0.02 K/uL Prothrombin Time 12.5 9.0-12.0 SECONDS Prothromb Time International Ratio 1.2 0.9-1.1 Activated Partial Thromboplast Time 31.6 21.0-31.0 SECONDS Partial Thromboplastin Ratio 1.2 Sodium Level 138 136-145 mmol/L Potassium Level 4.2 3.5-5.1 mmol/L Chloride Level 105 98-107 mmol/L Carbon Dioxide Level 28 21-32 mmol/L Anion Gap 5.0 16.0 16-25 mmol/L Blood Urea Nitrogen 38 7-18 mg/dl Creatinine 2.10 0.60-1.40 mg/dl Est Creatinine Clear Calc Drug Dose 30.6 ml/min Estimated GFR () 34.9 Estimated GFR (Non- 30.1 BUN/Creatinine Ratio 18.3 10-20 Random Glucose 159 70-99 mg/dl Calcium Level 8.2 8.5-10.1 mg/dl Magnesium Level 1.8 1.8-2.4 mg/dl Total Bilirubin 0.3 0.2-1 mg/dl Direct Bilirubin 0.1 0-0.2 mg/dl Aspartate Amino Transf (AST/SGOT) 30 15-37 U/L Alanine Aminotransferase (ALT/SGPT) 26 12-78 U/L Alkaline Phosphatase 85 45-117 U/L Total Creatine Kinase 168 39-308 U/L Creatine Kinase MB 6.1 0.5-3.6 ng/ml Creatine Kinase MB Ratio 3.6 0-3.0 Troponin I 0.877 0-0.045 ng/ml Total Protein 5.3 6.4-8.2 gm/dl Albumin 2.2 3.4-5.0 gm/dl Lipase 78 73-393 U/L Thyroid Stimulating Hormone (TSH) 0.966 0.300-4.500 uIu/ml Free Thyroxine 1.45 0.80-1.60 ng/dl Bedside Hemoglobin 10.9 14.0-18.0 g/dl Bedside Hematocrit 32 42-52 % Bedside Sodium 135 135-144 mEq/L Bedside Potassium 4.0 3.3-5.0 mEq/L Bedside Chloride 98 101-112 mEq/L Bedside Total CO2 26 24-31 mEq/l Bedside Blood Urea Nitrogen 37 7-18 mg/dl Bedside Creatinine 2.0 0.6-1.3 mg/dl Bedside Glucose (other) 173 70-99 mg/dl Bedside Ionized Calcium (Varinder) 1.15 1.12-1.32 mmol/l CXR normal (except elevated rt hemidiaphragm) EKG 3rd degree heart block on ECG from [facility] seen by me but not yet in EMR Sinus lukas with RBBB on ECG here in ER Impression Assessment and Plan Mr. Uribe is a 71 y/o male with Esophageal CA S/P Neoadjuvant Chemo and S/P Laparoscopy for Esophagogastrectomy that was aborted due to advanced disease, now receiving chemotherapy. Also with a h/o new onset Atrial fibrillation during a hospitalization in 03/2017 and was started on amiodarone and metoprolol at that time. He was receiving chemo today at the [facility] when he became dizzy and passed out. RN from [facility] tells me he was leaning over saying he was lightheaded, passed out for a few seconds, came back when she sat him back in the bed. They bolused him with IVFs, BP was 117/65, HR in the 50s, then dropped to the 20s but he remained conscious. BP dropped a bit to 90/62 when HR dropped. ECG showed 3rd degree heart block there. EMS was called and initial strip showed possible sinus arrest,block and he came to the ER with HR in the 30s and continued 3rd degree heart block. He did not have any chest pain. He was urgently assessed by Cardiology in the ER and will go to the qc lab technician for temporary pacing wire insertion. When I saw him just before he went to the qc lab technician, he was awake, alert, conversing appropriately. He had received a total of atropine 1mg and his HR responded. Pt states that one of the medications he was put on for his heart was "only for 30 days" and so he had stopped it--> it appears amiodarone has dropped off his home med rec so he may no longer be taking that. Currently, he just started his 4th cycle of chemo with Oxaliplatin, 5-FU, Leukovorin. Today he also received KCl 40 meq IV prior to the syncope. Complete heart block with new RBBB--> came on suddenly after chemotherapy. With associated syncope, hypotension, acute hypoxemic respiratory failure. Unsure if Oxaliplatin or 5-FU or leucovorin can cause CHB. Responded to atropine which suggests AV jamaal disease -check Lyme titer, TSH -went urgently for transvenous pacing wire -admit to ICU after qc lab technician -Appreciate Cardiology and Bias Cutter Helper management -may need PPM if no reversible causes found -follow lytes PAF-was in sinus lukas after given atropine, normally on rate control and was on amiodarone from march-April but then he stopped it I believe on his own accord as he thought he was to be done with it after the one month supply ran out. Was on heparin gtt previous hospitalization but AC stopped due to GI bleeding presumably from esophageal mass. -Appreciate Cardiology management -restart Toprol after pacer placed -consider restarting anticoagulation in future if ok with Heme/Onc HTN-hypotensive due to CHB -hold metoprolol for now [place]- barrel waterer up to 2.1 here and has been elevated for the last week, but was normal prior to that. Unsure if prerenal from dehyrdation, chemo side effect, poor po intake. -IVFs -follow PRP DVT Prophylaxis: SCDs Dispo-to home when stable Level of Care Critical Care Advanced Directives Existing Living Will: No Existing Power of Sales Representative Printing: No VTE Prophylaxis Given or contraindicated: SCD's Additional Copies To Vinny Santa M.D.
[2017-06-11] MEDS: SODIUM CHLORIDE 0.9% 1000ML 1,000 ML IV SCH ×2 (15:00→23:49)
[2017-06-11 15:59] LABS: LYME DISEASE AB IGG NEG (NEG)
[2017-06-11 16:00] LABS: LYME DISEASE AB IGM NEG (NEG)
--- NOTE | 2017-06-11 16:49 | Critical Care Consultation ---
Critical Care Consultation Date of Consultation: Jun 11, 2017. Attending Physician: Rosaura Subramanian MD Reason for Consultation: Third degree heart block status post Temporary transvenous pacemaker insertion by cardiology History of Present Illness Patient is a patient is a 72-year-old male with a significant past medical history for esophageal cancer and currently receiving chemotherapy who was at the [facility] today receiving a chemotherapy infusion and became lightheaded and subsequently had a syncopal event. He was transferred to [facility] emergency department and found to be in complete heart block. His evaluated the bedside by cardiology, O physiology. He did respond to adenosine, however it was felt the patient would benefit from temporary transvenous pacemaker. He went to the cardiology lab with an invasive cardiology and had a placement of a temporary transvenous pacemaker into the right internal jugular vein. During my evaluation the patient was chest pain-free, no shortness of breath, was not lightheaded or dizzy. He was in good spirits. Past Medical/Surgical History Hypertension Prediabetes Esophageal cancer status post neoadjuvant chemotherapy, radiation therapy Paroxysmal atrial fibrillation Family History Patient reports no known family medical history. Social History Smoking Status: Former Smoker Drug Use: none Marital Status: Housing Status: lives with family Occupation Status: retired Allergies Coded Allergies: Adhesives (Verified Allergy, Unknown, TAPE-RED ITCHY WITH SOME TAPE, ) NO KNOWN DRUG ALLERGIES (Verified Allergy, Unknown, NONE, 04/13/17) Home Medications Scheduled Docusate Sodium (Docusate Sodium), 100 MG PO BID Metoprolol Succinate (Toprol Xl), 50 MG PO DAILY Multivitamin (Multivitamin), 1 TAB PO QAM Omeprazole (Omeprazole), 40 MG PO DAILY Potassium Ext Rel (Klor-Con), 20 MEQ PO DIRECTED Simethicone (Cvs Gas Relief), 80 MG PO Q6H Scheduled PRN Ondansetron Hcl (Zofran), 8 MG PO Q8H PRN for Nausea Prochlorperazine Maleate (Compazine), 10 MG PO Q6H PRN for Nausea Tramadol (Ultram), 50 MG PO Q4H PRN for Pain Current Inpatient Medications Current Inpatient Medications Medications (Trade) Dose Ordered Sig/Bulmaro Route Start Time Stop Time Status Last Admin Dose Admin Sodium Chloride 1,000 ml @ 75 mls/hr [id number] IV 06/11/17 14:16 07/11/17 14:15 Acetaminophen (Tylenol Tab) 650 mg Q4H PRN PO 06/11/17 14:30 07/11/17 14:29 Tramadol HCl (Ultram Tab) 50 mg Q4H PRN PO 06/11/17 14:30 07/11/17 14:29 Docusate Sodium (coLACE CAP) 100 mg BID PO 06/11/17 21:00 07/11/17 20:59 Pantoprazole Sodium (Protonix Tab) 40 mg DAILY PO 06/12/17 09:00 07/12/17 08:59 Aspirin (Ecotrin Tab) 81 mg QAM PO 06/12/17 09:00 07/12/17 08:59 Review of Systems See above for pertinent positives & negatives. A total of 10 systems reviewed and were otherwise negative. Constitutional: No fever, No chills, No sweats, No weight loss, No weakness, No fatigue, No problem reported Respiratory: No cough, No sputum, No wheezing, No shortness of breath, No dyspnea on exertion, No dyspnea at rest, No hemoptysis, No problem reported Cardiovascular: No chest pain, No orthopnea, No PND, No edema, No claudication , No palpitations, No problem reported Physical Exam Date Time Temp Pulse Resp B/P (MAP) Pulse Ox O2 Delivery O2 Flow Rate FiO2 06/11/17 16:03 55 19 96/58 (71) 94 Room Air 06/11/17 16:00 57 18 94 06/11/17 15:30 61 22 92 06/11/17 15:03 36.5 64 21 99/64 (76) 97 Room Air 06/11/17 15:00 64 24 88 06/11/17 15:00 94 Room Air 06/11/17 14:35 60 18 112/70 (84) 95 Room Air 06/11/17 14:25 60 18 97/70 (79) 95 Room Air 06/11/17 13:41 75 17 100/71 06/11/17 13:40 101/64 06/11/17 13:36 75 17 06/11/17 13:31 21 06/11/17 13:29 72 Nasal Cannula 06/11/17 13:26 77 21 06/11/17 13:21 98/66 06/11/17 13:20 124 20 72 06/11/17 13:15 83 19 06/11/17 13:10 52 19 110/67 06/11/17 13:05 55 20 06/11/17 13:01 87/61 06/11/17 12:55 42 19 86/45 06/11/17 12:54 Room Air 06/11/17 12:48 36.5 35 15 114/65 Room Air 06/11/17 12:48 37 06/11/17 12:45 44 18 96 06/11/17 12:43 114/65 06/11/17 12:42 55 General Appearance: no apparent distress Head: normocephalic, atraumatic Eyes: PERRLA, sclerae normal, conjunctivae pale Neck: no tenderness, trachea midline, no stridor, supple, other (dressing in place, right internal jugular temporary pacemaker in place) Respiratory: breath sounds normal, clear to auscultation, clear to percussion, no respiratory distress Cardiovasular: regular rate/rhythm, normal S1S2, no M/G/R, no murmur, no gallop Abdomen: non tender, normal bowel sounds Upper Extremities: no edema Lower Extremities: no edema Neuro: alert, oriented x 3, normal motor exam Psychiatric: normal affect Laboratory Results Last 24 Hours Test 06/11/17 12:50 06/11/17 12:52 White Blood Count 7.52 K/uL Red Blood Count 3.59 M/uL Hemoglobin 10.7 g/dL Hematocrit 32.5 % Mean Corpuscular Volume 90.5 fL Mean Corpuscular Hemoglobin 29.8 pg Mean Corpuscular Hemoglobin Concent 32.9 g/dl Platelet Count 120 K/uL Mean Platelet Volume 10.2 fL Neutrophils (%) (Auto) 89.0 % Lymphocytes (%) (Auto) 5.6 % Monocytes (%) (Auto) 2.7 % Eosinophils (%) (Auto) 2.3 % Basophils (%) (Auto) 0.3 % Neutrophils # (Auto) 6.70 K/uL Lymphocytes # (Auto) 0.42 K/uL Monocytes # (Auto) 0.20 K/uL Eosinophils # (Auto) 0.17 K/uL Basophils # (Auto) 0.02 K/uL RDW Standard Deviation 56.6 fL RDW Coefficient of Variation 17.3 % Immature Granulocyte % (Auto) 0.1 % Immature Granulocyte # (Auto) 0.01 K/uL Prothrombin Time 12.5 SECONDS Prothromb Time International Ratio 1.2 Activated Partial Thromboplast Time 31.6 SECONDS Partial Thromboplastin Ratio 1.2 Sodium Level 138 mmol/L Potassium Level 4.2 mmol/L Chloride Level 105 mmol/L Carbon Dioxide Level 28 mmol/L Anion Gap 5.0 mmol/L 16.0 mmol/L Blood Urea Nitrogen 38 mg/dl Creatinine 2.10 mg/dl Est Creatinine Clear Calc Drug Dose 30.6 ml/min Estimated GFR () 34.9 Estimated GFR (Non- 30.1 BUN/Creatinine Ratio 18.3 Random Glucose 159 mg/dl Calcium Level 8.2 mg/dl Magnesium Level 1.8 mg/dl Total Bilirubin 0.3 mg/dl Direct Bilirubin 0.1 mg/dl Aspartate Amino Transf (AST/SGOT) 30 U/L Alanine Aminotransferase (ALT/SGPT) 26 U/L Alkaline Phosphatase 85 U/L Total Creatine Kinase 168 U/L Creatine Kinase MB 6.1 ng/ml Creatine Kinase MB Ratio 3.6 Troponin I 0.877 ng/ml Total Protein 5.3 gm/dl Albumin 2.2 gm/dl Lipase 78 U/L Thyroid Stimulating Hormone (TSH) 0.966 uIu/ml Free Thyroxine 1.45 ng/dl Lyme Disease IgG Antibody NEG Lyme Disease IgM Antibody NEG Bedside Hemoglobin 10.9 g/dl Bedside Hematocrit 32 % Bedside Sodium 135 mEq/L Bedside Potassium 4.0 mEq/L Bedside Chloride 98 mEq/L Bedside Total CO2 26 mEq/l Bedside Blood Urea Nitrogen 37 mg/dl Bedside Creatinine 2.0 mg/dl Bedside Glucose (other) 173 mg/dl Bedside Ionized Calcium (Varinder) 1.15 mmol/l Diagnostic Results I have independently reviewed the report as well as the images dated 06/11/2017 of the chest x-ray Assessment & Plan (1) Paroxysmal a-fib (2) Symptomatic bradycardia (3) Third degree heart block (4) Syncope (5) Esophageal adenocarcinoma (6) Hypertension (7) Pre-diabetes PLAN: Neuro: Tramadol and Tylenol when necessary pain Resp: Oxygen nursing protocol CV: Complete heart block * Echo pending * Trend troponins * Temporary venous pacemaker in place Fluids/Renal: Renal insufficiency: Creatinine clearance 30 ID: Monitor fever curve GI/Nutrition: Regular diet for tonight nothing by mouth after midnight Heme: Anemia * At baseline Thrombocytopenia * SCDs for DVT prophylaxis * Chemical prophylaxis 5000 units heparin subcutaneous twice a day Endocrine: Accu-Cheks per protocol * Hemoglobin A1c 5.9 on 09/15/2016 CODE STATUS, full code
[2017-06-11] MEDS: DOCUSATE SODIUM 100 MG CAP PO SCH (20:54)
[2017-06-11 23:34] LABS: CKMB/CK RATIO 5.1 (0-3.0)
[2017-06-12] VITALS (20 sets, daily range): BP systolic 89–121; BP diastolic 41–70; PULSE 51–74; TEMP 36.5–36.8; O2SAT 90–97
[2017-06-12 00:06] LABS: URINE APPEARANCE CLOUDY (CLEAR); URINE BILIRUBIN NEG (NEG); URINE COLOR DK YELLOW; URINE EPITHELIAL CELL AUTO >30 /lpf (0-5); URINE NITRITE NEG (NEG); URINE SPECIFIC GRAVITY 1.022 (1.000-1.030); UROBILINOGEN NEG (NEG)
[2017-06-12 00:07] LABS: MANUAL MICROSCOPIC REQUIRED? NO; REVIEW REQ? YES
[2017-06-12 00:20] LABS: URINE PATH CASTS 5-10 GRANULAR CASTS /lpf (0)
[2017-06-12 00:24] LABS: URINE MUCUS PRESENT (NONE PRSENT)
[2017-06-12 05:39] LABS: BASO % 0.2 %; BASO ABS # 0.01 K/uL (0-0.2); COMPLETE YES; EOS % 1.2 %; HEMATOCRIT 30.9 % (42-52); IG% 0.2 %; LYMPH % 5.2 %; LYMPH ABS # 0.31 K/uL (1.2-3.4); MEAN CELL VOLUME 90.1 fL (80-100); MEAN CORPUSCULAR HEMOGLOBIN 29.2 pg (25-34); MEAN CORPUSCULAR HGB CONC 32.4 g/dl (32-36); MEAN PLATELET VOLUME 10.3 fL (7.4-10.4); MONO % 10.7 %; NEUT % 82.5 %; PLATELET COUNT 125 K/uL (130-400); RED BLOOD COUNT 3.43 M/uL (4.7-6.1)
[2017-06-12 06:04] LABS: BUN/CREATININE RATIO 20.8 (10-20); CALCIUM 8.2 mg/dl (8.5-10.1); MAGNESIUM 1.8 mg/dl (1.8-2.4); POTASSIUM 4.3 mmol/L (3.5-5.1)
[2017-06-12 06:10] LABS: CKMB/CK RATIO 5.7 (0-3.0); PHOSPHORUS 4.2 mg/dl (2.5-4.9)
--- NOTE | 2017-06-12 07:28 | Critical Care Progress Note ---
Critical Care Progress Note Date of Service Jun 12, 2017. ICU Day ICU Day Number: [address] Lanza Subjective The patient was seen and examined at bedside. No acute overnight events. Pt has a transvenous pacemaker and a chemoport. Patient is resting comfortably in bed. Denies having any pain. NPO for Pacemaker placement today. Plan of care was described to the patient and all questions were answered. ROS: No chest pain, no SOB, no dyspnea on exertion, no palpitations, no fevers, no chills, no nausea, no vomiting, no diarrhea, no dysuria, no rash. Objective Gen: No acute distress. HEENT: Head - normocephalic and atraumatic. Pupils are equal, round, and reactive to light. Extraocular eye muscles are intact and sclera are anicteric. Ears - bilaterally patent canals with noninjected tympanic membranes and no evidence of hemotympanum. Nose - moist nasal mucosa without discharge. Mouth - moist buccal mucosa. Oropharynx is nonerythematous and there is no tonsillar exudate or edema noted. Neck: Supple; no JVD, nuchal rigidity, cervical lymphadenopathy, or auscultated bruits. Heart: Regular rate and rhythm. There is a normal S1 and S2 with no murmurs, clicks, or gallops appreciated. Faint heart sounds. Lungs: Clear to auscultation bilaterally with no wheezes, rales, or rhonchi. Abdomen: Soft, nontender, nondistended, with good bowel sounds. There are no palpable pulsatile masses or hepatosplenomegaly. There is no guarding, rigidity , or rebound noted. Neuro:The patient is awake and alert, oriented to day, time, and place. Current SOFA Score SOFA Score Response (Comments) Value Platelets (x10) < 150 1 Bilirubin (mg/dL) < 1.2 0 [place] Coma Score 15 0 Level of Hypotension No Hypotension 0 Creatinine (mg/dL) 2.0 - 3.4 2 Total 3 Assessment & Plan 72M with a PMHx of Esophageal Ca, HTN and prediabetes presented yesterday in complete heart block in the [facility] [place]. Pt was receiving chemo at the time. Transvenous pacer is in. Plan is for Permanent Pacemaker today. Neuro: * AAOx3 * Tramadol 50mg Q4h PRN IV and Tylenol when necessary pain Resp: * 95% O2 sats on room air, Oxygen nursing protocol CV: * Complete heart block * Echo pending * Trops: 0.877<--1.03<--1.07, per cards note likely demand ischemia. * Temporary venous pacemaker in place * c/w ASA 81mg PO daily. * Lyme neg, TSH WNL Fluids/Renal: * Renal insufficiency: Creatinine clearance 30 * NPO, c/w IVF 75mls/hr ID: Afebrile, continue to Monitor fever curve GI/Nutrition: Npo for pacemaker placement today. * GI Proph: PPI 40mg IV Daily. * Bowel Regimen: Colace 100mg BID Heme: * Anemia (Hgb 10.0 today) * At baseline * Thrombocytopenia * SCDs for DVT prophylaxis * Chemical prophylaxis 5000 units heparin subcutaneous twice a day Endocrine: Accu-Cheks per protocol * Hemoglobin A1c 5.9 on 09/15/2016 CODE STATUS, full code Resident Physician Supervision Note: Dr. Subramanian was resident physician during care of patient. I separately evaluated patient and did history and exam. I discussed the case with the resident and generally agree with the findings and plan. elevated Creatine, this may be a new baseline and worsening function, Stage iii- iv CKD. Will consult nephrology for additional work-up and recommendations and prognosis. Documented By: Milad Lanza DO Consults & Procedures Consultants: Cardiology - Dr. Goldman and Dr. Henriquez Procedures: Transvenous Pacemaker - 06/11/17 Permanent Pacemaker - Today, planned Data Medications: Current Inpatient Medications Medications (Trade) Dose Ordered Sig/Bulmaro Route Start Time Stop Time Status Last Admin Dose Admin Sodium Chloride 1,000 ml @ 75 mls/hr [id number] IV 06/11/17 14:16 07/11/17 14:15 06/11/17 23:49 75 MLS/HR Acetaminophen (Tylenol Tab) 650 mg Q4H PRN PO 06/11/17 14:30 07/11/17 14:29 Tramadol HCl (Ultram Tab) 50 mg Q4H PRN PO 06/11/17 14:30 07/11/17 14:29 Docusate Sodium (coLACE CAP) 100 mg BID PO 06/11/17 21:00 07/11/17 20:59 06/11/17 20:54 100 MG Pantoprazole Sodium (Protonix Tab) 40 mg DAILY PO 06/12/17 09:00 07/12/17 08:59 Aspirin (Ecotrin Tab) 81 mg QAM PO 06/12/17 09:00 07/12/17 08:59 Vital Signs: Date Time Temp Pulse Resp B/P (MAP) Pulse Ox O2 Delivery O2 Flow Rate FiO2 06/12/17 06:00 60 20 121/64 (83) 95 Room Air 06/12/17 04:39 36.5 53 16 117/62 (80) 94 06/12/17 04:03 51 17 89/41 (57) 94 06/12/17 04:00 96 Room Air 06/12/17 03:03 53 17 121/67 (85) 94 06/12/17 02:03 57 17 115/63 (80) 94 06/12/17 02:03 57 17 115/63 (80) 94 06/12/17 01:03 57 27 112/67 (82) 91 06/12/17 00:03 36.8 54 23 106/64 (78) 93 06/11/17 23:59 96 Room Air 06/11/17 22:03 54 21 104/66 (79) 95 06/11/17 21:21 53 17 95/57 (70) 95 06/11/17 20:03 36.5 55 18 120/68 (85) 94 Room Air 06/11/17 20:00 96 Room Air 06/11/17 17:30 62 18 06/11/17 17:03 65 23 111/72 (85) 96 06/11/17 17:00 68 19 98 Room Air 06/11/17 16:30 55 14 96 06/11/17 16:03 55 19 96/58 (71) 94 Room Air 06/11/17 16:03 55 19 96/58 (71) 94 06/11/17 16:00 57 18 94 06/11/17 16:00 57 18 94 Room Air 06/11/17 15:30 61 22 92 06/11/17 15:30 61 22 92 06/11/17 15:03 36.5 64 21 99/64 (76) 97 Room Air 06/11/17 15:03 64 21 99/64 (76) 97 06/11/17 15:00 64 24 88 06/11/17 15:00 64 24 92 Room Air 06/11/17 15:00 94 Room Air 06/11/17 14:47 98/68 (78) 06/11/17 14:35 60 18 112/70 (84) 95 Room Air 06/11/17 14:25 60 18 97/70 (79) 95 Room Air 06/11/17 13:41 75 17 100/71 06/11/17 13:40 101/64 06/11/17 13:36 75 17 06/11/17 13:31 21 06/11/17 13:29 72 Nasal Cannula 06/11/17 13:26 77 21 06/11/17 13:21 98/66 06/11/17 13:20 124 20 72 06/11/17 13:15 83 19 06/11/17 13:10 52 19 110/67 06/11/17 13:05 55 20 06/11/17 13:01 87/61 06/11/17 12:55 42 19 86/45 06/11/17 12:54 Room Air 06/11/17 12:48 36.5 35 15 114/65 Room Air 06/11/17 12:48 37 06/11/17 12:45 44 18 96 06/11/17 12:43 114/65 06/11/17 12:42 55 Laboratory Results: Last 24 Hours Test 06/11/17 12:50 06/11/17 12:52 06/11/17 20:58 06/11/17 22:33 White Blood Count 7.52 K/uL Red Blood Count 3.59 M/uL Hemoglobin 10.7 g/dL Hematocrit 32.5 % Mean Corpuscular Volume 90.5 fL Mean Corpuscular Hemoglobin 29.8 pg Mean Corpuscular Hemoglobin Concent 32.9 g/dl Platelet Count 120 K/uL Mean Platelet Volume 10.2 fL Neutrophils (%) (Auto) 89.0 % Lymphocytes (%) (Auto) 5.6 % Monocytes (%) (Auto) 2.7 % Eosinophils (%) (Auto) 2.3 % Basophils (%) (Auto) 0.3 % Neutrophils # (Auto) 6.70 K/uL Lymphocytes # (Auto) 0.42 K/uL Monocytes # (Auto) 0.20 K/uL Eosinophils # (Auto) 0.17 K/uL Basophils # (Auto) 0.02 K/uL RDW Standard Deviation 56.6 fL RDW Coefficient of Variation 17.3 % Immature Granulocyte % (Auto) 0.1 % Immature Granulocyte # (Auto) 0.01 K/uL Prothrombin Time 12.5 SECONDS Prothromb Time International Ratio 1.2 Activated Partial Thromboplast Time 31.6 SECONDS Partial Thromboplastin Ratio 1.2 Sodium Level 138 mmol/L Potassium Level 4.2 mmol/L Chloride Level 105 mmol/L Carbon Dioxide Level 28 mmol/L Anion Gap 5.0 mmol/L 16.0 mmol/L Blood Urea Nitrogen 38 mg/dl Creatinine 2.10 mg/dl Est Creatinine Clear Calc Drug Dose 30.6 ml/min Estimated GFR () 34.9 Estimated GFR (Non- 30.1 BUN/Creatinine Ratio 18.3 Random Glucose 159 mg/dl Calcium Level 8.2 mg/dl Magnesium Level 1.8 mg/dl Total Bilirubin 0.3 mg/dl Direct Bilirubin 0.1 mg/dl Aspartate Amino Transf (AST/SGOT) 30 U/L Alanine Aminotransferase (ALT/SGPT) 26 U/L Alkaline Phosphatase 85 U/L Total Creatine Kinase 168 U/L 154 U/L Creatine Kinase MB 6.1 ng/ml 7.8 ng/ml Creatine Kinase MB Ratio 3.6 5.1 Troponin I 0.877 ng/ml 1.030 ng/ml Total Protein 5.3 gm/dl Albumin 2.2 gm/dl Lipase 78 U/L Thyroid Stimulating Hormone (TSH) 0.966 uIu/ml Free Thyroxine 1.45 ng/dl Lyme Disease IgG Antibody NEG Lyme Disease IgM Antibody NEG Bedside Hemoglobin 10.9 g/dl Bedside Hematocrit 32 % Bedside Sodium 135 mEq/L Bedside Potassium 4.0 mEq/L Bedside Chloride 98 mEq/L Bedside Total CO2 26 mEq/l Bedside Blood Urea Nitrogen 37 mg/dl Bedside Creatinine 2.0 mg/dl Bedside Glucose (other) 173 mg/dl Bedside Ionized Calcium (Varinder) 1.15 mmol/l Bedside Glucose 133 mg/dl Test 06/12/17 05:24 White Blood Count 6.00 K/uL Red Blood Count 3.43 M/uL Hemoglobin 10.0 g/dL Hematocrit 30.9 % Mean Corpuscular Volume 90.1 fL Mean Corpuscular Hemoglobin 29.2 pg Mean Corpuscular Hemoglobin Concent 32.4 g/dl Platelet Count 125 K/uL Mean Platelet Volume 10.3 fL Neutrophils (%) (Auto) 82.5 % Lymphocytes (%) (Auto) 5.2 % Monocytes (%) (Auto) 10.7 % Eosinophils (%) (Auto) 1.2 % Basophils (%) (Auto) 0.2 % Neutrophils # (Auto) 4.96 K/uL Lymphocytes # (Auto) 0.31 K/uL Monocytes # (Auto) 0.64 K/uL Eosinophils # (Auto) 0.07 K/uL Basophils # (Auto) 0.01 K/uL RDW Standard Deviation 56.2 fL RDW Coefficient of Variation 17.2 % Immature Granulocyte % (Auto) 0.2 % Immature Granulocyte # (Auto) 0.01 K/uL Sodium Level 139 mmol/L Potassium Level 4.3 mmol/L Chloride Level 105 mmol/L Carbon Dioxide Level 27 mmol/L Anion Gap 7.0 mmol/L Blood Urea Nitrogen 42 mg/dl Creatinine 2.00 mg/dl Est Creatinine Clear Calc Drug Dose 26.8 ml/min Estimated GFR () 37.0 Estimated GFR (Non- 31.9 BUN/Creatinine Ratio 20.8 Random Glucose 119 mg/dl Calcium Level 8.2 mg/dl Phosphorus Level 4.2 mg/dl Magnesium Level 1.8 mg/dl Total Creatine Kinase 145 U/L Creatine Kinase MB 8.3 ng/ml Creatine Kinase MB Ratio 5.7 Troponin I 1.070 ng/ml Resident Involvement: Resident Care Provided Care Provided: Adult [facility]
[2017-06-12] MEDS: DOCUSATE SODIUM 100 MG CAP PO SCH ×2 (07:41→20:35)
--- NOTE | 2017-06-12 08:37 | Cardiology Follow-Up ---
Subjective Date of Service: Jun 12, 2017. Pt evaluation today including: conversation w/ patient, physical exam, lab review, review of studies, review of inpatient medication list History of Present Illness This is a very pleasant 72-year-old gentleman who has a history of adenocarcinoma of the gastroesophageal junction for which he had esophagogastrostomy in February 2017. Postoperatively he had an episode of atrial fibrillation with a rapid ventricular response, he received intravenous metoprolol with return to sinus rhythm. He was started on amiodarone 200 mg twice a day, I believe he continued this for one month and discontinued it (we did check with the pharmacy and he has not had prescriptions filled in the last several months for it so this appears to be correct). He was maintained on metoprolol succinate 50 mg daily, last dose I believe 06/11/2017 AM. He has been receiving chemotherapy, yesterday he had intermittent lightheaded spells while undergoing chemo (he was not on a monitor) and then near the end of his infusion he had an episode of presyncope, probably culminating in a brief episode of witnessed syncope. He was evaluated including electrocardiograms after 911 was summoned and he was having intermittent complete heart block. He was transferred to the emergency room. In the emergency room he continued to have symptoms of intermittent presyncope which correlated with periods of complete heart block and long pauses on monitoring. He was given 1 mg of intravenous atropine after which he did not have any further pauses. He specifically denied symptoms of chest discomfort, shortness of breath or any type of chest fullness in the emergency room. He has not been having any difficulty with exertion (other than generally being weak) and does not notice any difference in how he feels prior to this event during chemotherapy. He has not changed his medical regimen. A temporary pacemaker was placed via the right IJ yesterday, he has continued to pace intermittently using the temporary pacemaker. His cardiac enzymes were elevated, 0.87 in the emergency room and just over one subsequently but no associated chest discomfort or electrocardiographic abnormalities. Today he feels well, he has no specific complaints, no chest discomfort and no lightheadedness or dizziness and is unaware of intermittent pacing. Social History Smoking Status: Former Smoker History of Alcohol Use: No Review of Systems Respiratory: No cough, No wheezing, No shortness of breath, No dyspnea on exertion Cardiac: + see HPI, + problem reported (Syncope, pre-syncope), No chest pain, No orthopnea, No PND, No edema, No palpitations Medications Cardiovascular: Item Value Date Time Aspirin 81 mg 06/12/17 0900 (Ecotrin Tab) QAM/PO Objective Vital Signs Past 12 Hours Date Time Temp Pulse Resp B/P (MAP) Pulse Ox O2 Delivery O2 Flow Rate FiO2 06/12/17 08:00 36.7 52 18 115/62 (79) 95 Room Air 06/12/17 06:00 60 20 121/64 (83) 95 Room Air 06/12/17 04:39 36.5 53 16 117/62 (80) 94 06/12/17 04:03 51 17 89/41 (57) 94 06/12/17 04:00 96 Room Air 06/12/17 03:03 53 17 121/67 (85) 94 06/12/17 02:03 57 17 115/63 (80) 94 06/12/17 02:03 57 17 115/63 (80) 94 06/12/17 01:03 57 27 112/67 (82) 91 06/12/17 00:03 36.8 54 23 106/64 (78) 93 06/11/17 23:59 96 Room Air 06/11/17 22:03 54 21 104/66 (79) 95 06/11/17 21:21 53 17 95/57 (70) 95 Last Recorded Weight-Kilograms: 58.400 Physical Exam Constitutional: General Apperance: too thin Level of Distress: mild distress Lungs: Respiratory effort: no dyspnea, good air movement Auscultation: breath sounds normal, no wheezing Cardiovascular: Heart Auscultation: RRR, no murmurs, no rubs, no gallops Peripheral Pulses: Bruits: none appreciated Extremities: no edema Data Laboratory Results: Last 24 Hours Test 06/11/17 12:50 06/11/17 12:52 06/11/17 20:58 06/11/17 22:33 White Blood Count 7.52 K/uL Red Blood Count 3.59 M/uL Hemoglobin 10.7 g/dL Hematocrit 32.5 % Mean Corpuscular Volume 90.5 fL Mean Corpuscular Hemoglobin 29.8 pg Mean Corpuscular Hemoglobin Concent 32.9 g/dl Platelet Count 120 K/uL Mean Platelet Volume 10.2 fL Neutrophils (%) (Auto) 89.0 % Lymphocytes (%) (Auto) 5.6 % Monocytes (%) (Auto) 2.7 % Eosinophils (%) (Auto) 2.3 % Basophils (%) (Auto) 0.3 % Neutrophils # (Auto) 6.70 K/uL Lymphocytes # (Auto) 0.42 K/uL Monocytes # (Auto) 0.20 K/uL Eosinophils # (Auto) 0.17 K/uL Basophils # (Auto) 0.02 K/uL RDW Standard Deviation 56.6 fL RDW Coefficient of Variation 17.3 % Immature Granulocyte % (Auto) 0.1 % Immature Granulocyte # (Auto) 0.01 K/uL Prothrombin Time 12.5 SECONDS Prothromb Time International Ratio 1.2 Activated Partial Thromboplast Time 31.6 SECONDS Partial Thromboplastin Ratio 1.2 Sodium Level 138 mmol/L Potassium Level 4.2 mmol/L Chloride Level 105 mmol/L Carbon Dioxide Level 28 mmol/L Anion Gap 5.0 mmol/L 16.0 mmol/L Blood Urea Nitrogen 38 mg/dl Creatinine 2.10 mg/dl Est Creatinine Clear Calc Drug Dose 30.6 ml/min Estimated GFR () 34.9 Estimated GFR (Non- 30.1 BUN/Creatinine Ratio 18.3 Random Glucose 159 mg/dl Calcium Level 8.2 mg/dl Magnesium Level 1.8 mg/dl Total Bilirubin 0.3 mg/dl Direct Bilirubin 0.1 mg/dl Aspartate Amino Transf (AST/SGOT) 30 U/L Alanine Aminotransferase (ALT/SGPT) 26 U/L Alkaline Phosphatase 85 U/L Total Creatine Kinase 168 U/L 154 U/L Creatine Kinase MB 6.1 ng/ml 7.8 ng/ml Creatine Kinase MB Ratio 3.6 5.1 Troponin I 0.877 ng/ml 1.030 ng/ml Total Protein 5.3 gm/dl Albumin 2.2 gm/dl Lipase 78 U/L Thyroid Stimulating Hormone (TSH) 0.966 uIu/ml Free Thyroxine 1.45 ng/dl Lyme Disease IgG Antibody NEG Lyme Disease IgM Antibody NEG Bedside Hemoglobin 10.9 g/dl Bedside Hematocrit 32 % Bedside Sodium 135 mEq/L Bedside Potassium 4.0 mEq/L Bedside Chloride 98 mEq/L Bedside Total CO2 26 mEq/l Bedside Blood Urea Nitrogen 37 mg/dl Bedside Creatinine 2.0 mg/dl Bedside Glucose (other) 173 mg/dl Bedside Ionized Calcium (Varinder) 1.15 mmol/l Bedside Glucose 133 mg/dl Test 06/12/17 05:24 White Blood Count 6.00 K/uL Red Blood Count 3.43 M/uL Hemoglobin 10.0 g/dL Hematocrit 30.9 % Mean Corpuscular Volume 90.1 fL Mean Corpuscular Hemoglobin 29.2 pg Mean Corpuscular Hemoglobin Concent 32.4 g/dl Platelet Count 125 K/uL Mean Platelet Volume 10.3 fL Neutrophils (%) (Auto) 82.5 % Lymphocytes (%) (Auto) 5.2 % Monocytes (%) (Auto) 10.7 % Eosinophils (%) (Auto) 1.2 % Basophils (%) (Auto) 0.2 % Neutrophils # (Auto) 4.96 K/uL Lymphocytes # (Auto) 0.31 K/uL Monocytes # (Auto) 0.64 K/uL Eosinophils # (Auto) 0.07 K/uL Basophils # (Auto) 0.01 K/uL RDW Standard Deviation 56.2 fL RDW Coefficient of Variation 17.2 % Immature Granulocyte % (Auto) 0.2 % Immature Granulocyte # (Auto) 0.01 K/uL Sodium Level 139 mmol/L Potassium Level 4.3 mmol/L Chloride Level 105 mmol/L Carbon Dioxide Level 27 mmol/L Anion Gap 7.0 mmol/L Blood Urea Nitrogen 42 mg/dl Creatinine 2.00 mg/dl Est Creatinine Clear Calc Drug Dose 26.8 ml/min Estimated GFR () 37.0 Estimated GFR (Non- 31.9 BUN/Creatinine Ratio 20.8 Random Glucose 119 mg/dl Calcium Level 8.2 mg/dl Phosphorus Level 4.2 mg/dl Magnesium Level 1.8 mg/dl Total Creatine Kinase 145 U/L Creatine Kinase MB 8.3 ng/ml Creatine Kinase MB Ratio 5.7 Troponin I 1.070 ng/ml Imaging: On preliminary review of his echocardiogram left ventricular function is overall normal. This will be reviewed in detail later. EKG: Sinus bradycardia this morning at 52 bpm, right bundle branch block is not present today. No significant ST segment change. Telemetry reviewed: Sinus rhythm with periods of AV block and appropriate pacing. With turning down the pacemaker this morning he had intermittent pacing at 30 bpm. Assessment and Plan #1. Presyncope and syncope: Documented to be intermittent complete heart block #2. Complete heart block: Intermittent with no other associated symptoms (such as chest discomfort, nausea, etc.) cause remains uncertain. 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 He does have a positive troponin around 1, no symptoms of angina and electrocardiogram does not suggest ischemia , although this may be an ischemic event there is little to support it. A Lyme titer is negative. He was on 50 mg daily of metoprolol, but has been and that has not been given since yesterday morning therefore this seems an unlikely cause of intermittent complete heart block. His creatinine is around 2. He should have a permanent pacemaker I believe. I discussed the indications, procedure, risks and alternatives with him and he understands and agrees to proceed. That will be implanted by Dr. Figueroa later today. He should remain nothing by mouth. Thank you for allowing me to participate in his care.
[2017-06-12] MEDS ORDERED: CEFAZOLIN SOD 1000MG/55 ML D5W IV SCH (09:00)
--- NOTE | 2017-06-12 09:56 | ECHOCARDIOGRAM REPORT ---
*NOTICE TO RECEIVING REPUBLICAN AGENCY This information is strictly Confidential and protected under [place] law. [place] law prohibits you from making any further disclosure of this information unless further disclosure is expressly permitted by the written consent of the person to whom it pertains or is authorized by law. A general authorization for the release of medical or other information is not sufficient for this purpose. Hospital accepts no responsibility if the information is made available to any other person, INCLUDING THE PATIENT. Interpretation Summary * Name: SUSIE GROSSMAN JR Study Date: 06/12/2017 07:07 AM BP: 117/62 mmHg * [facility] HR: 55 * : 1945 (M/d/yyyy) Gender: Male Height: 69 in * Age: 72 yrs Ethnicity: [place] Weight: 154 lb * Ordering Physician: Romero Goldman * Referring Physician: Self, Referred * Performed By: Toña Wetzel RCS * * Reason For Study: HEART BLOCK / SYNCOPE * BSA: 1.8 m2 * -- Conclusions -- * There is borderline concentric left ventricular hypertrophy. * Left ventricular systolic function is normal. * Grade I diastolic dysfunction, (abnormal relaxation pattern). * The left atrium is mildly dilated. * Echoes are present in the left atrium suggestive of left atrial mass. * Right ventricular systolic pressure is elevated at 30-40mmHg. * Compared to a study performed on 03/15/2017, there is an echo density in the left atrium that was not well characterized on that study Procedure Details * A complete two-dimensional transthoracic echocardiogram was performed (2D, M-mode, Doppler and color flow Doppler). Left Ventricle * The left ventricle is normal in size. * There is borderline concentric left ventricular hypertrophy. * Left ventricular systolic function is normal. * Grade I diastolic dysfunction, (abnormal relaxation pattern). * Ejection Fraction = 55-60%. Right Ventricle * The right ventricle is grossly normal size. * There is a pacemaker lead in the right ventricle. * The right ventricular systolic function is normal. Atria * The left atrium is mildly dilated. * Echoes are present in the left atrium suggestive of left atrial mass. * Right atrial size is normal. Mitral Valve * The mitral valve is grossly normal. * There is trace mitral regurgitation. Tricuspid Valve * The tricuspid valve is not well visualized, but is grossly normal. * There is mild tricuspid regurgitation. * Right ventricular systolic pressure is elevated at 30-40mmHg. Aortic Valve * Aortic valve sclerosis moderate, without significant aortic valvular stenosis. * No hemodynamically significant valvular aortic stenosis. * There is no significant aortic regurgitation. Great Vessels * The aortic root is normal size. Pericardium/Pleural * There is no pericardial effusion. MMode 2D Measurements and Calculations IVSd 1.3 cm IVSs 1.8 cm LVIDd 4.9 cm LVIDs 3.9 cm LVPWd 0.99 cm LVPWs 1.2 cm IVS/LVPW 1.3 FS 21.8 % EDV(Teich) 115.3 ml ESV(Teich) 64.6 ml EF(Teich) 43.9 % EDV(cubed) 121.0 ml ESV(cubed) 57.9 ml EF(cubed) 52.2 % % IVS thick 34.0 % % LVPW thick 19.9 % LV mass(C)d 218.4 grams LV mass(C)dI 118.1 grams/m\S\2 LV mass(C)s 217.5 grams LV mass(C)sI 117.7 grams/m\S\2 SV(Teich) 50.7 ml SI(Teich) 27.4 ml/m\S\2 SV(cubed) 63.1 ml SI(cubed) 34.1 ml/m\S\2 Ao root diam 3.6 cm Ao root area 10.2 cm\S\2 ACS 1.8 cm LA dimension 4.2 cm LA/Ao 1.2 LVOT diam 2.1 cm LVOT area 3.5 cm\S\2 LVAd ap4 38.8 cm\S\2 LVLd ap4 8.5 cm EDV(MOD-sp4) 147.3 ml EDV(sp4-el) 150.6 ml LVAs ap4 27.4 cm\S\2 LVLs ap4 7.6 cm ESV(MOD-sp4) 83.3 ml ESV(sp4-el) 83.5 ml EF(MOD-sp4) 43.4 % EF(sp4-el) 44.6 % LVAd ap2 31.9 cm\S\2 LVLd ap2 7.7 cm EDV(MOD-sp2) 104.7 ml EDV(sp2-el) 111.4 ml LVAs ap2 23.1 cm\S\2 LVLs ap2 6.8 cm ESV(MOD-sp2) 64.8 ml ESV(sp2-el) 66.2 ml EF(MOD-sp2) 38.1 % EF(sp2-el) 40.5 % LVLd %diff -9.44 % EDV(MOD-bp) 127.3 ml LVLs %diff -11.80 % ESV(MOD-bp) 77.4 ml EF(MOD-bp) 39.2 % SV(MOD-sp4) 64.0 ml SI(MOD-sp4) 34.6 ml/m\S\2 SV(MOD-sp2) 39.8 ml SI(MOD-sp2) 21.6 ml/m\S\2 SV(MOD-bp) 49.9 ml SI(MOD-bp) 27.0 ml/m\S\2 SV(sp4-el) 67.1 ml SI(sp4-el) 36.3 ml/m\S\2 SV(sp2-el) 45.2 ml SI(sp2-el) 24.4 ml/m\S\2 Doppler Measurements and Calculations MV E max mikey 66.9 cm/sec MV A max mikey 49.6 cm/sec MV E/A 1.3 MV P1/2t max mikey 84.7 cm/sec MV P1/2t 120.3 msec MVA(P1/2t) 1.8 cm\S\2 MV dec slope 206.4 cm/sec\S\2 MV dec time 0.32 sec Ao V2 max 92.9 cm/sec Ao max PG 3.5 mmHg Ao max PG (full) 0.66 mmHg MAXIMILIANO(V,A) 3.1 cm\S\2 MAXIMILIANO(V,D) 3.1 cm\S\2 AI max mikey 359.5 cm/sec AI max PG 51.7 mmHg AI dec slope 113.3 cm/sec\S\2 AI P1/2t 929.4 msec LV V1 max PG 2.8 mmHg LV V1 max 83.6 cm/sec TR max mikey 254.7 cm/sec
--- NOTE | 2017-06-12 10:01 | Nephrology Consultation ---
Nephrology Consultation Date & Providers Date of Consultation: Jun 12, 2017. Primary Care Provider: Vinny Santa M.D. Referring Provider: Reason for Consultation Evaluation and management for acute kidney injury. History of Present Illness Vinny is a 72-year-old gentlemen with past medical history significant for advanced esophageal carcinoma, admitted to the hospital of with an episode of flash is syncope And complete heart block. Nephrologic consult was requested as his found to have acute kidney injury. Electronic medical records including labs and imaging are reviewed in detail during patient's visit. Vinny has history of esophageal carcinoma diagnosed in August 2016, currently on neoadjuvant chemotherapy. Yes[facility] he had the syncopal episode and brought to the ED for further evaluation. In ED he was found to have complete heart block and was taken to the prosthetics lab technician and had a temporary pacemaker placed. Had history of new onset AFib in February 2017, at that time he was started on amiodarone and metoprolol. He is not a schedule to have a permanent pacemaker placed this afternoon. His baseline creatinine has been variable from 1-1.4, had an episode of acute kidney injury in December 2016 when creatinine peaked to 2.7 eventually improved. On admission his creatinine was 2.1 which remained stable this morning at 2.0, all other electrolyte acceptable. He reports mild difficulty with oral intake due to hiccup. he feels like he may not have been drinking as much. After the syncopal episode yesterday his blood pressure has been relatively low throughout the hospital course. Urinalysis showed granular cast. Currently he is voiding normally. getting IV fluid, blood pressure overall improved. no history of chronic NSAID use, has not been on diuretics or ALFREDO-inhibitor/ARB. Currently overall feels so weak, otherwise no specific symptoms. Allergies Coded Allergies: Adhesives (Verified Allergy, Unknown, TAPE-RED ITCHY WITH SOME TAPE, ) NO KNOWN DRUG ALLERGIES (Verified Allergy, Unknown, NONE, 04/13/17) Inpatient Medications Current Inpatient Medications Medications (Trade) Dose Ordered Sig/Bulmaro Route Start Time Stop Time Status Last Admin Dose Admin Sodium Chloride 1,000 ml @ 75 mls/hr [id number] IV 06/11/17 14:16 07/11/17 14:15 06/11/17 23:49 75 MLS/HR Acetaminophen (Tylenol Tab) 650 mg Q4H PRN PO 06/11/17 14:30 07/11/17 14:29 Tramadol HCl (Ultram Tab) 50 mg Q4H PRN PO 06/11/17 14:30 07/11/17 14:29 Docusate Sodium (coLACE CAP) 100 mg BID PO 06/11/17 21:00 07/11/17 20:59 06/11/17 20:54 100 MG Pantoprazole Sodium (Protonix Tab) 40 mg DAILY PO 06/12/17 09:00 07/12/17 08:59 Aspirin (Ecotrin Tab) 81 mg QAM PO 06/12/17 09:00 07/12/17 08:59 Cefazolin Sodium (Ancef 1000mg/55 ml D5W) 1,000 mg TODAY@0900 IV 06/12/17 09:00 06/12/17 15:00 Family History Patient reports no known family medical history. Social History Smoking Status: Former Smoker Drug Use: none Marital Status: Occupation: retired Review of Systems A complete review of systems was performed. Pertinent positives are noted above. All other systems are negative. Physical Exam Date Time Temp Pulse Resp B/P (MAP) Pulse Ox O2 Delivery O2 Flow Rate FiO2 06/12/17 08:00 36.7 52 18 115/62 (79) 95 Room Air 06/12/17 08:00 95 Room Air 06/12/17 06:00 60 20 121/64 (83) 95 Room Air 06/12/17 04:39 36.5 53 16 117/62 (80) 94 06/12/17 04:03 51 17 89/41 (57) 94 06/12/17 04:00 96 Room Air 06/12/17 03:03 53 17 121/67 (85) 94 06/12/17 02:03 57 17 115/63 (80) 94 06/12/17 02:03 57 17 115/63 (80) 94 06/12/17 01:03 57 27 112/67 (82) 91 06/12/17 00:03 36.8 54 23 106/64 (78) 93 06/11/17 23:59 96 Room Air 06/11/17 22:03 54 21 104/66 (79) 95 06/11/17 21:21 53 17 95/57 (70) 95 06/11/17 20:03 36.5 55 18 120/68 (85) 94 Room Air 06/11/17 20:00 96 Room Air 06/11/17 17:30 62 18 06/11/17 17:03 65 23 111/72 (85) 96 17 17:00 68 19 98 Room Air 06/11/17 16:30 55 14 96 06/11/17 16:03 55 19 96/58 (71) 94 Room Air 06/11/17 16:03 55 19 96/58 (71) 94 17 16:00 57 18 94 06/11/17 16:00 57 18 94 Room Air 06/11/17 15:30 61 22 92 06/11/17 15:30 61 22 92 06/11/17 15:03 36.5 64 21 99/64 (76) 97 Room Air 06/11/17 15:03 64 21 99/64 (76) 97 06/11/17 15:00 64 24 88 06/11/17 15:00 64 24 92 Room Air 06/11/17 15:00 94 Room Air 06/11/17 14:47 98/68 (78) 06/11/17 14:35 60 18 112/70 (84) 95 Room Air 06/11/17 14:25 60 18 97/70 (79) 95 Room Air 06/11/17 13:41 75 17 100/71 06/11/17 13:40 101/64 06/11/17 13:36 75 17 06/11/17 13:31 21 06/11/17 13:29 72 Nasal Cannula 06/11/17 13:26 77 21 06/11/17 13:21 98/66 06/11/17 13:20 124 20 72 06/11/17 13:15 83 19 06/11/17 13:10 52 19 110/67 06/11/17 13:05 55 20 06/11/17 13:01 87/61 06/11/17 12:55 42 19 86/45 06/11/17 12:54 Room Air 06/11/17 12:48 36.5 35 15 114/65 Room Air 06/11/17 12:48 37 06/11/17 12:45 44 18 96 06/11/17 12:43 114/65 06/11/17 12:42 55 GENERAL: Elderly male, AAA x 3, pleasant, ill-appearing, not in any distress. HEENT: Atraumatic, normocephalic. NECK: Supple, no JVD, no carotid bruit appreciated. ENT: No sinus tenderness MOUTH and THROAT: Moist oral mucosa, no oral ulcer or pharyngeal erythema RESPIRATORY: Normal breathing efforts, no accessory muscle use, clear to auscultation bilaterally, no wheezes or rales. CARDIOVASCULAR: S1, S2 normal, rate rhythm regular. ABDOMEN: Soft, nontender, positive bowel sound. MUSCULOSKELETAL: No CVA tenderness. No joint swelling, erythema or tenderness. Normal range of motion. SKIN: No skin rash EXTREMITY: No lower extremity edema NEURO: No gross focal neurological deficit, speech fluent. PSYCHIATRY: Normal mood and judgment Laboratory Results Last 24 Hours Test 06/11/17 12:50 06/11/17 12:52 06/11/17 20:58 06/11/17 22:33 White Blood Count 7.52 K/uL Red Blood Count 3.59 M/uL Hemoglobin 10.7 g/dL Hematocrit 32.5 % Mean Corpuscular Volume 90.5 fL Mean Corpuscular Hemoglobin 29.8 pg Mean Corpuscular Hemoglobin Concent 32.9 g/dl Platelet Count 120 K/uL Mean Platelet Volume 10.2 fL Neutrophils (%) (Auto) 89.0 % Lymphocytes (%) (Auto) 5.6 % Monocytes (%) (Auto) 2.7 % Eosinophils (%) (Auto) 2.3 % Basophils (%) (Auto) 0.3 % Neutrophils # (Auto) 6.70 K/uL Lymphocytes # (Auto) 0.42 K/uL Monocytes # (Auto) 0.20 K/uL Eosinophils # (Auto) 0.17 K/uL Basophils # (Auto) 0.02 K/uL RDW Standard Deviation 56.6 fL RDW Coefficient of Variation 17.3 % Immature Granulocyte % (Auto) 0.1 % Immature Granulocyte # (Auto) 0.01 K/uL Prothrombin Time 12.5 SECONDS Prothromb Time International Ratio 1.2 Activated Partial Thromboplast Time 31.6 SECONDS Partial Thromboplastin Ratio 1.2 Sodium Level 138 mmol/L Potassium Level 4.2 mmol/L Chloride Level 105 mmol/L Carbon Dioxide Level 28 mmol/L Anion Gap 5.0 mmol/L 16.0 mmol/L Blood Urea Nitrogen 38 mg/dl Creatinine 2.10 mg/dl Est Creatinine Clear Calc Drug Dose 30.6 ml/min Estimated GFR () 34.9 Estimated GFR (Non- 30.1 BUN/Creatinine Ratio 18.3 Random Glucose 159 mg/dl Calcium Level 8.2 mg/dl Magnesium Level 1.8 mg/dl Total Bilirubin 0.3 mg/dl Direct Bilirubin 0.1 mg/dl Aspartate Amino Transf (AST/SGOT) 30 U/L Alanine Aminotransferase (ALT/SGPT) 26 U/L Alkaline Phosphatase 85 U/L Total Creatine Kinase 168 U/L 154 U/L Creatine Kinase MB 6.1 ng/ml 7.8 ng/ml Creatine Kinase MB Ratio 3.6 5.1 Troponin I 0.877 ng/ml 1.030 ng/ml Total Protein 5.3 gm/dl Albumin 2.2 gm/dl Lipase 78 U/L Thyroid Stimulating Hormone (TSH) 0.966 uIu/ml Free Thyroxine 1.45 ng/dl Lyme Disease IgG Antibody NEG Lyme Disease IgM Antibody NEG Bedside Hemoglobin 10.9 g/dl Bedside Hematocrit 32 % Bedside Sodium 135 mEq/L Bedside Potassium 4.0 mEq/L Bedside Chloride 98 mEq/L Bedside Total CO2 26 mEq/l Bedside Blood Urea Nitrogen 37 mg/dl Bedside Creatinine 2.0 mg/dl Bedside Glucose (other) 173 mg/dl Bedside Ionized Calcium (Varinder) 1.15 mmol/l Bedside Glucose 133 mg/dl Test 06/12/17 05:24 White Blood Count 6.00 K/uL Red Blood Count 3.43 M/uL Hemoglobin 10.0 g/dL Hematocrit 30.9 % Mean Corpuscular Volume 90.1 fL Mean Corpuscular Hemoglobin 29.2 pg Mean Corpuscular Hemoglobin Concent 32.4 g/dl Platelet Count 125 K/uL Mean Platelet Volume 10.3 fL Neutrophils (%) (Auto) 82.5 % Lymphocytes (%) (Auto) 5.2 % Monocytes (%) (Auto) 10.7 % Eosinophils (%) (Auto) 1.2 % Basophils (%) (Auto) 0.2 % Neutrophils # (Auto) 4.96 K/uL Lymphocytes # (Auto) 0.31 K/uL Monocytes # (Auto) 0.64 K/uL Eosinophils # (Auto) 0.07 K/uL Basophils # (Auto) 0.01 K/uL RDW Standard Deviation 56.2 fL RDW Coefficient of Variation 17.2 % Immature Granulocyte % (Auto) 0.2 % Immature Granulocyte # (Auto) 0.01 K/uL Sodium Level 139 mmol/L Potassium Level 4.3 mmol/L Chloride Level 105 mmol/L Carbon Dioxide Level 27 mmol/L Anion Gap 7.0 mmol/L Blood Urea Nitrogen 42 mg/dl Creatinine 2.00 mg/dl Est Creatinine Clear Calc Drug Dose 26.8 ml/min Estimated GFR () 37.0 Estimated GFR (Non- 31.9 BUN/Creatinine Ratio 20.8 Random Glucose 119 mg/dl Calcium Level 8.2 mg/dl Phosphorus Level 4.2 mg/dl Magnesium Level 1.8 mg/dl Total Creatine Kinase 145 U/L Creatine Kinase MB 8.3 ng/ml Creatine Kinase MB Ratio 5.7 Troponin I 1.070 ng/ml Impression (1) Acute kidney injury (2) Hypertension (3) Pre-diabetes (4) Esophageal adenocarcinoma (5) Syncope (6) Third degree heart block Vinny is a 72-year-old gentlemen with them history of esophageal carcinoma, admitted to the hospital after an episode of syncope with complete heart block while getting chemotherapy. He had a temporary pacemaker placed on admission, now scheduled to have a permanent pacemaker this afternoon. Currently he is hemodynamically stable and otherwise asymptomatic. in On admission he was found to have acute kidney injury creatinine was 2.1 which remained stable this morning at 2.0, all electrolyte, volume status acceptable. He was hypotensive throughout hospital course, blood pressure improved with IV hydration. Urinalysis was positive for granular cast suggestive of prerenal etiology. Baseline creatinine has been variable from 1-1.4 with prior history of acute kidney injury in December 2016. He is non-oliguric. Acute kidney injury thought to be hemodynamically mediated at with persistently low blood pressure, complete heart block and syncope with possible poor p.o. intake. Recommendations --Expect renal function to remained stable and start to improve, however recovery may be slow -- continue to support blood pressure with IV hydration as needed -- no other workup indicated at this time however, if renal function worsened further, will consider other workup including renal ultrasound -- avoid nephrotoxins medications --advise patient to avoid volume depletion and NSAID going forward considering history of recurrent acute kidney injury Thank you for allowing me to participate in your patient's care. It was a pleasure to see Vinny. This chart was completed utilizing [employer] Speech and voice recognition software. Grammatical errors, random word insertions, pronoun errors and incomplete sentences are occasional consequences of this system. Any questions or concerns about the content, text or information contained within the body of this dictation should be addressed directly to the physician for clarification.
[2017-06-12] MEDS ORDERED: BUPIVACAINE 0.5 % 5 MG/1 ML MPF 30ML VIAL ONE (11:34)
[2017-06-12] MEDS ORDERED: BACITRACIN 50000 UNIT VIAL ONE (11:34)
[2017-06-12] MEDS ORDERED: LIDOCAINE HCL 1% 20 ML VIAL ONE (11:34)
[2017-06-12] MEDS ORDERED: MIDAZOLAM HCL 5 MG/ML 1 ML VIAL ONE (11:55)
[2017-06-12] MEDS ORDERED: FENTANYL CITRATE INJ 50 MCG/1 ML 2 ML VIAL ONE (11:55)
[2017-06-12] MEDS ORDERED: KEFZOL SPECIAL PROCEDURE STOCK 1 GM ADDVIAL IV ONE (11:55)
[2017-06-12] MEDS ORDERED: ACETAMINOPHEN 325 MG TAB PO PRN (13:30)
[2017-06-12] MEDS ORDERED: OXYCODONE HCL IR 5 MG TAB (IMMEDIATE RELEASE) PO PRN (13:30)
[2017-06-12] MEDS: PANTOprazole SOD 40 MG TAB PO SCH (14:38)
[2017-06-12] MEDS: ASPIRIN 81 MG ECTAB PO SCH (14:38)
--- NOTE | 2017-06-12 15:10 | Progress Note ---
Subjective Date of Service: Jun 12, 2017. Subjective Pt evaluation today including: conversation w/ patient, conversation w/ family , physical exam, chart review, lab review, review of studies, conversation w/ optimization consultant, review of inpatient medication list Patient back from procedure for dual-chamber pacemaker placement, doing okay, no complaining, eating lunch, Problem List Medical Problems: (1) Symptomatic bradycardia Status: Acute (2) Syncope Status: Acute (3) Third degree heart block Status: Acute Review of Systems Constitutional: No fever, No chills, No sweats, No weight loss, No weakness, No fatigue, No problem reported Eyes: No worsening of vision, No eye pain, No redness, No discharge, No diplopia ENT: No hearing loss, No unusual epistaxis, No nasal symptoms, No sore throat, No tinnitus, No dental problems, No trouble swallowing Respiratory: No cough, No sputum, No wheezing, No shortness of breath, No dyspnea on exertion, No dyspnea at rest, No hemoptysis Cardiac: No chest pain, No orthopnea, No PND, No edema, No claudication, No palpitations Abdomen: No pain, No nausea, No vomiting, No diarrhea, No constipation Musculoskeletal: No joint pain, No muscle pain, No swelling, No calf pain Male : No dysuria, No urinary frequency, No incontinence, No nocturia more than once/night, No slowing stream, No hematuria Neurologic: No memory loss, No paralysis, No weakness, No numbness/tingling, No vertigo, No balance problems Psychiatric: No depression symptoms, No anhedonism, No anxiety, No insomnia, No substance abuse Heme: No abnormal bleeding/bruising, No clotting problems, No swollen lymph nodes, No night sweats Endo: No fatigue, No excessive thirst, No excessive urination Skin: No rash, No itch, No new/changing skin lesions, No color change, No bleeding Objective Vital Signs Date Time Temp Pulse Resp B/P (MAP) Pulse Ox O2 Delivery O2 Flow Rate FiO2 06/12/17 14:20 61 18 113/62 (79) 94 Room Air 06/12/17 14:05 60 16 110/63 (79) 90 Room Air 06/12/17 14:00 Room Air 06/12/17 13:50 36.5 60 20 117/68 (84) 95 Room Air 7/21/17 13:33 60 12 110/76 (87) 94 Room Air 06/12/17 13:18 60 11 99/78 (85) 100 Mask 6 06/12/17 11:45 96 Nasal Cannula 06/12/17 11:33 36.5 51 18 110/69 96 Room Air 06/12/17 10:00 53 16 114/65 (81) 96 Room Air 06/12/17 08:00 Room Air 06/12/17 08:00 36.7 52 18 115/62 (79) 95 Room Air 06/12/17 08:00 95 Room Air 06/12/17 06:00 60 20 121/64 (83) 95 Room Air 06/12/17 04:39 36.5 53 16 117/62 (80) 94 06/12/17 04:03 51 17 89/41 (57) 94 06/12/17 04:00 96 Room Air 06/12/17 03:03 53 17 121/67 (85) 94 06/12/17 02:03 57 17 115/63 (80) 94 06/12/17 02:03 57 17 115/63 (80) 94 06/12/17 01:03 57 27 112/67 (82) 91 06/12/17 00:03 36.8 54 23 106/64 (78) 93 06/11/17 23:59 96 Room Air 06/11/17 22:03 54 21 104/66 (79) 95 06/11/17 21:21 53 17 95/57 (70) 95 06/11/17 20:03 36.5 55 18 120/68 (85) 94 Room Air 06/11/17 20:00 96 Room Air 06/11/17 17:30 62 18 06/11/17 17:03 65 23 111/72 (85) 96 06/11/17 17:00 68 19 98 Room Air 06/11/17 16:30 55 14 96 06/11/17 16:03 55 19 96/58 (71) 94 Room Air 06/11/17 16:03 55 19 96/58 (71) 94 06/11/17 16:00 57 18 94 06/11/17 16:00 57 18 94 Room Air 06/11/17 15:30 61 22 92 06/11/17 15:30 61 22 92 06/11/17 15:03 36.5 64 21 99/64 (76) 97 Room Air 06/11/17 15:03 64 21 99/64 (76) 97 Physical Exam General Appearance: WD/WN, no apparent distress, + thin Eyes: normal inspection, PERRL, EOMI, sclerae normal ENT: normal ENT inspection, hearing grossly normal, pharynx normal Neck: supple, no adenopathy, thyroid normal, no JVD, no carotid bruits, trachea midline, + pertinent finding (right IJ in place) Respiratory/Chest: chest non-tender, normal breath sounds, no respiratory distress, no accessory muscle use, + decreased breath sounds Cardiovascular: regular rate, rhythm, no edema, no gallop, no JVD, no murmur, + pertinent finding (left anterior chest wall has pacer placement, and intravenous) Abdomen: normal bowel sounds, non tender, soft, no organomegaly, no pulsatile mass Extremities: normal range of motion, non-tender, normal inspection, no pedal edema, no calf tenderness, normal capillary refill, pelvis stable Neurologic/Psychiatric: 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 nml as tested, no motor/sensory deficits, alert, normal mood/affect, oriented x 3 Skin: normal color, warm/dry, no rash Lymphatic: no adenopathy Laboratory Results Last 24 Hours Test 06/11/17 20:58 06/11/17 22:33 06/12/17 05:24 06/12/17 11:23 Bedside Glucose 133 mg/dl 96 mg/dl Total Creatine Kinase 154 U/L 145 U/L Creatine Kinase MB 7.8 ng/ml 8.3 ng/ml Creatine Kinase MB Ratio 5.1 5.7 Troponin I 1.030 ng/ml 1.070 ng/ml White Blood Count 6.00 K/uL Red Blood Count 3.43 M/uL Hemoglobin 10.0 g/dL Hematocrit 30.9 % Mean Corpuscular Volume 90.1 fL Mean Corpuscular Hemoglobin 29.2 pg Mean Corpuscular Hemoglobin Concent 32.4 g/dl Platelet Count 125 K/uL Mean Platelet Volume 10.3 fL Neutrophils (%) (Auto) 82.5 % Lymphocytes (%) (Auto) 5.2 % Monocytes (%) (Auto) 10.7 % Eosinophils (%) (Auto) 1.2 % Basophils (%) (Auto) 0.2 % Neutrophils # (Auto) 4.96 K/uL Lymphocytes # (Auto) 0.31 K/uL Monocytes # (Auto) 0.64 K/uL Eosinophils # (Auto) 0.07 K/uL Basophils # (Auto) 0.01 K/uL RDW Standard Deviation 56.2 fL RDW Coefficient of Variation 17.2 % Immature Granulocyte % (Auto) 0.2 % Immature Granulocyte # (Auto) 0.01 K/uL Sodium Level 139 mmol/L Potassium Level 4.3 mmol/L Chloride Level 105 mmol/L Carbon Dioxide Level 27 mmol/L Anion Gap 7.0 mmol/L Blood Urea Nitrogen 42 mg/dl Creatinine 2.00 mg/dl Est Creatinine Clear Calc Drug Dose 26.8 ml/min Estimated GFR () 37.0 Estimated GFR (Non- 31.9 BUN/Creatinine Ratio 20.8 Random Glucose 119 mg/dl Calcium Level 8.2 mg/dl Phosphorus Level 4.2 mg/dl Magnesium Level 1.8 mg/dl Assessment and Plan 71 y/o male with admitted because of syncope with Complete heart block with new RBBB Patient has Esophageal CA S/P Neoadjuvant Chemo and S/P Laparoscopy for Esophagogastrectomy that was aborted due to advanced disease, currently receiving chemotherapy. Also with a h/o new onset Atrial fibrillation during a hospitalization in 03/2017 and was started on amiodarone and metoprolol at that time. Per report on the day of admission he was receiving chemo at the [facility] when he became dizzy and passed out. RN from [email or web address] tells me he was leaning over saying he was lightheaded, passed out for a few seconds, came back when she sat him back in the bed. They bolused him with IVFs, BP was 117/65, HR in the 50s, then dropped to the 20s but he remained conscious. BP dropped a bit to 90/62 when HR dropped. ECG showed 3rd degree heart block there. EMS was called and initial strip showed possible sinus arrest,block and he came to the ER with HR in the 30s and continued 3rd degree heart block. Complete heart block with new RBBB cause remains uncertain, ischemia heart disease or else , A Lyme titer is negative. Temporary transvenous pacemaker insertion place on 06/13/2017 Cardiology on the case, permanent pacemaker was done this morning patient remains stable PAF, Appreciate Cardiology management, restart Toprol after pacer placed, consider restarting anticoagulation in future if ok with Heme/Onc HTN-hypotensive due to CHB -hold metoprolol for now Acute kidney failure on chronic kidney disease stage III, improved after IV fluid, sales representative aircraft on the case, we will follow-up Increase activity PT OT Discussed with patient and family answer all questions DVT Prophylaxis: SCDs, Dispo-to home when stable Continued [facility] stay due to: multiple IV medications needed Discharge planning: home
[2017-06-12] MEDS ORDERED: PROCHLORPERAZINE MALEATE 10 MG TAB PO PRN (15:15)
[2017-06-12] MEDS: SODIUM CHLORIDE 0.9% 1000ML 1,000 ML IV SCH (17:19)
--- NOTE | 2017-06-12 18:26 | Procedure Note ---
Procedure Note Date of Service Jun 12, 2017. Procedure Note Procedure performed: Implantation of dual-chamber Medtronic pacemaker Staff laboratory apparatus glass grinder: David Figueroa Indication: Patient is a 72-year-old gentleman who presented to [facility] with an episode of syncope and complete heart block. Due to the nature of his event and associated symptoms he is felt to be a good candidate for permanent pacing due to symptomatic non reversible AV node dysfunction. Dual-chamber device was selected as the patient is currently in sinus rhythm which to maintain AV synchrony. The patient was informed of the risks benefits and alternatives to the intended procedure and she wished to proceed. He was taken to the electrophysiology suite in a fasting state. A preoperative antibiotic had been administered. The patient was monitored electrocardiographically throughout today's procedure and conscious sedation was administered per protocol. The left upper pectoral area is prepped and draped in usual sterile fashion. This area was anesthetized using subcutaneous menstruation of a xylocaine solution. An incision was made at this site and carried down to the prepectoralis fascia using sharp dissection. Electrocautery was also employed for dissection as well as for hemostasis. A device pocket was fashioned tissues above the pectoralis muscle. Subsequent to this maneuver the left axillary vein was accessed using modified Seldinger technique. Sheaths were placed over guidewires at this site use salt a passage of the pacing leads to the respective chambers under fluoroscopic guidance. This included right atrial and right ventricular leads. Adequate sensing and threshold parameters were obtained prior to Active fixation of the leads to the endocardial surface. The proximal portion leads were then sutured the prepectoral fascia using nonabsorbable suture. The device pocket was irrigated with antibiotic solution. The leads were then attached to the device. The device and leads were then placed in the pocket and pocket was closed in 3 layers of absorbable suture. Steri-Strips and sterile dressing were applied. The device was tested not have a sleep prior to occlusion the procedure. The patient tolerated procedure well there no immediate complications. Equipment used New pulse generator. Sterile Processing Technician Medtronic. Model number A2DR01 serial number [id number] Right atrial lead: Sterile Processing Technician Medtronic. Model number. 4076 Serial number [id number] Right ventricular lead: Sterile Processing Technician Medtronic. Model number. 4076 Serial number [id number] Measure data Right atrial lead: P-waves measured 6.3 millivolts. Pacing threshold was 0.7 volts at 0.4 milliseconds with a pacing impedance of 467 Ohms Right ventricular lead: R-waves measured 4 millivolts. Pacing threshold was 1 volt at 0.4 milliseconds with a pacing impedance of 693 Ohms Impression: Successful implantation of dual-chamber permanent pacemaker Plan: The patient will be monitored on the torres overnight. Additional doses of antibiotics will be administered. A chest x-ray and reinterrogation of the device we informed the morning. Should all parameters be adequate and the patient feeling well he be considered for discharge at that time
[2017-06-12] MEDS: CEFAZOLIN IV 1,000 MG in DEXTROSE 5% 50ML 50 ML IV SCH (20:35)
[2017-06-12] MEDS ORDERED: NURSING VERBAL MED ORDER ONE (21:30)
[2017-06-13 03:08] VITALS: BP 103/60; PULSE 60; TEMP 36.3; O2SAT 94
[2017-06-13] MEDS: CEFAZOLIN IV 1,000 MG in DEXTROSE 5% 50ML 50 ML IV SCH ×2 (03:21→12:32)
[2017-06-13 05:57] LABS: BASO % 0.2 %; BASO ABS # 0.01 K/uL (0-0.2); COMPLETE YES; EOS % 11.4 %; HEMATOCRIT 28.1 % (42-52); IG% 0.2 %; LYMPH ABS # 0.51 K/uL (1.2-3.4); MEAN CELL VOLUME 88.6 fL (80-100); MEAN CORPUSCULAR HGB CONC 32.7 g/dl (32-36); MONO % 10.2 %; PLATELET COUNT 110 K/uL (130-400); RED BLOOD COUNT 3.17 M/uL (4.7-6.1); WHITE BLOOD COUNT 5.68 K/uL (4.8-10.8)
[2017-06-13 06:34] LABS: BUN/CREATININE RATIO 21.9 (10-20); CREATININE 1.8 mg/dl (0.60-1.40); MAGNESIUM 1.6 mg/dl (1.8-2.4); PHOSPHORUS 2.9 mg/dl (2.5-4.9); POTASSIUM 3.6 mmol/L (3.5-5.1)
--- NOTE | 2017-06-13 07:40 | DIAGNOSTIC IMAGING REPORT ---
CHEST 2 VIEWS ROUTINE CLINICAL HISTORY: EXACT TIME ORDERED Evaluate for pneumothorax and lead placement COMPARISON STUDY: Chest radiograph June 11, 2017. FINDINGS: There has been interval placement of a dual lead right subclavian pacemaker. Lead tips project over the right atrial appendage and right ventricle. There is no pneumothorax or evidence of pulmonary edema. Mild left basilar opacity favors atelectasis. A left subclavian [id number] remains in place. There are trace bilateral pleural effusions. IMPRESSION: 1. No pneumothorax following placement of a dual lead right subclavian pacemaker. 2. Trace bilateral pleural effusions. 3. Mild left basilar opacity suggestive of atelectasis. Electronically signed by: Sylvester Devine M.D. 06/13/2017 7:39 AM Dictated Date/Time: 06/13/2017 7:37 AM
--- NOTE | 2017-06-13 07:47 | Cardiology Follow-Up ---
Subjective Date of Service: Jun 13, 2017. Pt evaluation today including: conversation w/ patient, physical exam, review of studies Social History Smoking Status: Former Smoker History of Alcohol Use: No Review of Systems Respiratory: No cough, No sputum, No wheezing, No shortness of breath, No dyspnea on exertion, No dyspnea at rest, No hemoptysis Cardiac: No chest pain, No orthopnea, No PND, No edema, No claudication, No palpitations Objective Vital Signs Past 12 Hours Date Time Temp Pulse Resp B/P (MAP) Pulse Ox O2 Delivery O2 Flow Rate FiO2 06/13/17 03:27 Room Air 06/13/17 03:08 36.3 60 23 103/60 (74) 94 Room Air 06/12/17 23:47 36.6 61 20 107/65 (79) 93 Room Air 06/12/17 23:00 Room Air 06/12/17 20:03 36.6 74 18 120/63 (82) 97 06/12/17 20:00 97 Room Air Last Recorded Weight-Kilograms: 68.800 Physical Exam Constitutional: General Apperance: too thin Level of Distress: NAD, mild distress Ambulation: ambulating normally Lungs: Respiratory effort: no dyspnea, good air movement Auscultation: breath sounds normal, no wheezing Cardiovascular: Heart Auscultation: RRR, no murmurs, no rubs, no gallops Peripheral Pulses: Bruits: none appreciated Extremities: no edema Pacemaker implant site appears well healed. No hematoma. No ecchymosis. No erythema. Data Laboratory Results: Last 24 Hours Test 06/12/17 11:23 06/12/17 20:33 06/13/17 05:39 Bedside Glucose 96 mg/dl 110 mg/dl White Blood Count 5.68 K/uL Red Blood Count 3.17 M/uL Hemoglobin 9.2 g/dL Hematocrit 28.1 % Mean Corpuscular Volume 88.6 fL Mean Corpuscular Hemoglobin 29.0 pg Mean Corpuscular Hemoglobin Concent 32.7 g/dl Platelet Count 110 K/uL Mean Platelet Volume 10.0 fL Neutrophils (%) (Auto) 69.0 % Lymphocytes (%) (Auto) 9.0 % Monocytes (%) (Auto) 10.2 % Eosinophils (%) (Auto) 11.4 % Basophils (%) (Auto) 0.2 % Neutrophils # (Auto) 3.92 K/uL Lymphocytes # (Auto) 0.51 K/uL Monocytes # (Auto) 0.58 K/uL Eosinophils # (Auto) 0.65 K/uL Basophils # (Auto) 0.01 K/uL RDW Standard Deviation 56.0 fL RDW Coefficient of Variation 17.3 % Immature Granulocyte % (Auto) 0.2 % Immature Granulocyte # (Auto) 0.01 K/uL Sodium Level 139 mmol/L Potassium Level 3.6 mmol/L Chloride Level 105 mmol/L Carbon Dioxide Level 27 mmol/L Anion Gap 7.0 mmol/L Blood Urea Nitrogen 40 mg/dl Creatinine 1.80 mg/dl Est Creatinine Clear Calc Drug Dose 29.7 ml/min Estimated GFR () 42.0 Estimated GFR (Non- 36.3 BUN/Creatinine Ratio 21.9 Random Glucose 83 mg/dl Calcium Level 8.0 mg/dl Phosphorus Level 2.9 mg/dl Magnesium Level 1.6 mg/dl Imaging: Chest x-ray demonstrates good lead position. No pneumothorax EKG: A paced V sensed Telemetry reviewed: Atrially paced rhythm I performed a complete device interrogation. There is normal sensing and thresholds on both the atrial and ventricular leads. A full report was printed and placed in the permanent record. Assessment and Plan 1. Complete heart block: Patient underwent successful implantation of dual- chamber permanent pacemaker yesterday. Pacemaker is functioning normally. There does not appear to be any complication from the procedure. From a pacemaker standpoint the patient is ready for discharge. He should refrain from lifting the right arm over his shoulder or behind his neck for 6 weeks. He should keep the wound dry in the Steri-Strips intact for period of 1 week. He will be scheduled with a follow-up visit in the Cardiology Clinic for a wound check next week. I would also suggest reinstitution of his metoprolol therapy at the time of discharge. 2. Left atrial echodensity: Patient did have an unusual density in the left atrium on echocardiogram performed yesterday. This may in fact simply be an element of the mitral annulus. Does not appear to be a vegetation and has no syndrome consistent with endocarditis. This point I think this can be followed over time. Given his other comorbidities urgent investigation does not appear to be required. Patient can follow up with me in the clinic for assessment at a later time.
[2017-06-13] MEDS: PANTOprazole SOD 40 MG TAB PO SCH (08:11)
[2017-06-13] MEDS: MULTIVITAMIN TAB PO SCH (08:11)
[2017-06-13] MEDS: DOCUSATE SODIUM 100 MG CAP PO SCH ×2 (08:11→20:47)
[2017-06-13] MEDS: ASPIRIN 81 MG ECTAB PO SCH (08:11)
[2017-06-13] MEDS: POTASSIUM CHLORIDE 20 MEQ TABCR PO SCH (08:12)
[2017-06-13] MEDS ORDERED: MAGNESIUM SULFATE 1GM / D5W 1 GM in PREMIXED IN D5W 100 ML IV ONE (08:15)
[2017-06-13 08:24] VITALS: BP 98/62; PULSE 61; O2SAT 96
[2017-06-13] MEDS: METOPROLOL SUCC 50MG EXT REL TAB PO SCH (08:26)
[2017-06-13] MEDS: MAGNESIUM OXIDE 400 MG TAB PO SCH ×2 (08:28→20:47)
--- NOTE | 2017-06-13 08:33 | Nephrology Progress Note ---
Nephrology Progress Note Date of Service Jun 13, 2017. Chief Complaint Follow-up for acute kidney injury. Tylor Kessler was seen and examined in his room this morning. Has been overall doing well, currently denies any symptom. Had dual-chamber permanent pacemaker placed yesterday afternoon, no overnight events blood pressure stable. Renal function continues to improve creatinine 1.8 this morning, a little electrolyte acceptable. Remain non-oliguric. Review of Systems A complete review of systems was performed. Pertinent positives are noted above. All other systems are negative. Vital Signs Last 8 Hrs Date Time Temp Pulse Resp B/P (MAP) Pulse Ox O2 Delivery O2 Flow Rate FiO2 06/13/17 03:27 Room Air 06/13/17 03:08 36.3 60 23 103/60 (74) 94 Room Air 06/12/17 23:47 36.6 61 20 107/65 (79) 93 Room Air Last Recorded Weight Weight (Kilograms): 68.800 Physical Exam GENERAL: Elderly male, AAA x 3, pleasant, healthy-appearing, not in any distress. NECK: Supple, no JVD. RESPIRATORY: Normal breathing efforts, no accessory muscle use, clear to auscultation bilaterally, no wheezes or rales. CARDIOVASCULAR: S1, S2 normal, rate rhythm regular. EXTREMITY: No lower extremity edema NEURO: speech fluent. PSYCHIATRY: Normal mood and judgment Family History Patient reports no known family medical history. Social History Drug Use: none Marital Status: Occupation: retired Laboratory Results Past 24 Hours 06/13/17 05:39 Red Blood Count 3.17, Mean Corpuscular Volume 88.6, Mean Corpuscular Hemoglobin 29.0, Mean Corpuscular Hemoglobin Concent 32.7, Mean Platelet Volume 10.0, Neutrophils (%) (Auto) 69.0, Lymphocytes (%) (Auto) 9.0, Monocytes (%) (Auto) 10.2, Eosinophils (%) (Auto) 11.4, Basophils (%) (Auto) 0.2, Neutrophils # (Auto ) 3.92, Lymphocytes # (Auto) 0.51, Monocytes # (Auto) 0.58, Eosinophils # (Auto ) 0.65, Basophils # (Auto) 0.01 06/13/17 05:39 Test 06/12/17 11:23 06/12/17 20:33 06/13/17 05:39 Bedside Glucose 96 mg/dl (70-99) 110 mg/dl (70-99) White Blood Count 5.68 K/uL (4.8-10.8) Red Blood Count 3.17 M/uL (4.7-6.1) Hemoglobin 9.2 g/dL (14.0-18.0) Hematocrit 28.1 % (42-52) Mean Corpuscular Volume 88.6 fL (80-100) Mean Corpuscular Hemoglobin 29.0 pg (25-34) Mean Corpuscular Hemoglobin Concent 32.7 g/dl (32-36) Platelet Count 110 K/uL (130-400) Mean Platelet Volume 10.0 fL (7.4-10.4) Neutrophils (%) (Auto) 69.0 % Lymphocytes (%) (Auto) 9.0 % Monocytes (%) (Auto) 10.2 % Eosinophils (%) (Auto) 11.4 % Basophils (%) (Auto) 0.2 % Neutrophils # (Auto) 3.92 K/uL (1.4-6.5) Lymphocytes # (Auto) 0.51 K/uL (1.2-3.4) Monocytes # (Auto) 0.58 K/uL (0.11-0.59) Eosinophils # (Auto) 0.65 K/uL (0-0.5) Basophils # (Auto) 0.01 K/uL (0-0.2) RDW Standard Deviation 56.0 fL (36.4-46.3) RDW Coefficient of Variation 17.3 % (11.5-14.5) Immature Granulocyte % (Auto) 0.2 % Immature Granulocyte # (Auto) 0.01 K/uL (0.00-0.02) Anion Gap 7.0 mmol/L (3-11) Est Creatinine Clear Calc Drug Dose 29.7 ml/min Estimated GFR () 42.0 Estimated GFR (Non- 36.3 BUN/Creatinine Ratio 21.9 (10-20) Calcium Level 8.0 mg/dl (8.5-10.1) Phosphorus Level 2.9 mg/dl (2.5-4.9) Magnesium Level 1.6 mg/dl (1.8-2.4) Allergies Coded Allergies: Adhesives (Verified Allergy, Unknown, TAPE-RED ITCHY WITH SOME TAPE, ) NO KNOWN DRUG ALLERGIES (Verified Allergy, Unknown, NONE, 04/13/17) Medications Current Inpatient Medications Medications (Trade) Dose Ordered Sig/Bulmaro Route Start Time Stop Time Status Last Admin Dose Admin Acetaminophen (Tylenol Tab) 650 mg Q4H PRN PO 06/11/17 14:30 07/11/17 14:29 Tramadol HCl (Ultram Tab) 50 mg Q4H PRN PO 06/11/17 14:30 07/11/17 14:29 Docusate Sodium (coLACE CAP) 100 mg BID PO 06/11/17 21:00 07/11/17 20:59 06/12/17 20:35 100 MG Pantoprazole Sodium (Protonix Tab) 40 mg DAILY PO 06/12/17 09:00 07/12/17 08:59 06/12/17 14:38 40 MG Aspirin (Ecotrin Tab) 81 mg QAM PO 06/12/17 09:00 07/12/17 08:59 06/12/17 14:38 81 MG Cefazolin Sodium 1000 mg/Dextrose 55 ml @ 100 mls/hr Q8H IV 06/12/17 20:00 06/13/17 19:59 06/13/17 03:21 100 MLS/HR Oxycodone HCl (Roxicodone Immediate Rel Tab) 5 mg Q4 PRN PO 06/12/17 13:30 06/26/17 13:29 Metoprolol Succinate (Toprol Xl Tab) 50 mg DAILY PO 06/13/17 09:00 07/13/17 08:59 Multivitamins (Multivitamin Tab) 1 tab QAM PO 06/13/17 09:00 07/13/17 08:59 Potassium Chloride (Klor-Con Tab) 20 meq DAILY PO 06/13/17 09:00 07/13/17 08:59 Prochlorperazine Maleate (Compazine Tab) 10 mg Q6H PRN PO 06/12/17 15:15 07/12/17 15:14 Heparin Sodium (Porcine) (Heparin 100 Unit/ml 5ml Flush) 5 ml PRN PRN IV 06/12/17 21:30 07/12/17 21:29 Magnesium Sulfate 1 gm/Prmx 100 ml @ 100 mls/hr NOW STAT IV 06/13/17 07:43 06/13/17 08:42 UNV Magnesium Oxide (Mag-Ox Tab) 400 mg BID PO 06/13/17 09:00 07/13/17 08:59 UNV Impression (1) Acute kidney injury (2) Hypertension (3) Pre-diabetes (4) Esophageal adenocarcinoma (5) Syncope (6) Third degree heart block Vinny is a 72-year-old gentlemen with history of esophageal carcinoma, admitted to the hospital after an episode of syncope with complete heart block while getting chemotherapy. He had a temporary pacemaker placed on admission, and had a permanent pacemaker on 06/12/2017. Currently he is hemodynamically stable and otherwise asymptomatic. On admission he was found to have acute kidney injury creatinine was 2.1 which has been slowly improving, creatinine was 1.8 this morning, all electrolyte, volume status acceptable. He was hypotensive throughout hospital course, blood pressure improved with IV hydration. Urinalysis was positive for granular cast suggestive of prerenal etiology. Baseline creatinine has been variable from 1- 1.4 with prior history of acute kidney injury in December 2016. He is non- oliguric. Acute kidney injury thought to be hemodynamically mediated at with persistently low blood pressure, complete heart block and syncope with possible poor p.o. intake. Recommendations --Expect renal function to continue to improve, however recovery may be slow -- encourage adequate p.o. intake -- avoid nephrotoxins medications --advise patient to avoid volume depletion and NSAID going forward considering history of recurrent acute kidney injury --okay to be discharged if clinically seems stable, with close outpatient lab monitoring for recovery of renal function, suggest renal panel on Thursday and then in a week Will continue to follow This chart was completed utilizing [employer] Speech and voice recognition software. Grammatical errors, random word insertions, pronoun errors and incomplete sentences are occasional consequences of this system. Any questions or concerns about the content, text or information contained within the body of this dictation should be addressed directly to the physician for clarification.
[2017-06-13 11:43] VITALS: BP 124/82; PULSE 60; TEMP 36.8; O2SAT 97
[2017-06-13 15:58] VITALS: BP 100/66; PULSE 60; TEMP 36.4; O2SAT 98
--- NOTE | 2017-06-13 16:12 | Progress Note ---
Subjective Date of Service: Jun 13, 2017. Problem List Medical Problems: (1) Symptomatic bradycardia Status: Acute (2) Syncope Status: Acute (3) Third degree heart block Status: Acute Objective Vital Signs Date Time Temp Pulse Resp B/P (MAP) Pulse Ox O2 Delivery O2 Flow Rate FiO2 06/13/17 15:58 36.4 60 22 100/66 (77) 98 Room Air 06/13/17 12:00 Room Air 06/13/17 11:43 36.8 60 18 124/82 (96) 97 06/13/17 08:24 61 20 98/62 (74) 96 Room Air 06/13/17 08:00 Room Air 06/13/17 03:27 Room Air 06/13/17 03:08 36.3 60 23 103/60 (74) 94 Room Air 06/12/17 23:47 36.6 61 20 107/65 (79) 93 Room Air 06/12/17 23:00 Room Air 06/12/17 20:03 36.6 74 18 120/63 (82) 97 06/12/17 20:00 97 Room Air Laboratory Results Last 24 Hours Test 06/12/17 20:33 06/13/17 05:39 06/13/17 11:19 Bedside Glucose 110 mg/dl 117 mg/dl White Blood Count 5.68 K/uL Red Blood Count 3.17 M/uL Hemoglobin 9.2 g/dL Hematocrit 28.1 % Mean Corpuscular Volume 88.6 fL Mean Corpuscular Hemoglobin 29.0 pg Mean Corpuscular Hemoglobin Concent 32.7 g/dl Platelet Count 110 K/uL Mean Platelet Volume 10.0 fL Neutrophils (%) (Auto) 69.0 % Lymphocytes (%) (Auto) 9.0 % Monocytes (%) (Auto) 10.2 % Eosinophils (%) (Auto) 11.4 % Basophils (%) (Auto) 0.2 % Neutrophils # (Auto) 3.92 K/uL Lymphocytes # (Auto) 0.51 K/uL Monocytes # (Auto) 0.58 K/uL Eosinophils # (Auto) 0.65 K/uL Basophils # (Auto) 0.01 K/uL RDW Standard Deviation 56.0 fL RDW Coefficient of Variation 17.3 % Immature Granulocyte % (Auto) 0.2 % Immature Granulocyte # (Auto) 0.01 K/uL Sodium Level 139 mmol/L Potassium Level 3.6 mmol/L Chloride Level 105 mmol/L Carbon Dioxide Level 27 mmol/L Anion Gap 7.0 mmol/L Blood Urea Nitrogen 40 mg/dl Creatinine 1.80 mg/dl Est Creatinine Clear Calc Drug Dose 29.7 ml/min Estimated GFR () 42.0 Estimated GFR (Non- 36.3 BUN/Creatinine Ratio 21.9 Random Glucose 83 mg/dl Calcium Level 8.0 mg/dl Phosphorus Level 2.9 mg/dl Magnesium Level 1.6 mg/dl Assessment and Plan 71 y/o male with admitted because of syncope with Complete heart block with new RBBB Patient has Esophageal CA S/P Neoadjuvant Chemo and S/P Laparoscopy for Esophagogastrectomy that was aborted due to advanced disease, currently receiving chemotherapy. Also with a h/o new onset Atrial fibrillation during a hospitalization in 03/2017 and was started on amiodarone and metoprolol at that time. Per report on the day of admission he was receiving chemo at the [facility] when he became dizzy and passed out. RN from [facility] tells me he was leaning over saying he was lightheaded, passed out for a few seconds, came back when she sat him back in the bed. They bolused him with IVFs, BP was 117/65, HR in the 50s, then dropped to the 20s but he remained conscious. BP dropped a bit to 90/62 when HR dropped. ECG showed 3rd degree heart block there. EMS was called and initial strip showed possible sinus arrest,block and he came to the ER with HR in the 30s and continued 3rd degree heart block. Complete heart block with new RBBB cause remains uncertain, ischemia heart disease or else , A Lyme titer is negative. Temporary transvenous pacemaker insertion place on 06/11/2017 Cardiology on the case, permanent pacemaker was done on 06/12/2017 PAF, Per food production manager, should refrain from lifting the right arm over his shoulder or behind his neck for 6 weeks. He should keep the wound dry in the Steri- Strips intact for period of 1 week. Cardiology service will be scheduled with a follow-up visit in the Cardiology Clinic for a wound check next week, and reinstitution of his metoprolol therapy at the time of discharge. left atrial echodensity, per food production manager, this need to be follow up with Dr. Figueroa in the clinic for assessment at a later time. HTN, was hypotensive due to the complete heart block, will resume beta magaly for now Acute kidney failure on chronic kidney disease stage III, continue improved after IV fluid, coreroom foundry laborer on the case, we will follow-up Mild anemia, hemoglobin related to stable, patient do not report any sign of bleeding, advised him to follow-up with PCP Increase activity PT OT Discussed with patient and family answer all questions DVT Prophylaxis: SCDs, Dispo-to home if able to up and walk without dizziness and after PT OT evaluation, possible discharge tomorrow Continued [facility] stay due to: multiple IV medications needed Discharge planning: home
[2017-06-13 19:32] VITALS: BP 111/78; PULSE 64; TEMP 36.4; O2SAT 97
[2017-06-13 23:59] VITALS: BP 120/77; PULSE 61; TEMP 36.4; O2SAT 92
[2017-06-14 04:00] VITALS: BP 100/67; PULSE 67; TEMP 36.4; O2SAT 96
[2017-06-14 05:47] LABS: BASO % 0.4 %; BASO ABS # 0.02 K/uL (0-0.2); COMPLETE YES; EOS % 11.3 %; HEMATOCRIT 30.1 % (42-52); IG% 0.2 %; LYMPH % 11.5 %; LYMPH ABS # 0.62 K/uL (1.2-3.4); MEAN CELL VOLUME 89.6 fL (80-100); MEAN CORPUSCULAR HEMOGLOBIN 28.6 pg (25-34); MEAN CORPUSCULAR HGB CONC 31.9 g/dl (32-36); MEAN PLATELET VOLUME 10.3 fL (7.4-10.4); MONO % 7.8 %; NEUT % 68.8 %; PLATELET COUNT 107 K/uL (130-400); RED BLOOD COUNT 3.36 M/uL (4.7-6.1); WHITE BLOOD COUNT 5.41 K/uL (4.8-10.8)
[2017-06-14 06:12] LABS: BUN/CREATININE RATIO 20.6 (10-20); CALCIUM 7.8 mg/dl (8.5-10.1); CREATININE 1.4 mg/dl (0.60-1.40); MAGNESIUM 1.8 mg/dl (1.8-2.4); POTASSIUM 3.9 mmol/L (3.5-5.1)
[2017-06-14 07:29] VITALS: BP 104/68; PULSE 62; TEMP 36.3; O2SAT 91
[2017-06-14] MEDS: PANTOprazole SOD 40 MG TAB PO SCH (07:53)
[2017-06-14] MEDS: MAGNESIUM OXIDE 400 MG TAB PO SCH (07:53)
[2017-06-14] MEDS: MULTIVITAMIN TAB PO SCH (07:53)
[2017-06-14] MEDS: METOPROLOL SUCC 50MG EXT REL TAB PO SCH (07:53)
[2017-06-14] MEDS: ASPIRIN 81 MG ECTAB PO SCH (07:53)
[2017-06-14] MEDS: DOCUSATE SODIUM 100 MG CAP PO SCH (07:53)
[2017-06-14] MEDS: POTASSIUM CHLORIDE 20 MEQ TABCR PO SCH (07:54)
--- NOTE | 2017-06-14 10:55 | Nephrology Progress Note ---
Nephrology Progress Note Date of Service Jun 14, 2017. Chief Complaint Follow-up for acute kidney injury. Tylor Casillas was seen and examined in his room this morning. He has been overall feeling well, has been out of bed to chair and walked around the room and hallway. Renal function continues to improve, creatinine was 1.4, other electrolyte, volume status and blood pressure stable. Review of Systems A complete review of systems was performed. Pertinent positives are noted above. All other systems are negative. Vital Signs Last 8 Hrs Date Time Temp Pulse Resp B/P (MAP) Pulse Ox O2 Delivery O2 Flow Rate FiO2 06/14/17 08:00 Room Air 06/14/17 07:29 36.3 62 17 104/68 (80) 91 Room Air 06/14/17 04:00 36.4 67 16 100/67 (78) 96 Room Air 06/14/17 04:00 Room Air Last Recorded Weight Weight (Kilograms): 69.000 Physical Exam GENERAL: Elderly male, AAA x 3, pleasant, healthy-appearing, not in any distress. NECK: Supple, no JVD. RESPIRATORY: Normal breathing efforts, no accessory muscle use, clear to auscultation bilaterally, no wheezes or rales. CARDIOVASCULAR: S1, S2 normal, rate rhythm regular. EXTREMITY: No lower extremity edema NEURO: speech fluent. PSYCHIATRY: Normal mood and judgment Family History Patient reports no known family medical history. Social History Drug Use: none Marital Status: Occupation: retired Laboratory Results Past 24 Hours 06/14/17 05:31 Red Blood Count 3.36, Mean Corpuscular Volume 89.6, Mean Corpuscular Hemoglobin 28.6, Mean Corpuscular Hemoglobin Concent 31.9, Mean Platelet Volume 10.3, Neutrophils (%) (Auto) 68.8, Lymphocytes (%) (Auto) 11.5, Monocytes (%) (Auto) 7.8, Eosinophils (%) (Auto) 11.3, Basophils (%) (Auto) 0.4, Neutrophils # (Auto ) 3.73, Lymphocytes # (Auto) 0.62, Monocytes # (Auto) 0.42, Eosinophils # (Auto ) 0.61, Basophils # (Auto) 0.02 06/14/17 05:31 Test 06/13/17 11:19 06/13/17 16:05 06/13/17 20:00 06/14/17 05:31 Bedside Glucose 117 mg/dl (70-99) 101 mg/dl (70-99) 104 mg/dl (70-99) White Blood Count 5.41 K/uL (4.8-10.8) Red Blood Count 3.36 M/uL (4.7-6.1) Hemoglobin 9.6 g/dL (14.0-18.0) Hematocrit 30.1 % (42-52) Mean Corpuscular Volume 89.6 fL (80-100) Mean Corpuscular Hemoglobin 28.6 pg (25-34) Mean Corpuscular Hemoglobin Concent 31.9 g/dl (32-36) Platelet Count 107 K/uL (130-400) Mean Platelet Volume 10.3 fL (7.4-10.4) Neutrophils (%) (Auto) 68.8 % Lymphocytes (%) (Auto) 11.5 % Monocytes (%) (Auto) 7.8 % Eosinophils (%) (Auto) 11.3 % Basophils (%) (Auto) 0.4 % Neutrophils # (Auto) 3.73 K/uL (1.4-6.5) Lymphocytes # (Auto) 0.62 K/uL (1.2-3.4) Monocytes # (Auto) 0.42 K/uL (0.11-0.59) Eosinophils # (Auto) 0.61 K/uL (0-0.5) Basophils # (Auto) 0.02 K/uL (0-0.2) RDW Standard Deviation 56.3 fL (36.4-46.3) RDW Coefficient of Variation 17.3 % (11.5-14.5) Immature Granulocyte % (Auto) 0.2 % Immature Granulocyte # (Auto) 0.01 K/uL (0.00-0.02) Anion Gap 5.0 mmol/L (3-11) Est Creatinine Clear Calc Drug Dose 45.0 ml/min Estimated GFR () 57.0 Estimated GFR (Non- 49.1 BUN/Creatinine Ratio 20.6 (10-20) Calcium Level 7.8 mg/dl (8.5-10.1) Magnesium Level 1.8 mg/dl (1.8-2.4) Allergies Coded Allergies: Adhesives (Verified Allergy, Unknown, TAPE-RED ITCHY WITH SOME TAPE, ) NO KNOWN DRUG ALLERGIES (Verified Allergy, Unknown, NONE, 04/13/17) Medications Current Inpatient Medications Medications (Trade) Dose Ordered Sig/Bulmaro Route Start Time Stop Time Status Last Admin Dose Admin Acetaminophen (Tylenol Tab) 650 mg Q4H PRN PO 06/11/17 14:30 07/11/17 14:29 Tramadol HCl (Ultram Tab) 50 mg Q4H PRN PO 06/11/17 14:30 07/11/17 14:29 Docusate Sodium (coLACE CAP) 100 mg BID PO 06/11/17 21:00 07/11/17 20:59 06/14/17 07:53 100 MG Pantoprazole Sodium (Protonix Tab) 40 mg DAILY PO 06/12/17 09:00 07/12/17 08:59 06/14/17 07:53 40 MG Aspirin (Ecotrin Tab) 81 mg QAM PO 06/12/17 09:00 07/12/17 08:59 06/14/17 07:53 81 MG Oxycodone HCl (Roxicodone Immediate Rel Tab) 5 mg Q4 PRN PO 06/12/17 13:30 06/26/17 13:29 Metoprolol Succinate (Toprol Xl Tab) 50 mg DAILY PO 06/13/17 09:00 07/13/17 08:59 06/14/17 07:53 50 MG Multivitamins (Multivitamin Tab) 1 tab QAM PO 06/13/17 09:00 07/13/17 08:59 06/14/17 07:53 1 TAB Potassium Chloride (Klor-Con Tab) 20 meq DAILY PO 06/13/17 09:00 07/13/17 08:59 06/14/17 07:54 20 MEQ Prochlorperazine Maleate (Compazine Tab) 10 mg Q6H PRN PO 06/12/17 15:15 07/12/17 15:14 Heparin Sodium (Porcine) (Heparin 100 Unit/ml 5ml Flush) 5 ml PRN PRN IV 06/12/17 21:30 07/12/17 21:29 Magnesium Oxide (Mag-Ox Tab) 400 mg BID PO 06/13/17 09:00 07/13/17 08:59 06/14/17 07:53 400 MG Impression (1) Acute kidney injury (2) Hypertension (3) Pre-diabetes (4) Esophageal adenocarcinoma (5) Syncope (6) Third degree heart block Vinny is a 72-year-old gentlemen with history of esophageal carcinoma, admitted to the hospital after an episode of syncope with complete heart block while getting chemotherapy. He had a temporary pacemaker placed on admission, and had a permanent pacemaker on 06/12/2017. Currently he is hemodynamically stable and otherwise asymptomatic. On admission he was found to have acute kidney injury creatinine was 2.1 which has been slowly improving, creatinine was 1.8 this morning, all electrolyte, volume status acceptable. He was hypotensive throughout hospital course, blood pressure improved with IV hydration. Urinalysis was positive for granular cast suggestive of prerenal etiology. Baseline creatinine has been variable from 1- 1.4 with prior history of acute kidney injury in December 2016. He is non- oliguric. Acute kidney injury thought to be hemodynamically mediated at with persistently low blood pressure, complete heart block and syncope with possible poor p.o. intake. Recommendations -- Acute kidney injury has been resolving, creatinine came down to 1.4, other electrolyte acceptable. -- encourage adequate p.o. intake -- avoid nephrotoxins medications --advise patient to avoid volume depletion and NSAID going forward considering history of recurrent acute kidney injury --okay to be discharged if clinically seems stable, with close outpatient lab monitoring for recovery of renal function, suggest renal panel 2-3 days after discharge, expect Acute kidney injury to resolve soon. Will sign off. This chart was completed utilizing [employer] Speech and voice recognition software. Grammatical errors, random word insertions, pronoun errors and incomplete sentences are occasional consequences of this system. Any questions or concerns about the content, text or information contained within the body of this dictation should be addressed directly to the physician for clarification.
[2017-06-14 11:51] VITALS: BP 124/81; PULSE 61; TEMP 36.3; O2SAT 94
[2017-06-14] MEDS ORDERED: ASPEC81 PO (12:42)
[2017-06-14] MEDS ORDERED: RXC5 PO (12:42)
[2017-06-14] MEDS ORDERED: MGNO400 PO (12:42)
--- NOTE | 2017-06-14 12:43 | Discharge Instructions ---
Discharge Instructions Date of Service Jun 14, 2017. Admission Reason for Admission: Syncope, Third Degree Heart Block Discharge Discharge Diagnosis / Problem: syncope with Complete heart block with new RBBB , s/p PPM Discharge Goals Goal(s): Decrease discomfort, Improve function, Increase independence, Improve disease control, Improve nutritional status, Learn about illness, Diagnostic testing, Therapeutic intervention, Prevent Disease Progression, Specific goals Activity Recommendations Activity Limitations: as noted below Lifting Limitations: until after follow-up appointment (see below) Exercise/Sports Limitations: until after follow-up appointment (see below) . Instructions / Follow-Up Instructions / Follow-Up you have syncope with Complete heart block with new RBBB, you had permanent pacemaker was done on 06/12/[address], should refrain from lifting the right arm over his shoulder or behind his neck for 6 weeks. He should keep the wound dry in the Steri- Strips intact for period of 1 week. Cardiology service will be scheduled with a follow-up visit in the Cardiology Clinic for a wound check next week you have left atrial echodensity, per road contractor, this need to be follow up with Dr. Figueroa in the clinic for assessment at a later time. you have Acute kidney failure on chronic kidney disease stage III, encourage adequate oral intake, avoid nephrotoxins medications, advise patient to avoid volume depletion and NSAID you need to see pcp in 3-5 days and close outpatient lab monitoring for recovery of renal function, suggest renal panel 2-3 days after discharge with pcp , Rx of lab given to you - you need to follow up with your primary care physician in 1 week, - take medication as instructed, never overdose or any misuse, or take with alcohol, because misuse of medicine may cause organ damage or , call your primary care physician if have questions of medicaitons. - call your primary care physician OR go to local emergency room if has any fever/chill, chest pain, shortness of breathing, nausea/vomiting/abdominal pain , facial droop/slurry speech/local weakness, or if has any questions. - fall precaution - diet as instructed - you need to follow up with your subspecialists - you should understand that it is important to follow up the above instruction , and "not following the above instruction" may cause delayed or missed care of your medical conditions which may cause permanent organ damage and even . Current Hospital Diet Patient's current hospital diet: AHA Diet (Heart Healthy) Discharge Diet Recommended Diet: AHA Diet (Heart Healthy) Procedures Procedures Performed: Ultrasound guided vascular access Temporary transvenous pacemaker insertion Pending Studies Studies pending at discharge: no Laboratory Results Meds Administered (Past 24Hrs) Medications (Trade) Dose Ordered Sig/Bulmaro Route Start Time Stop Time Status Last Admin Dose Admin Cefazolin Sodium 1000 mg/Dextrose 55 ml @ 100 mls/hr Q8H IV 06/12/17 20:00 06/13/17 19:59 DC 06/13/17 12:32 100 MLS/HR Metoprolol Succinate (Toprol Xl Tab) 50 mg DAILY PO 06/13/17 09:00 07/13/17 08:59 06/14/17 07:53 50 MG Multivitamins (Multivitamin Tab) 1 tab QAM PO 06/13/17 09:00 07/13/17 08:59 06/14/17 07:53 1 TAB Potassium Chloride (Klor-Con Tab) 20 meq DAILY PO 06/13/17 09:00 07/13/17 08:59 06/14/17 07:54 20 MEQ Magnesium Sulfate 1 gm/Prmx 100 ml @ 100 mls/hr NOW ONCE IV 06/13/17 08:15 06/13/17 09:14 DC 06/13/17 08:10 100 MLS/HR Magnesium Oxide (Mag-Ox Tab) 400 mg BID PO 06/13/17 09:00 07/13/17 08:59 06/14/17 07:53 400 MG Lipid Panel Test 03/21/17 06:49 Range/Units Triglycerides Level 114 0-150 mg/dl Medical Emergencies . Who to Call and When: Medical Emergencies: If at any time you feel your situation is an emergency, please call 911 immediately. . Non-Emergent Contact Non-Emergency issues call your: Primary Care Provider, Dispute Specialist, Ultrasound Technol . . "Provider Documentation" section prepared by Tony Doty. . VTE Core Measure Inpt VTE Proph given/why not?: SCD's
[2017-06-14 13:11] VITALS: BP 124/81; PULSE 61; TEMP 36.3; O2SAT 94
--- NOTE | 2017-06-14 17:09 | Discharge Summary ---
Discharge Summary Date of Service Jun 14, 2017. Discharge Summary Admission Date: Jun 11, 2017 at 14:21 Discharge Date: Jun 14, 2017 Discharge Disposition: Home Principal Diagnosis: syncope with Complete heart block with new RBBB, s/p permanent pacemaker Problems/Secondary Diagnoses: left atrial echodensity, Acute kidney failure on chronic kidney disease stage III, Immunizations: Have You Had Influenza Vaccine: N/A History of Tetanus Vaccine?: Yes Tetanus Immunization Date: Feb 05, 2008 History of Pneumococcal: No Pneumococcal Date: Aug 07, 2008 History of Hepatitis B Vaccine: No Procedures: Permanent pacemaker treatment Consultations: Multimedia Manager Medication Reconciliation New Medications: Aspirin (Aspirin EC Low Dose) 81 Mg Ectab 81 MG PO QAM for 30 Days Magnesium Oxide (Magnesium-Oxide) 400 Mg Tab 400 MG PO BID for 7 Days, #14 TAB Oxycodone HCl (Oxycodone HCl) 5 Mg Tab 5 MG PO Q4 PRN for Pain for 3 Days, TAB Continued Medications: Docusate Sodium (Docusate Sodium) 100 Mg Tab 100 MG PO BID Metoprolol Succinate (Toprol Xl) 50 Mg Tab 50 MG PO DAILY, #30 TAB Multivitamin (Multivitamin) Tab 1 TAB PO QAM Omeprazole (Omeprazole) 20 Mg Tab 40 MG PO DAILY for 90 Days, #180 TAB 3 Refills Ondansetron Hcl (Zofran) 8 Mg Tab 8 MG PO Q8H PRN for Nausea Potassium Ext Rel (Klor-Con) 20 Meq Tabcr 20 MEQ PO DIRECTED, TAB PT ONLY TAKES WHEN POTASSIUM IS LOW AND RN TELLS HIM TO TAKE THIS MEDICATION Prochlorperazine Maleate (Compazine) 10 Mg Tab 10 MG PO Q6H PRN for Nausea, TAB Simethicone (Cvs Gas Relief) 80 Mg Chw 80 MG PO Q6H Tramadol (Ultram) 50 Mg Tab 50 MG PO Q4H PRN for Pain, TAB Discharge Exam Doing well, eating drinking., Has been up and walk, no dizziness no palpitation Review of Systems: Constitutional: No fever, No chills, No sweats, No weight loss, No weakness , No fatigue, No problem reported Eyes: No worsening of vision, No eye pain, No redness, No discharge, No diplopia, No problem reported ENT: No hearing loss, No unusual epistaxis, No nasal symptoms, No sore throat, No tinnitus, No dental problems, No trouble swallowing, No problem reported Respiratory: No cough, No sputum, No wheezing, No shortness of breath, No dyspnea on exertion, No dyspnea at rest, No hemoptysis, No problem reported Cardiovascular: No chest pain, No orthopnea, No PND, No edema, No claudication, No palpitations, No problem reported Abdomen: No pain, No nausea, No vomiting, No diarrhea, No constipation, No GI bleeding, No problem reported Musculoskeletal: No joint pain, No muscle pain, No swelling, No calf pain, No problem reported Genitourinary - Male: No hematuria, No dysuria, No urinary frequency, No urinary urgency, No urinary hesitancy, No urinary retention, No urinary incontinence, No penile discharge, No lesions, No impotence, No problem reported Neurologic: No memory loss, No paralysis, No weakness, No numbness/tingling , No vertigo, No balance problems, No problem reported Psychiatric: No depression symptoms, No anhedonism, No anxiety, No insomnia , No substance abuse, No problem reported Endocrine: No fatigue, No excessive thirst, No excessive urination, No problem reported Hematologic / Lymphatic: No abnormal bleeding/bruising, No clotting problems , No swollen lymph nodes, No night sweats, No problem reported Integumentary: No rash, No itch, No new/changing skin lesions, No color change, No bleeding, No problem reported Physical Exam: General Appearance: WD/WN, + thin Eyes: normal inspection, PERRL ENT: normal ENT inspection, hearing grossly normal Neck: supple, no adenopathy Respiratory/Chest: chest non-tender, + decreased breath sounds Cardiovascular: regular rate, rhythm, no edema, no JVD, + pertinent finding (left chest wall has Mediport, right chest wall has pacer) Abdomen / GI: normal bowel sounds, soft, no organomegaly, no pulsatile mass Extremities: normal inspection, no calf tenderness, normal capillary refill Neurologic/Psychiatric: insurance legal assistant II-XII nml as tested, no motor/sensory deficits , alert, normal mood/affect, normal reflexes Skin: normal color, warm/dry Hospital Course 71 y/o male with admitted because of syncope with Complete heart block with new RBBB Patient has Esophageal CA S/P Neoadjuvant Chemo and S/P Laparoscopy for Esophagogastrectomy that was aborted due to advanced disease, currently receiving chemotherapy. Also with a h/o new onset Atrial fibrillation during a hospitalization in 03/2017 and was started on amiodarone and metoprolol at that time. Per report on the day of admission he was receiving [facility] when he became dizzy and passed out. RN from Cancer Center tells me he was leaning over saying he was lightheaded, passed out for a few seconds, came back when she sat him back in the bed. They bolused him with IVFs, BP was 117/65, HR in the 50s, then dropped to the 20s but he remained conscious. BP dropped a bit to 90/62 when HR dropped. ECG showed 3rd degree heart block there. EMS was called and initial strip showed possible sinus arrest,block and he came to the ER with HR in the 30s and continued 3rd degree heart block. Complete heart block with new RBBB cause remains uncertain, ischemia heart disease or else , A Lyme titer is negative. Temporary transvenous pacemaker insertion place on 06/11/2017 Cardiology on the case, permanent pacemaker was done on 06/12/2017 PAF, Per watch repairer, should refrain from lifting the right arm over his shoulder or behind his neck for 6 weeks. He should keep the wound dry in the Steri- Strips intact for period of 1 week. Cardiology service will be scheduled with a follow-up visit in the Cardiology Clinic for a wound check next week, and reinstitution of his metoprolol therapy at the time of discharge. left atrial echodensity, per watch repairer, this need to be follow up with Dr. Figueroa in the clinic for assessment at a later time. HTN, was hypotensive due to the complete heart block, resumed beta magaly, patient tolerated well Acute kidney failure on chronic kidney disease stage III, continue improved after IV fluid, drywall professional on the case, has ordered labs to follow-up with PCP Mild anemia, hemoglobin related to stable, patient do not report any sign of bleeding, advised him to follow-up with PCP Increase activity, PT OT cleared to go home Discussed with patient and family answer all questions DVT Prophylaxis: SCDs, Dispo-to home in stable condition, answered all questions to the patient and Instructions / Follow-Up you have syncope with Complete heart block with new RBBB, you had permanent pacemaker was done on 06/12/2017 Per watch repairer, should refrain from lifting the right arm over his shoulder or behind his neck for 6 weeks. He should keep the wound dry in the Steri- Strips intact for period of 1 week. Cardiology service will be scheduled with a follow-up visit in the Cardiology Clinic for a wound check next week you have left atrial echodensity, per watch repairer, this need to be follow up with Dr. Figueroa in the clinic for assessment at a later time. you have Acute kidney failure on chronic kidney disease stage III, encourage adequate oral intake, avoid nephrotoxins medications, advise patient to avoid volume depletion and NSAID you need to see pcp in 3-5 days and close outpatient lab monitoring for recovery of renal function, suggest renal panel 2-3 days after discharge with pcp , Rx of lab given to you - you need to follow up with your primary care physician in 1 week, - take medication as instructed, never overdose or any misuse, or take with alcohol, because misuse of medicine may cause organ damage or , call your primary care physician if have questions of medicaitons. - call your primary care physician OR go to local emergency room if has any fever/chill, chest pain, shortness of breathing, nausea/vomiting/abdominal pain , facial droop/slurry speech/local weakness, or if has any questions. - fall precaution - diet as instructed - you need to follow up with your subspecialists - you should understand that it is important to follow up the above instruction , and "not following the above instruction" may cause delayed or missed care of your medical conditions which may cause permanent organ damage and even . Total Time Spent: Greater than 30 minutes This includes examination of the patient, discharge planning, medication reconciliation, and communication with other providers. Discharge Instructions Please refer to the electronic Patient Visit Report (Discharge Instructions) for additional information. Additional Copies To Vinny Santa M.D.; David Figueroa MD
== END 2017-06-14 13:55 | disposition home or self-care (01) | DRG 242 ==
LOC: EDBD 12:35 → C.EDB 12:37 → ENRESERV 13:47 → C.MSICU 14:21 → C.2T 06-12 15:15 → ENRESERV 06-12 16:52
PROVIDERS: ADMIT Family Medicine; ATTEND Hospitalist
PROC: 5A1213Z Performance of Cardiac Pacing, Intermittent (ICD-10-PCS; 2017-06-11)
PROC: 02HK3JZ Insertion of Pacemaker Lead into Right Ventricle, Percutaneous Approach (ICD-10-PCS; principal; 2017-06-12 11:30)
PROC: 02H63JZ Insertion of Pacemaker Lead into Right Atrium, Percutaneous Approach (ICD-10-PCS; principal; 2017-06-12 11:30)
PROC: 0JH606Z Insertion of Pacemaker, Dual Chamber into Chest Subcutaneous Tissue and Fascia, Open Approach (ICD-10-PCS; principal; 2017-06-12 11:30)
DX: I44.2 Atrioventricular block, complete (principal); J96.01 Acute respiratory failure with hypoxia; N17.9 Acute kidney failure, unspecified; I45.10 Unspecified right bundle-branch block; R55 Syncope and collapse; I48.0 Paroxysmal atrial fibrillation; R73.03 Prediabetes; I95.9 Hypotension, unspecified; I12.9 Hypertensive chronic kidney disease with stage 1 through stage 4 chronic kidney disease, or unspecified chronic kidney disease; N18.3 Chronic kidney disease, stage 3 (moderate); D64.9 Anemia, unspecified; R93.1 Abnormal findings on diagnostic imaging of heart and coronary circulation; Z79.899 Other long term (current) drug therapy; Z87.442 Personal history of urinary calculi; Z91.048 Other nonmedicinal substance allergy status; C16.0 Malignant neoplasm of cardia

== ENCOUNTER → 2017-07-17 | Outpatient (CLI) | payer BC, OTHER ==
[~2017-07-17] MED LIST changes: +ASPEC81 PO; -CLC100 PO; -CRD200 PO; +DOCU1TAB6 PO; -HYDR-5688 PO; +METO1TAB66 PO; +MGNO400 PO; +MRN5 PO; -MYL80 PO; +OMEP20TA PO; -OMEP40CA PO; +OPTIRAY 320 IV PRN; +POTA20TA16 PO; +PROC1TAB5 PO; +RXC5 PO; +SIME80CH40 PO; -TPRSR50 PO; +TRAM-10 PO
--- NOTE | 2017-07-17 14:55 | DIAGNOSTIC IMAGING REPORT ---
CT SCAN OF THE CHEST WITH IV CONTRAST CLINICAL HISTORY: Esophageal cancer. COMPARISON STUDY: Chest CT scans 04/17/2017, 02/09/2017, and 01/12/2009. TECHNIQUE: Following the IV administration of 94 cc of Optiray 320, CT scan of the thorax was performed from the thoracic inlet to the upper abdomen. Images are reviewed in the axial, sagittal, and coronal planes. IV contrast was administered without complication. FINDINGS: Thyroid: Imaged portions of the thyroid gland are normal in size and attenuation. Thoracic aorta: There is atherosclerotic calcification of the thoracic aorta, which is normal in caliber and demonstrates standard 3-vessel arch anatomy. No dissection is seen. A left subclavian central venous infusion port is in place. Pulmonary vasculature: The pulmonary trunk is normal in caliber. There are no filling defects identified in the central pulmonary vessels to indicate pulmonary embolus. Note that this examination was not protocoled for evaluation of the pulmonary arteries. Heart: A pacemaker in the right chest wall is new from previous. Leads terminate in the right atrial appendage and the right ventricle. The heart is mildly enlarged and without pericardial effusion. The coronary arteries are densely calcified. Lungs and pleural spaces: There is moderate emphysematous change and biapical scarring. The trachea and central airways are clear. There is trace residual left pleural effusion. No airspace consolidation is seen typical for pneumonia. There is persistent elevation of the right hemidiaphragm with right basilar atelectasis. There is a 6 mm right lower lobe pulmonary nodule on image #144 and a 5 mm left lower lobe pulmonary nodule on image #234. These are unchanged dating back to 2008 and of doubtful significance. No new or concerning pulmonary lesion is seen. Scarring versus atelectasis is noted at the lung bases. Mediastinum: There is no mediastinal lymphadenopathy. Nuris: Clear. Axillae: There is no axillary lymphadenopathy. Upper abdomen: There is a moderate hiatal hernia. Circumferential wall thickening is again seen at the gastroesophageal junction. Fluid fills the mid to distal esophagus. Low-attenuation gastrohepatic lymph nodes are similar appearance to previous. There is trace perihepatic and perisplenic ascites. Subcentimeter hepatic hypodensities may represent cysts but are too small for definitive characterization. Skeletal structures: The skeletal structures are osteopenic. There is mild degenerative change noted throughout the thoracic spine. No lytic or blastic bony lesions are seen. Soft tissues: The patient is cachectic. IMPRESSION: 1. Cardiomegaly and emphysema. 2. There is no convincing evidence of intrathoracic metastatic disease. 3. No airspace consolidation is seen. Patchy groundglass change in the left lower lung has resolved from 04/17/2017 and was likely on an infectious/inflammatory basis. 4. A trace left pleural effusion persists. 5. There are 2 pulmonary nodules measuring up to 6 which are unchanged dating back to 2008 and of doubtful significance. No new/concerning pulmonary lesion is seen. 6. Hiatal hernia. Wall thickening is again seen in the distal esophagus/proximal stomach and this is likely related to patient's known history of esophageal cancer. Additionally, there are low-density gastrohepatic lymph nodes. These have not appreciably changed from 04/17/2017. 7. A 2-lead cardiac pacemaker is new from previous. 8. Trace perihepatic and perisplenic ascites is noted. 9. Additional findings as above. Electronically signed by: Terell Diaz M.D. 07/17/2017 2:53 PM Dictated Date/Time: 07/17/2017 2:45 PM
--- NOTE | 2017-07-17 14:56 | DIAGNOSTIC IMAGING REPORT ---
ABD/PELVIS IV CONTRAST ONLY CLINICAL HISTORY: 72 years-old Male presenting with ESOPHAGEAL CA. TECHNIQUE: Multidetector CT of the abdomen and pelvis was performed after the administration of oral and intravenous contrast. IV contrast: 94 mL of Optiray 320. A dose lowering technique was used consistent with the principles of ALARA (as low as reasonably achievable). COMPARISON: 04/17/2017. CT DOSE (mGy.cm): The estimated cumulative dose is 549.09 mGy.cm. FINDINGS: Motion Picture Scene Builder topogram: Right-sided pacer with leads to the right atrium and right ventricle. Gaseous distended stomach. Lung bases: Minimal bandlike opacities in the right middle lobe likely atelectasis or scarring. Mild multichamber enlargement of the heart. Mitral annular, aortic valve, and coronary artery calcification. Liver: Congenital hypoplasia of the medial segments of the left hepatic lobe. Several well-defined hypodensities noted in the liver consistent with hepatic cysts or hamartomas, unchanged from prior. No suspicious lesion. Patent hepatic vasculature. Biliary: No intrahepatic or extrahepatic biliary ductal dilatation. Normal gallbladder. Pancreas: Moderate to severe parenchymal atrophy. Spleen: Small subcapsular fluid along the medial spleen is unchanged from prior. No parenchymal abnormality. Adrenal glands: Normal. Kidneys and ureters: Multiple well-defined hypodensities likely cysts. No hydronephrosis. Bladder: Marked circumferential bladder wall thickening, likely due to chronic outlet obstruction. Pelvic organs: Prostate enlargement likely secondary to benign prostatic hyperplasia. Bowel: Diverticulosis of the descending and sigmoid colon. Patent ileocolic anastomosis in the right lower quadrant. Inspissated material in the distal small bowel may suggest delayed transit. No bowel obstruction. Peripyloric wall thickening. Persistent marked wall thickening of the distal esophagus extending into the gastroesophageal junction. This abuts the posterior aspect of the left hepatic lobe as on prior exam. Persistent infiltration in the gastrohepatic region. Peritoneal cavity: No free fluid or intraperitoneal gas. Vasculature: Atherosclerosis of the abdominal aorta, with mild ectasia of the infrarenal portion measuring up to 3.3 cm in maximal transverse dimension. IVC patent. Lymph nodes: Infiltration in the gastric hepatic region may represent lymph nodes, although this is not well characterized. No lymphadenopathy in the remainder of the abdomen and pelvis. Abdominal wall: Postsurgical changes of the ventral abdominal wall as on prior exam. No associated fluid collection. Musculoskeletal: No destructive osseous lesion. IMPRESSION: 1. Persistent marked thickening of the distal esophageal wall extending into the gastroesophageal junction, similar to prior exam and consistent with known history of malignancy. 2. Suspected gastrohepatic lymphadenopathy, unchanged. 3. Apparent peripyloric wall thickening, possibly due to underdistention. 4. Marked bladder wall thickening likely indicating chronic outlet obstruction secondary to prostatomegaly. Electronically signed by: Vinny Hernandez M.D. 07/17/2017 2:54 PM Dictated Date/Time: 07/17/2017 2:45 PM
== END | disposition home or self-care (01) ==
LOC: C.CTS 12:24
PROVIDERS: ATTEND Internal Medicine Hematology & Oncology
DX: C16.0 Malignant neoplasm of cardia (principal)

== ENCOUNTER → 2017-08-31 | Outpatient (CLI) | payer BC, OTHER ==
[~2017-08-31] MED LIST changes: -MRN5 PO; -OPTIRAY 320 IV PRN
--- NOTE | 2017-08-31 19:29 | DIAGNOSTIC IMAGING REPORT ---
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 TECHNIQUE: PET/CT was performed from the base of the skull through the proximal thighs following the intravenous administration of 14.555 mCi of F18-FDG. Blood glucose level 108 mg/dL. The injection was performed at 2:00 PM and imaging began at 3:[address] was performed for attenuation correction purposes and anatomic localization. COMPARISON: 11/12/2016. CT DOSE (mGy.cm): The estimated cumulative dose is 1156.3. FINDINGS: Head and neck: There is no FDG-avid disease or significant lymphadenopathy in the imaged portions of the head and the neck. Chest: FDG avidity in the region of the gastroesophageal junction has increased in size and extent with associated low-density masslike thickening of the distal esophagus and gastroesophageal junction (max SUV 9.0; previously max SUV 7.2). No FDG avid lymphadenopathy in the thorax. Atherosclerosis of the aorta. Top normal heart size. Coronary artery and aortic valve calcification. Right-sided cardiac implanted device with leads to the right atrium and right ventricular apex. Emphysema. No FDG avid infiltrate or nodule. Stable benign pulmonary nodules unchanged since 2007 (series 2 images 83, 79). Abdomen and pelvis: Interval development of large amount of ascites with FDG avidity along the anterior peritoneum in the right upper quadrant (max SUV 5.1). Confluent soft tissue in the gastrohepatic, jericho hepatis, and portacaval regions, likely lymphadenopathy (max SUV 6.2, previously max SUV 2.1). Multifocal nodular infiltration of the omentum, which is diffusely FDG avid (max SUV 7.1). Nodular soft tissue also extends into the anterior abdominal wall and is noted within the subcutaneous tissue ventrally. Multiple photopenic lesions in the liver compatible with hepatic cysts. Liver has a mildly nodular contour. Significant gastric distention to the level of the pylorus. Nonspecific photopenic hypodensity along the medial spleen, possibly subcapsular fluid. Metastatic soft tissue near circumferentially surrounds the pylorus. Circumferential bladder wall thickening. Prostatomegaly. Postsurgical changes of the right colon with a patent ileocolic anastomosis. Infrarenal abdominal aortic aneurysm measures 3.3 cm in maximal transverse dimension, unchanged. Musculoskeletal: No FDG-avid or destructive bone lesion. Degenerative changes of the spine. Mild osteopenia. IMPRESSION: 1. Follow-up PET/CT demonstrates gross interval progression of disease with increased FDG avidity and prominence of the primary distal esophageal malignancy at the gastroesophageal junction, increased FDG avidity of confluence upper abdominal lymphadenopathy, peritoneal carcinomatosis with large amount of ascites, and abdominal wall metastatic nodularity. 2. Findings raise concern for partial gastric outlet obstruction secondary to near circumferential malignant soft tissue surrounding the pylorus with resultant gastric distention. 3. Circumferential bladder wall thickening could suggest cystitis versus chronic outlet obstruction in the setting of prostatomegaly. 4. Stable infrarenal abdominal aortic aneurysm. 5. Emphysema. 6. Mild osteopenia. Electronically signed by: Vinny Hernandez M.D. 08/31/2017 7:27 PM Dictated Date/Time: 08/31/2017 7:05 PM
== END | disposition home or self-care (01) ==
LOC: C.PET 13:13
PROVIDERS: ATTEND Internal Medicine Hematology & Oncology
DX: C16.0 Malignant neoplasm of cardia (principal); R59.0 Localized enlarged lymph nodes; C78.6 Secondary malignant neoplasm of retroperitoneum and peritoneum; R14.0 Abdominal distension (gaseous); R93.41 Abnormal radiologic findings on diagnostic imaging of renal pelvis, ureter, or bladder; I71.4 Abdominal aortic aneurysm, without rupture; J43.9 Emphysema, unspecified

== ENCOUNTER 2017-09-04 17:12 | Inpatient (IN) | payer BC, OTHER ==
[~2017-09-04] VITALS: Ht 175.3 cm; Wt 66.7 kg
[2017-09-04] MEDS ORDERED: SODIUM CHLORIDE 0.9% 1000ML 1,000 ML IV STA ×2 (17:29)
--- NOTE | 2017-09-04 17:41 | EMERGENCY ROOM VISIT NOTE ---
History Report prepared by Santiagoibmiguel: Maricruz Kirk Under the Supervision of: Dr. Terell Leal M.D. First contact with patient: 17:25 Chief Complaint: DEHYDRATION Stated Complaint: LOW BLOOD PRESSURE,SLEEPY,NO APPETITE,DEHYDRATED History of Present Illness The patient is a 72 year old male who presents to the Emergency Room with complaints of possible dehydration. He follows with Dr. 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 He last saw Dr. Joseph this past week and his blood pressure was in the 60's systolic. His reports he stopped taking chemotherapy in June 2017. For the past several days, the patient has felt sleepy, weak, and dehydrated. He admits to some intermittent nausea and vomiting. He coughs intermittently. He denies any recent fevers or diarrhea. His reports he has lost over 100 pounds over the past several months. Earlier today, they went to get lab work drawn, and when he got home, he "was so exhausted he fell right asleep". His became concerned and called the Hem/Onc office, and they referred him here to the ED. 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 A total of 10 systems reviewed and were otherwise negative. Past Medical & Surgical Medical Problems: (1) Acute kidney injury (2) Esophageal adenocarcinoma (3) Hypertension (4) Paroxysmal a-fib (5) Pre-diabetes Family History Patient reports no known family medical history. Social History Smoking Status: Never Smoker Drug Use: none Marital Status: Housing Status: lives with family Occupation Status: retired Current/Historical Medications Scheduled Dronabinol (Marinol), 5 MG PO TIDM Metoprolol Succinate (Toprol Xl), 50 MG PO DAILY Multivitamin (Multivitamin), 1 TAB PO QAM Omeprazole (Omeprazole), 40 MG PO DAILY Scheduled PRN Ondansetron Hcl (Zofran), 8 MG PO Q8H PRN for Nausea Oxycodone HCl (Oxycodone HCl), 5 MG PO Q4 PRN for Pain Prochlorperazine Maleate (Compazine), 10 MG PO Q6H PRN for Nausea Tramadol (Ultram), 50 MG PO Q4H PRN for Pain Allergies Coded Allergies: Adhesives (Verified Allergy, Unknown, TAPE-RED ITCHY WITH SOME TAPE, 09/04) NO KNOWN DRUG ALLERGIES (Verified Allergy, Unknown, NONE, 04/13/17) Physical Exam Vital Signs Date Time Temp Pulse Resp B/P (MAP) Pulse Ox O2 Delivery O2 Flow Rate FiO2 09/04/17 18:46 77 16 101/60 98 Room Air 09/04/17 18:11 95 Room Air 09/04/17 17:40 90 09/04/17 17:19 37.1 14 71/53 Room Air Physical Exam GENERAL: Patient is in no acute distress, he is very frail and thin. HEENT: No acute trauma, normocephalic atraumatic, mucous membranes dry, no nasal congestion, no scleral icterus. NECK: No stridor, no adenopathy, no meningismus, trachea is midline. LUNGS: Diminished breath sounds bilaterally, especially at the right base, no wheezing or rhonchi. HEART: Without murmurs gallops or rubs, regular rate and rhythm. ABDOMEN: Abdominal distension, mildly diffusely tender, lesions noted across the abdominal wall apparently by report consistent with malignancy. No peritonitis. EXTREMITIES: No cyanosis or edema, full range of motion of all the joints without pain or difficulty, no signs for acute trauma. NEUROLOGIC: Oriented x 3, no acute motor or sensory deficits, no focal weakness. SKIN: Pale, no rash, no jaundice, no diaphoresis. Medical Decision & Procedures ER Provider Diagnostic Interpretation: Radiology results as stated below per my review and radiologist interpretation: CT SCAN OF THE ABDOMEN AND PELVIS WITHOUT IV CONTRAST CLINICAL HISTORY: Generalized abdominal pain. COMPARISON STUDY: Abdominal CT dated 07/17/2017. TECHNIQUE: CT scan of the abdomen and pelvis is performed from the lung bases to the proximal femora. Images are reviewed in the axial, sagittal, and coronal planes. IV contrast was not administered for this examination as per the referring clinician. Note that the examination was performed in significantly suboptimal fashion without oral and IV contrast. A dose lowering technique was utilized adhering to the principles of ALARA. CT DOSE: 373.05 mGy.cm FINDINGS: Lung bases: The heart is enlarged and there is trace pericardial effusion. Pacemaker leads are noted. The coronary arteries are densely calcified. Emphysematous change is present the lung bases. There is elevation of the right hemidiaphragm. No airspace consolidation or pleural effusion is seen. There is a moderate hiatal hernia. Circumferential wall thickening is suggested in the distal esophagus. Liver: The unenhanced liver is cirrhotic in morphology and heterogeneous in attenuation. There is no intrahepatic biliary ductal dilatation. A 1.3 cm cyst is seen in the left hepatic lobe. Additional subcentimeter hypodensities also likely represent cysts but are too small for definitive characterization. Gallbladder: Grossly unremarkable. Spleen: Normal in size and attenuation. Pancreas: The unenhanced pancreas is markedly atrophic and grossly unremarkable. Adrenal glands: Unremarkable. Kidneys: The unenhanced kidneys are atrophic and without hydronephrosis. There is a punctate nonobstructing right renal calculus. Renovascular calcifications are observed. Subcentimeter cortical hypodensities likely represent cysts but are too small for definitive characterization. Abdominal vasculature: There is advanced atherosclerotic calcification and ectasia of the abdominal aorta and iliac arteries. Bowel: Findings suggest partial right colectomy with ileocolic anastomosis. There is no evidence of bowel obstruction. The stomach is distended and fluid-filled. Peritoneum: There is a large volume of abdominal ascites. No intraperitoneal free air is seen. There is evidence of previous ventral hernia repair. Lymphadenopathy: None. Pelvic viscera: The although decompressed, the bladder appears circumferentially thick walled. The prostate gland is enlarged and heterogeneous, measuring 5.2 cm in transverse diameter. The seminal vesicles are normal as visualized. Skeletal structures: Skeletal structures are osteopenic. Mild lumbosacral spondylosis is observed. No lytic or blastic lesions are seen. Soft tissues: The patient is cachectic. IMPRESSION: 1. The examination is significantly suboptimal without oral and IV contrast. 2. There is a large volume of abdominal ascites. This also degrades the examination. 3. Cirrhotic liver morphology. 4. Cardiomegaly and emphysema. 5. Punctate nonobstructing right renal calculus. 6. Although decompressed the bladder wall appears significantly thickened. Correlation with clinical findings and urinalysis will be required. 7. Additional findings as above. Electronically signed by: Terell Diaz M.D. 09/04/2017 6:33 PM SINGLE VIEW CHEST CLINICAL HISTORY: Change in mental status. Weakness. FINDINGS: An AP, portable, upright chest radiograph is compared to study dated 06/13/2017 and correlated with chest CT dated 07/17/2017. The examination is degraded by portable technique and patient rotation. A 2-lead cardiac pacemaker is unchanged in position, as is a left subclavian central venous infusion port. The heart is top normal for projection. There is atherosclerotic calcification of the thoracic aorta. The pulmonary vasculature is noncongested. Emphysema and chronic interstitial thickening are similar to previous. There is chronic elevation of the right hemidiaphragm with right basilar atelectasis. A small right pleural effusion is questioned. No pneumothorax is seen. The skeletal structures are osteopenic. The bony thorax is grossly intact. Skin folds project over the left hemithorax. IMPRESSION: 1. Advanced emphysema. No airspace consolidation is identified typical for pneumonia. 2. There is chronic elevation of right hemidiaphragm with right basilar atelectasis. A small right pleural effusion is not excluded. 3. Cardiac pacemaker. There is no radiographic evidence of congestive failure. Electronically signed by: Terell Diaz M.D. 09/04/2017 6:08 PM Laboratory Results 09/04/17 18:00 Red Blood Count 2.86, Mean Corpuscular Volume 93.7, Mean Corpuscular Hemoglobin 30.8, Mean Corpuscular Hemoglobin Concent 32.8, Mean Platelet Volume 10.6, Neutrophils (%) (Auto) 88.1, Lymphocytes (%) (Auto) 6.7, Monocytes (%) (Auto) 4.9, Eosinophils (%) (Auto) 0.1, Basophils (%) (Auto) 0.0, Neutrophils # (Auto) 7.07, Lymphocytes # (Auto) 0.54, Monocytes # (Auto) 0.39, Eosinophils # (Auto) 0.01, Basophils # (Auto) 0.00 09/04/17 18:00 Test 09/04/17 18:00 White Blood Count 8.03 K/uL (4.8-10.8) Red Blood Count 2.86 M/uL (4.7-6.1) Hemoglobin 8.8 g/dL (14.0-18.0) Hematocrit 26.8 % (42-52) Mean Corpuscular Volume 93.7 fL (80-100) Mean Corpuscular Hemoglobin 30.8 pg (25-34) Mean Corpuscular Hemoglobin Concent 32.8 g/dl (32-36) Platelet Count 212 K/uL (130-400) Mean Platelet Volume 10.6 fL (7.4-10.4) Neutrophils (%) (Auto) 88.1 % Lymphocytes (%) (Auto) 6.7 % Monocytes (%) (Auto) 4.9 % Eosinophils (%) (Auto) 0.1 % Basophils (%) (Auto) 0.0 % Neutrophils # (Auto) 7.07 K/uL (1.4-6.5) Lymphocytes # (Auto) 0.54 K/uL (1.2-3.4) Monocytes # (Auto) 0.39 K/uL (0.11-0.59) Eosinophils # (Auto) 0.01 K/uL (0-0.5) Basophils # (Auto) 0.00 K/uL (0-0.2) RDW Standard Deviation 53.1 fL (36.4-46.3) RDW Coefficient of Variation 15.7 % (11.5-14.5) Immature Granulocyte % (Auto) 0.2 % Immature Granulocyte # (Auto) 0.02 K/uL (0.00-0.02) Red Blood Cell Morphology Unremarkable Prothrombin Time 12.0 SECONDS (9.0-12.0) Prothromb Time International Ratio 1.1 (0.9-1.1) Activated Partial Thromboplast Time 33.4 SECONDS (21.0-31.0) Partial Thromboplastin Ratio 1.3 Anion Gap 11.0 mmol/L (3-11) Estimated GFR () 26.9 Estimated GFR (Non- 23.3 BUN/Creatinine Ratio 34.5 (10-20) Calcium Level 8.4 mg/dl (8.5-10.1) Magnesium Level 2.3 mg/dl (1.8-2.4) Total Bilirubin 0.5 mg/dl (0.2-1) Aspartate Amino Transf (AST/SGOT) 17 U/L (15-37) Alanine Aminotransferase (ALT/SGPT) 7 U/L (12-78) Alkaline Phosphatase 93 U/L (45-117) Troponin I < 0.015 ng/ml (0-0.045) Total Protein 6.6 gm/dl (6.4-8.2) Albumin 2.1 gm/dl (3.4-5.0) Globulin 4.5 gm/dl (2.5-4.0) Albumin/Globulin Ratio 0.5 (0.9-2) Thyroid Stimulating Hormone (TSH) 1.610 uIu/ml (0.300-4.500) Laboratory results reviewed by me. Medications Administered Medications (Trade) Dose Ordered Sig/Bulmaro Route Start Time Stop Time Status Last Admin Dose Admin Sodium Chloride 1,000 ml @ 999 mls/hr Q1H1M STAT IV 09/04/17 17:29 09/04/17 18:29 DC 09/04/17 18:15 999 MLS/HR Sodium Chloride 1,000 ml @ 200 mls/hr Q5H STAT IV 09/04/17 17:29 09/04/17 21:50 DC 09/04/17 19:08 200 MLS/HR ECG Indication: weakness Rate (beats per minute): 80 Rhythm: sinus rhythm Findings: PVC, no acute ischemic change ED Course 1729: NSS 1000 ml @ 999 mls/hr IV, NSS 1000 ml @ 200 mls/hr IV. 1737: The patient was evaluated in room A12. A complete history and physical exam was performed. 1856: I reevaluated the patient. He is resting comfortably. I discussed my recommendation he remain in the hospital for further evaluation and management. He and his verbalized complete understanding and agreement. 2015: I discussed the patients case with Dr. Fink, [facility] Hospitalist. The patient will be further evaluated. Medical Decision The differential diagnoses considered include dehydration, renal failure, electrolyte imbalance, anemia, obstruction, pneumonia, worsening malignancy, UTI and LA. There is no leukocytosis. The patient is anemic and his number today is lower than it has been in the past. Renal panel testing shows acute renal failure/ dehydration. No hepatitis. There is no coagulopathy. Urinalysis result is still pending. Chest x-ray shows elevation of the right hemidiaphragm, no pneumonia. EKG shows a sinus rhythm, no acute ischemia. Cardiac enzyme testing times one is not consistent with acute cardiac injury. Abdominal and pelvis CT shows findings consistent with his malignancy, no bowel obstruction. The patient received IV saline, his blood pressure has improved, I do think he requires a hospital stay. He presents hypotensive and in acute renal failure. He is clearly dehydrated. Further IV hydration is needed. The patient's hemoglobin may drop below 8 once he is properly hydrated, a transfusion may be needed if this occurs. I spoke with the patient and the returned case inspector. The on- call hospitalist was consulted. Medication Reconcilliation Current Medication List: was personally reviewed by me Blood Pressure Screening Patient's blood pressure: Low blood pressure Consults Time Called: 1854 Consulting Physician: Dr. Fink, [facility] Hospitalist Returned Call: 2014 I discussed the patients case with Dr. Fink [facility] Hospitalist. The patient will be further evaluated. Impression Primary Impression: Hypotension Additional Impressions: Acute renal failure Dehydration metastatic esophageal cancer Scribe Attestation The scribe's documentation has been prepared under my direction and personally reviewed by me in its entirety. I confirm that the note above accurately reflects all work, treatment, procedures, and medical decision making performed by me. Departure Information Dispostion Being Evaluated By Hospitalist Referrals Vinny Santa M.D. (PCP) Patient Instructions [facility] Problem Qualifiers
--- NOTE | 2017-09-04 18:09 | DIAGNOSTIC IMAGING REPORT ---
SINGLE VIEW CHEST CLINICAL HISTORY: Change in mental status. Weakness. FINDINGS: An AP, portable, upright chest radiograph is compared to study dated 06/13/2017 and correlated with chest CT dated 07/17/2017. The examination is degraded by portable technique and patient rotation. A 2-lead cardiac pacemaker is unchanged in position, as is a left subclavian central venous infusion port. The heart is top normal for projection. There is atherosclerotic calcification of the thoracic aorta. The pulmonary vasculature is noncongested. Emphysema and chronic interstitial thickening are similar to previous. There is chronic elevation of the right hemidiaphragm with right basilar atelectasis. A small right pleural effusion is questioned. No pneumothorax is seen. The skeletal structures are osteopenic. The bony thorax is grossly intact. Skin folds project over the left hemithorax. IMPRESSION: 1. Advanced emphysema. No airspace consolidation is identified typical for pneumonia. 2. There is chronic elevation of right hemidiaphragm with right basilar atelectasis. A small right pleural effusion is not excluded. 3. Cardiac pacemaker. There is no radiographic evidence of congestive failure. Electronically signed by: Terell Diaz M.D. 09/04/2017 6:08 PM Dictated Date/Time: 09/04/2017 6:06 PM
[2017-09-04] MEDS ORDERED: MRN5 PO (18:14)
[2017-09-04 18:26] LABS: EOS % 0.1 %; HEMATOCRIT 26.8 % (42-52); IG% 0.2 %; LYMPH % 6.7 %; LYMPH ABS # 0.54 K/uL (1.2-3.4); MEAN CELL VOLUME 93.7 fL (80-100); MEAN CORPUSCULAR HEMOGLOBIN 30.8 pg (25-34); MEAN CORPUSCULAR HGB CONC 32.8 g/dl (32-36); MEAN PLATELET VOLUME 10.6 fL (7.4-10.4); MONO % 4.9 %; NEUT % 88.1 %; PLATELET COUNT 212 K/uL (130-400); RED BLOOD COUNT 2.86 M/uL (4.7-6.1); WHITE BLOOD COUNT 8.03 K/uL (4.8-10.8)
--- NOTE | 2017-09-04 18:35 | DIAGNOSTIC IMAGING REPORT ---
ADDENDUM ADDENDUM: The patient also has a history of esophageal carcinoma. The circumferential wall thickening seen in the distal esophagus is likely related to the known history of malignancy. Also, there are likely subtle soft tissue implants seen throughout the abdominal wall. These are difficult to differentiate given their low density in the surrounding ascites. Peritoneal carcinomatosis is suspect. Gastrohepatic lymph nodes as seen previously are not visualized due to the surrounding ascites. Electronically signed by: Terell Diaz M.D. 09/04/2017 8:48 PM Dictated Date/Time: 09/04/2017 8:[address] SCAN OF THE ABDOMEN AND PELVIS WITHOUT IV CONTRAST CLINICAL HISTORY: Generalized abdominal pain. COMPARISON STUDY: Abdominal CT dated 07/17/2017. TECHNIQUE: CT scan of the abdomen and pelvis is performed from the lung bases to the proximal femora. Images are reviewed in the axial, sagittal, and coronal planes. IV contrast was not administered for this examination as per the referring clinician. Note that the examination was performed in significantly suboptimal fashion without oral and IV contrast. A dose lowering technique was utilized adhering to the principles of ALARA. CT DOSE: 373.05 mGy.cm FINDINGS: Lung bases: The heart is enlarged and there is trace pericardial effusion. Pacemaker leads are noted. The coronary arteries are densely calcified. Emphysematous change is present the lung bases. There is elevation of the right hemidiaphragm. No airspace consolidation or pleural effusion is seen. There is a moderate hiatal hernia. Circumferential wall thickening is suggested in the distal esophagus. Liver: The unenhanced liver is cirrhotic in morphology and heterogeneous in attenuation. There is no intrahepatic biliary ductal dilatation. A 1.3 cm cyst is seen in the left hepatic lobe. Additional subcentimeter hypodensities also likely represent cysts but are too small for definitive characterization. Gallbladder: Grossly unremarkable. Spleen: Normal in size and attenuation. Pancreas: The unenhanced pancreas is markedly atrophic and grossly unremarkable. Adrenal glands: Unremarkable. Kidneys: The unenhanced kidneys are atrophic and without hydronephrosis. There is a punctate nonobstructing right renal calculus. Renovascular calcifications are observed. Subcentimeter cortical hypodensities likely represent cysts but are too small for definitive characterization. Abdominal vasculature: There is advanced atherosclerotic calcification and ectasia of the abdominal aorta and iliac arteries. Bowel: Findings suggest partial right colectomy with ileocolic anastomosis. There is no evidence of bowel obstruction. The stomach is distended and fluid-filled. Peritoneum: There is a large volume of abdominal ascites. No intraperitoneal free air is seen. There is evidence of previous ventral hernia repair. Lymphadenopathy: None. Pelvic viscera: The although decompressed, the bladder appears circumferentially thick walled. The prostate gland is enlarged and heterogeneous, measuring 5.2 cm in transverse diameter. The seminal vesicles are normal as visualized. Skeletal structures: Skeletal structures are osteopenic. Mild lumbosacral spondylosis is observed. No lytic or blastic lesions are seen. Soft tissues: The patient is cachectic. IMPRESSION: 1. The examination is significantly suboptimal without oral and IV contrast. 2. There is a large volume of abdominal ascites. This also degrades the examination. 3. Cirrhotic liver morphology. 4. Cardiomegaly and emphysema. 5. Punctate nonobstructing right renal calculus. 6. Although decompressed the bladder wall appears significantly thickened. Correlation with clinical findings and urinalysis will be required. 7. Additional findings as above. Electronically signed by: Terell Diaz M.D. 09/04/2017 6:33 PM Dictated Date/Time: 09/04/2017 6:19 PM
[2017-09-04 18:40] LABS: ALT/SGPT 7 U/L (12-78); AST/SGOT 17 U/L (15-37); BLOOD UREA NITROGEN 90 mg/dl (7-18); BUN/CREATININE RATIO 34.5 (10-20); CALCIUM 8.4 mg/dl (8.5-10.1); CARBON DIOXIDE 26 mmol/L (21-32); CHLORIDE 98 mmol/L (98-107); GLUCOSE 105 mg/dl (70-99); MAGNESIUM 2.3 mg/dl (1.8-2.4); SODIUM 135 mmol/L (136-145)
[2017-09-04 18:49] LABS: INR 1.1 (0.9-1.1); PARTIAL THROMBOPLASTIN RATIO 1.3
[2017-09-04 18:50] LABS: ALB/GLOB RATIO 0.5 (0.9-2); ALKALINE PHOSPHATASE 93 U/L (45-117)
[2017-09-04 19:02] LABS: COMPLETE YES
[2017-09-04] MEDS ORDERED: ALUMINUM/MAGNESIUM/SIMETH (MAALOX MAX) 30 ML UDC PO PRN (20:15)
[2017-09-04] MEDS ORDERED: OXYCODONE HCL IR 5 MG TAB (IMMEDIATE RELEASE) PO PRN (20:15)
[2017-09-04] MEDS ORDERED: PROCHLORPERAZINE MALEATE 10 MG TAB PO PRN (20:15)
[2017-09-04] MEDS ORDERED: ONDANSETRON 8 MG TAB PO PRN (20:15)
[2017-09-04] MEDS ORDERED: MAGNESIUM HYDROXIDE SUSP 30 ML UDC PO PRN (20:15)
[2017-09-04] MEDS ORDERED: POLYETHYLENE (MIRALAX) 17 GM PACK PO PRN (20:15)
[2017-09-04] MEDS ORDERED: TRAMADOL HCL 50 MG TAB PO PRN (20:15)
--- NOTE | 2017-09-04 20:34 | History and Physical ---
History & Physical Date & Time of Service: Sep 04, 2017 at 20:32 Chief Complaint: Low Blood Pressure,Sleepy,No Appetite,Dehydrated Primary Care Physician: Vinny Santa M.D. 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 He presents with hypotension and fatigue. His reports that they were seen at Dr. Galvez office earlier in the week and noted to have lower blood pressures. He had advised them to monitor blood pressures and go to the ER if persistently low. Blood pressures have been 60-80's systolic and 40's-60's diastolic. They report that he is unable to tolerate solids/thick foods. They have not been given dietary recommendations. He currently manages to tolerate cream of wheat/chicken soup/ice cream. otherwise does not much of an appetite. Recently has been vomiting/ dry heaving. Currently complains of fatigue. Otherwise ROS is negative. Brief history of Cancer: Diagnosed in sep Via EGD after 3 months of dysphagia; biopsy reveals poorly differentiated Ca at the GE junction (HER 2 neg) CT at the time showed metastatic disease with involvement of hepatic and gastric LN Underwent staging laparascopy in nov 07 - revealed local mets. Neoadjuvant chemo-rad in oct and nov Admission to [facility] in March 09 for syncope- found to be in Afib w/ RVR. Subsequently underwent laparoscopy w/ esophagectomy that was aborted due to extensive mets. Also complicated by GI bleed. - no anticoagulation for Afib. Continued chemo in jun 2017- had episode of syncope again, received Pacemaker. Has been folowing with Oncology and Thoracic surgery. PET scan done aug 3107/2017- Past Medical/Surgical History Medical Problems: (1) Esophageal adenocarcinoma Permanent Comment: Dysphagia Status post upper GI endoscopy with biopsies revealing adenocarcinoma 10/06/[address] with clinical staging at [place] N1 M0 Status post biopsy of paraesophageal lymph node revealing metastatic adenocarcinoma 10/29/2016 Status post combined radiation and chemotherapy, radiation completed 12/26/2016 received 5040 cGy Status: Chronic (2) Hypertension Status: Chronic (3) Pre-diabetes Status: Chronic Family History Patient reports no known family medical history. Social History Smoking Status: Former Smoker (quit in the s) Drug Use: none Marital Status: Housing status: lives with family Occupational Status: retired Immunizations History of Influenza Vaccine: N/A History of Tetanus Vaccine?: Yes Tetanus Immunization Date: Feb 05, 2008 History of Pneumococcal: No Pneumococcal Date: Aug 07, 2008 History of Hepatitis B Vaccine: No Multi-Drug Resistant Organisms History of MDRO: No Allergies Coded Allergies: Adhesives (Verified Allergy, Unknown, TAPE-RED ITCHY WITH SOME TAPE, 09/04) NO KNOWN DRUG ALLERGIES (Verified Allergy, Unknown, NONE, 04/13/17) Home Medications Scheduled Dronabinol (Marinol), 5 MG PO TIDM Metoprolol Succinate (Toprol Xl), 50 MG PO DAILY Multivitamin (Multivitamin), 1 TAB PO QAM Omeprazole (Omeprazole), 40 MG PO DAILY Scheduled PRN Ondansetron Hcl (Zofran), 8 MG PO Q8H PRN for Nausea Oxycodone HCl (Oxycodone HCl), 5 MG PO Q4 PRN for Pain Prochlorperazine Maleate (Compazine), 10 MG PO Q6H PRN for Nausea Tramadol (Ultram), 50 MG PO Q4H PRN for Pain Review of Systems Constitutional: + weight loss, + weakness, + fatigue Eyes: No worsening of vision ENT: No hearing loss Respiratory: No cough, No sputum, No wheezing, No shortness of breath, No dyspnea on exertion, No dyspnea at rest Cardiovascular: No chest pain, No orthopnea, No edema Abdomen: + pain, + nausea, + vomiting, No diarrhea, No constipation Genitourinary - Male: No hematuria, No dysuria, No urinary frequency, No urinary urgency Hematologic / Lymphatic: + swollen lymph nodes, + night sweats Physical Exam Vital Signs Date Time Temp Pulse Resp B/P (MAP) Pulse Ox O2 Delivery O2 Flow Rate FiO2 09/04/17 18:46 77 16 101/60 98 Room Air 09/04/17 18:11 95 Room Air 09/04/17 17:40 90 09/04/17 17:19 37.1 14 71/53 Room Air General Appearance: no apparent distress, + cachetic Eyes: normal inspection, PERRL, EOMI ENT: hearing grossly normal Neck: no adenopathy, thyroid normal, no JVD Respiratory/Chest: lungs clear, normal breath sounds, no respiratory distress, no accessory muscle use Cardiovascular: regular rate, rhythm, no edema, no murmur Abdomen/GI: normal bowel sounds, + tenderness, + distended, + mass (nodular large mass), + pertinent finding (multiple surgical scars) Back: no CVA tenderness Extremities/Musculoskelatal: no calf tenderness, no pedal edema Neurologic/Psych: ecclesiastical worker II-XII nml as tested, no motor/sensory deficits, alert Diagnostics Laboratory Results Results Past 24 Hours Test 09/04/17 18:00 Range/Units White Blood Count 8.03 4.8-10.8 K/uL Red Blood Count 2.86 4.7-6.1 M/uL Hemoglobin 8.8 14.0-18.0 g/dL Hematocrit 26.8 42-52 % Mean Corpuscular Volume 93.7 80-100 fL Mean Corpuscular Hemoglobin 30.8 25-34 pg Mean Corpuscular Hemoglobin Concent 32.8 32-36 g/dl Platelet Count 212 130-400 K/uL Mean Platelet Volume 10.6 7.4-10.4 fL Neutrophils (%) (Auto) 88.1 % Lymphocytes (%) (Auto) 6.7 % Monocytes (%) (Auto) 4.9 % Eosinophils (%) (Auto) 0.1 % Basophils (%) (Auto) 0.0 % Neutrophils # (Auto) 7.07 1.4-6.5 K/uL Lymphocytes # (Auto) 0.54 1.2-3.4 K/uL Monocytes # (Auto) 0.39 0.11-0.59 K/uL Eosinophils # (Auto) 0.01 0-0.5 K/uL Basophils # (Auto) 0.00 0-0.2 K/uL RDW Standard Deviation 53.1 36.4-46.3 fL RDW Coefficient of Variation 15.7 11.5-14.5 % Immature Granulocyte % (Auto) 0.2 % Immature Granulocyte # (Auto) 0.02 0.00-0.02 K/uL Red Blood Cell Morphology Unremarkable Prothrombin Time 12.0 9.0-12.0 SECONDS Prothromb Time International Ratio 1.1 0.9-1.1 Activated Partial Thromboplast Time 33.4 21.0-31.0 SECONDS Partial Thromboplastin Ratio 1.3 Sodium Level 135 136-145 mmol/L Potassium Level 4.0 3.5-5.1 mmol/L Chloride Level 98 98-107 mmol/L Carbon Dioxide Level 26 21-32 mmol/L Anion Gap 11.0 3-11 mmol/L Blood Urea Nitrogen 90 7-18 mg/dl Creatinine 2.60 0.60-1.40 mg/dl Estimated GFR () 26.9 Estimated GFR (Non- 23.3 BUN/Creatinine Ratio 34.5 10-20 Random Glucose 105 70-99 mg/dl Calcium Level 8.4 8.5-10.1 mg/dl Magnesium Level 2.3 1.8-2.4 mg/dl Total Bilirubin 0.5 0.2-1 mg/dl Aspartate Amino Transf (AST/SGOT) 17 15-37 U/L Alanine Aminotransferase (ALT/SGPT) 7 12-78 U/L Alkaline Phosphatase 93 45-117 U/L Troponin I < 0.015 0-0.045 ng/ml Total Protein 6.6 6.4-8.2 gm/dl Albumin 2.1 3.4-5.0 gm/dl Globulin 4.5 2.5-4.0 gm/dl Albumin/Globulin Ratio 0.5 0.9-2 Thyroid Stimulating Hormone (TSH) 1.610 0.300-4.500 uIu/ml Impression Assessment and Plan This is a 72 y/o M with metastatic esophageal ca, Afib, who presents with fatigue and hypotension. Plan as follows: Acute kidney injury/Hypotension/dehydration Cr baseline of 1.3-1.4, currently at 2.6 Received 2 L in the ER, will continue gentle hydration Check u/a to rule out infection/ atn/ other causes of arf Reduce metoprolol to 25 mg Recheck Cr in 6 hrs and AM. Follow lytes Afib, currently in sinus rhythm s/p pacemaker on metoprolol 50 mg - will reduce to 25 mg Unable to anticoagulate due to previous GI bleed and metastatic ca. Metastatic esophageal Ca, rapidly progressive Abdominal ct: large volume of abdominal ascites, carcinomatosis Thoracic surgery, per recent visit, recommends no surgical intervention PET scan reveals large volume ascites ?Gastric outlet obstruction Given Guarded prognosis, Recommend Palliative care discussion by day team tomorrow. Speech eval Acid Leveler consult- dietary recommendations Normocytic Anemia: Repeat CBC AM likely from the Ca, but also poor intake vs. GI bleed could be combination of Fe/b12/folate DVT proph: Will hold on chemical means due to history of bleed + met cancer (lovenox better option but due to [place], will hold off) SCD's Code: FULL, though patient does not want to be in a "vegetative state" development disability specialist. Resident Physician Supervision Note: I was present with Dr. Luu during the history and exam. I discussed the case with the resident and agree with the findings and plan as documented in the note. Any exceptions or clarifications are listed here: 72 y/o M Hx locally advanced esophageal CA, AF, pacer - has not been able to maintain adequate PO intake. Recent issues with hypotension likely due to volume depletion. Presenting with persistent hypotension and weakness. Initial labs consitent with ARF, anemia OE AAO x 3 RRR CTA - poor b/l air movement NT, ND No CCE P: IVF and dietary advice will be provided Trend BMP, Hb Pts med-term prognosis is poor and may beenfit from palliative consult Above discussed with pt and resident Documented By: Iván Fink VTE Prophylaxis VTE Risk Assessment Done? Y/N: Yes Risk Level: High
[2017-09-04 21:30] VITALS: BP 106/71; PULSE 73; TEMP 36.4; O2SAT 100; Ht 175.3 cm; Wt 66.7 kg
[2017-09-04] MEDS ORDERED: SODIUM CHLORIDE 0.9% 1000ML 1,000 ML IV SCH (22:00)
[2017-09-04] MEDS ORDERED: INFLUENZA VACCINE HIGH DOSE 65+ 0.5 ML SYR IM. ONE (22:30)
[2017-09-04] MEDS ORDERED: INFLUENZA ADMINISTRATION CHARGE ONE (22:30)
[2017-09-04 23:05] LABS: URINE APPEARANCE CLOUDY (CLEAR); URINE BILIRUBIN NEG (NEG); URINE COLOR YELLOW; URINE EPITHELIAL CELL AUTO 20-30 /lpf (0-5); URINE NITRITE NEG (NEG); URINE SPECIFIC GRAVITY 1.025 (1.000-1.030); UROBILINOGEN NEG (NEG)
[2017-09-04 23:07] VITALS: BP 95/70; PULSE 77; TEMP 35.7; O2SAT 100
[2017-09-04 23:08] LABS: MANUAL MICROSCOPIC REQUIRED? NO; REVIEW REQ? YES
[2017-09-04 23:54] LABS: ZZUR CULT IF INDIC CLEAN CATCH NO
[2017-09-05] VITALS (12 sets, daily range): BP systolic 90–129; BP diastolic 60–69; PULSE 68–93; TEMP 35.5–36.8; O2SAT 95–97
[2017-09-05 00:05] LABS: BUN/CREATININE RATIO 36.6 (10-20); CREATININE 2.4 mg/dl (0.60-1.40); POTASSIUM 3.9 mmol/L (3.5-5.1)
[2017-09-05 06:34] LABS: EOS % 0.2 %; HEMATOCRIT 23.1 % (42-52); IG% 0.3 %; LYMPH % 8.1 %; MEAN CELL VOLUME 93.9 fL (80-100); MEAN CORPUSCULAR HEMOGLOBIN 31.3 pg (25-34); MEAN CORPUSCULAR HGB CONC 33.3 g/dl (32-36); MEAN PLATELET VOLUME 10.3 fL (7.4-10.4); MONO % 3.7 %; NEUT % 87.7 %; PLATELET COUNT 184 K/uL (130-400); RED BLOOD COUNT 2.46 M/uL (4.7-6.1); WHITE BLOOD COUNT 6.17 K/uL (4.8-10.8)
[2017-09-05 06:55] LABS: COMPLETE YES
[2017-09-05 07:08] LABS: CREATININE 2.4 mg/dl (0.60-1.40); MAGNESIUM 2.3 mg/dl (1.8-2.4); POTASSIUM 3.9 mmol/L (3.5-5.1)
[2017-09-05] MEDS: MULTIVITAMIN TAB PO SCH (08:56)
[2017-09-05] MEDS: DRONABINOL 2.5 MG CAP PO SCH ×3 (08:56→16:54)
[2017-09-05] MEDS ORDERED: METOPROLOL SUCC 50MG EXT REL TAB PO SCH (09:00)
[2017-09-05] MEDS ORDERED: METOPROLOL SUCC 25MG EXT REL TAB PO SCH (09:00)
[2017-09-05] MEDS ORDERED: NURSING VERBAL MED ORDER ONE ×3 (09:00→17:15)
[2017-09-05] MEDS ORDERED: D5W AND 1/2NSS 1,000 ML IV SCH (09:00)
--- NOTE | 2017-09-05 10:55 | Family Medicine Progress Note ---
Progress Note Date of Service Sep 05, 2017. Subjective Pt evaluation today including: conversation w/ patient, physical exam, chart review, lab review Pain: denies pain PO Intake: liquid diet Voiding: soto catheter in place 72-year-old male with a past medical history of metastatic Esophageal cancer, atrial fibrillation presented to the ER with complaints of fatigue and hypotension. Continues to complain of weakness, fatigue. Has decreased by mouth intake due to lack of appetite. Denies any chest pain, difficulty breathing, palpitations, abdominal pain Constitutional: + weight loss, + weakness, + fatigue, No fever, No chills Eyes: No worsening of vision ENT: No hearing loss Respiratory: No cough Cardiovascular: No chest pain, No orthopnea, No edema Abdomen: + problem reported (lack of appetite) Musculoskeletal: No joint pain Medications Current Inpatient Medications Medications (Trade) Dose Ordered Sig/Bulmaro Route Start Time Stop Time Status Last Admin Dose Admin Enoxaparin Sodium (Lovenox Inj) 30 mg Q24H SC 09/05/17 09:00 10/05/17 08:59 Future Hold Al Hydrox/Mg Hydrox/Simethicone (Maalox Max Susp) 15 ml Q4H PRN PO 09/04/17 20:15 10/04/17 20:14 Magnesium Hydroxide (Milk Of Magnesia Susp) 30 ml Q12H PRN PO 09/04/17 20:15 10/04/17 20:14 Ondansetron HCl (Zofran Inj) 4 mg Q6H PRN IV 09/04/17 20:15 10/04/17 20:14 Polyethylene (Miralax Powder Packet) 17 gm DAILY PRN PO 09/04/17 20:15 10/04/17 20:14 Pantoprazole Sodium 40 mg/ Syringe 10 ml @ 5 mls/min DAILY@11 IV 09/05/17 11:00 10/05/17 10:59 Multivitamins (Multivitamin Tab) 1 tab QAM PO 09/05/17 09:00 10/05/17 08:59 09/05/17 08:56 1 TAB Ondansetron HCl (Zofran Tab) 8 mg Q8H PRN PO 09/04/17 20:15 10/04/17 20:14 Oxycodone HCl (Roxicodone Immediate Rel Tab) 5 mg Q4 PRN PO 09/04/17 20:15 09/18/17 20:14 Prochlorperazine Maleate (Compazine Tab) 10 mg Q6H PRN PO 09/04/17 20:15 10/04/17 20:14 Tramadol HCl (Ultram Tab) 50 mg Q4H PRN PO 09/04/17 20:15 10/04/17 20:14 Dronabinol (Marinol Cap) 5 mg TIDM PO 09/05/17 07:30 10/05/17 07:29 09/05/17 08:56 5 MG Heparin Sodium (Porcine) (Heparin 100 Unit/ml 5ml Flush) 5 ml PRN PRN IV 09/05/17 00:30 10/05/17 00:29 Dextrose/Sodium Chloride 1,000 ml @ 75 mls/hr [id number] IV 09/05/17 09:00 10/05/17 08:59 09/05/17 08:57 75 MLS/HR Objective Vital Signs Date Time Temp Pulse Resp B/P (MAP) Pulse Ox O2 Delivery O2 Flow Rate FiO2 09/05/17 08:00 36.4 86 16 90/60 (70) 95 09/05/17 06:04 36.6 09/05/17 06:03 36.5 09/05/17 04:00 Room Air 09/05/17 03:30 36.6 09/05/17 03:00 36.3 93 16 95/61 (72) 97 Room Air 09/05/17 02:29 35.9 09/05/17 01:58 35.5 09/05/17 01:35 35.7 09/05/17 00:57 35.6 09/05/17 00:01 Room Air 09/04/17 23:07 35.7 77 16 95/70 (78) 100 Room Air 09/04/17 21:30 36.4 73 16 106/71 100 Room Air 09/04/17 21:00 78 16 101/60 98 09/04/17 18:46 77 16 101/60 98 Room Air 09/04/17 18:11 95 Room Air 09/04/17 17:40 90 09/04/17 17:19 37.1 14 71/53 Room Air Physical Exam General Appearance: no apparent distress, + cachetic Eyes: normal inspection ENT: hearing grossly normal Neck: supple Respiratory/Chest: chest non-tender, normal breath sounds Cardiovascular: regular rate, rhythm Abdomen: + distended, + pertinent finding (multiple nodules suggestive of carcinomatosis) Extremities: no pedal edema, no calf tenderness Neurologic/Psychiatric: alert, normal mood/affect, oriented x 3 Skin: normal color Laboratory Results 09/05/17 06:10 Red Blood Count 2.46, Mean Corpuscular Volume 93.9, Mean Corpuscular Hemoglobin 31.3, Mean Corpuscular Hemoglobin Concent 33.3, Mean Platelet Volume 10.3, Neutrophils (%) (Auto) 87.7, Lymphocytes (%) (Auto) 8.1, Monocytes (%) (Auto) 3.7, Eosinophils (%) (Auto) 0.2, Basophils (%) (Auto) 0.0, Neutrophils # (Auto) 5.41, Lymphocytes # (Auto) 0.50, Monocytes # (Auto) 0.23, Eosinophils # (Auto) 0.01, Basophils # (Auto) 0.00 09/05/17 06:10 Test 09/04/17 18:00 09/04/17 22:00 09/05/17 06:06 09/05/17 06:10 Red Blood Cell Morphology Unremarkable Prothrombin Time 12.0 SECONDS (9.0-12.0) Prothromb Time International Ratio 1.1 (0.9-1.1) Activated Partial Thromboplast Time 33.4 SECONDS (21.0-31.0) Partial Thromboplastin Ratio 1.3 Total Bilirubin 0.5 mg/dl (0.2-1) Aspartate Amino Transf (AST/SGOT) 17 U/L (15-37) Alanine Aminotransferase (ALT/SGPT) 7 U/L (12-78) Alkaline Phosphatase 93 U/L (45-117) Troponin I < 0.015 ng/ml (0-0.045) Total Protein 6.6 gm/dl (6.4-8.2) Albumin 2.1 gm/dl (3.4-5.0) Globulin 4.5 gm/dl (2.5-4.0) Albumin/Globulin Ratio 0.5 (0.9-2) Thyroid Stimulating Hormone (TSH) 1.610 uIu/ml (0.300-4.500) Urine Color YELLOW Urine Appearance CLOUDY (CLEAR) Urine pH 5.0 (4.5-7.5) Urine Specific [place] 1.025 (1.000-1.030) Urine Protein TRACE (NEG) Urine Glucose (UA) NEG (NEG) Urine Ketones NEG (NEG) Urine Occult Blood NEG (NEG) Urine Nitrite NEG (NEG) Urine Bilirubin NEG (NEG) Urine Urobilinogen NEG (NEG) Urine Leukocyte Esterase SMALL (NEG) Urine WBC (Auto) 1-5 /hpf (0-5) Urine RBC (Auto) 0-4 /hpf (0-4) Urine Hyaline Casts (Auto) 10-30 /lpf (0-5) Urine Epithelial Cells (Auto) 20-30 /lpf (0-5) Urine Bacteria (Auto) NEG (NEG) Urine Crystals URIC ACID (NONE PRSENT) Urine Pathogenic Casts 20-30 GRANULAR CASTS /lpf (0) Urine Yeast (Auto) (NONE PRSENT) Bedside Glucose 81 mg/dl (70-99) White Blood Count 6.17 K/uL (4.8-10.8) Red Blood Count 2.46 M/uL (4.7-6.1) Hemoglobin 7.7 g/dL (14.0-18.0) Hematocrit 23.1 % (42-52) Mean Corpuscular Volume 93.9 fL (80-100) Mean Corpuscular Hemoglobin 31.3 pg (25-34) Mean Corpuscular Hemoglobin Concent 33.3 g/dl (32-36) Platelet Count 184 K/uL (130-400) Mean Platelet Volume 10.3 fL (7.4-10.4) Neutrophils (%) (Auto) 87.7 % Lymphocytes (%) (Auto) 8.1 % Monocytes (%) (Auto) 3.7 % Eosinophils (%) (Auto) 0.2 % Basophils (%) (Auto) 0.0 % Neutrophils # (Auto) 5.41 K/uL (1.4-6.5) Lymphocytes # (Auto) 0.50 K/uL (1.2-3.4) Monocytes # (Auto) 0.23 K/uL (0.11-0.59) Eosinophils # (Auto) 0.01 K/uL (0-0.5) Basophils # (Auto) 0.00 K/uL (0-0.2) RDW Standard Deviation 54.6 fL (36.4-46.3) RDW Coefficient of Variation 15.9 % (11.5-14.5) Immature Granulocyte % (Auto) 0.3 % Immature Granulocyte # (Auto) 0.02 K/uL (0.00-0.02) Anion Gap 12.0 mmol/L (3-11) Est Creatinine Clear Calc Drug Dose 22.9 ml/min Estimated GFR () 29.7 Estimated GFR (Non- 25.6 BUN/Creatinine Ratio 35.0 (10-20) Calcium Level 8.0 mg/dl (8.5-10.1) Phosphorus Level 4.0 mg/dl (2.5-4.9) Magnesium Level 2.3 mg/dl (1.8-2.4) Assessment and Plan 72-year-old male with past medical history of metastatic esophageal cancer admitted with fatigue and hypotension Hypotension: - Likely secondary to dehydration. - Continue IV fluids with NSS at 100 mls/hr , albumin 12 .5 mg every 6 hours 4 - Metoprolol currently held Acute kidney injury/decreased urinary output -Likely secondary to dehydration/hypotension - Creatinine at 2.6, baseline 1.3 - Continue IV fluids Metastatic esophageal carcinoma: - Abdominal CT suggestive of circumferential wall thickening in the distal esophagus in support of a history of esophageal cancer. Subtle soft tissue implants- ? Peritoneal carcinomatosis - not amenable to surgery ,Had received chemotherapy and radiation therapy in the past - Oncology consult - Discussed about goals of care considering poor prognosis, but the family hopes to discuss with oncology about chemotherapy. Fatigue /Cachexia: - Manager Dental consult History of atrial fibrillation: Status post pacemaker Currently sinus rhythm - Rate control with metoprolol, currently held due to hypotension -No anticoagulation considering history of GI bleed DVT prophylaxis: SCDs Full code Resident Tracking Resident Involvement: Resident Care Provided Care Provided: Adult Hospital Medicine Reviewed: Pt Seen/Exam by Me History Resident Physician Supervision Note: I was present with Dr. Glover during the history and exam. I discussed the case with the resident and agree with the findings and plan as documented in the note. Any exceptions or clarifications are listed here: Pt eating some liquids today, making very little urine despite receiving IVFs, renal function minimally better. Pt does not speak much at all but is awake and cooperative. states that they are awaiting to start more chemo in the near future despite his very poor condition. BPs improved today. He has noticed lumps in the skin of his abdomen just in the last 2 weeks. Denies hematemesis/hematochezia/melena Vitals reviewed, tele with NSR, occasional PVC Cachectic appearing, awake, alert RRR no mgr CTAB no wcr Abd +BS, +mild distension, +fluid wave, +dullness to percussion about [address] side of abdomen, multiple visible and palpable firm nodules on abdominal wall Ext trace pitting edema bilat to knees : Soto in place with minimal clear yellow urine 72 yo male with metastatic esophageal CA, here with dehydration, profound hypotension, [place], and progressing metastatic disease, large volume ascites and carcinomatosis with abd wall nodules now palpable, cachexia and severe protein calorie malnutrition. -pt wants to continue full course of treatment -start IV albumin and increase/change IVFs back to NS today for colloid support of hypotension, low UOP -follow I/Os, BPs, holding metoprolol -follow PRP -Anemia likely secondary to cancer but not much different from previous -pt plans on trying more chemo if offered-as per his , pt seems to defer to his to do most of the talking -Overall has very poor prognosis, especially now that has [place] likely from ATN, hypotension from hypoalbuminemia, progressive metastatic CA--> would suggest Palliative Care consult but pt and would like to speak to Oncology -consider Oncology consult in AM or on Thursday -Maecd-Eobaocn-pe to restart, no signs of bleeding, high risk for DVT Documented By: Rosaura Subramanian
[2017-09-05] MEDS ORDERED: PANTOprazole INJ 40 MG in SYRINGE 0 ML IV SCH (11:00)
[2017-09-05] MEDS ORDERED: PNEUMOCOCCAL POLYSACCHARIDES 25 MCG/0.5 ML VIAL/SYR IM. ONE (11:15)
[2017-09-05] MEDS ORDERED: PNEUMOCOCCAL ADMINISTRATION CHARGE ONE (11:15)
[2017-09-05] MEDS ORDERED: INFLUENZA VACCINE HIGH DOSE 65+ 0.5 ML SYR IM. ONE (11:30)
[2017-09-05] MEDS ORDERED: INFLUENZA ADMINISTRATION CHARGE ONE (11:30)
[2017-09-05] MEDS: ALBUMIN HUMAN 25% 12.5 GM/50 ML VIAL IV SCH ×2 (14:19→20:24)
[2017-09-05] MEDS: BOOST GLUCOSE CONTROL PO SCH (16:45)
[2017-09-05] MEDS: SODIUM CHLORIDE 0.9% 1000ML 1,000 ML IV SCH (17:08)
[2017-09-05] MEDS ORDERED: SODIUM CHLORIDE 0.9% 250ML 250 ML IV ONE (17:30)
[2017-09-05] MEDS: BOOST VANILLA PO SCH ×2 (18:00)
[2017-09-06] VITALS (9 sets, daily range): BP systolic 96–106; BP diastolic 60–73; PULSE 60–84; TEMP 36.3–36.6; O2SAT 92–100
[2017-09-06] MEDS: ALBUMIN HUMAN 25% 12.5 GM/50 ML VIAL IV SCH ×2 (02:29→07:45)
[2017-09-06] MEDS: SODIUM CHLORIDE 0.9% 1000ML 1,000 ML IV SCH ×3 (03:17→23:08)
[2017-09-06 06:26] LABS: EOS % 0.3 %; HEMATOCRIT 21.9 % (42-52); IG% 0.1 %; LYMPH % 5.5 %; LYMPH ABS # 0.37 K/uL (1.2-3.4); MEAN CELL VOLUME 96.5 fL (80-100); MEAN CORPUSCULAR HEMOGLOBIN 31.7 pg (25-34); MEAN CORPUSCULAR HGB CONC 32.9 g/dl (32-36); MEAN PLATELET VOLUME 10.1 fL (7.4-10.4); MONO % 4.9 %; NEUT % 89.2 %; PLATELET COUNT 163 K/uL (130-400); RED BLOOD COUNT 2.27 M/uL (4.7-6.1); WHITE BLOOD COUNT 6.67 K/uL (4.8-10.8)
[2017-09-06 06:44] LABS: COMPLETE YES
[2017-09-06 06:55] LABS: BUN/CREATININE RATIO 34.9 (10-20); CREATININE 2.2 mg/dl (0.60-1.40); MAGNESIUM 2.1 mg/dl (1.8-2.4); PHOSPHORUS 3.5 mg/dl (2.5-4.9); POTASSIUM 3.5 mmol/L (3.5-5.1)
[2017-09-06] MEDS: DRONABINOL 2.5 MG CAP PO SCH ×3 (07:42→16:32)
[2017-09-06] MEDS: BOOST VANILLA PO SCH ×6 (07:42→16:02)
[2017-09-06] MEDS: PANTOprazole SOD 40 MG TAB PO SCH (07:43)
[2017-09-06] MEDS: MULTIVITAMIN TAB PO SCH (07:43)
[2017-09-06] MEDS: ONDANSETRON INJ 2 MG/ML 2 ML VIAL IV PRN (07:46)
[2017-09-06] MEDS: ENOXAPARIN 30 MG/0.3 ML SYR SC SCH (09:00)
[2017-09-06 11:51] LABS: HEMATOCRIT 22.6 % (42-52)
[2017-09-06] MEDS ORDERED: NURSING VERBAL MED ORDER ONE (16:00)
[2017-09-06] MEDS ORDERED: SODIUM CHLORIDE 0.9% 250ML 250 ML IV SCH (16:00)
--- NOTE | 2017-09-06 17:09 | Family Medicine Progress Note ---
Progress Note Date of Service Sep 06, 2017. Subjective Pt evaluation today including: conversation w/ patient, physical exam, chart review, lab review Pain: denies any pain PO Intake: improving Voiding: soto catheter in place 72-year-old male with a past medical history of metastatic Esophageal cancer, atrial fibrillation presented to the ER with complaints of fatigue and hypotension. No acute events overnight. Denies any chest pain, shortness of breath, palpitations, abdominal pain. PO intake has slightly improved. Denies any black tarry stools, bright red bleeding per rectum, hematemesis Constitutional: No fever, No chills Eyes: No worsening of vision ENT: No hearing loss Respiratory: No cough, No sputum Cardiovascular: No chest pain Abdomen: No pain, No nausea Musculoskeletal: No joint pain Male : No dysuria, No urinary frequency Neurologic: No memory loss Psychiatric: No depression symptoms Heme: No abnormal bleeding/bruising Medications Current Inpatient Medications Medications (Trade) Dose Ordered Sig/Bulmaro Route Start Time Stop Time Status Last Admin Dose Admin Enoxaparin Sodium (Lovenox Inj) 30 mg Q24H SC 09/05/17 09:00 10/05/17 08:59 Future hold Al Hydrox/Mg Hydrox/Simethicone (Maalox Max Susp) 15 ml Q4H PRN PO 09/04/17 20:15 10/04/17 20:14 Magnesium Hydroxide (Milk Of Magnesia Susp) 30 ml Q12H PRN PO 09/04/17 20:15 10/04/17 20:14 Ondansetron HCl (Zofran Inj) 4 mg Q6H PRN IV 09/04/17 20:15 10/04/17 20:14 09/06/17 07:46 4 MG Polyethylene (Miralax Powder Packet) 17 gm DAILY PRN PO 09/04/17 20:15 10/04/17 20:14 Multivitamins (Multivitamin Tab) 1 tab QAM PO 09/05/17 09:00 10/05/17 08:59 09/06/17 07:43 1 TAB Ondansetron HCl (Zofran Tab) 8 mg Q8H PRN PO 09/04/17 20:15 10/04/17 20:14 Oxycodone HCl (Roxicodone Immediate Rel Tab) 5 mg Q4 PRN PO 09/04/17 20:15 09/18/17 20:14 Prochlorperazine Maleate (Compazine Tab) 10 mg Q6H PRN PO 09/04/17 20:15 10/04/17 20:14 Tramadol HCl (Ultram Tab) 50 mg Q4H PRN PO 09/04/17 20:15 10/04/17 20:14 09/05/17 16:57 50 MG Dronabinol (Marinol Cap) 5 mg TIDM PO 09/05/17 07:30 10/05/17 07:29 09/06/17 16:32 5 MG Heparin Sodium (Porcine) (Heparin 100 Unit/ml 5ml Flush) 5 ml PRN PRN IV 09/05/17 00:30 10/05/17 00:29 Sodium Chloride 1,000 ml @ 100 mls/hr Q10H IV 09/05/17 17:15 10/05/17 17:14 09/06/17 13:27 100 MLS/HR Enteral Nutritional Formula (Boost) 1 can TIDM PO 09/05/17 18:00 10/05/17 17:59 09/06/17 07:42 1 CAN Pantoprazole Sodium (Protonix Tab) 40 mg QAM PO 09/06/17 09:00 10/06/17 08:59 09/06/17 07:43 40 MG Objective Vital Signs Date Time Temp Pulse Resp B/P (MAP) Pulse Ox O2 Delivery O2 Flow Rate FiO2 09/06/17 16:00 Room Air 09/06/17 15:05 36.3 82 16 99/68 (78) 92 Room Air 09/06/17 12:01 Room Air 09/06/17 11:49 36.6 81 18 98/68 (78) 98 Room Air 09/06/17 08:05 Room Air 09/06/17 07:45 36.3 81 16 103/60 (74) 97 09/06/17 04:00 36.5 77 16 102/67 (79) 95 Room Air 09/06/17 04:00 Room Air 09/06/17 00:14 36.4 83 14 97/65 (76) 97 Room Air 09/06/17 00:00 Room Air 09/05/17 20:00 Room Air 09/05/17 18:55 36.4 78 15 98/65 (76) 96 Room Air Physical Exam General Appearance: WD/WN, + cachetic Eyes: normal inspection ENT: hearing grossly normal Neck: supple Respiratory/Chest: chest non-tender, lungs clear Cardiovascular: regular rate, rhythm Abdomen: + distended, + pertinent finding (several nodules suggestive of carcinomatosis) Extremities: no pedal edema Neurologic/Psychiatric: alert, normal mood/affect, oriented x 3 Skin: normal color Laboratory Results 09/06/17 05:39 Red Blood Count 2.27, Mean Corpuscular Volume 96.5, Mean Corpuscular Hemoglobin 31.7, Mean Corpuscular Hemoglobin Concent 32.9, Mean Platelet Volume 10.1, Neutrophils (%) (Auto) 89.2, Lymphocytes (%) (Auto) 5.5, Monocytes (%) (Auto) 4.9, Eosinophils (%) (Auto) 0.3, Basophils (%) (Auto) 0.0, Neutrophils # (Auto) 5.94, Lymphocytes # (Auto) 0.37, Monocytes # (Auto) 0.33, Eosinophils # (Auto) 0.02, Basophils # (Auto) 0.00 09/06/17 11:45 09/06/17 05:39 Test 09/06/17 05:39 White Blood Count 6.67 K/uL (4.8-10.8) Red Blood Count 2.27 M/uL (4.7-6.1) Hemoglobin 7.2 g/dL (14.0-18.0) Hematocrit 21.9 % (42-52) Mean Corpuscular Volume 96.5 fL (80-100) Mean Corpuscular Hemoglobin 31.7 pg (25-34) Mean Corpuscular Hemoglobin Concent 32.9 g/dl (32-36) Platelet Count 163 K/uL (130-400) Mean Platelet Volume 10.1 fL (7.4-10.4) Neutrophils (%) (Auto) 89.2 % Lymphocytes (%) (Auto) 5.5 % Monocytes (%) (Auto) 4.9 % Eosinophils (%) (Auto) 0.3 % Basophils (%) (Auto) 0.0 % Neutrophils # (Auto) 5.94 K/uL (1.4-6.5) Lymphocytes # (Auto) 0.37 K/uL (1.2-3.4) Monocytes # (Auto) 0.33 K/uL (0.11-0.59) Eosinophils # (Auto) 0.02 K/uL (0-0.5) Basophils # (Auto) 0.00 K/uL (0-0.2) RDW Standard Deviation 55.7 fL (36.4-46.3) RDW Coefficient of Variation 15.9 % (11.5-14.5) Immature Granulocyte % (Auto) 0.1 % Immature Granulocyte # (Auto) 0.01 K/uL (0.00-0.02) Anion Gap 9.0 mmol/L (3-11) Est Creatinine Clear Calc Drug Dose 26.3 ml/min Estimated GFR () 33.0 Estimated GFR (Non- 28.5 BUN/Creatinine Ratio 34.9 (10-20) Calcium Level 8.0 mg/dl (8.5-10.1) Phosphorus Level 3.5 mg/dl (2.5-4.9) Magnesium Level 2.1 mg/dl (1.8-2.4) Assessment and Plan 72-year-old male with past medical history of metastatic esophageal cancer admitted with fatigue and hypotension Hypotension: Appears to be improving - Likely secondary to dehydration. - Continue IV fluids with NSS at 100 mls/hr , had received albumin 12 .5 mg every 6 hours 4 yesterday - Metoprolol currently held Anemia: - Hemoglobin in the range of 7.2-7.4, baseline 9- 10.5 - Monitor hemoglobin and hematocrit - Hemoccult stool Acute kidney injury/decreased urinary output -Likely secondary to dehydration/hypotension - Creatinine at 2.2, baseline 1.3 - Continue IV fluids Metastatic esophageal carcinoma: - Abdominal CT suggestive of circumferential wall thickening in the distal esophagus in support of a history of esophageal cancer. Subtle soft tissue implants- ? Peritoneal carcinomatosis - not amenable to surgery ,Had received chemotherapy and radiation therapy in the past - Discussed about goals of care considering poor prognosis, but the family hopes to discuss with oncology about chemotherapy. - Oncology consult Fatigue /Cachexia: -Contributed by lack of appetite/anemia - Nail Technician Teacher consult History of atrial fibrillation: Status post pacemaker Currently sinus rhythm - Rate control with metoprolol, currently held due to hypotension -No anticoagulation considering history of GI bleed DVT prophylaxis: SCDs Lovenox has been held with concerns of any occult bleeding. : Hemoglobin Has been dropping Disposition: Transferred to [facility] Resident Tracking Resident Involvement: Resident Care Provided Care Provided: Adult Hospital Medicine Reviewed: Pt Seen/Exam by Me History Resident Physician Supervision Note: I interviewed and examined the patient. Discussed with Dr. Glover and agree with findings and plan as documented in the note. Any exceptions or clarifications are listed here: Pt very tired today, still with low UOP but slightly improved from yesterday. Denies pain or abd pain. BPs low normal Vitals reviewed Cachectic appearing, awake, alert RRR no mgr CTAB no wcr Abd +BS, +mild distension, multiple visible and palpable firm nodules on abdominal wall Ext trace pitting edema bilat to knees : Soto in place with minimal clear yellow urine 72 yo male with metastatic esophageal CA, here with dehydration, profound hypotension, [place], and progressing metastatic disease, large volume ascites and carcinomatosis with abd wall nodules now palpable, cachexia and severe protein calorie malnutrition. -pt wants to continue full course of treatment as offered by Oncology-awaiting Dr. Joseph to see him tomorrow -received IV albumin and IVFs, continue IVFs -follow I/Os, BPs, continue to hold metoprolol -follow PRP -Anemia likely secondary to cancer and slightly lower today, repeat up--> transfuse if <7.5 in AM -Overall has very poor prognosis, especially now that has CHEYENNE likely from ATN, hypotension from hypoalbuminemia, progressive metastatic CA--> would suggest Palliative Care consult but pt and would like to speak to Oncology first -[id number]-[id number]-yc to restart, no signs of bleeding, high risk for DVT Documented By: Rosaura Subramanian
[2017-09-07 04:03] VITALS: BP 99/68; PULSE 85; TEMP 36.4; O2SAT 100
[2017-09-07 05:53] LABS: EOS % 0.3 %; HEMATOCRIT 23.1 % (42-52); IG% 0.1 %; LYMPH % 6.5 %; LYMPH ABS # 0.51 K/uL (1.2-3.4); MEAN CELL VOLUME 96.7 fL (80-100); MEAN PLATELET VOLUME 10.2 fL (7.4-10.4); MONO % 2.4 %; NEUT % 90.7 %; PLATELET COUNT 167 K/uL (130-400); RED BLOOD COUNT 2.39 M/uL (4.7-6.1); WHITE BLOOD COUNT 7.86 K/uL (4.8-10.8)
[2017-09-07 06:26] LABS: BUN/CREATININE RATIO 34.7 (10-20); CALCIUM 7.9 mg/dl (8.5-10.1); CREATININE 2.06 mg/dl (0.60-1.40); POTASSIUM 3.8 mmol/L (3.5-5.1)
[2017-09-07 06:29] LABS: COMPLETE YES; POIKILOCYTOSIS PRESENT
[2017-09-07 07:12] VITALS: BP 96/62; PULSE 83; TEMP 36.5; O2SAT 100
[2017-09-07] MEDS: ONDANSETRON INJ 2 MG/ML 2 ML VIAL IV PRN (08:14)
[2017-09-07] MEDS: BOOST VANILLA PO SCH ×6 (08:17→17:00)
[2017-09-07] MEDS: DRONABINOL 2.5 MG CAP PO SCH ×3 (08:17→17:00)
[2017-09-07] MEDS: MULTIVITAMIN TAB PO SCH (08:17)
[2017-09-07] MEDS: PANTOprazole SOD 40 MG TAB PO SCH (08:18)
[2017-09-07] MEDS: ENOXAPARIN 30 MG/0.3 ML SYR SC SCH (08:18)
[2017-09-07] MEDS: SODIUM CHLORIDE 0.9% 1000ML 1,000 ML IV SCH (08:20)
--- NOTE | 2017-09-07 09:19 | Oncology Consultation ---
Oncology/Heme Consultation Date of Consultation: Sep 07, 2017. Attending Physician: Rosaura Subramanian MD Reason for Consultation: Metastatic gastroesophageal cancer Malnutrition Hypotension History of Present Illness Mr. Uribe is a 72 year old man with a history of EGJ adenocarcinoma with recently discovered, widely metastatic disease. He has been declining clinically for a while now, so much so that we had to suspend chemotherapy a month or two ago. In that time, he has continued to fail. His appetite is minimal and he is losing weight. He's also tired and generally weak. He was admitted this time with generalized weakness and was found to be hypotensive. He also had an CHEYENNE. He has improved with IV hydration and was sitting up in bed during our visit. He did not complain of significant pain. Past Medical/Surgical History Medical Problems: (1) Acute renal failure Status: Acute (2) Dehydration Status: Acute (3) Hypotension Status: Acute (4) Symptomatic bradycardia Status: Acute (5) Syncope Status: Acute (6) Third degree heart block Status: Acute Family History Patient reports no known family medical history. Social History Smoking Status: Former Smoker Drug Use: none Marital Status: Housing Status: lives with family Occupation Status: retired Allergies Coded Allergies: Adhesives (Verified Allergy, Unknown, TAPE-RED ITCHY WITH SOME TAPE, 09/04) NO KNOWN DRUG ALLERGIES (Verified Allergy, Unknown, NONE, 04/13/17) Home Medications Scheduled Dronabinol (Marinol), 5 MG PO TIDM Metoprolol Succinate (Toprol Xl), 50 MG PO DAILY Multivitamin (Multivitamin), 1 TAB PO QAM Omeprazole (Omeprazole), 40 MG PO DAILY Scheduled PRN Ondansetron Hcl (Zofran), 8 MG PO Q8H PRN for Nausea Oxycodone HCl (Oxycodone HCl), 5 MG PO Q4 PRN for Pain Prochlorperazine Maleate (Compazine), 10 MG PO Q6H PRN for Nausea Tramadol (Ultram), 50 MG PO Q4H PRN for Pain Current Inpatient Medications Current Inpatient Medications Medications (Trade) Dose Ordered Sig/Bulmaro Route Start Time Stop Time Status Last Admin Dose Admin Enoxaparin Sodium (Lovenox Inj) 30 mg Q24H SC 09/05/17 09:00 10/05/17 08:59 Future hold Al Hydrox/Mg Hydrox/Simethicone (Maalox Max Susp) 15 ml Q4H PRN PO 09/04/17 20:15 10/04/17 20:14 Magnesium Hydroxide (Milk Of Magnesia Susp) 30 ml Q12H PRN PO 09/04/17 20:15 10/04/17 20:14 Ondansetron HCl (Zofran Inj) 4 mg Q6H PRN IV 09/04/17 20:15 10/04/17 20:14 09/07/17 08:14 4 MG Polyethylene (Miralax Powder Packet) 17 gm DAILY PRN PO 09/04/17 20:15 10/04/17 20:14 Multivitamins (Multivitamin Tab) 1 tab QAM PO 09/05/17 09:00 10/05/17 08:59 09/07/17 08:17 1 TAB Ondansetron HCl (Zofran Tab) 8 mg Q8H PRN PO 09/04/17 20:15 10/04/17 20:14 Oxycodone HCl (Roxicodone Immediate Rel Tab) 5 mg Q4 PRN PO 09/04/17 20:15 09/18/17 20:14 Prochlorperazine Maleate (Compazine Tab) 10 mg Q6H PRN PO 09/04/17 20:15 10/04/17 20:14 Tramadol HCl (Ultram Tab) 50 mg Q4H PRN PO 09/04/17 20:15 10/04/17 20:14 09/05/17 16:57 50 MG Dronabinol (Marinol Cap) 5 mg TIDM PO 09/05/17 07:30 10/05/17 07:29 09/07/17 08:17 5 MG Heparin Sodium (Porcine) (Heparin 100 Unit/ml 5ml Flush) 5 ml PRN PRN IV 09/05/17 00:30 10/05/17 00:29 Sodium Chloride 1,000 ml @ 100 mls/hr Q10H IV 09/05/17 17:15 10/05/17 17:14 09/07/17 08:20 100 MLS/HR Enteral Nutritional Formula (Boost) 1 can TIDM PO 09/05/17 18:00 10/05/17 17:59 09/07/17 08:17 1 CAN Pantoprazole Sodium (Protonix Tab) 40 mg QAM PO 09/06/17 09:00 10/06/17 08:59 09/07/17 08:18 40 MG Review of Systems Constitutional: + weight loss, + weakness, + fatigue ENT: + trouble swallowing Respiratory: No cough, No shortness of breath Cardiovascular: No chest pain Abdomen: No pain, No nausea, No vomiting Musculoskeletal: No joint pain, No muscle pain Neurologic: + weakness Hematologic / Lymphatic: No abnormal bleeding/bruising Integumentary: + problem reported (subcutaneous nodules on his abdomen) Physical Exam Date Time Temp Pulse Resp B/P (MAP) Pulse Ox O2 Delivery O2 Flow Rate FiO2 09/07/17 07:12 36.5 83 20 96/62 (73) 100 Room Air 09/07/17 04:03 36.4 85 18 99/68 (78) 100 Room Air 09/07/17 00:00 Room Air 09/06/17 22:58 36.6 60 18 96/66 (76) 09/06/17 20:01 36.6 84 20 104/66 (79) 100 Room Air 09/06/17 17:55 83 18 106/73 (84) 98 Room Air 09/06/17 17:48 36.3 82 16 92 09/06/17 16:00 Room Air 09/06/17 15:05 36.3 82 16 99/68 (78) 92 Room Air 09/06/17 12:01 Room Air 09/06/17 11:49 36.6 81 18 98/68 (78) 98 Room Air General Appearance: no apparent distress, + cachetic Eyes: EOMI ENT: pharynx normal Respiratory/Chest: lungs clear Cardiovascular: regular rate, rhythm, no edema Abdomen/GI: non tender, soft, + pertinent finding (numerous subcutaneous masses along his abdominal wall) Extremities/Musculoskelatal: no pedal edema Neurologic/Psych: no motor/sensory deficits, alert, oriented x 3 Skin: no rash Laboratory Results Last 24 Hours Test 09/06/17 11:45 09/07/17 05:39 Hemoglobin 7.4 g/dL 7.4 g/dL Hematocrit 22.6 % 23.1 % White Blood Count 7.86 K/uL Red Blood Count 2.39 M/uL Mean Corpuscular Volume 96.7 fL Mean Corpuscular Hemoglobin 31.0 pg Mean Corpuscular Hemoglobin Concent 32.0 g/dl Platelet Count 167 K/uL Mean Platelet Volume 10.2 fL Neutrophils (%) (Auto) 90.7 % Lymphocytes (%) (Auto) 6.5 % Monocytes (%) (Auto) 2.4 % Eosinophils (%) (Auto) 0.3 % Basophils (%) (Auto) 0.0 % Neutrophils # (Auto) 7.13 K/uL Lymphocytes # (Auto) 0.51 K/uL Monocytes # (Auto) 0.19 K/uL Eosinophils # (Auto) 0.02 K/uL Basophils # (Auto) 0.00 K/uL RDW Standard Deviation 55.9 fL RDW Coefficient of Variation 15.8 % Immature Granulocyte % (Auto) 0.1 % Immature Granulocyte # (Auto) 0.01 K/uL Poikilocytosis PRESENT Sodium Level 143 mmol/L Potassium Level 3.8 mmol/L Chloride Level 109 mmol/L Carbon Dioxide Level 21 mmol/L Anion Gap 13.0 mmol/L Blood Urea Nitrogen 71 mg/dl Creatinine 2.06 mg/dl Est Creatinine Clear Calc Drug Dose 28.0 ml/min Estimated GFR () 35.7 Estimated GFR (Non- 30.8 BUN/Creatinine Ratio 34.7 Random Glucose 79 mg/dl Calcium Level 7.9 mg/dl Assessment & Plan Mr. Uribe appears to be in the process of dying. He is cachectic, weak, and fading. His disease has behaved very aggressively in the time since our last treatment. He had scans on July 17 that showed essentially stable disease. His next scan, about 6 weeks later, revealed widespread progression. He has very chemo-refractory disease, as it progressed despite chemoradiation. We tried chemo following that, but he tolerated it very poorly. He is in no condition for further therapy and, besides that, he appears to be in the process of dying. I suggested hospice would be the best approach for him. We discussed a bit about the goals of hospice care and he seemed amenable, though he requested I also discuss this with his . Please consult palliative care in the meantime, so we can get the process started. He might also benefit from a therapeutic paracentesis, if one is feasible given his carcinomatosis.
--- NOTE | 2017-09-07 09:29 | Hospitalist Progress Note ---
Hospitalist Progress Note Date of Service Sep 07, 2017. Subjective Pt evaluation today including: conversation w/ patient, conversation w/ makeup sales consultant (Oncology) Voiding: soto catheter in place Pt denies pain, no BM, Soto with a little more urine that previous. Pt has some minor abd distension but says it's not bothering him much. No CP or SOB. D/w Oncology-no further chemo will be offered, pt would like to discuss Hospice Care but awaiting for his to arrive to discuss All Other Systems: Reviewed and Negative Objective Vital Signs Date Time Temp Pulse Resp B/P (MAP) Pulse Ox O2 Delivery O2 Flow Rate FiO2 09/07/17 09:13 Room Air 09/07/17 07:12 36.5 83 20 96/62 (73) 100 Room Air 09/07/17 04:03 36.4 85 18 99/68 (78) 100 Room Air 09/07/17 00:00 Room Air 09/06/17 22:58 36.6 60 18 96/66 (76) 09/06/17 20:01 36.6 84 20 104/66 (79) 100 Room Air 09/06/17 17:55 83 18 106/73 (84) 98 Room Air 09/06/17 17:48 36.3 82 16 92 09/06/17 16:00 Room Air 09/06/17 15:05 36.3 82 16 99/68 (78) 92 Room Air 09/06/17 12:01 Room Air 09/06/17 11:49 36.6 81 18 98/68 (78) 98 Room Air Physical Exam General Appearance: no apparent distress, + cachetic Eyes: normal inspection, sclerae normal ENT: hearing grossly normal Neck: trachea midline Respiratory/Chest: lungs clear, normal breath sounds, no respiratory distress, no accessory muscle use Cardiovascular: regular rate, rhythm, no murmur Abdomen: normal bowel sounds, + distended ( but still somewhat soft; numerous firm abd nodules palpable exteriorly), + tenderness (mild over abd wall nodules) Extremities: no pedal edema, no calf tenderness Neurologic/Psychiatric: alert, + depressed affect Skin: normal color, warm/dry, no rash Laboratory Results Last 24 Hours Test 09/06/17 11:45 09/07/17 05:39 Hemoglobin 7.4 g/dL 7.4 g/dL Hematocrit 22.6 % 23.1 % White Blood Count 7.86 K/uL Red Blood Count 2.39 M/uL Mean Corpuscular Volume 96.7 fL Mean Corpuscular Hemoglobin 31.0 pg Mean Corpuscular Hemoglobin Concent 32.0 g/dl Platelet Count 167 K/uL Mean Platelet Volume 10.2 fL Neutrophils (%) (Auto) 90.7 % Lymphocytes (%) (Auto) 6.5 % Monocytes (%) (Auto) 2.4 % Eosinophils (%) (Auto) 0.3 % Basophils (%) (Auto) 0.0 % Neutrophils # (Auto) 7.13 K/uL Lymphocytes # (Auto) 0.51 K/uL Monocytes # (Auto) 0.19 K/uL Eosinophils # (Auto) 0.02 K/uL Basophils # (Auto) 0.00 K/uL RDW Standard Deviation 55.9 fL RDW Coefficient of Variation 15.8 % Immature Granulocyte % (Auto) 0.1 % Immature Granulocyte # (Auto) 0.01 K/uL Poikilocytosis PRESENT Sodium Level 143 mmol/L Potassium Level 3.8 mmol/L Chloride Level 109 mmol/L Carbon Dioxide Level 21 mmol/L Anion Gap 13.0 mmol/L Blood Urea Nitrogen 71 mg/dl Creatinine 2.06 mg/dl Est Creatinine Clear Calc Drug Dose 28.0 ml/min Estimated GFR () 35.7 Estimated GFR (Non- 30.8 BUN/Creatinine Ratio 34.7 Random Glucose 79 mg/dl Calcium Level 7.9 mg/dl Assessment and Plan 72 yo male with metastatic esophageal CA, here with dehydration, profound hypotension, [place], and progressing metastatic disease, large volume ascites and carcinomatosis with abd wall nodules now palpable, cachexia and severe protein calorie malnutrition. Hypotension: improved with IVFs, low normal - Likely secondary to dehydration, ascites, hypoalbuminemia all from metastatic esophageal CA - received several days of IV fluids with NSS at 100 mls/hr , had received albumin 12 .5 mg every 6 hours 4 on admission -dc IVFs as is taking some po an BPs improved, may be transitioning to Hospice - Metoprolol currently held Anemia:stable today at 7.4 - Hemoglobin in the range of 7.2-7.4, baseline 9- 10.5 - Monitor hemoglobin and hematocrit - Hemoccult stool -transfuse if pt desires but may be moving towards Hospice Acute kidney injury/decreased urinary output-> slightly improved supervising chef today to 2.0 -Likely secondary to dehydration/hypotension - Creatinine baseline 1.3 -follow PRP unless becomes Hospice care Metastatic esophageal carcinoma: rapily progressing disease, previous chemotherapy -Dr. Joseph saw today from Oncology an recommends no further treatment, Hospice care--> pt and to have family mtg with Dr. Joseph today an then Consult Palliative Care - Abdominal CT suggestive of circumferential wall thickening in the distal esophagus in support of a history of esophageal cancer. Subtle soft tissue implants- Peritoneal carcinomatosis Cachexia/Severe protein calorie malnutrition secondary to metastatic CA: -Contributed by lack of appetite/anemia - Sql Server Architect consult appreciated -food as tolerated for comfort History of atrial fibrillation and syncope requiring PPM: Status post pacemaker Currently sinus rhythm - Rate controlled normally with metoprolol, currently held due to hypotension -No anticoagulation considering history of GI bleed DVT prophylaxis: SCDs Lovenox Disposition: Awaiting Palliative Care Consult an possible Hospice at Home would be pt's preference
[2017-09-07 11:54] VITALS: BP 95/65; PULSE 90; TEMP 36.4
--- NOTE | 2017-09-07 16:09 | Palliative Care Consultation ---
Consultation Date of Consultation: Sep 07, 2017. Requesting Physician: Dr. Subramanian Attending Physician: Dr. Subramanian Reason for Consultation: Goals of care History of Present Illness This 72 year old male patient with PMH metastatic esophageal adenocarcinoma presented to the ED a couple days ago with c/o poor PO intake, weakness, fatigue , and hypotension. Patient was seen recently in Dr. Stallworth's office at which time his BP was low. He was instructed to monitor BP at home and come to hospital if persistently low. Per record, BP was as low at 60s systolically. Patient was in hospital back in February and was to have esophagectomy, but unfortunately the surgery was aborted due to the unanticipated extent of the disease. Patient underwent chemotherapy, but this had to be stopped recently due to worsening performance status. Scans done in June 2017 showed stable disease, and most recent scans now show widely metastatic disease with carcinomatosis. Patient now has fairly severe failure to thrive and acute kidney injury, likely from dehydration/poor PO intake. He is admitted to [facility] and receiving IVF, feeling a little better. Oncologist came to see patient and is recommending no further chemotherapy and hospice. Palliative care consulted. I met with the patient, his Aure Suarez, and Dr. Long in room 402. Patient is awake and oriented x4. He is severely deconditioned and cachectic. His abdomen is distended and firm with palpable small masses under the skin. Bilateral lets are mottled at the knees. Patient and both stated that they would like the patient to get home with hospice. I further explained hospice and their service. states that her son from [place] is leaving [facility] to drive here and stay with them for at least a month. She thinks that with their son's help she will be able to take patient home on hospice. They verbalized understanding that hospice is a supportive service and is not there 15/06. Patient states he has been fortunate enough to not have pain throughout this entire process. he does experience some nausea/vomiting when eating at time. He has poor appetite, poor strength. He has been able to ambulate to toilet with the help of a walker, his and his daughter, but this is becoming increasingly difficult. We discussed code status and I offered to fill out a POLST form. I could see patient's demeanor immediately change and he said, "Tomorrow." We did further discuss code status/CPR/intubation. Patient said, "That doesn't sound like something I'd want," however he continued to say that he didn't want to make the decision until tomorrow. was at bedside for this conversation as well, she is supportive of patient. Past Medical/Surgical History Medical History: Esophageal adenocarcinoma with carcinomatosis Hypertension Atrial fibrillation Third degree AV block Pacemaker Social History Smoking Status: Former Smoker History of Alcohol Use: No Drug Use: none Marital Status: Housing Status: lives with family Occupation Status: retired Review of Systems Constitutional: + weight loss, + weakness, + fatigue ENT: No trouble swallowing Respiratory: No cough, No shortness of breath Cardiac: No chest pain, No edema Abdomen: + pain (only with palpation), + nausea, + vomiting, + constipation Musculoskeletal: + problem reported (loss of some feeling in both feet) Male : No problem reported Psychiatric: No anxiety Allergies Coded Allergies: Adhesives (Verified Allergy, Unknown, TAPE-RED ITCHY WITH SOME TAPE, 09/04) NO KNOWN DRUG ALLERGIES (Verified Allergy, Unknown, NONE, 04/13/17) Medications Current Inpatient Medications Medications (Trade) Dose Ordered Sig/Bulmaro Route Start Time Stop Time Status Last Admin Dose Admin Enoxaparin Sodium (Lovenox Inj) 30 mg Q24H SC 09/05/17 09:00 10/05/17 08:59 Future hold Al Hydrox/Mg Hydrox/Simethicone (Maalox Max Susp) 15 ml Q4H PRN PO 09/04/17 20:15 10/04/17 20:14 Magnesium Hydroxide (Milk Of Magnesia Susp) 30 ml Q12H PRN PO 09/04/17 20:15 10/04/17 20:14 Ondansetron HCl (Zofran Inj) 4 mg Q6H PRN IV 09/04/17 20:15 10/04/17 20:14 09/07/17 08:14 4 MG Polyethylene (Miralax Powder Packet) 17 gm DAILY PRN PO 09/04/17 20:15 10/04/17 20:14 Multivitamins (Multivitamin Tab) 1 tab QAM PO 09/05/17 09:00 10/05/17 08:59 09/07/17 08:17 1 TAB Ondansetron HCl (Zofran Tab) 8 mg Q8H PRN PO 09/04/17 20:15 10/04/17 20:14 Oxycodone HCl (Roxicodone Immediate Rel Tab) 5 mg Q4 PRN PO 09/04/17 20:15 09/18/17 20:14 Prochlorperazine Maleate (Compazine Tab) 10 mg Q6H PRN PO 09/04/17 20:15 10/04/17 20:14 Tramadol HCl (Ultram Tab) 50 mg Q4H PRN PO 09/04/17 20:15 10/04/17 20:14 09/05/17 16:57 50 MG Dronabinol (Marinol Cap) 5 mg TIDM PO 09/05/17 07:30 10/05/17 07:29 09/07/17 08:17 5 MG Heparin Sodium (Porcine) (Heparin 100 Unit/ml 5ml Flush) 5 ml PRN PRN IV 09/05/17 00:30 10/05/17 00:29 Enteral Nutritional Formula (Boost) 1 can TIDM PO 09/05/17 18:00 10/05/17 17:59 09/07/17 08:17 1 CAN Pantoprazole Sodium (Protonix Tab) 40 mg QAM PO 09/06/17 09:00 10/06/17 08:59 09/07/17 08:18 40 MG Physical Exam Date Time Temp Pulse Resp B/P (MAP) Pulse Ox O2 Delivery O2 Flow Rate FiO2 09/07/17 11:54 36.4 90 16 95/65 (75) 09/07/17 09:13 Room Air 09/07/17 07:12 36.5 83 20 96/62 (73) 100 Room Air 09/07/17 04:03 36.4 85 18 99/68 (78) 100 Room Air 09/07/17 00:00 Room Air 09/06/17 22:58 36.6 60 18 96/66 (76) 09/06/17 20:01 36.6 84 20 104/66 (79) 100 Room Air 09/06/17 17:55 83 18 106/73 (84) 98 Room Air 09/06/17 17:48 36.3 82 16 92 09/06/17 16:00 Room Air General Appearance: no apparent distress, + cachetic, + thin ENT: hearing grossly normal Neck: supple, no JVD Respiratory: lungs clear, no respiratory distress, no accessory muscle use Cardiovascular: regular rate, rhythm, no edema, + pertinent finding (weak pedal pulses) Abdomen: normal bowel sounds, + distended (firm), + pertinent finding ( palpable abdominal lesions) Musculoskeletal: pertinent finding (poor tone, severely deconditioned) Neurologic/Psychiatric: alert, oriented x 3, + depressed affect Skin: + mottled (knees are mottled), + pertinent finding (pallor, ashen) Laboratory Results Last 24 Hours Test 09/07/17 05:39 White Blood Count 7.86 K/uL Red Blood Count 2.39 M/uL Hemoglobin 7.4 g/dL Hematocrit 23.1 % Mean Corpuscular Volume 96.7 fL Mean Corpuscular Hemoglobin 31.0 pg Mean Corpuscular Hemoglobin Concent 32.0 g/dl Platelet Count 167 K/uL Mean Platelet Volume 10.2 fL Neutrophils (%) (Auto) 90.7 % Lymphocytes (%) (Auto) 6.5 % Monocytes (%) (Auto) 2.4 % Eosinophils (%) (Auto) 0.3 % Basophils (%) (Auto) 0.0 % Neutrophils # (Auto) 7.13 K/uL Lymphocytes # (Auto) 0.51 K/uL Monocytes # (Auto) 0.19 K/uL Eosinophils # (Auto) 0.02 K/uL Basophils # (Auto) 0.00 K/uL RDW Standard Deviation 55.9 fL RDW Coefficient of Variation 15.8 % Immature Granulocyte % (Auto) 0.1 % Immature Granulocyte # (Auto) 0.01 K/uL Poikilocytosis PRESENT Sodium Level 143 mmol/L Potassium Level 3.8 mmol/L Chloride Level 109 mmol/L Carbon Dioxide Level 21 mmol/L Anion Gap 13.0 mmol/L Blood Urea Nitrogen 71 mg/dl Creatinine 2.06 mg/dl Est Creatinine Clear Calc Drug Dose 28.0 ml/min Estimated GFR () 35.7 Estimated GFR (Non- 30.8 BUN/Creatinine Ratio 34.7 Random Glucose 79 mg/dl Calcium Level 7.9 mg/dl Assessment & Plan Palliative Performance Scale: 20 % Problem list: Weakness Fatigue Poor PO intake/failure to thrive Nausea/vomiting Constipation Metastatic esophageal adenocarcinoma with carcinomatosis Ascites, large volume on abd/pelvis CT scan [place] Anemia Goals of care (Z51.5) Palliative care recs: discussed with patient, Aure Suarez, and Dr. Long. -I specifically addressed code status, as patient remains level 1 Full Code. I am concerned about this as patient is mottled up to knees, in multi-organ system failure, widespread metastatic disease, etc., and remains full code. He truly appears to me to be in the active dying process. I discussed code status with patient and . They verbalized understanding, but patient wishes to make a decision tomorrow. -Patient wants to pursue comfort/hospice care. Wishes to get home to his house, is agreeable to take him. they are involved with [facility] through [employer]-- spoke with case technician who will look into their capabilities. Referral to hospice agency will be done if [facility] not able to do hospice. -No pain at this time. -Please order Mirilax daily to keep bowels moving. Encouraged patient to constantly sip water as tolerated. -Occasional nausea/vomiting. Would do ondansetron 4mg ODT SL Q6h scheduled. -Son from [place] is leaving [facility] to come and see patient. HE is driving, will be here in two and a half days per the . -Possible palliative paracentesis. -Will do POLST form tomorrow as requested by patient. Thank you kindly for this consult. I will follow.
[2017-09-07 16:20] VITALS: BP 96/67; PULSE 94; TEMP 36.6; O2SAT 95
[2017-09-07 19:45] VITALS: BP 110/70; PULSE 85; TEMP 36.5; O2SAT 94
[2017-09-07] MEDS ORDERED: ONDANSETRON 4MG OD TAB PO PRN (22:15)
[2017-09-07 23:07] VITALS: BP 112/76; PULSE 81; TEMP 36.5; O2SAT 94
[2017-09-08] VITALS (8 sets, daily range): BP systolic 81–103; BP diastolic 54–70; PULSE 72–87; TEMP 34.3–36.6; O2SAT 92–100
[2017-09-08 06:31] LABS: CREATININE 2.15 mg/dl (0.60-1.40)
[2017-09-08] MEDS: BOOST VANILLA PO SCH ×6 (08:33→17:00)
[2017-09-08] MEDS: ENOXAPARIN 30 MG/0.3 ML SYR SC SCH (08:33)
--- NOTE | 2017-09-08 09:52 | DIAGNOSTIC IMAGING REPORT ---
PARACENTESIS UNDER ULTRASOUND GUIDANCE CLINICAL HISTORY: Abdominal ascites. Distention. COMPARISON STUDY: Abdominal CT dated 09/04/2017. PROCEDURE: The risks, benefits, and alternatives to the procedure were discussed with the patient who voiced understanding. Written informed consent was obtained. Following real-time ultrasound localization of a suitable pocket of fluid in the left lower quadrant, the abdomen was prepped and draped in the usual sterile fashion. The skin and soft tissues were anesthetized with 1% lidocaine. The sheathed paracentesis was inserted and approximately 2 liters of straw-colored ascitic fluid was removed by vacuum suction. The procedure was well tolerated and without immediate complication. The patient left the department in satisfactory condition. IMPRESSION: Successful ultrasound-guided paracentesis with removal of approximately 2 liters of ascitic fluid. Electronically signed by: Terell Diaz M.D. 09/08/2017 9:51 AM Dictated Date/Time: 09/08/2017 9:49 AM
[2017-09-08] MEDS: PANTOprazole SOD 40 MG TAB PO SCH (10:03)
[2017-09-08] MEDS: DRONABINOL 2.5 MG CAP PO SCH ×3 (10:03→17:00)
[2017-09-08] MEDS: MULTIVITAMIN TAB PO SCH (10:03)
[2017-09-08] MEDS: POLYETHYLENE (MIRALAX) 17 GM PACK PO SCH (10:03)
[2017-09-08] MEDS ORDERED: NURSING VERBAL MED ORDER ONE (10:15)
--- NOTE | 2017-09-08 13:33 | Palliative Care Progress Note ---
Palliative Care Progress Note Date of Service Sep 08, 2017. Subjective Pt evaluation today including: conversation w/ patient, conversation w/ family ( Aure Suarez, sister Sadie), physical exam, conversation w/ account consultant Pain: 0/10 PO Intake: small amounts Voiding: soto catheter in place Met with patient, his Aure Suarez, and sister Sadie. POLST form completed. Patient would like to be DNR. Plan is for home with hospice as soon as possible. Review of Systems Constitutional: No weakness ENT: No trouble swallowing Respiratory: No cough, No shortness of breath Cardiac: No chest pain, No edema Abdomen: + nausea, + vomiting, No pain Psychiatric: No anxiety Objective Vital Signs Date Time Temp Pulse Resp B/P (MAP) Pulse Ox O2 Delivery O2 Flow Rate FiO2 09/08/17 12:04 34.3 72 12 90/60 (70) Room Air 09/08/17 11:01 36.3 79 16 101/70 (80) 97 Room Air 09/08/17 07:50 Room Air 09/08/17 07:34 36.4 87 14 99/66 (77) 92 Room Air 09/08/17 07:26 36.3 85 16 90/63 (72) 94 Room Air 09/08/17 04:25 36.6 76 18 81/54 (63) 95 Room Air 09/08/17 00:00 Room Air 09/07/17 23:07 36.5 81 20 112/76 (88) 94 Room Air 09/07/17 19:45 36.5 85 18 110/70 (83) 94 Room Air 09/07/17 16:20 36.6 94 18 96/67 (77) 95 Room Air 09/07/17 16:00 Room Air Physical Exam General Appearance: no apparent distress ENT: hearing grossly normal Neck: supple, no JVD Respiratory/Chest: no respiratory distress, no accessory muscle use Cardiovascular: regular rate, rhythm, no edema Abdomen: + pertinent finding (less distended, more soft. still with palpable lesions on abdomen) Neurologic/Psychiatric: alert, oriented x 3 Skin: + mottled (bilateral knees), + pallor Laboratory Results Last 24 Hours Test 09/08/17 05:34 Creatinine 2.15 mg/dl Est Creatinine Clear Calc Drug Dose 28.3 ml/min Estimated GFR () 33.9 Estimated GFR (Non- 29.3 Assessment and Plan Problem list: Weakness Fatigue Poor PO intake/failure to thrive Nausea/vomiting Constipation Metastatic esophageal adenocarcinoma with carcinomatosis Ascites, large volume on abd/pelvis CT scan [place] Anemia Goals of care (Z51.5) Palliative care recs: discussed with patient, Aure Suarez, sister Sadie, and Dr. Subramanian. -With and sister present at bedside, patient completed POLST form as follows: DNR, limited additional interventions, abx with comfort as the goal, and trial of IVF if indicated but no feeding tube. Code status/DNR was fully explained-- patient and family denied questions/concerns. -Had paracentesis this morning. Is feeling some relief of abdominal fullness with 2L fluid removed. -Has Soto catheter at this time, up to patient and his comfort whether or not he'd like to continue this at home. -Still has no pain. -Plan is for home with hospice. clinical case manager aware. Patient ready for discharge per attending physician. Thank you again for this consult. Please contact me with any further palliative care needs. Palliative Performance Scale: 40 % (out of bed today)
[2017-09-08] MEDS ORDERED: PANTOprazole SOD 40 MG TAB PO SCH (21:00)
--- NOTE | 2017-09-08 23:05 | Hospitalist Progress Note ---
Hospitalist Progress Note Date of Service Sep 08, 2017. Subjective Pt evaluation today including: conversation w/ patient, conversation w/ information services consultant (Palliative Care) Pt had therapeutic paracentesis today, just returned from that when I saw him this MA. No complaints. All Other Systems: Reviewed and Negative Objective Vital Signs Date Time Temp Pulse Resp B/P (MAP) Pulse Ox O2 Delivery O2 Flow Rate FiO2 09/08/17 20:55 36.5 80 18 103/70 (81) 92 Room Air 09/08/17 16:15 Room Air 09/08/17 15:09 36.4 78 16 89/54 (66) 100 Room Air 09/08/17 12:04 34.3 72 12 90/60 (70) Room Air 09/08/17 11:01 36.3 79 16 101/70 (80) 97 Room Air 09/08/17 07:50 Room Air 09/08/17 07:34 36.4 87 14 99/66 (77) 92 Room Air 09/08/17 07:26 36.3 85 16 90/63 (72) 94 Room Air 09/08/17 04:25 36.6 76 18 81/54 (63) 95 Room Air 09/08/17 00:00 Room Air 09/07/17 23:07 36.5 81 20 112/76 (88) 94 Room Air Physical Exam General Appearance: no apparent distress, + cachetic Eyes: normal inspection, sclerae normal ENT: hearing grossly normal Neck: trachea midline Respiratory/Chest: lungs clear, normal breath sounds, no respiratory distress, no accessory muscle use Cardiovascular: regular rate, rhythm, no edema, no gallop, no murmur Abdomen: normal bowel sounds, + distended (but much softer than previously), + tenderness (over areas of carcinamotosis palpable on abdomen) Extremities: non-tender, no pedal edema, no calf tenderness Neurologic/Psychiatric: alert, + depressed affect Skin: warm/dry Laboratory Results Last 24 Hours Test 09/08/17 05:34 Creatinine 2.15 mg/dl Est Creatinine Clear Calc Drug Dose 28.3 ml/min Estimated GFR () 33.9 Estimated GFR (Non- 29.3 Assessment and Plan Pt is a 72 yo male with metastatic esophageal CA, here with dehydration, profound hypotension, [place], and progressing metastatic disease, large volume ascites and carcinomatosis with abd wall nodules now palpable, cachexia and severe protein calorie malnutrition. Hypotension: improved with IVFs, low normal - Likely secondary to dehydration, ascites, hypoalbuminemia all from metastatic esophageal CA - received several days of IV fluids with NSS at 100 mls/hr , had received albumin 12 .5 mg every 6 hours 4 on admission -dc IVFs as is taking some po an BPs improved, may be transitioning to Hospice - Metoprolol currently held Anemia:stable at 7.4 - Hemoglobin in the range of 7.2-7.4, baseline 9- 10.5 -no further lab draws as is on hospice Acute kidney injury/decreased urinary output-> stable to slightly worse today at 2.1 -Likely secondary to dehydration/hypotension - Creatinine baseline 1.3 -no further lab draws Metastatic esophageal carcinoma: rapily progressing disease, previous chemotherapy -Dr. Joseph saw pt from Oncology and recommends no further treatment, Hospice care - Abdominal CT suggestive of circumferential wall thickening in the distal esophagus in support of a history of esophageal cancer. Subtle soft tissue implants- Peritoneal carcinomatosis -Palliative Care NEWSPAPER EDITOR consult much appreciated -had therapeutic paracentesis today and tolerated well -ODT Zofran prn Nausea -plan for home with Hospice when equipment can be set up-hopeful for tomorrow Cachexia/Severe protein calorie malnutrition secondary to metastatic CA: -Contributed by lack of appetite/anemia - Arts Administrator consult appreciated -food as tolerated for comfort History of atrial fibrillation and syncope requiring PPM: Status post pacemaker Currently sinus rhythm - Rate controlled normally with metoprolol, currently held due to hypotension -No anticoagulation considering history of GI bleed DVT prophylaxis: will dc given comfort measures Disposition: Hospice at Home tomorrow once equipment set up
[2017-09-09 07:43] VITALS: BP 102/71; PULSE 92; TEMP 34.8; TEMP 36; O2SAT 92
[2017-09-09 08:30] VITALS: O2SAT 92
[2017-09-09] MEDS ORDERED: ONDA8TAB6 PO (08:38)
[2017-09-09] MEDS ORDERED: MRLP17 PO (08:38)
--- NOTE | 2017-09-09 08:43 | Discharge Instructions ---
Discharge Instructions Date of Service Sep 09, 2017. Admission Reason for Admission: Acute Renal Failure, Dehydration, Hypotension Discharge Discharge Diagnosis / Problem: Acute renal failure, dehydration, hypotension, metastatic esophageal cancer Discharge Goals Goal(s): Decrease discomfort, Therapeutic intervention Activity Recommendations Activity Limitations: as noted below Exercise/Sports Limitations: as tolerated Shower/Bathe: no limitations . Instructions / Follow-Up Instructions / Follow-Up You were admitted for low blood pressure, dehydration, leading to acute kidney failure. Your blood pressure medication was stopped. You had drainage of some of the fluid from your belly to help with abdominal discomfort. Due to the rapid progression of your cancer, Dr. Joseph did not feel like any further chemotherapy would be beneficial for you. Arrangements have been made for Home Hospice for comforting measures at this point. If at any time, your symptoms cannot be managed at home by Home Hospice, you can return to the hospital for further care. Current Hospital Diet Patient's current hospital diet: Full Liquid Diet Discharge Diet Recommended Diet: Full Liquid Diet Procedures Procedures Performed: Therapeutic abdominal paracentesis Pending Studies Studies pending at discharge: no Medical Emergencies . Who to Call and When: Medical Emergencies: If at any time you feel your situation is an emergency, please call 911 immediately. . Non-Emergent Contact Non-Emergency issues call your: Primary Care Provider (Home Hospice) . . "Provider Documentation" section prepared by Rosaura Subramanian. . VTE Core Measure Inpt VTE Proph given/why not?: Enoxaparin (Lovenox)SQ
[2017-09-09] MEDS: BOOST VANILLA PO SCH ×4 (08:58→12:00)
[2017-09-09] MEDS: POLYETHYLENE (MIRALAX) 17 GM PACK PO SCH (08:58)
[2017-09-09] MEDS: DRONABINOL 2.5 MG CAP PO SCH ×2 (08:59→12:00)
[2017-09-09 11:55] VITALS: BP 100/69; PULSE 90; TEMP 36; O2SAT 96
[2017-09-09 12:19] VITALS: BP 100/69; PULSE 90; TEMP 36; O2SAT 96
[2017-09-09 14:31] VITALS: BP 91/58; PULSE 95; TEMP 36.5; O2SAT 95
--- NOTE | 2017-09-09 16:21 | Discharge Summary ---
Discharge Summary Date of Service Sep 09, 2017. Discharge Summary Admission Date: Sep 04, 2017 at 20:22 Discharge Date: Sep 09, 2017 Discharge Disposition: Home with services (Home Hospice) Principal Diagnosis: Metastatic esophageal cancer, hypotension, [place] Problems/Secondary Diagnoses: Dehydration Malignant ascites Carcinomatosis Cachexia and severe protein calorie malnutrition Hypoalbuminemia Anemia Nausea/vomiting Paroxysmal atrial fibrillation Pacemaker in situ Immunizations: Have You Had Influenza Vaccine: N/A History of Tetanus Vaccine?: Yes Tetanus Immunization Date: Feb 05, 2008 History of Pneumococcal: No Pneumococcal Date: Aug 07, 2008 History of Hepatitis B Vaccine: No Procedures: Therapeutic abdominal paracentesis CT abd/pel CXR Consultations: Oncology Palliative Care Medication Reconciliation New Medications: Polyethylene (Miralax) 17 Gm Pow 17 GM PO DAILY for 30 Days Changed Medications: Ondansetron Hcl (Zofran) 8 Mg Tab 8 MG PO Q8H PRN for Nausea for 7 Days, #21 TAB (Medication details modified) ODT form please Continued Medications: Dronabinol (Marinol) 5 Mg Cap 5 MG PO TIDM Omeprazole (Omeprazole) 20 Mg Tab 40 MG PO DAILY for 90 Days, #180 TAB 3 Refills Prochlorperazine Maleate (Compazine) 10 Mg Tab 10 MG PO Q6H PRN for Nausea, TAB Tramadol (Ultram) 50 Mg Tab 50 MG PO Q4H PRN for Pain, TAB Discontinued Medications: Metoprolol Succinate (Toprol Xl) 50 Mg Tab 50 MG PO DAILY, #30 TAB Multivitamin (Multivitamin) Tab 1 TAB PO QAM Oxycodone HCl (Oxycodone HCl) 5 Mg Tab 5 MG PO Q4 PRN for Pain for 3 Days, TAB Discharge Exam Pt having some nausea and dry heaves after eating cream of chicken soup for breakfast, otherwise fatigued, ready to go home with Hospice today Physical Exam Vitals reviewed General Appearance: no apparent distress, + cachetic Eyes: normal inspection, sclerae normal ENT: hearing grossly normal Neck: trachea midline Respiratory/Chest: lungs clear, normal breath sounds, no respiratory distress, no accessory muscle use Cardiovascular: regular rate, rhythm, no edema, no gallop, no murmur Abdomen: normal bowel sounds, + distended (but much softer than previously), + tenderness (over areas of carcinamotosis palpable on abdomen) Extremities: non-tender, no pedal edema, no calf tenderness Neurologic/Psychiatric: alert, + depressed affect Skin: warm/dry Review of Systems: Constitutional: + fatigue, No fever Eyes: No problem reported ENT: No problem reported Respiratory: No shortness of breath Cardiovascular: No chest pain Abdomen: + nausea, + vomiting, + constipation Musculoskeletal: No problem reported Genitourinary - Male: No problem reported Neurologic: No problem reported Psychiatric: No problem reported Endocrine: No problem reported Hematologic / Lymphatic: No problem reported Integumentary: No problem reported Hospital Course Pt is a 72 yo male with metastatic esophageal CA, here with dehydration, profound hypotension, [place], and progressing metastatic disease, large volume ascites and carcinomatosis with abd wall nodules now palpable, cachexia and severe protein calorie malnutrition. Hypotension: improved with IVFs, low normal - Likely secondary to dehydration, ascites, hypoalbuminemia all from metastatic esophageal CA - received several days of IV fluids with NSS at 100 mls/hr , received albumin 12 .5 mg every 6 hours 4 on admission -dcd IVFs as is taking some po an BPs improved, and now transitioning to Hospice - Metoprolol discontinued Anemia:stable at 7.4 - Hemoglobin in the range of 7.2-7.4, baseline 9- 10.5 -no further lab draws as is on hospice Acute kidney injury/decreased urinary output-> stable at 2.1 -Likely secondary to dehydration/hypotension - Creatinine baseline 1.3 -no further lab draws -removed Mancini catheter prior to discharge at pt's request Metastatic esophageal carcinoma: rapily progressing disease, previous chemotherapy -Dr. Joseph saw pt from Oncology and recommends no further treatment, Hospice care - Abdominal CT suggestive of circumferential wall thickening in the distal esophagus in support of a history of esophageal cancer. Subtle soft tissue implants- Peritoneal carcinomatosis -Palliative Care ZONING ASSISTANT consult much appreciated -had therapeutic paracentesis and tolerated well -ODT Zofran prn Nausea -has tramadol at home for pain but not really requiring much in the way of analgesia here at all for now -plan for home with Hospice today Cachexia/Severe protein calorie malnutrition secondary to metastatic CA: -secondary to metastatic disease and lack of appetite -food as tolerated for comfort History of atrial fibrillation and syncope requiring PPM: Status post pacemaker Currently sinus rhythm - Rate controlled normally with metoprolol, but discontinued due to hypotension -No anticoagulation considering history of GI bleed To home with Hospice today Total Time Spent: Greater than 30 minutes This includes examination of the patient, discharge planning, medication reconciliation, and communication with other providers. Discharge Instructions Please refer to the electronic Patient Visit Report (Discharge Instructions) for additional information. Follow-Up None needed Additional Copies To Vinny Santa M.D.
== END 2017-09-09 16:20 | disposition hospice, home (50) | DRG 682 ==
LOC: C.EDB 17:14 → C.2T 20:22 → ENRESERV 20:36 → C.4E 09-06 17:54
PROVIDERS: ADMIT Internal Medicine; ATTEND Family Medicine
PROC: 0W9G3ZZ Drainage of Peritoneal Cavity, Percutaneous Approach (ICD-10-PCS; principal; 2017-09-08)
DX: N17.0 Acute kidney failure with tubular necrosis (principal); E43 Unspecified severe protein-calorie malnutrition; C15.9 Malignant neoplasm of esophagus, unspecified; I44.2 Atrioventricular block, complete; C80.0 Disseminated malignant neoplasm, unspecified; Z51.5 Encounter for palliative care; I10 Essential (primary) hypertension; I48.0 Paroxysmal atrial fibrillation; I95.9 Hypotension, unspecified; D64.9 Anemia, unspecified; Z87.891 Personal history of nicotine dependence